=== PATIENT | female | born 1950 | race African-American/Black ===

== ENCOUNTER 2017-10-01 18:18 | Inpatient (IN) | payer OTHER, MEDICAID ==
[~2017-10-01] VITALS: Ht 165.1 cm; Wt 94.3 kg
[~2017-10-01 18:18] MED LIST: FURO-570; GABA600T1; GLIP10TA12; LANTUS IM/IV/SUBQ; LEVO0.124; [UNRECOGNIZED DRUG - CODE]; [UNRECOGNIZED DRUG - CODE]
--- NOTE | 2017-10-01 18:23 | NUR ---
PT TAKEN BY WHEELCHAIR TO BED 2 Addendum: 10/01/17 at 1827 by MEDHT BED 10
[2017-10-01] MEDS ORDERED: NACL 0.9% 1,000 ML IV ONE (18:40)
[2017-10-01 18:41] VITALS: BP 148/94
--- NOTE | 2017-10-01 19:15 | NUR ---
RECEIVED PT RESTING IN BED WITH FAMILY AT BEDSIDE. PT CAME IN WITH COMPLAINTS OF RIGHT SIDED CP 03/13 . PT IS AOX4 . PT STATED THAT THE PAIN STARTED ON 09/26 ATFER A CHANGE OF HER TRACH. PT IS VENT DEPENDENT, HAS A OF PA IN NOV, STROKE WITH RIGHT SIDED DEFICITS. RESPIRATORY FAILIURE, PICC PLAISED 06/27/15, LAMINECTOMY, SPINAL CORD INJURY, TOTAL PARALYSIS, PACEMAKER, DIAPHRAGM REPAIR SURGERY, ESOPHAGUS DISORDER. LUNG SOUNDS DIMINISHED IN BILAT LOWER LOBES. PT IN NO APPARENT DISTRESS AT THIS TIME. ER MD MADE AWARE.
--- NOTE | 2017-10-01 19:20 | NUR ---
LAB AT BEDSIDE
[2017-10-01] MEDS ORDERED: fentaNYL 0.05 MG/ML VIAL IVP ONE ×2 (19:30→21:35)
[2017-10-01 20:03] LABS: BASOPHILS % (AUTO) 0.2 % (0.0-2.0); HEMATOCRIT 31.2 % (36-48); HEMOGLOBIN 10.1 g/dL (12.0-16.0); LYMPHOCYTES % (AUTO) 15.5 % (20.5-51.1); MEAN CORPUSCULAR HEMOGLOBIN 29 pg (27-31); MEAN CORPUSCULAR HGB CONC 32 g/dL (33-37); MEAN CORPUSCULAR VOLUME 90.4 fL (80-94); MONOCYTES # (AUTO) 0.9 K/uL (0.8-1.0); MONOCYTES % (AUTO) 7.1 % (1.7-9.3); NEUTROPHILS # (AUTO) 9.8 K/uL (1.8-7.7); NEUTROPHILS % (AUTO) 77.2 % (42.2-75.2); PLATELET COUNT (AUTO) 224 K/uL (140-450); RED BLOOD CELL COUNT(AUTO) 3.45 MIL/uL (4.20-5.40); RED CELL DISTRIBUTION WIDTH 14.8 % (11.6-13.7); WHITE BLOOD COUNT (AUTO) 12.7 K/uL (4.8-10.8)
[2017-10-01 20:14] LABS: ANION GAP 15.3 (8-16); CARBON DIOXIDE 25.7 mmol/L (21-32); CREATININE 1.1 mg/dL (0.6-1.3)
[2017-10-01] MEDS ORDERED: ACET-5636 PO (20:16)
[2017-10-01] MEDS ORDERED: LEVO0.155 PO (20:16)
[2017-10-01] MEDS ORDERED: ONDA8ODT2 PO (20:16)
[2017-10-01] MEDS ORDERED: ATOR10TA PO (20:16)
[2017-10-01] MEDS ORDERED: ALLO100T21 PO (20:16)
[2017-10-01] MEDS ORDERED: METO-485 PO (20:16)
[2017-10-01] MEDS ORDERED: DOCU-299 PO (20:16)
[2017-10-01] MEDS ORDERED: MULT-1469 PO (20:16)
[2017-10-01] MEDS ORDERED: BEN50 PO (20:16)
[2017-10-01] MEDS ORDERED: INSU100S45 SUBQ (20:16)
[2017-10-01] MEDS ORDERED: ERGO400T3 PO (20:16)
[2017-10-01 20:20] LABS: TOTAL BILIRUBIN 0.3 mg/dL (0.0-1.0)
[2017-10-01] MEDS ORDERED: COU1 GT (20:22)
[2017-10-01] MEDS ORDERED: CILO100T PO (20:22)
--- NOTE | 2017-10-01 20:27 | NUR ---
PT TO CT VIA GURNEY WITH RT AND RN IN STABLE CONDITION.
[2017-10-01] MEDS ORDERED: NACL 0.9% 2,600 ML IV ONE (20:30)
[2017-10-01] MEDS ORDERED: LEVOFLOXACIN 750 MG/D5W PREMIX 150 ML IV ONE (20:30)
--- NOTE | 2017-10-01 20:45 | NUR ---
PT RETURNED FROM CT VIA [facility] IN STABLE CONDITION.
--- NOTE | 2017-10-01 21:40 | NUR ---
DR HICKMAN MADE AWARE OF DIFFICULTIES WITH PICC LINE. UNABLE TO INFUSE FLUIDS AT A FAST VOLUME. OK PER DR HICKMAN TO RUN AT RATE WHICH WILL ACCOMODATE PICC LINE. IF PICC LINE INFUSION IS AT FAST RATE, THERE IS FLUID LEAKAGE AT EXIT SITE. PT STATES THIS HAS BEEN A PROBLEM AT HOME AND USUALLY IT IS RUN AT HOME AT A RATE OF 25CC/HR. PT STATES THE REASON SHE HAS PICC LINE IS BECAUSE SHE IS A DIFFICULT PIV START. PT WILL BE ADMITTED. PICC LINE TEAM WILL NEED TO ASSESS LINE IN THE AM.
--- NOTE | 2017-10-01 21:40 | NUR ---
NS AT 10 CC/ HR , OKAY BY DR HICKMAN DUE TO PICC LINE. DRESSING CHANGE DONE FOR PICC LINE.
--- NOTE | 2017-10-01 22:31 | NUR ---
PATIENT TAKEN TO THE FLOOR FOR ADMISSION
--- NOTE | 2017-10-01 22:35 | NUR ---
PT ARRIVED AT UNIT VIA GURNEY, TRANSFERRED PT TO BED, PT TOLERATED WELL, REPORT RECEIVED FROM ED NURSE, PT PICC LINE TO THE R UPPER ARM, PATENT, LEAKAGE NOTED, NURSING SUPPLY CHAIN SYSTEMS MANAGER ALREADY NOTIFIED REGARDING PT PICC LINE LEAKING, PT ON TRACH TO VENT, NO SOB, RT AT BEDSIDE, ORIENT PT TO ROOM, CALL LIGHT AND PHONE, PT STATED UNDERSTANDING, PT AAOX4, MRSA SWAB TAKEN, INITIAL ASSESSMENT DONE, ALL SAFETY PRECAUTION MET, WILL CONTINUE TO MONITOR.
[2017-10-01 22:38] VITALS: BP 143/66
--- NOTE | 2017-10-01 22:38 | NUR ---
Patient will be admitted to care of DR. KINCAID. Admited to TELE. Will go to room 108B. Belongings list completed. Report to PHOEBE BALDERAS.
[2017-10-01] MEDS ORDERED: NON-FORMULARY ITEM (Oxycodone HCl/Acetaminophen (Percocet 10-325 mg Tablet) 1 TAB) PO PRN (22:45)
[2017-10-01] MEDS: DEXT 5% /NACL 0.9% 1,000 ML IV SCH (23:00)
[2017-10-01] MEDS ORDERED: DEXTROSE 50% 50 ML SYR IVP PRN (23:00)
[2017-10-01] MEDS ORDERED: ACETAMINOPHEN 325 MG TAB GT PRN (23:00)
[2017-10-01] MEDS ORDERED: HYDROcodone/APAP 5/325 MG 1 TAB TAB GT PRN (23:00)
--- NOTE | 2017-10-01 23:40 | NUR ---
CALLED DR. KINCAID REGARDING ORDER OF OXYCODONE NOT AVAILABLE 10/325 PER ORDER, PHARMACY STATED THAT ONLY 5/325 TABLETS ARE AVAILABLE IN THE UNIT. DR STATE TO ORDER 2 TABLETS OF 5/325MG OXYCODONE INSTEAD. WILL PUT IN ORDERS AND CONTINUE WITH ORDERS.
[2017-10-01] MEDS ORDERED: ACETAMINOPHEN 325 MG TAB PO PRN (23:47)
--- NOTE | 2017-10-01 23:50 | NUR ---
URINE SAMPLE OBTAINED FOR CULTURE, PT REFUSED URINARY CATH, CLEAN CATCH URINE WAS OBTAINED, PT TOLERATED WELL, NO DISTRESS NOTED, CALL LIGHT WITHIN REACH, WILL CONTINUE TO MONITOR.
[2017-10-01] MEDS: oxyCODONE/APAP 5/325 MG 1 TAB TAB PO PRN (23:58)
--- NOTE | 2017-10-01 23:58 | NUR ---
PT C/O PAIN 01/11 ON THE R SHOULDER, PAIN MEDICATION ADMINISTERED, TOLERATED WELL, NO DISTRESS NOTED, CALL LIGHT WITHIN REACH, WILL CONTINUE TO MONITOR
[2017-10-02] VITALS: BP 144/69
--- NOTE | 2017-10-02 | NUR ---
NS BOLUS WAS STILL INFUSING IVF D5NS WAS NOT ADMINISTERED.
[2017-10-02] MEDS: ALBUTEROL SULFATE/IPRATROPIU 3 ML SOL IH PRN ×4 (03:05→23:58)
--- NOTE | 2017-10-02 03:15 | NUR ---
UNABLE TO GET SPUTUM SAMPLE. MUCOUS TRAP IS CONNECTED TO BURK WHEN PATIENT CAN GIVE A SPECIMEN
--- NOTE | 2017-10-02 03:32 | NUR ---
PT REFUSES SCD STATED THAT HER PRIMARY CARE DOES NOT WANT ANY THING ON HER CALFS, PT PICC LINE STILL LEAKING, UNABLE TO GET ANY IV LINE INSERTED, PT IS A HARD STICK, IVF STOPPED, PT STABLE, NO DISTRESS NOTED, CALL LIGHT WITHIN REACH, WILL CONTINUE TO MONITOR. Addendum: 10/02/17 at 0500 by Helen Duvall RN SPUTUM COLLECTED, ONLY SMALL AMOUNT WAS ABLE TO BE COLLECTED, DOLL WIG MAKER ROOTED HAIR SAID IS NOT ENOUGH FOR SAMPLE, WILL ENDORSED TO ONCOMING SHIFT FOR SAMPLE.
[2017-10-02 04:00] VITALS: BP 152/83
[2017-10-02] MEDS: oxyCODONE/APAP 5/325 MG 1 TAB TAB PO PRN ×3 (06:17→19:03)
[2017-10-02] MEDS: LEVOTHYROXINE 0.075 MG TAB PO SCH (06:17)
--- NOTE | 2017-10-02 06:17 | NUR ---
PT C/O PAIN, PAIN MEDICATION GIVEN, PT DUE MEDICATION ALSO GIVEN, PT TOLERATED WELL, NO DISTRESS NOTED, CALL LIGHT WITHIN REACH, WILL CONTINUE TO MONITOR.
[2017-10-02] MEDS: BLOOD GLUCOSE MONITORING 1 DEV DEV FS SCH ×4 (06:29→21:56)
--- NOTE | 2017-10-02 06:34 | NUR ---
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 POX IN PLACE
[2017-10-02 06:57] LABS: BASOPHILS % (AUTO) 0.4 % (0.0-2.0); EOSINOPHILS # (AUTO) 0.1 K/uL (0-0.4); EOSINOPHILS % (AUTO) 0.8 % (0.0-4.0); HEMATOCRIT 27.3 % (36-48); HEMOGLOBIN 9.1 g/dL (12.0-16.0); LYMPHOCYTES # (AUTO) 2.4 K/uL (2.5-16.5); LYMPHOCYTES % (AUTO) 24.5 % (20.5-51.1); MEAN CORPUSCULAR HEMOGLOBIN 30 pg (27-31); MEAN CORPUSCULAR HGB CONC 33 g/dL (33-37); MEAN CORPUSCULAR VOLUME 89.5 fL (80-94); MONOCYTES # (AUTO) 0.9 K/uL (0.8-1.0); MONOCYTES % (AUTO) 9.3 % (1.7-9.3); NEUTROPHILS # (AUTO) 6.3 K/uL (1.8-7.7); PLATELET COUNT (AUTO) 184 K/uL (140-450); RED BLOOD CELL COUNT(AUTO) 3.05 MIL/uL (4.20-5.40); RED CELL DISTRIBUTION WIDTH 14.7 % (11.6-13.7); WHITE BLOOD COUNT (AUTO) 9.7 K/uL (4.8-10.8)
[2017-10-02 07:06] LABS: ANION GAP 10.9 (8-16); CARBON DIOXIDE 26.7 mmol/L (21-32); CREATININE 1.1 mg/dL (0.6-1.3); POTASSIUM 3.6 mmol/L (3.5-5.1)
--- NOTE | 2017-10-02 07:23 | NUR ---
ENDORSED PLAN OF CARE TO DAY SHIFT NURSE VIANEY RN, PT STABLE, NO DISTRESS NOTED, CALL LIGHT WITHIN REACH.
--- NOTE | 2017-10-02 07:24 | NUR ---
REPORT OBTAINED FROM CORRECTIONAL MEDICINE PHYSICIAN NURSE AT BEDSIDE, PT IS AAOX4, APHASIC, ABLE TO KNOCK HEAD, FOLLOW COMMANDS AND MAKE NEEDS KNOWN. NO S/S OF DISTRESS, TRACH TO VENT WITH SETTING FIO2 3, DIMINISHED LUNG SOUNDS BLL, DENIES CHEST PAIN, SR ON TELE MONITOR, SOFT ABDOMEN WITH ACTIVE BOWEL SOUNDS, INCONTINENT WITH B&B'S, SEVERE WEAKNESS NOTED TO BLE, SKIN IS INTACT, WARM AND DRY TO TOUCH, PICC LINE TO RIGHT UA, LEAKING, MD AWARE PER REPORT. EXPLAINED POC TO PT, PT VERBALIZED UNDERSTANDING, SAFETY MEASURE IN PLACE, CALL LIGHT WITHIN REACH, WILL CONTINUE TO MONITOR. Addendum: 10/02/17 at 1003 by Shadi Preciado RN PT IS NOT APHASIC, ABLE TO COMMUNICATE VERBALLY.
[2017-10-02 08:00] VITALS: BP_SYST 145; BP_DIAS 7; BP_DIAS 70
[2017-10-02 08:10] LABS: PROTHROMBIN TIME 15.9 secs (10.8-13.4)
[2017-10-02] MEDS: DOCUSATE 100 MG/10 ML UDC PO SCH ×2 (08:33→21:45)
[2017-10-02] MEDS: GABAPENTIN 300 MG CAP PO SCH ×3 (08:33→17:24)
[2017-10-02] MEDS: METOCLOPRAMIDE 10 MG TAB PO SCH ×3 (08:33→17:25)
--- NOTE | 2017-10-02 08:57 | NUR ---
PATIENT HAS BEEN SCREENED AND CATEGORIZED MODERATE NUTRITION RISK. PATIENT WILL BE SEEN WITHIN 3-5 DAYS OF ADMISSION. 10/04/17 10/06/[address]
[2017-10-02] MEDS ORDERED: METOCLOPRAMIDE 10 MG TAB PO SCH (09:00)
[2017-10-02] MEDS ORDERED: GABAPENTIN 300 MG CAP PO SCH (09:00)
[2017-10-02] MEDS ORDERED: DOCUSATE SODIUM 100 MG GELCAP PO SCH (09:00)
[2017-10-02] MEDS: DEXT 5% /NACL 0.9% 1,000 ML IV SCH ×2 (09:00→13:00)
[2017-10-02] MEDS ORDERED: LEVOTHYROXINE 0.075 MG TAB PO SCH (09:00)
--- NOTE | 2017-10-02 09:00 | NUR ---
PICC LINE STILL LEAKING, NOT ABLE TO ADMINISTER IV MEDICATION AT THIS TIME, PICC LINE NURSE CALLED, NEED MD CONSENT AT THIS TIME, WILL WAIT FOR DR. KINCAID COME.
--- NOTE | 2017-10-02 10:45 | NUR ---
PICC LINE INSERTION CONSENT COMPLETED, CALLED PICC LINE NURSE AND HE IS ON THE WAY.
[2017-10-02 12:00] VITALS: BP 122/67
--- NOTE | 2017-10-02 12:15 | NUR ---
MID LINE INSERTED TO LEFT UPPER ARM BY PICC LINE NURSE, PT TOLERATED WELL. Addendum: 10/02/17 at 1403 by Shadi Preciado RN PICC LINE NURSE STATED THE MIDLINE ABLE TO USE NOW, AND NO NEED CONFIRM WITH X-RAY AT THIS TIME.
[2017-10-02 16:00] VITALS: BP 130/66
[2017-10-02] MEDS ORDERED: diphenhydrAMINE 50 MG CAP PO PRN (16:55)
[2017-10-02] MEDS ORDERED: WARFARIN 1 MG TAB PO SCH (17:00)
--- NOTE | 2017-10-02 17:00 | NUR ---
DR. KINCAID CAME IN TO SEE PT AT BEDSIDE, NEW ORDERS OBTAINED AND WILL FOLLOW UP.
[2017-10-02] MEDS: INSULIN LISPRO SLIDING SCALE 100 UNITS/ML VIAL SUBQ PRN ×2 (17:30→21:55)
--- NOTE | 2017-10-02 17:33 | NUR ---
VENT CHECK, NO SXN REQUIRED AT THIS TIME, AIRWAY IS PATENT AND PT IS AWAKE AND ALERT WITH NO SIGNS OF DISTRESS NOTED
--- NOTE | 2017-10-02 18:59 | NUR ---
DR. GUNN CAME IN TO SEE PT AT BEDSIDE, NEW ORDER OBTAINED AND WILL FOLLOW UP.
--- NOTE | 2017-10-02 19:15 | NUR ---
RECEIVED PT STABLE ON VENT SUPPORT AT DOCUMENTED SETTINGS, TOLERATING WELL, NO RESP DISTRESS OR SOB NOTED AT THIS TIME, PT AWAKE/ALERT AND ABLE COMMUNICATE, SHILEY 6 XLT SECURED/PATENT/MIDLINE, ALARMS SET AND AUDIBLE, AMBU BAG AT BEDSIDE, VENT PLUGGED INTO RED OUTLET, CONT PULSE OX ON, DAUGHTER CAME AND DROPPED OFF EXTRA DISPOSABLE AND INNER CANNULAS BEDSIDE, WILL CONT TO MONITOR.
--- NOTE | 2017-10-02 19:25 | NUR ---
REPORT GIVEN TO FINANCE VICE PRESIDENT NURSE FOR CONTINUE OF CARE, PT IS IN STABLE CONDITION AT THIS TIME.
--- NOTE | 2017-10-02 19:26 | NUR ---
RECEIVED PT FROM VIANEY RN PT AAOX4 ON TRACH TO VENT DEPENDENT ON VENTILATOR SETTING, TV 600 FIO2 30 PEEP OFF, REMAIN STABLE AT TTHIS TIME SUCTIONED NECESARY ON TELMDETRY SR, PICC LINE ON LEFT UA INFUSING WELL REPOSITIONED INITIAL ASSESSMENT DONE
[2017-10-02 20:00] VITALS: BP 111/55
[2017-10-02] MEDS ORDERED: ATORVASTATIN 20 MG TAB PO SCH (21:00)
[2017-10-02] MEDS: ATORVASTATIN 20 MG TAB PO SCH (21:46)
[2017-10-02] MEDS: CILOSTAZOL 100 MG TAB PO SCH (21:47)
[2017-10-02] MEDS: LEVOFLOXACIN 500 MG/D5W PREMIX 100 ML IV SCH (21:48)
--- NOTE | 2017-10-02 22:00 | NUR ---
BLOOD SUGAR TEST 155 COVERAGE WITH HUMALOG 2 UNITS SUBQ FOLLOW PROTOCOL SR ON TELMETRY
[2017-10-03] VITALS (12 sets, daily range): BP systolic 0–157; BP diastolic 0–75
--- NOTE | 2017-10-03 00:13 | NUR ---
CALLED TO BEDSIDE FOR BREATHING TREATMENT. PRN TX ADMINISTERED. YANA TX WELL, NO ADVERSE SIDE EFFECTS. PATIENT STATES TO "FEEL BETTER". NO RESPIRATORY DISTRESS AT THIS TIME. WILL CONTINUE TO MONITOR.
[2017-10-03] MEDS: HYDROcodone/APAP 5/325 MG 1 TAB TAB PO PRN ×2 (00:14→14:53)
[2017-10-03] MEDS: DEXT 5% /NACL 0.9% 1,000 ML IV SCH ×3 (00:15→15:00)
--- NOTE | 2017-10-03 01:00 | NUR ---
AFTER PAIN MEDIC GIVEN PT SLEEP QUIET NOT DISTRESS NOTED , SLEEPING WELL ON TELE SR BB
--- NOTE | 2017-10-03 02:00 | NUR ---
REPOSITIONED Q2H DENIES ANY PAIN, TRACH TO VENT REMAIN SAME SETTING ON TELEMETRY SR
--- NOTE | 2017-10-03 04:00 | NUR ---
SPONGE BATH GIVEN K LINEN CHANGED NOT DISTRESS NOTED REPOSITIONED Q2H MONITORING CLOSE
[2017-10-03] MEDS ORDERED: CLINDAMYCIN 900 MG/6 ML VIAL IV ONE (04:54)
[2017-10-03] MEDS ORDERED: CLINDAMYCIN 900 MG in DEXTROSE 5% 100 ML IV SCH (05:00)
[2017-10-03] MEDS: BLOOD GLUCOSE MONITORING 1 DEV DEV FS SCH ×4 (05:50→21:27)
[2017-10-03] MEDS: LEVOTHYROXINE 0.075 MG TAB PO SCH (05:55)
--- NOTE | 2017-10-03 06:03 | NUR ---
PT REPOSITIONED ON TELEMETRY SR TRACH TO VENT REMAIN SAME SETTING NOT DISTRESS NOTED PT WILL BE ENDORSED TO DAY SHIFT NURSE FOR CONTINUITY OF CARE
--- NOTE | 2017-10-03 06:06 | NUR ---
BLOOD SUGAR TEST 94
[2017-10-03 06:35] LABS: BASOPHILS % (AUTO) 0.4 % (0.0-2.0); EOSINOPHILS # (AUTO) 0.1 K/uL (0-0.4); EOSINOPHILS % (AUTO) 1.3 % (0.0-4.0); HEMATOCRIT 26.4 % (36-48); HEMOGLOBIN 8.6 g/dL (12.0-16.0); LYMPHOCYTES # (AUTO) 2.4 K/uL (2.5-16.5); LYMPHOCYTES % (AUTO) 31.9 % (20.5-51.1); MEAN CORPUSCULAR HEMOGLOBIN 29 pg (27-31); MEAN CORPUSCULAR HGB CONC 32 g/dL (33-37); MEAN CORPUSCULAR VOLUME 89.7 fL (80-94); MONOCYTES # (AUTO) 0.8 K/uL (0.8-1.0); MONOCYTES % (AUTO) 10.3 % (1.7-9.3); NEUTROPHILS # (AUTO) 4.3 K/uL (1.8-7.7); NEUTROPHILS % (AUTO) 56.1 % (42.2-75.2); PLATELET COUNT (AUTO) 192 K/uL (140-450); RED BLOOD CELL COUNT(AUTO) 2.95 MIL/uL (4.20-5.40); RED CELL DISTRIBUTION WIDTH 14.7 % (11.6-13.7); WHITE BLOOD COUNT (AUTO) 7.6 K/uL (4.8-10.8)
[2017-10-03 06:59] LABS: ANION GAP 12.4 (8-16); CARBON DIOXIDE 25.2 mmol/L (21-32); POTASSIUM 3.6 mmol/L (3.5-5.1)
[2017-10-03 07:00] LABS: PROTHROMBIN TIME 14.7 secs (10.8-13.4)
--- NOTE | 2017-10-03 07:55 | NUR ---
RECEIVED PATIENT REPORT AT BEDSIDE. PATIENT AWAKE, ALERT AND ORIENTED. PATIENT TRACH TO VENT. O2 SAT 98% AT THIS TIME. NO S/S OF DISTRESS. MIDLINE NOTED TO THE LEFT UPPER ARM WITH NO FLUIDS INFUSING. PATIENT REPORTS OF PAIN ON THE LEFT ARM. BOTH PORTS OF THE MIDLINE FLUSHED WITH NO RESISTANCE. WILL CONTINUE TO MONITOR
[2017-10-03] MEDS: DOCUSATE 100 MG/10 ML UDC PO SCH ×2 (09:00→20:53)
--- NOTE | 2017-10-03 09:05 | NUR ---
PATIENT PRESENTING WITH INCREASED SOB BREATH SOUNDS COARSE RHONCHI BILATERAL DUE CUFF DEFLATED VTexp AT 450 L/M INCREASE CUFF PRESSURE TO [id number] DEEP TRACJEAL SUCTION FOR LARGE THICK YELLO SECRETIONS SATURATION 96% ON FIO2 OF 40%
--- NOTE | 2017-10-03 09:05 | NUR ---
RECEIVED ON A [employer] R860 VENTILATOR PLUGGED INTO RED OUTLET TOLERATING WELL WITHOUT ADVERSE REACTIONS NOTED TO A SHILEY XLT #6 AIRWAY CUFF PRESSURE CHECKED NOTED AMBU BAG NOTED AT HOB LOC AWAKE AND ALERT C/O SOB BREATH SOUNDS COARSE RHONCHI BILATERAL WITH GOOD CHEST RISE DEEP TRACHEAL SUCTION FOR LARGE THICK YELLOW SECRETIONS AIRWAY PATENT HHN PRN THERAPY GIVEN ORDERED
[2017-10-03] MEDS: ALBUTEROL SULFATE/IPRATROPIU 3 ML SOL IH PRN ×2 (09:07→17:30)
--- NOTE | 2017-10-03 09:27 | NUR ---
ASLEEP RESTING COMFORTABLY GOOD CHEST RISE BREATH SOUNDS RHONCHI BILATERAL DEEP TRACHEAL SUCTION FOR MODERATE SEMI THICK YELLOW SECRETIONS AIRWAY PATENT
[2017-10-03] MEDS: METOCLOPRAMIDE 10 MG TAB PO SCH ×3 (09:41→17:14)
[2017-10-03] MEDS: VIT-B COMP/VIT-C/FOLIC ACID 1 TAB PO SCH (09:41)
[2017-10-03] MEDS: CILOSTAZOL 100 MG TAB PO SCH ×2 (09:41→20:54)
[2017-10-03] MEDS: ALLOPURINOL 100 MG TAB PO SCH (09:41)
[2017-10-03] MEDS: GABAPENTIN 300 MG CAP PO SCH ×3 (09:41→17:14)
--- NOTE | 2017-10-03 09:41 | NUR ---
ORAL MEDICATIONS ADMINISTERED. PATIENT TOLERATED WELL
[2017-10-03] MEDS: oxyCODONE/APAP 5/325 MG 1 TAB TAB PO PRN (09:53)
--- NOTE | 2017-10-03 10:33 | NUR ---
TRANSFERRED TO RADIOLOGY FOR CT SCAN OF NECK REMOVED PATIENT FROM VENTILATOR PLACED ON SUPPLEMENTAL OXYGEN AT 15 LPM VIA E-TANK TO AMBU BAG/INLINE SUCTION CATHETER/TRACHEOSTOMY TUBE BAG DEPRESSION EVERY 6-8 SECONDS SATURATION 100% HR 85-88 TOLERATED PROCEDURE WELL WITHOUT ADVERSE REACTIONS NOTED
--- NOTE | 2017-10-03 10:35 | NUR ---
PATIENT LEFT THE UNIT FOR CT OF THE NECK
--- NOTE | 2017-10-03 10:52 | NUR ---
RETURNED FROM CT SCAN PLACED BACK ON VENTILATOR WITH SAME SETTINGS NOTED SATURATION 100% HR 85-90
--- NOTE | 2017-10-03 12:05 | NUR ---
AWAKE AND ALERT CUFF PRESSURE REDUCED BY FARZAD/RN FOR PATIENT ORAL RESPONSE GOOD CHEST RISE BREATH SOUNDS DIFFUSED EXP RHONCHI BILATERAL DEEP TRACHEAL SUCTION FOR SMALL SEMI THICK YELLOW SECRETIONS AIRWAY PATENT
[2017-10-03] MEDS: CLINDAMYCIN PHOSPHATE 900MG/NS 50 ML IV SCH ×2 (13:00→20:52)
--- NOTE | 2017-10-03 14:29 | NUR ---
ASLEEP NO DISTRESS NOTED GOOD CHEST RISE NO RETURN ON TRACHEAL SUCTION AIRWAY PATENT
--- NOTE | 2017-10-03 15:00 | NUR ---
PATIENT TURNED AND REPOSITIONED FOR COMFORT. PATIENT C/O LEG PAIN. PRN PAIN MEDICATION ADMINISTERED. WILL CONTINUE TO MONITOR
--- NOTE | 2017-10-03 15:31 | NUR ---
patient is asleep with no SOB noted
[2017-10-03] MEDS ORDERED: WARFARIN 2.5 MG TAB PO SCH (17:00)
--- NOTE | 2017-10-03 18:08 | NUR ---
PATIENT SEEN BY DR KINCAID
[2017-10-03] MEDS ORDERED: SODIUM PHOSPHATE 118 ML ENEM RC SCH (18:15)
--- NOTE | 2017-10-03 19:16 | NUR ---
RECEIVED PT ON SHILEY XLT 6. VENT SETTINGS AC/VC RR12, VT 600, 0 PEEP, FI02 30%. AIRWAY WAS SECURED AND PATENT. VENT IS PLUGGED INTO RED OUTLET AND AMBU-BAG IS IN ROOM. VENT ALARMS ARE SET AND FUNCTIONING. NO RESPIRATORY DISTRESS NOTED. CONTINUOUS PULSE OX IN ROOM. WILL CONTINUE TO MONITOR.
--- NOTE | 2017-10-03 19:25 | NUR ---
PATIENT REPORT GIVEN AT BEDSIDE. PATIENT ENDORSED IN STABLE CONDITION
--- NOTE | 2017-10-03 19:27 | NUR ---
RECEIVED PT FROM FARZAD RN PT AAOX4 ON BED REST TRACH TO VENT DEPENDENT SETTING TV 600, FIO2 30% OFF PEEP MID LINE ON LEFT UA INFUSING WELL TKO PT REPOSITIONED NOT DISTRESS NOTED INITIAL ASSESSMENT DONE
[2017-10-03] MEDS: ATORVASTATIN 20 MG TAB PO SCH (20:53)
[2017-10-03] MEDS: INSULIN LISPRO SLIDING SCALE 100 UNITS/ML VIAL SUBQ PRN (21:29)
--- NOTE | 2017-10-03 21:30 | NUR ---
BLOOD SUGAR TEST 158 COVERAGE WITH 2 UNITS HUMALOG SUB Q FOLLOWING PROTOCOL
[2017-10-03] MEDS: LEVOFLOXACIN 500 MG/D5W PREMIX 100 ML IV SCH (22:08)
[2017-10-04] VITALS (11 sets, daily range): BP systolic 0–162; BP diastolic 0–73
--- NOTE | 2017-10-04 | NUR ---
PT SLEEPING NOT DISTRESS NOTED ONTELMETRY SR BBB REPOSITIONED Q2H
[2017-10-04] MEDS: DEXT 5% /NACL 0.9% 1,000 ML IV SCH (01:00)
--- NOTE | 2017-10-04 03:00 | NUR ---
PT SLEEPING WELL DENIES ANY PAIN TRACH TO VENT REMAIN SAME SETTING NOT DISTRESS NOTED ON TELE SR BBB
[2017-10-04] MEDS: ALBUTEROL SULFATE/IPRATROPIU 3 ML SOL IH PRN ×3 (03:44→19:07)
--- NOTE | 2017-10-04 04:55 | NUR ---
SPONGE BATH GIVEN LINEN CHANGED REPOSITIONED SUCTIONED NECESSARY TRACH TO VENT REMAIN STABLE, NOT DISTRESS NOTED A THI;S JALEN;E
[2017-10-04] MEDS: CLINDAMYCIN PHOSPHATE 900MG/NS 50 ML IV SCH ×2 (05:00→12:07)
--- NOTE | 2017-10-04 05:30 | NUR ---
PT REFUSED EKG AND TRACH CARE. PT WAS SLEEPING AND SHE DID MADE IT CLEAR SHE DID NOT WANT TO BE WOKEN UP AT THE MOMENT.
[2017-10-04] MEDS: LEVOTHYROXINE 0.075 MG TAB PO SCH (05:56)
[2017-10-04] MEDS: BLOOD GLUCOSE MONITORING 1 DEV DEV FS SCH ×4 (06:00→21:12)
--- NOTE | 2017-10-04 06:04 | NUR ---
PT SLEEPING REMAIN STABLE NOT DISTRESS NOTED BLOOD SUGAR TEST 115
--- NOTE | 2017-10-04 06:12 | NUR ---
TRACH TO VENT REMAIN SAME SETTING TV 600 FIO2 30% OFF PEEP RR 12 PT ON TELEMETRY SR BBB DENIES ANY DISCOMFORT AT THIS TIME
[2017-10-04 06:24] LABS: BASOPHILS % (AUTO) 0.3 % (0.0-2.0); EOSINOPHILS # (AUTO) 0.1 K/uL (0-0.4); EOSINOPHILS % (AUTO) 1.3 % (0.0-4.0); HEMOGLOBIN 8.8 g/dL (12.0-16.0); LYMPHOCYTES # (AUTO) 2.3 K/uL (2.5-16.5); LYMPHOCYTES % (AUTO) 27.8 % (20.5-51.1); MEAN CORPUSCULAR HEMOGLOBIN 29 pg (27-31); MEAN CORPUSCULAR HGB CONC 33 g/dL (33-37); MONOCYTES # (AUTO) 0.8 K/uL (0.8-1.0); NEUTROPHILS # (AUTO) 5.1 K/uL (1.8-7.7); NEUTROPHILS % (AUTO) 61.6 % (42.2-75.2); PLATELET COUNT (AUTO) 210 K/uL (140-450); RED BLOOD CELL COUNT(AUTO) 3.03 MIL/uL (4.20-5.40); RED CELL DISTRIBUTION WIDTH 14.8 % (11.6-13.7); WHITE BLOOD COUNT (AUTO) 8.3 K/uL (4.8-10.8)
[2017-10-04 06:26] LABS: ANION GAP 13.9 (8-16); CARBON DIOXIDE 24.5 mmol/L (21-32); CREATININE 1.2 mg/dL (0.6-1.3); POTASSIUM 3.4 mmol/L (3.5-5.1)
[2017-10-04 06:53] LABS: PROTHROMBIN TIME 17.2 secs (10.8-13.4)
--- NOTE | 2017-10-04 07:20 | NUR ---
RECEIVED REPORT FROM PLATFORM OPERATIONS DIRECTOR NURSE, PT IS RESTING IN BED USING HER CELL PHONE, PT IS AAOX4, UNABLE TO AMBULATE, USES A MOTORIZED WHEELCHAIR, PT HAS A PICC LINE ON HER LEFT MIDARM, PATENT, INTACT, SOME DISCOLORATION NOTED BY THE PICC LINE WILL CONTINUE TO MONITOR, PT IS ON A TRACH TO VENT FIO2 30%, TV:600, PEEP IS OFF, RR: 13 DISCUSSED PLAN OF CARE WITH PT, PT VERBALIZED UNDERSTANDING, SAFETY/FALL PRECAUTIONS ARE IN PLACE, CALL LIGHT IS WITHIN REACH, WILL CONTINUE TO MONITOR.
--- NOTE | 2017-10-04 07:40 | NUR ---
PT ASKED TO BE SUCTIONED. I SUCTIONED THE PATIENT TWICE BUT SHE STILL IS COMPLAINING OF SHORTNESS OF BREATH. I CALLED ZULY FROM RT TO LET HIM KNOW, ZULY SAID HE WOULD TAKE A LOOK AT THE PATIENT.
--- NOTE | 2017-10-04 07:47 | NUR ---
RT (ZULY) IS AT BEDSIDE GIVING THE PATIENT A BREATHING TREATMENT.
[2017-10-04] MEDS: HYDROcodone/APAP 5/325 MG 1 TAB TAB PO PRN ×2 (08:24→15:49)
[2017-10-04] MEDS: VIT-B COMP/VIT-C/FOLIC ACID 1 TAB PO SCH (08:26)
[2017-10-04] MEDS: METOCLOPRAMIDE 10 MG TAB PO SCH ×3 (08:26→17:42)
[2017-10-04] MEDS: ALLOPURINOL 100 MG TAB PO SCH (08:26)
[2017-10-04] MEDS: DOCUSATE 100 MG/10 ML UDC PO SCH ×2 (08:26→20:24)
[2017-10-04] MEDS: CILOSTAZOL 100 MG TAB PO SCH ×2 (08:27→20:24)
[2017-10-04] MEDS: GABAPENTIN 300 MG CAP PO SCH ×3 (08:31→17:34)
[2017-10-04] MEDS ORDERED: POTASSIUM CHLORIDE 10 MEQ TABER PO SCH ×2 (09:30)
--- NOTE | 2017-10-04 10:14 | NUR ---
PATIENT GIVEN A SPONGE BATH, GOWN CHANGED AND RE POSITIONED FOR COMFORT, ALL NEEDS ARE MET AT THIS TIME, CALL LIGHT WITHIN REACH.
--- NOTE | 2017-10-04 10:30 | NUR ---
PATIENT HAD RALES BILATERALLY AND GOT SUCTIONED. FAIR AMOUNT OF SECRETIONS WERE SUCTIONED. PATIENT IS STABLE AND IN GOOD CONDITION.
--- NOTE | 2017-10-04 11:02 | NUR ---
VENTILATOR CHANGED FOR PREVENTIVE MAINTENANCE NOW [facility] R860 ID#[id number]
--- NOTE | 2017-10-04 11:11 | NUR ---
STABLE NO EVIDENCE OF PULMONARY DISTRESS NOTED BREATH SOUNDS RHONCHI BILATERAL WITH GOOD CHEST RISE DEEP TRACHEAL SUCTION FOR LARGE THICK PALE YELLOW TO CLEAR SECRETIONS AIRWAY PATENT
--- NOTE | 2017-10-04 14:00 | NUR ---
SUCTIONED PATIENT DUE TO DIFFICULTY BREATHING. THICK PALE YELLOW SECRETIONS
--- NOTE | 2017-10-04 14:12 | NUR ---
10/04/17 RD INITIAL ASSESSMENT COMPLETED PLEASE REFER TO NUTRITION ASSESSMENT UNDER CARE ACTIVITY FOR ESTIMATED NUTRITIONAL NEEDS. 1. CONTINUE CARDIAC AND CCHO 60 GM DIET TOLERATED 2. PROVIDED EDUCATION ON DIABETES AND CARDIAC DIET. 3. RD TO FOLLOW-UP 3-5 DAYS, MEDIUM RISK MAGDALENA BOSCH RD
--- NOTE | 2017-10-04 14:29 | NUR ---
PAGED DR. Carri KINCAID TO LET HIM KNOW THE PATIENT'S LEFT ARM WAS STARTING TO SWELL AND PATIENT WAS COMPLAINING IT WAS STARTING TO HURT. THERE IS ALSO DISCOLORATION NOTED AROUND THE PICC LINE. FLUIDS HELD AT THIS TIME.
[2017-10-04] MEDS: SODIUM PHOSPHATE 118 ML ENEM RC PRN (14:33)
--- NOTE | 2017-10-04 15:32 | NUR ---
PAGED DR. KINCAID A SECOND TIME TO LET HIM KNOW THE PICC LINE WAS HURTING THE PATIENT AND ARM WAS SWELLING. I ALSO CALLED HIM TO LET HIM KNOW PATIENT ENDOTRACHEAL WASH WAS POSITIVE FOR PSEUDOMONAS MDRO, CARBAPENEM RESISTANT.
--- NOTE | 2017-10-04 16:22 | NUR ---
DR. KINCAID WAS PAGED FOR A THIRD TIME TO LET HIM KNOW ABOUT THE PICC LINE AND LAB RESULT.
--- NOTE | 2017-10-04 16:30 | NUR ---
PER DR. CODI TRAORE TO REMOVE OLD PICC LINE AND INSERT NEW PICC LINE.
[2017-10-04] MEDS ORDERED: WARFARIN 2.5 MG TAB PO SCH (17:00)
--- NOTE | 2017-10-04 18:00 | NUR ---
FAXED DR. KINCAID THE PICC LINE CONSENT FOR HIM TO SIGN AND FAX BACK. CONSENT WAS FAXED TO [phone].
--- NOTE | 2017-10-04 18:20 | NUR ---
RECEIVED SIGNED CONSENT FOR PICC LINE FROM DR. KINCAID AND FILED IN PATIENT'S CHART.
--- NOTE | 2017-10-04 18:26 | NUR ---
PER CHARGE NURSE SHE NOTIFIED MARKETING TRAFFIC COORDINATOR HA SO THAT HE CAN LET THE PICC LINE NURSE (ANISA) KNOW THERE IS A PATIENT WHO NEEDS A PICC LINE.
--- NOTE | 2017-10-04 19:10 | NUR ---
ENDORSED PT TO RETAIL ADVISOR NURSE FOR CONTINUITY OF CARE. PT STABLE AT THIS TIME. RT IS AT BEDSIDE.
--- NOTE | 2017-10-04 19:15 | NUR ---
RECEIVED PT FROM JIMENA RN PT AAOX4 TRACH TO VENT DEPENDENT TV 60;0, FIO2 30%, RR 12 PEEPOFF NOT RESP DISTRESS NOTED 02 SAT 100% NOT IV LINE, NOT MID LINE FROM LEFT UA WAS DC FOR LEAKING PROBLEM REPOSITIONED INITIAL ASSESSMENT DONE
--- NOTE | 2017-10-04 20:00 | NUR ---
STILL WAITING FOR PICC LINE NURSE, CERAMIC WORKER IS AWARE
[2017-10-04] MEDS: ATORVASTATIN 20 MG TAB PO SCH (20:25)
--- NOTE | 2017-10-04 21:00 | NUR ---
BLOOD SUGAR TEST 147 NOT COVERAGE PT ON TELEMETRY SR BBB
[2017-10-04] MEDS: oxyCODONE/APAP 5/325 MG 1 TAB TAB PO PRN (21:19)
--- NOTE | 2017-10-04 21:30 | NUR ---
NAVY SEAL LEFT A MESSAGE TO PICC LINE NURSE TWICE; ANTIBIOTICS HAVE NOT BEEN GIVEN YET
[2017-10-05] VITALS (11 sets, daily range): BP systolic 0–142; BP diastolic 0–71
--- NOTE | 2017-10-05 | NUR ---
PICC LINE NURSE IS HERE AT BED SIDE ASSISTING THE PT WITH A PICC LINE
[2017-10-05] MEDS: CLINDAMYCIN PHOSPHATE 900MG/NS 50 ML IV SCH ×3 (00:20→12:50)
--- NOTE | 2017-10-05 00:20 | NUR ---
PICC LINE NURSE INSERTED A MID LINE ON RT UPPER ARM AND ANTIBIOTICS WILL BE GIVEN ORDER
[2017-10-05] MEDS: LEVOFLOXACIN 500 MG/D5W PREMIX 100 ML IV SCH (00:23)
--- NOTE | 2017-10-05 01:11 | NUR ---
PT TRACH TO VENT REMAIN SAME SETTING NOT DISTRESS NOTED PT GETTING SLEEP ON TELE SR BBB
--- NOTE | 2017-10-05 04:00 | NUR ---
SPONGE BATH GIVEN LINEN CHANGED REPOSITIONED Q2H TRACH TO VENT REMAIN SAME SETTING NOT DISTRESS NOTED
[2017-10-05] MEDS: ALBUTEROL SULFATE/IPRATROPIU 3 ML SOL IH PRN ×4 (04:57→19:41)
[2017-10-05] MEDS: ONDANSETRON 4 MG ODT PO PRN ×2 (05:01→13:48)
--- NOTE | 2017-10-05 05:14 | NUR ---
EDIE CHANGED PT INCONTINENT ON TELE SR BBB RESP THERAPY IS HERE ASSISTING THE PT
[2017-10-05] MEDS: LEVOTHYROXINE 0.075 MG TAB PO SCH (05:50)
--- NOTE | 2017-10-05 06:15 | NUR ---
RESP THERAPY AT BED SIDE ASSISTING THE PT NOT DISTRESS NOTED REPOSITIONED Q2H; ON TELMETRY SR BBB
[2017-10-05 06:36] LABS: BASOPHILS # (AUTO) 0.3 K/uL (0.00-0.22); BASOPHILS % (AUTO) 3.3 % (0.0-2.0); EOSINOPHILS # (AUTO) 0.1 K/uL (0-0.4); EOSINOPHILS % (AUTO) 1.5 % (0.0-4.0); HEMATOCRIT 30.6 % (36-48); HEMOGLOBIN 9.7 g/dL (12.0-16.0); LYMPHOCYTES # (AUTO) 2.6 K/uL (2.5-16.5); LYMPHOCYTES % (AUTO) 31.2 % (20.5-51.1); MEAN CORPUSCULAR HEMOGLOBIN 29 pg (27-31); MEAN CORPUSCULAR HGB CONC 32 g/dL (33-37); MEAN CORPUSCULAR VOLUME 89.7 fL (80-94); MONOCYTES # (AUTO) 0.7 K/uL (0.8-1.0); MONOCYTES % (AUTO) 7.8 % (1.7-9.3); NEUTROPHILS # (AUTO) 4.7 K/uL (1.8-7.7); NEUTROPHILS % (AUTO) 56.2 % (42.2-75.2); PLATELET COUNT (AUTO) 222 K/uL (140-450); RED BLOOD CELL COUNT(AUTO) 3.41 MIL/uL (4.20-5.40); WHITE BLOOD COUNT (AUTO) 8.4 K/uL (4.8-10.8)
[2017-10-05] MEDS: BLOOD GLUCOSE MONITORING 1 DEV DEV FS SCH ×4 (06:39→20:33)
[2017-10-05] MEDS: oxyCODONE/APAP 5/325 MG 1 TAB TAB PO PRN ×2 (06:52→20:22)
--- NOTE | 2017-10-05 06:58 | NUR ---
PAIN MEDIC GIVEN ORDER PT WILL BE ENDORSED TO NARCISO RN FOR CONTINUITY OF CARE
[2017-10-05 07:04] LABS: PROTHROMBIN TIME 17.2 secs (10.8-13.4)
--- NOTE | 2017-10-05 07:06 | NUR ---
PATIENT REPORT RECEIVED FROM AUTO PARTS SALESPERSON NURSE AT BEDSIDE FOR CONTINUITY OF CARE. PATIENT AAOX4, TRACH TO VENT DEPENDENT, TV 60;0, FIO2 30%, RR 12 PEEPOFF. NO RESPIRATORY DISTRESS NOTED. 02 SAT 100%. PICC LINE IN PLACE ON RIGHT ARM, PATENT, ASYMPTOMATIC, AND INTACT. SKIN INTACT. PATIENT HAS HEEL PROTECTORS ON BILATERAL LOWER EXTREMITIES. UPDATED BOARD, PATIENT INFORMED OF TODAY'S PLAN OF CARE, PATIENT VERBALIZED UNDERSTANDING. SAFETY AND ISOLATION PRECAUTION IN PLACE, BED ON LOWEST SETTING, CALL LIGHT WITHIN REACH. WILL CONTINUE TO MONITOR PATIENT.
--- NOTE | 2017-10-05 07:32 | NUR ---
RECEIVED ON A [employer] CARESCAPE R860 VENTILATOR PLUGGED INTO RED OUTLET TOLERATING WELL WITHOUT INCIDENT TO A SHILEY XLT #6 SECURED WITH A SHILEY TRACH TIE (PATIENT'S OWN) PATIENT STATES THAT SHE ALLERGIC TO KATT TRACH TIE CUFF PRESSURE CHECKED NOTED AMBU BAG NOTED AT HOB LOC AWAKE AND ALERT RESPONSIVE TO COUNTERINTELLIGENCE ANALYST VERBAL COMMANDS SKIN TONE PINK BREATH SOUNDS RHONCHI BILATERAL WITH GOOD CHEST RISE DEEP TRACHEAL SUCTION FOR MODERATE THICK PALE YELLOW SECRETIONS AIRWAY PATENT
[2017-10-05 08:41] LABS: ANION GAP 13.8 (8-16); CARBON DIOXIDE 25.2 mmol/L (21-32); CREATININE 1.3 mg/dL (0.6-1.3)
--- NOTE | 2017-10-05 09:20 | NUR ---
PAGED Alan SMALLWOOD BECAUSE PATIENT WANTED TO SPEAK TO HIM ABOUT HER NEW BLOOD PRESSURE MEDICATIONS. WILL AWAIT FOR HIS CALL BACK.
[2017-10-05] MEDS: DOCUSATE 100 MG/10 ML UDC PO SCH ×2 (09:30→20:21)
[2017-10-05] MEDS: CILOSTAZOL 100 MG TAB PO SCH ×2 (09:32→20:22)
[2017-10-05] MEDS: ALLOPURINOL 100 MG TAB PO SCH (09:32)
[2017-10-05] MEDS: VIT-B COMP/VIT-C/FOLIC ACID 1 TAB PO SCH (09:32)
[2017-10-05] MEDS: GABAPENTIN 300 MG CAP PO SCH ×3 (09:32→17:10)
[2017-10-05] MEDS: METOCLOPRAMIDE 10 MG TAB PO SCH ×3 (09:33→17:10)
--- NOTE | 2017-10-05 09:35 | NUR ---
ORDERED MEDICATIONS GIVEN. PATIENT TOLERATED THEM WELL. PATIENT STILL WAITING FOR Markel SMALLWOOD TO CALL BACK TO TALK TO HIM ABOUT HER NEW BLOOD PRESSURE MEDICATION, COREG AND COZAAR. PATIENT RESTING IN BED, NO SIGNS OF DISTRESS NOTED. BREATHING EVEN AND UNLABORED WITH TRACH TO VENTILATOR. SAFETY AND ISOLATION PRECAUTION IN PLACE, CALL LIGHT WITHIN REACH, BED ON LOWEST SETTING, BED ALARM ON, WILL CONTINUE TO MONITOR PATIENT.
[2017-10-05] MEDS: CARVEDILOL 6.25 MG TAB PO SCH ×2 (09:47→20:33)
[2017-10-05] MEDS: LOSARTAN 25 MG TAB PO SCH (09:47)
--- NOTE | 2017-10-05 09:48 | NUR ---
EDUCATION GIVEN TO PATIENT ABOUT COREG AND COZAAR WHILE WAITING FOR Markel SMALLWOOD TO CALL BACK. PATIENT VERBALIZED UNDERSTANDING ABOUT WHY PATIENT IS GETTING MEDICATION, POSSIBLE SIDE EFFECTS, AND ITS EFFICACY. PATIENT NOW AGREES TO TRY NEW MEDICATIONS. ORDERED MEDICATIONS GIVEN. PATIENT TOLERATED THEM WELL. PATIENT STILL WAITING FOR Markel SMALLWOOD TO CALL BACK TO TALK TO HIM ABOUT HER NEW BLOOD PRESSURE MEDICATION, COREG AND COZAAR. PATIENT RESTING IN BED, NO SIGNS OF DISTRESS NOTED. BREATHING EVEN AND UNLABORED WITH TRACH TO VENTILATOR. SAFETY AND ISOLATION PRECAUTION IN PLACE, CALL LIGHT WITHIN REACH, BED ON LOWEST SETTING, BED ALARM ON, WILL CONTINUE TO MONITOR PATIENT.
--- NOTE | 2017-10-05 09:50 | NUR ---
AWAKE AND ALERT NO DISTRESS NOTED PATIENT EARLIER REQUEST FOR CUFF DEFLATION FOR CELL PHONE CONVERSATION WITH DAUGHTER TOLERATING WELL WITHOUT INCIDENT GOOD CHEST RISE
--- NOTE | 2017-10-05 10:20 | NUR ---
PATIENT C/O OF PAIN ON RIGHT LOWER EXTREMITY WITH SOME CONTRACTIONS, WITH NAUSEA, AND DIZZINESS. PAIN IN RIGHT LOWER EXTREMITY DECREASING AFTER MANUAL MASSAGE OF R FOOT AND R CALF BUT NOW PAIN ON RIGHT SIDE OF BODY. PATIENT OFFERED BENADRYL FOR NAUSEA AND DIZZINESS. PATIENT REFUSED BECAUSE SHE DOES NOT WANT TO SLEEP. BLOOD PRESSURE 140/63, HR 80, RR 17, TEMP 98.7, O2 SAT 100%. WILL CONTINUE TO MONITOR PATIENT.
--- NOTE | 2017-10-05 10:47 | NUR ---
PAIN ON RIGHT SIDE OF BODY DECREASING FROM 5 TO 2. RIGHT LOWER EXTREMITY PAIN LEVEL IS 0 RIGHT NOW. PATIENT RESTING IN BED, NO SIGNS OF DISTRESS OR SOB NOTED. BREATHING EVEN AN UNLABORED, SAFETY AND ISOLATION PRECAUTION IN PLACE, CALL LIGHT WITHIN REACH, BED ON LOWEST SETTING, BED ALARM ON, WILL CONTINUE TO MONITOR PATIENT.
--- NOTE | 2017-10-05 11:15 | NUR ---
PAGED DR. CODI Christina ABOUT PATIENT'S LAB RESULTS. AWAITING HIS CALL BACK.
--- NOTE | 2017-10-05 11:30 | NUR ---
CALLED DR. CODI Suazo TO INFORM HIM OF PATIENT'S URINE RESULTS. GOT MESSAGE "VOICEMAIL INBOX FULL". WILL TRY AGAIN LATER.
--- NOTE | 2017-10-05 11:35 | NUR ---
RN AND SOLDERING MACHINE FEEDER AT BEDSIDE FOR PATIENT PHYSICAL HYGIENE AND REPOSITIONING CONCRETE POLISHER TO ATTEMPT PATIENT AND VENTILATOR ASSESSMENT AT A LATER TIME
--- NOTE | 2017-10-05 11:42 | NUR ---
AWAKE AND ALERT C/O SOB FROM REPOSITIONING BREATH SOUNDS DIFFUSED RHONCHI BILATERAL WITH GOOD CHEST RISE DEEP TRACHEAL SUCTION FOR SMALL THICK PALE YELLOW SECRETIONS AIRWAY PATENT HHN PRN THERAPY GIVEN NANCI THIS TIME
--- NOTE | 2017-10-05 11:54 | NUR ---
PAGED DR. CODI Christina ABOUT PATIENT'S URINE RESULTS. WILL AWAIT FOR HIS CALL BACK.
--- NOTE | 2017-10-05 12:15 | NUR ---
DR. KINCAID CALLED BACK, INFORM HIM OF PATIENT'S URINE POSITIVE RESULT OF MDRO, E. COLI, AND ESBL. DR. CODI Christina VERBALIZED UNDERSTANDING. NO NEW ORDERS AT THIS TIME.
[2017-10-05] MEDS ORDERED: AMIKACIN PER PHARMACY MC PRN (13:15)
--- NOTE | 2017-10-05 13:39 | NUR ---
NO EVIDENCE OF PULMONARY DISTRESS NOTED GOOD CHEST RISE NO TRACHEAL SUCTION AT THIS TIME TENTERING MACHINE OFF BEARER TO MONITOR
--- NOTE | 2017-10-05 13:40 | NUR ---
DR. CODI Suazo, IN TO SEE THE PATIENT. WILL AWAIT FOR HIS UPDATED ORDERS.
[2017-10-05] MEDS: HYDROcodone/APAP 5/325 MG 1 TAB TAB PO PRN (13:47)
--- NOTE | 2017-10-05 14:14 | NUR ---
SPOKE WITH PT AT BEDSIDE. PT STATES THAT SHE USES THE GIT ABOUT TRANSPORT [phone] BUT IT NEEDS TO BE SET UP 24HRS IN ADVANCE. PT HAS HER OWN ELECTRIC W/C WITH PORTABLE VENTILATOR IN THE ROOM. PT STATES THAT SHE USES [facility] AND IF IV INFUSION IS NEEDED SHE USES [employer] [facility].
[2017-10-05] MEDS: AMIKACIN 500 MG in DEXTROSE 5% 100 ML IV SCH (14:26)
--- NOTE | 2017-10-05 14:35 | NUR ---
NEW ANTIBIOTICS IVPB GIVEN. PATIENT TOLERATED IT WELL. NO REACTION NOTED. NO SIGNS OF DISTRESS OR SOB NOTED. PATIENT STATES THAT PAIN IS REDUCED AFTER PRN PAIN MEDICATION. SAFETY AND ISOLATION PRECAUTION IN PLACE, CALL LIGHT WITHIN REACH, WILL CONTINUE TO MONITOR PATIENT.
[2017-10-05] MEDS ORDERED: WARFARIN PO SCH ×2 (17:00)
--- NOTE | 2017-10-05 17:11 | NUR ---
PATIENT VOIDED, PATIENT CHANGED. PATIENT NOW CLEAN AND DRY. BLOOD SUGAR 123, NO COVERAGE NEEDED. ORDERED MEDICATIONS GIVEN. PATIENT TOLERATED THEM WELL. PATIENT NOW SITTING UP IN BED SHOPPING ON HER PHONE. SAFETY AND ISOLATION PRECAUTION IN PLACE, BED ON LOWEST POSITION, BED ALARM ON, CALL LIGHT WITHIN EASY REACH . WILL CONTINUE TO MONITOR PATIENT.
--- NOTE | 2017-10-05 17:35 | NUR ---
GOOD CHEST RISE NO DISTRESS NOTED PATIENT ON CELL PHONE TALKING AT THIS TIME
--- NOTE | 2017-10-05 17:45 | NUR ---
DR. CODI Phillips. IN TO SEE THE PATIENT. WILL WAIT FOR HIS EVALUATION. PATIENT INFORMED RN THAT WHEN PATIENT IS DC HOME WITH IV ANTIBIOTICS, SHE GETS HER ANTIBIOTICS FROM [facility] WITH TELEPHONE # [phone].
--- NOTE | 2017-10-05 19:07 | NUR ---
REPORT GIVEN TO COUNTY OR CITY AUDITOR NURSE AT BEDSIDE FOR CONTINUITY OF CARE. PATIENT IN STABLE CONDITION.
--- NOTE | 2017-10-05 19:08 | NUR ---
RECEIVED BEDSIDE REPORT FROM DAY SHIFT NURSE NARCISO RN, PT STABLE, NO DISTRESS NOTED, MIDLINE TO R UPPER FA INTACT, PATENT, PT ON TRACH TO VENT, NO SOB, PT DENIES ANY PAIN, INITIAL ASSESSMENT DONE, ALL SAFETY PRECAUTION MET, WILL CONTINUE TO MONITOR.
[2017-10-05] MEDS: ONDANSETRON 4 MG/2 ML VIAL IVP PRN (19:25)
[2017-10-05] MEDS: ATORVASTATIN 20 MG TAB PO SCH (20:21)
--- NOTE | 2017-10-05 20:33 | NUR ---
DUE MEDICATION GIVEN, PT TOLERATED WELL, PT REFUSED COREG STATED THAT SHE FEELS DIZZY AFTER TAKING IT, AND SHE DOES NOT WANT TO TAKE IT. PT RESTING ON BED, NO DISTRESS NOTED, CALL LIGHT WITHIN REACH, WILL CONTINUE TO MONITOR.
--- NOTE | 2017-10-05 21:57 | NUR ---
TALKED TO DR. GUNN REGARDING PT PAIN IN THE R LOWER CHEST, STATED TO ORDER LIVER FUNCTION TEST FOR TOMORROW MORNING, WILL PUT IN ORDER AND CONTINUE WITH ORDERS.
[2017-10-05] MEDS: SODIUM PHOSPHATE 118 ML ENEM RC PRN (22:06)
--- NOTE | 2017-10-05 22:06 | NUR ---
PT STATED FEELING CONSTIPATED, REQUESTED FOR FLEET ENEMA, ENEMA GIVEN, PT TOLERATED WELL, NO DISTRESS NOTED, CALL LIGHT WITHIN REACH, WILL CONTINUE TO MONITOR.
--- NOTE | 2017-10-05 22:50 | NUR ---
PT DID A LARGE BM, STOOL BROWN IN COLOR, SOFT, NOT FORMED, CHANGED AND CLEAN PT, PT STABLE, NO DISTRESS NOTED, CALL LIGHT WITHIN REACH, WILL CONTINUE TO MONITOR.
[2017-10-06] VITALS: BP 126/64
--- NOTE | 2017-10-06 00:05 | NUR ---
CHECKED ON PT, PT SLEEPING, NO DISTRESS NOTED, STABLE, CALL LIGHT WITHIN REACH, WILL CONTINUE TO MONITOR.
--- NOTE | 2017-10-06 02:10 | NUR ---
CHECKED ON PT, PT SLEEPING, NO DISTRESS NOTED, CALL LIGHT WITHIN REACH, WILL CONTINUE TO MONITOR.
[2017-10-06 04:00] VITALS: BP 124/66
--- NOTE | 2017-10-06 04:30 | NUR ---
CHECKED ON PT, PT SLEEPING, STABLE, NO DISTRESS NOTED, CALL LIGHT WITHIN REACH, WILL CONTINUE TO MONITOR.
[2017-10-06] MEDS: BLOOD GLUCOSE MONITORING 1 DEV DEV FS SCH ×4 (05:36→21:12)
[2017-10-06] MEDS: LEVOTHYROXINE 0.075 MG TAB PO SCH (05:36)
--- NOTE | 2017-10-06 05:36 | NUR ---
DUE MEDICATION GIVEN, PT STABLE, NO DISTRESS NOTED, CALL LIGHT WITHIN REACH, WILL CONTINUE TO MONITOR.
[2017-10-06 06:45] LABS: PROTHROMBIN TIME 17.7 secs (10.8-13.4)
[2017-10-06 06:46] LABS: ANION GAP 12.1 (8-16); CARBON DIOXIDE 26.7 mmol/L (21-32); CREATININE 1.4 mg/dL (0.6-1.3); POTASSIUM 3.8 mmol/L (3.5-5.1)
[2017-10-06 07:10] LABS: ALBUMIN 2.6 g/dL (3.4-5.0); BILIRUBIN,DIRECT 0.1 mg/dL (0.0-0.3); TOTAL BILIRUBIN 0.3 mg/dL (0.0-1.0)
--- NOTE | 2017-10-06 07:11 | NUR ---
ENDORSED PLAN OF CARE TO DAY SHIFT NURSE CARMELO BALDERAS, PT STABLE, NO DISTRESS NOTED, CALL LIGHT WITHIN REACH.
--- NOTE | 2017-10-06 07:12 | NUR ---
PT RECEIVED FROM THE PM NURSE FOR THE CONTINUITY OF CARE. PT AWAKE. INTRODUCED SELF TO0 PT AND UPDATED THE BOARD.PT ON VENT.NO SIGN OF DISTRESS NOTED . PT STABLE AT THIS TIME. ALL SAFETY MEASURE IN PLACE. PT BED AT LOWER POSITION. CALL LIGHT WITHIN REACH. SIDE RAILS UP 2X. WILL CONTINUE TO MONITOR.
[2017-10-06] MEDS: oxyCODONE/APAP 5/325 MG 1 TAB TAB PO PRN ×2 (07:35→13:18)
--- NOTE | 2017-10-06 07:45 | NUR ---
PT ASKING FOR HER PAIN MED AND NAUSEA. WILL MEDICATE FOR PAIN AND NAUSEA. WILL CONTINUE TO MONITOR.
[2017-10-06] MEDS: ONDANSETRON 4 MG/2 ML VIAL IVP PRN ×2 (07:47→13:18)
[2017-10-06 08:00] VITALS: BP 123/61
[2017-10-06] MEDS: AMIKACIN 500 MG in DEXTROSE 5% 100 ML IV SCH (08:07)
[2017-10-06] MEDS: DOCUSATE 100 MG/10 ML UDC PO SCH ×2 (08:15→21:00)
[2017-10-06] MEDS: VIT-B COMP/VIT-C/FOLIC ACID 1 TAB PO SCH (08:16)
[2017-10-06] MEDS: CILOSTAZOL 100 MG TAB PO SCH ×2 (08:16→21:13)
[2017-10-06] MEDS: GABAPENTIN 300 MG CAP PO SCH ×3 (08:17→18:03)
[2017-10-06] MEDS: ALLOPURINOL 100 MG TAB PO SCH (08:17)
[2017-10-06] MEDS: METOCLOPRAMIDE 10 MG TAB PO SCH ×3 (08:18→18:04)
--- NOTE | 2017-10-06 08:20 | NUR ---
PT ADMINISTERED AM MEDS. PT REFUSED COZAAR AND COREG. PT BP 123/61. PT TOLERATED HER MEDS WELL. PT REFUSED HER BREAKFAST. WANTED TO HAVE BRAT DIET DUE TO RT.SIDE PAIN UNDERNEATH HER BREAST AROUND RIB CAGE.. PT WAS GIVEN APPLE SAUCE, BANANA AND FNS WAS CALLED. PT CALM AND COOPERATIVE. NO DISTRESS NOTED. WILL CONTINUE TO MONITOR.
[2017-10-06] MEDS: CARVEDILOL 6.25 MG TAB PO SCH ×2 (08:45→21:00)
[2017-10-06] MEDS: LOSARTAN 25 MG TAB PO SCH (08:46)
[2017-10-06] MEDS ORDERED: NACL 0.9% 1,000 ML IV ONE (08:50)
--- NOTE | 2017-10-06 10:09 | NUR ---
RCV'D PT ON VENTILATOR WITH SETTINGS AC12,600,30% NO PEEP. PT IS TRACHED WITH SHILEY 6 XLT CUFF IS DEFLATED. PT IS AWAKE AND ALERT PLAYING WITH HER PHONE. PT IS ABLE TO STATE HER NEEDS. VENT IS CONNECTED TO RED OUTLET. ALARMS ARE AUDIBLE. AMBU BAG AT BEDSIDE. DECREASED FIO2 TO 24% NO SOB OR DISTRESS NOTED. NO HHN TX NEEDED. WILL CONTINUE TO MONITOR.
[2017-10-06] MEDS ORDERED: NACL 0.9% 1,000 ML IV SCH (11:00)
--- NOTE | 2017-10-06 11:00 | NUR ---
PAGED DR KINCAID TO VERIFY THE DOSE OF 0.9%NS. RECEIVED TORB FOR 0.9NS 1L @100ML/HR, FOR ONE TIME.
[2017-10-06] MEDS: INSULIN LISPRO SLIDING SCALE 100 UNITS/ML VIAL SUBQ PRN ×3 (11:59→21:15)
[2017-10-06 12:00] VITALS: BP 125/61
--- NOTE | 2017-10-06 12:00 | NUR ---
CHECKED ON PT TO GET VS AND BS. PT SLEEPING AT THIS TIME. VITAL SIGNS OBTAINED. NO SIGN OF DISTRESS. BS 159 NOTED. NOTIFIED PT ABOUT REQUIRED INSULIN COVERAGE. 2 UNITS HUMALOG ADMINISTERED. LUNCH TRAY AT BED SIDE. POSITIONED PT AT COMFORTABLE POSITION FOR LUNCH.PT EATING LUNCH. ALL SAFETY MEASURE IN PLACE. WILL CONTINUE TO MONITOR.
--- NOTE | 2017-10-06 14:04 | NUR ---
VENT CHECK DONE. PT IS ASLEEP COMFORTABLY. NO SOB OR DISTRESS NOTED. HHN TX NOT INDICATED AT THIS TIME. WILL CONTINUE TO MONITOR.
[2017-10-06 16:00] VITALS: BP 110/55
[2017-10-06] MEDS ORDERED: WARFARIN PO SCH ×2 (17:00)
--- NOTE | 2017-10-06 17:41 | NUR ---
TRACH CARE DONE WITH NO INCIDENT. RT HÉCTOR AT BEDSIDE. INNER CANNULA, BURK, HME, AND GAUZE CHANGED. PT AWAKE AND ALERT. PT CAN VERBALIZE HER NEEDS. NO SOB OR DISTRESS NOTED. WILL CONTINUE TO MONITOR.
[2017-10-06] MEDS ORDERED: CYCLOBENZAPRINE 10 MG TAB PO PRN (17:55)
[2017-10-06] MEDS: ALBUTEROL SULFATE/IPRATROPIU 3 ML SOL IH PRN ×2 (19:06→22:34)
--- NOTE | 2017-10-06 19:15 | NUR ---
ENDORSED PT TO HEAVY EQUIPMENT FIELD MECHANIC NURSE AT BEDSIDE FOR CONTINUITY OF CARE. PT IN STABLE CONDITION.
--- NOTE | 2017-10-06 19:20 | NUR ---
RECEIVED REPORT FROM DAY SHIFT RN, PATIENT RESTING IN BED, AWAKE ALERT ORIENTED X4, NO S/S OF DISTRESS NOTED, RESPIRATION EVEN AND UNLABORED, ON VENT. PICC LINE NOTED TO THE RIGHT UPPER ARM, DRESSING DRY AND INTACT, INFUSING NS AT 100ML/HR. HEAD OF BED ELEVATED, RT FOOT SUPPORT IN PLACE, LT FOOT DROP NOTED. PATIENT WAS ON THE CELLPHONE WHEN BEDSIDE REPORT WAS GIVING. CALL LIGHT WITHIN REACH, SAFETY MEASURE ENSURED, WILL CONTINUE TO MONITOR. Addendum: 10/07/17 at 2212 by Vicki Vilchis RN RT FOOT DROP NOTED
[2017-10-06 20:00] VITALS: BP 103/47
--- NOTE | 2017-10-06 20:08 | NUR ---
REMOVED THE PILLOWS PATIENT REQUESTED, REPOSITIONED PATIENT TO HER COMFORTABLE POSITION. CALL LIGHT WITHIN REACH, SAFETY MEASURE ENSURED, WILL CONTINUE TO MONITOR.
[2017-10-06] MEDS: ATORVASTATIN 20 MG TAB PO SCH (21:13)
--- NOTE | 2017-10-06 21:20 | NUR ---
PATIENT REFUSED COLACE AND COREG, STATED," I HAD BOWEL MOVEMENT YESTERDAY, I DON'T WANT COLACE, AND MY BLOOD PRESSURE IS ALWAYS LOW, SO I DON'T TAKE COREG." EDUCATION PROVIDED, PATIENT STILL REFUSED. REPOSITIONED PATIENT WITH THE DRIVING SCHOOL INSTRUCTOR, CALL LIGHT WITHIN REACH, SAFETY MEASURE ENSURED, WILL CONTINUE TO MONITOR.
--- NOTE | 2017-10-06 23:23 | NUR ---
SUCTIONED PATIENT REQUESTED, REPOSITIONED PATIENT WITH THE OCCUPATIONAL HEALTH NURSE MANAGER, CALL LIGHT WITHIN REACH, SAFETY MEASURE ENSURED, WILL CONTINUE TO MONITOR.
[2017-10-07] VITALS (13 sets, daily range): BP systolic 0–140; BP diastolic 0–71
[2017-10-07] MEDS: AMIKACIN 500 MG in DEXTROSE 5% 100 ML IV SCH ×2 (02:23→20:35)
--- NOTE | 2017-10-07 02:25 | NUR ---
GABE LOOMIS, PATIENT TOLERATED WELL. REPOSITIONED PATIENT WITH THE FORMING MACHINE TENDER. PATIENT RESTING IN BED, NO S/S OF DISTRESS NOTED, CALL LIGHT WITHIN REACH, SAFETY MEASURE ENSURED, WILL CONTINUE TO MONITOR.
--- NOTE | 2017-10-07 04:12 | NUR ---
GABE GALE. PATIENT TOLERATED WELL. VITAL SIGNS STABLE. REPOSITIONED PATIENT WITH THE FOUR SLIDE MACHINE SETTER. CALL LIGHT WITHIN REACH, SAFETY MEASURE ENSURED, WILL CONTINUE TO MONITOR.
[2017-10-07 04:55] LABS: BASOPHILS % (AUTO) 0.5 % (0.0-2.0); EOSINOPHILS # (AUTO) 0.2 K/uL (0-0.4); EOSINOPHILS % (AUTO) 2.1 % (0.0-4.0); HEMATOCRIT 28.6 % (36-48); HEMOGLOBIN 9.3 g/dL (12.0-16.0); LYMPHOCYTES # (AUTO) 2.4 K/uL (2.5-16.5); LYMPHOCYTES % (AUTO) 24.5 % (20.5-51.1); MEAN CORPUSCULAR HEMOGLOBIN 29 pg (27-31); MEAN CORPUSCULAR HGB CONC 32 g/dL (33-37); MEAN CORPUSCULAR VOLUME 89.8 fL (80-94); MONOCYTES # (AUTO) 0.7 K/uL (0.8-1.0); MONOCYTES % (AUTO) 7.2 % (1.7-9.3); NEUTROPHILS # (AUTO) 6.4 K/uL (1.8-7.7); NEUTROPHILS % (AUTO) 65.7 % (42.2-75.2); PLATELET COUNT (AUTO) 241 K/uL (140-450); RED BLOOD CELL COUNT(AUTO) 3.18 MIL/uL (4.20-5.40); RED CELL DISTRIBUTION WIDTH 15.4 % (11.6-13.7); WHITE BLOOD COUNT (AUTO) 9.7 K/uL (4.8-10.8)
[2017-10-07 05:20] LABS: PROTHROMBIN TIME 16.1 secs (10.8-13.4)
[2017-10-07] MEDS: LEVOTHYROXINE 0.075 MG TAB PO SCH (06:04)
[2017-10-07 06:12] LABS: ANION GAP 10.9 (8-16); CARBON DIOXIDE 26.9 mmol/L (21-32); CREATININE 1.3 mg/dL (0.6-1.3); POTASSIUM 3.8 mmol/L (3.5-5.1)
[2017-10-07 06:17] LABS: MAGNESIUM 1.5 mg/dL (1.8-2.4); PHOSPHORUS 3.8 mg/dL (2.5-4.9)
--- NOTE | 2017-10-07 06:22 | NUR ---
PATIENT IS SLEEPING, NO S/S OF DISTRESS NOTED, RESPIRATION EVEN AND UNLABORED, ON ROOM AIR. CALL LIGHT WITHIN REACH, SAFETY MEASURE ENSURED, WILL CONTINUE TO MONITOR.
[2017-10-07] MEDS: BLOOD GLUCOSE MONITORING 1 DEV DEV FS SCH ×4 (07:09→20:31)
--- NOTE | 2017-10-07 07:10 | NUR ---
ENDORSED PLAN OF CARE TO DAY SHIFT, PATIENT RESTING IN BED, IN STABLE CONDITION.
--- NOTE | 2017-10-07 07:11 | NUR ---
Received report from production shift supervisor RN. Patient is sleeping at this time but arousable to name and shaking. No signs and symptoms of acute distress noted at this time. Has IV to the left AC 18G, infusing NS at 60 ml/hr. Infusing well, site is clean, dry, patent and intact. Patient has dry blister on the left 2nd toe, ELIZABETH. Bed in lowest position, side rails up x2, call light within reach. Will continue to monitor. Addendum: 10/07/17 at 0725 by Keeley Riley RN wrong patient
--- NOTE | 2017-10-07 07:11 | NUR ---
Received report from cnc machinist 2nd shift RN. Patient is aaox4, no signs and symptoms of acute respiratory distress noted at this time. Patient has trach to vent. Has midline to right upper arm infusing NS at 10ml/hr TKO. Site is clean, dry, patent and intact. Has support boot to right foot. Bed in lowest position, fall risk protocol in place, side rails up x2, call light within reach. Will continue to monitor.
--- NOTE | 2017-10-07 07:41 | NUR ---
RECEIVED ON GE CARESCAPE R860 VENTILAOTR PLUGGED INTO RED OUTLET TOLERATING WELL WITHOUT ADVERSE REACTIONS NOTED TO A SHILEY XLT#6 AIRWAY SECURED WITH SHILEY TRACH TIE (PATIENT'S OWN STATES ALLERGIC TO KATT BRAND) CUFF PRESSURE CHECKED NOTED PATIENT WITH INTERMITTENT REQUEST FOR CUFF DEFLATION FOR ORAL CONVERSATION WITH PROVIDERS AND FAMILY AMBU BAG NOTED AT HOB BREATH SOUNDS CLEAR BILATERAL WITH GOOD CHEST RISE DENIES SOB AIRWAY PATENT
--- NOTE | 2017-10-07 08:06 | NUR ---
PATIENT REQUEST FOR TRACH CUFF DEFLATION "ON CELL PHONE WITH FAMILY" TEODORA/ANDREY AWARE
[2017-10-07] MEDS: ALLOPURINOL 100 MG TAB PO SCH (08:28)
[2017-10-07] MEDS: GABAPENTIN 300 MG CAP PO SCH ×3 (08:28→17:00)
[2017-10-07] MEDS: CILOSTAZOL 100 MG TAB PO SCH ×2 (08:29→20:35)
[2017-10-07] MEDS: METOCLOPRAMIDE 10 MG TAB PO SCH ×3 (08:29→17:01)
[2017-10-07] MEDS: oxyCODONE/APAP 5/325 MG 1 TAB TAB PO PRN (08:29)
[2017-10-07] MEDS: DOCUSATE 100 MG/10 ML UDC PO SCH ×2 (08:30→20:35)
[2017-10-07] MEDS: VIT-B COMP/VIT-C/FOLIC ACID 1 TAB PO SCH (08:30)
[2017-10-07] MEDS: ALBUTEROL SULFATE/IPRATROPIU 3 ML SOL IH PRN ×2 (08:31→19:18)
--- NOTE | 2017-10-07 08:31 | NUR ---
AWAKE AND ALERT C/O SOB BREATH SOUNDS DIFFUSED RHONCHI BILATERAL GOOD CHEST RISE DEEP TRACHEAL SUCTION FOR MODERATE THICK PALE YELLOW SECRETIONS AIRWAY PATENT HHN PRN THERAPY GIVEN AT THIS TIME
[2017-10-07] MEDS ORDERED: MAG SULF 2000 MG/WATER PREMIX 50 ML IV SCH (08:35)
[2017-10-07] MEDS: LOSARTAN 25 MG TAB PO SCH (08:37)
[2017-10-07] MEDS: CARVEDILOL 6.25 MG TAB PO SCH ×2 (08:37→20:36)
--- NOTE | 2017-10-07 09:30 | NUR ---
AWAKE AND ALERT BREATH SOUND RHONCHI BILATERAL WITH GOOD CHEST RISE DEEP TRACHEAL SUCTION FOR SMALL THICK PALE YELLOW SECRETIONS TOLERATED PROCEDURE WELL WITHOUT INCIDENT AIRWAY PATENT
[2017-10-07] MEDS ORDERED: IBUPROFEN 600 MG TAB PO PRN (09:55)
[2017-10-07] MEDS: HYDROmorphone 1 MG/ML AMP IVP PRN ×2 (10:46→17:02)
[2017-10-07] MEDS: ONDANSETRON 4 MG/2 ML VIAL IVP PRN (10:48)
[2017-10-07] MEDS ORDERED: NACL 0.9% 1,000 ML IV ONE (11:00)
--- NOTE | 2017-10-07 11:43 | NUR ---
STABLE NO EVIDENCE OF RESPIRATORY DISTRESS NOTED GOOD CHEST RISE CUFF DEFLATED "WATCHING PROGRAM ON CELL PHONE" Berg RADICAL-7 CONTINUOS PULSE OXIMETER REMAINS AT BEDSIDE ON AND FUNCTIONING WELL LOW SATURATION ALARM SET AT 92%
--- NOTE | 2017-10-07 13:13 | NUR ---
AWAKE STABLE NO SOB NOTED ORAL COMMUNICATION WITH BELLHOP CAPTAIN AT THIS TIME CUFF REMAINS DEFLATED GOOD CHEST RISE
--- NOTE | 2017-10-07 15:40 | NUR ---
AWAKE AND ALERT CUFF PRESSURE DEFLATED NO EVIDENCE OF RESPIRATORY DISTRESS NOTED GOOD CHEST RISE NO TRACHEAL SUCTIONING AT THIS TIME DAIRY FARMWORKER TO MONITOR
[2017-10-07] MEDS ORDERED: WARFARIN 5 MG TAB PO SCH (17:00)
--- NOTE | 2017-10-07 17:20 | NUR ---
GOOD CHEST RISE AND AERATION THROUGHOUT AIRWAY PATENT CUFF REMAINS DEFLATED
--- NOTE | 2017-10-07 19:30 | NUR ---
ENDORSED PATIENT TO OUTSIDE SALES ACCOUNT REPRESENTATIVE RN FOR CONTINUITY OF CARE. PATIENT IN STABLE CONDITION.
--- NOTE | 2017-10-07 19:40 | NUR ---
RECEIVED REPORT FROM DAY SHIFT RN, PATIENT RESTING IN BED, AWAKE ALERT ORIENTED X4, NO S/S OF DISTRESS NOTED, RESPIRATION EVEN AND UNLABORED, ON VENT. MIDLINE NOTED TO THE RIGHT UPPER ARM, DRESSING DRY AND INTACT. HEAD OF BED ELEVATED, RT FOOT SUPPORT IN PLACE. PATIENT IS ABLE TO MOVE LT LOWER EXTREMITY. PATIENT WAS WATCHING MOVIE ON THE CELLPHONE WHEN BEDSIDE REPORT WAS GIVING. CALL LIGHT WITHIN REACH, SAFETY MEASURE ENSURED, WILL CONTINUE TO MONITOR.
[2017-10-07] MEDS: ATORVASTATIN 20 MG TAB PO SCH (20:35)
--- NOTE | 2017-10-07 20:57 | NUR ---
DUE MEDICATION GIVEN, PATIENT TOLERATED WELL. REFUSED COREG, EDUCATION PROVIDED, PATIENT STILL REFUSED AND STATED," MY BLOOD PRESSURE IS ALWAYS LOW, I KNOW MYSELF." CLEANED AND CHANGED DIAPER REQUESTED, REPOSITIONED PATIENT TO HER COMFORTABLE POSITION. CALL LIGHT WITHIN REACH, HEAD OF BED ELEVATED, SAFETY MEASURE ENSURED, WILL CONTINUE TO MONITOR.
--- NOTE | 2017-10-07 22:45 | NUR ---
NO CHANGE IN CONDITION, PATIENT IS SLEEPING, RESPIRATION EVEN AND UNLABORED, ON VENT, CALL LIGHT WITHIN REACH, HEAD OF BED ELEVATED, SAFETY MEASURE ENSURED, WILL CONTINUE TO MONITOR.
--- NOTE | 2017-10-08 00:09 | NUR ---
VITAL SIGNS STABLE, RESPIRATION EVEN AND UNLABORED, ON VENT, REPOSITIONED PATIENT WITH FACILITY MAINTENANCE SUPERVISOR, CALL LIGHT WITHIN REACH, SAFETY MEASURE ENSURED, WILL CONTINUE TO MONITOR.
--- NOTE | 2017-10-08 02:09 | NUR ---
NO CHANGE IN CONDITION, PATIENT WAS SLEEPING, RESPIRATION EVEN AND UNLABORED, ON VENT, REPOSITIONED PATIENT WITH RESIDENTIAL TREATMENT SPECIALIST, CALL LIGHT WITHIN REACH, SAFETY MEASURE ENSURED, WILL CONTINUE TO MONITOR.
[2017-10-08 04:00] VITALS: BP 130/55
[2017-10-08] MEDS: ALBUTEROL SULFATE/IPRATROPIU 3 ML SOL IH PRN ×5 (04:30→23:12)
--- NOTE | 2017-10-08 04:45 | NUR ---
VITAL SIGNS STABLE, REPOSITIONED PATIENT WITH THE WET FINISHER, PATIENT ASKED FOR BREATHING TREATMENT. RT CAME, BREATHING TREATMENT GIVEN REQUESTED. PATIENT RESTING IN BED, NO S/S OF DISTRESS NOTED, RESPIRATION EVEN AND UNLABORED, ON VENT. CALL LIGHT WITHIN REACH, HEAD OF BED ELEVATED, SAFETY MEASURE ENSURED, WILL CONTINUE TO MONITOR.
[2017-10-08] MEDS: LEVOTHYROXINE 0.075 MG TAB PO SCH (05:34)
[2017-10-08] MEDS: HYDROmorphone 1 MG/ML AMP IVP PRN ×3 (06:01→20:29)
--- NOTE | 2017-10-08 06:01 | NUR ---
CHANGED DIAPER AND CLEANED THE PATIENT, REPOSITIONED PATIENT WITH THE CUT PRESS OPERATOR. STATED PAIN 8/10, BP 113/53, HR 91, ADMINISTERED DILAUDID ORDERED. PATIENT TOLERATED WELL. CALL LIGHT WITHIN REACH, SAFETY MEASURE ENSURED, WILL CONTINUE TO MONITOR.
[2017-10-08 06:28] LABS: BASOPHILS # (AUTO) 0.1 K/uL (0.00-0.22); BASOPHILS % (AUTO) 0.7 % (0.0-2.0); EOSINOPHILS # (AUTO) 0.2 K/uL (0-0.4); EOSINOPHILS % (AUTO) 1.4 % (0.0-4.0); HEMATOCRIT 28.3 % (36-48); HEMOGLOBIN 9.2 g/dL (12.0-16.0); LYMPHOCYTES % (AUTO) 26.4 % (20.5-51.1); MEAN CORPUSCULAR HEMOGLOBIN 29 pg (27-31); MEAN CORPUSCULAR HGB CONC 32 g/dL (33-37); MEAN CORPUSCULAR VOLUME 88.7 fL (80-94); MONOCYTES % (AUTO) 8.3 % (1.7-9.3); NEUTROPHILS # (AUTO) 7.3 K/uL (1.8-7.7); NEUTROPHILS % (AUTO) 63.2 % (42.2-75.2); PLATELET COUNT (AUTO) 215 K/uL (140-450); RED BLOOD CELL COUNT(AUTO) 3.19 MIL/uL (4.20-5.40); RED CELL DISTRIBUTION WIDTH 15.2 % (11.6-13.7); WHITE BLOOD COUNT (AUTO) 11.5 K/uL (4.8-10.8)
[2017-10-08] MEDS: BLOOD GLUCOSE MONITORING 1 DEV DEV FS SCH ×4 (06:30→20:40)
[2017-10-08 07:00] LABS: ALBUMIN 2.7 g/dL (3.4-5.0); ANION GAP 14.6 (8-16); CARBON DIOXIDE 23.5 mmol/L (21-32); MAGNESIUM 1.7 mg/dL (1.8-2.4); PHOSPHORUS 3.5 mg/dL (2.5-4.9); POTASSIUM 4.1 mmol/L (3.5-5.1); TOTAL BILIRUBIN 0.3 mg/dL (0.0-1.0)
[2017-10-08 07:07] LABS: CREATININE 1.3 mg/dL (0.6-1.3)
--- NOTE | 2017-10-08 07:10 | NUR ---
RECEIVED PATIENT REPORT AT BEDSIDE. PATIENT RESTING IN BED, AWAKE ALERT ORIENTED X4, NO S/S OF DISTRESS NOTED, RESPIRATION EVEN AND UNLABORED. PATIENT TRACH TO VENT. 24% FIO2 O2 SAT 95% AT THIS TIME. MIDLINE NOTED TO THE RIGHT UPPER ARM, DRESSING DRY AND INTACT. HEAD OF BED ELEVATED, RT FOOT SUPPORT IN PLACE. PATIENT IS ABLE TO MOVE LT LOWER EXTREMITY. CALL LIGHT WITHIN REACH, SAFETY MEASURE ENSURED, WILL CONTINUE TO MONITOR
[2017-10-08 07:12] LABS: PROTHROMBIN TIME 17.5 secs (10.8-13.4)
--- NOTE | 2017-10-08 07:17 | NUR ---
ENDORSED PLAN OF CARE TO DAY SHIFT, PATIENT RESTING IN BED, IN STABLE CONDITION.
--- NOTE | 2017-10-08 07:30 | NUR ---
RECEIVED PATIENT ON VENT SETTINGS: AC 12, 600, 24%, NO PEEP. TRACH TO VENT. TRACH SHILEY XLT 6, CUFF NOT INFLATED PER PATIENT. AIRWAY SECURE. VENT CHECK DONE. VENT PLUGGED INTO RED OUTLET. AMBU BAG AT BEDSIDE. NO RESPIRATORY DISTRESS NOTED AT THIS TIME. WILL CONTINUE TO MONITOR.
[2017-10-08 07:47] VITALS: BP 121/59
[2017-10-08] MEDS: CILOSTAZOL 100 MG TAB PO SCH ×2 (08:40→20:30)
[2017-10-08] MEDS: GABAPENTIN 300 MG CAP PO SCH ×3 (08:40→17:03)
[2017-10-08] MEDS: VIT-B COMP/VIT-C/FOLIC ACID 1 TAB PO SCH (08:40)
[2017-10-08] MEDS: DOCUSATE 100 MG/10 ML UDC PO SCH ×2 (08:40→20:30)
[2017-10-08] MEDS: METOCLOPRAMIDE 10 MG TAB PO SCH ×3 (08:40→17:02)
[2017-10-08] MEDS: ALLOPURINOL 100 MG TAB PO SCH (08:40)
[2017-10-08] MEDS: CARVEDILOL 6.25 MG TAB PO SCH ×2 (08:41→21:00)
[2017-10-08] MEDS: LOSARTAN 25 MG TAB PO SCH (08:41)
--- NOTE | 2017-10-08 08:45 | NUR ---
NOTIFIED BY RN OF PEEP CHANGE PER DR. GUNN TO PEEP +3. WILL CONTINUE TO MONITOR PATIENT.
--- NOTE | 2017-10-08 09:00 | NUR ---
PATIENT C/O CONSTIPATION. PRN FLEET ENEMA ADMINISTERED. PATIENT HAD A BM. STOOL FORMED AND SOFT, LARGE IN QUANTITY. PATIENT GIVEN BED BATH. PATIENT TURNED AND REPOSITIONED FOR COMFORT. WILL CONTINUE TO MONITOR
[2017-10-08] MEDS ORDERED: HYDROcodone/APAP 5/325 MG 1 TAB TAB PO PRN (09:20)
--- NOTE | 2017-10-08 09:37 | NUR ---
VENT CHECK DONE. CURRENT VENT SETTINGS: AC 12, 600, 24%, +3. TOLERATING VENT WELL. PRN TX ADMINISTERED. PT TOLERATED TX WELL, NO ADVERSE SIDE EFFECTS. NO RESPIRATORY DISTRESS NOTED AT THIS TIME. WILL CONTINUE TO MONITOR.
[2017-10-08] MEDS: SODIUM PHOSPHATE 118 ML ENEM RC PRN (10:10)
--- NOTE | 2017-10-08 10:14 | NUR ---
Parts Picker Notes: I call Patient's sister Chioma Gomes to discuss Patient's status and recent visit with Patient yesterday 10/07/17 from [place] to assist Patient make legal, financial, and Medical decisions and changes for patient to be able to get placement to proper level of care, possibly in [facility]. Per Mrs. Gomes she meet briefly with patient yesterday and discussed patients belongings at board and care therefore; she is at the moment picking up all patient's belongings from the board and care in [place] and will be coming to visit and talk to Patient about advance directives in a bout an hour at [facility]. Mrs. Gomes Stated that she will contact these publications writer as soon as gets in the hospital. I thank her for her information and agreed to meet when she is here. Addendum: 10/08/17 at 1528 by Elma Mendez CM Parts Picker Amended Note: Due to Wrong patient note/Please disregard.
[2017-10-08] MEDS: ONDANSETRON 4 MG/2 ML VIAL IVP PRN (10:58)
[2017-10-08] MEDS: oxyCODONE/APAP 5/325 MG 1 TAB TAB PO PRN (10:58)
--- NOTE | 2017-10-08 11:10 | NUR ---
VENT CHECK DONE. NO RESPIRATORY DISTRESS NOTED AT THIS TIME. WILL CONTINUE TO MONITOR.
[2017-10-08 12:00] VITALS: BP 143/64
[2017-10-08] MEDS ORDERED: MAG SULF 2000 MG/WATER PREMIX 50 ML IV SCH (13:00)
--- NOTE | 2017-10-08 13:00 | NUR ---
PATIENT ASLEEP IN BED. NO S/S OF DISTRESS NOTED
[2017-10-08] MEDS: AMIKACIN 600 MG in DEXTROSE 5% 100 ML IV SCH (14:14)
--- NOTE | 2017-10-08 15:30 | NUR ---
VENT CHECK DONE. NO RESPIRATORY DISTRESS NOTED. WILL CONTINUE TO MONITOR.
[2017-10-08 16:00] VITALS: BP 96/47
[2017-10-08] MEDS: WARFARIN 5 MG TAB PO SCH ×2 (17:05→18:02)
--- NOTE | 2017-10-08 17:50 | NUR ---
VENT CHECK DONE. ALARMS ON AND AUDIBLE. VENT PLUGGED INTO RED OUTLET. AMBU BAG AT BEDSIDE. PRN TX GIVEN PER PT STATES "FEELING SOB". TOLERATED TX WELL, NO ADVERSE SIDE EFFECTS. SUCTIONED SMALL AMOUNT OF THICK, PALE YELLOW/WHITE SECRETIONS. TRACH CARE DONE, TOLERATED WELL. CONTINUOUS PULSE OX ON AND FUNCTIONING, ALARMS ON AND AUDIBLE. NO DISTRESS NOTED AT THIS TIME. WILL CONTINUE TO MONITOR.
[2017-10-08] MEDS: INSULIN LISPRO SLIDING SCALE 100 UNITS/ML VIAL SUBQ PRN (18:02)
--- NOTE | 2017-10-08 19:13 | NUR ---
PATIENT REPORT GIVEN AT BEDSIDE. PATIENT ENDORSED IN STABLE CONDITION
--- NOTE | 2017-10-08 19:25 | NUR ---
0 PATIENT DID NOT WANT PEEP ON HER VENT. SHE SAYS IT MAKES HER FEEL STUFFY. EXPLAINED THE REASON FOR PEEP AND SHE SAID TURN IT OFF FOR NOW AND THEN COME BACK AND TURN IT BACK ON AND SHE WILL TELL IF THAT WAS THE CAUSE OF HOW SHE FELT
--- NOTE | 2017-10-08 19:30 | NUR ---
RECEIVED PT IN STABLE CONDITION FROM [place] NURSE. AWAKE,ALERT AND ORIENTED X4. ON TELE MONITOR. BEDREST. WITH TRACH TO VENT. O2 SAT 97%. NO RESPIRATORY DISTRESS NOTED. WITH DIMINISHED LUNG SOUNDS. IV ACCESS ON THE RT UPPER ARM MIDLINE ,CLEAR AND PATENT. WITH RT FOOT SUPPORT . SKIN INTACT. JUST REPOSITIONED FOR COMFORT. KEPT CLEAN AND DRY. PLAN OF CARE DISCUSSED AND VERBALIZED UNDERSTANDING. BED ON LOWEST POSITION, CALL LIGHT PLACED WITHIN EASY REACH. ON CONTACT ISOLATION FOR HX: MDRO, ESBL URINE. WILL NEED FREQUENT ROUNDS. WILL CONTINUE TO MONITOR.
[2017-10-08 20:00] VITALS: BP 132/57
[2017-10-08] MEDS: ATORVASTATIN 20 MG TAB PO SCH (20:30)
--- NOTE | 2017-10-08 20:40 | NUR ---
BLOOD SUGAR WAS CHECKED RESULT 142. NO INSULIN NEEDED.
--- NOTE | 2017-10-08 20:40 | NUR ---
BLOOD SUGAR WAS CHECKED RESULT 142. NO INSULIN NEEDED. PROVIDED WITH HS SNACK.
--- NOTE | 2017-10-08 20:55 | NUR ---
CAME AND SEEN PT. NO NEW ORDER MADE.
--- NOTE | 2017-10-08 21:15 | NUR ---
ASKED PT IF I COULD TURN THE PEEP OF 3 BACK ON BUT SHE REFUSED IT AT THIS TIME. SHE STATES SHE BREATHS BETTER WITHOUT IT ON
--- NOTE | 2017-10-08 22:30 | NUR ---
PT IS ASLEEP. NO S/S OF ANY RESPIRATORY DISTRESS NOTED.
[2017-10-09 00:10] VITALS: BP 106/46
--- NOTE | 2017-10-09 00:10 | NUR ---
PT IS ASLEEP. BUT VITAL SIGNS TAKEN. NO RESPIRATORY DISTRESS NOTED. O2 SAT 95% ON TRACH TO VENT.
--- NOTE | 2017-10-09 01:25 | NUR ---
RT CAME AND CHECKED ON PT. PT IS ASLEEP. O2 SAT 98% AT THIS TIME. WILL CONTINUE TO MONITOR.
--- NOTE | 2017-10-09 02:37 | NUR ---
PT AWAKE. HAD SOME WATER TO DRINK. REFUSED TO BE REPOSITIONED AND CHANGED AT THIS TIME.
[2017-10-09] MEDS: ALBUTEROL SULFATE/IPRATROPIU 3 ML SOL IH PRN ×3 (03:16→19:10)
[2017-10-09 03:45] VITALS: BP 137/59
--- NOTE | 2017-10-09 04:30 | NUR ---
ABLE TO REPOSITIONED PT FOR COMFORT. NO BM NOTED THIS AM. NO RESPIRATORY DISTRESS NOTED.
[2017-10-09] MEDS: LEVOTHYROXINE 0.075 MG TAB PO SCH (06:07)
[2017-10-09] MEDS: BLOOD GLUCOSE MONITORING 1 DEV DEV FS SCH ×4 (06:23→20:41)
--- NOTE | 2017-10-09 06:23 | NUR ---
BLOOD SUGAR WAS CHECKED THIS AM RESULT 136. NO INSULIN NEEDED.
--- NOTE | 2017-10-09 06:32 | NUR ---
rec'd pt on carescape vent settings ac12 vt 600 fio2 30% alarms on and audible, ambu bag at side of vent is plugged into red outlet, no sxn needed at this time and no tx given at this time no signs of distress noted pt is sleeping, b\s are clear bilaterally, pt is trach with shiley xlt 6 and skin integrity is intact
[2017-10-09 06:58] LABS: BASOPHILS % (AUTO) 0.2 % (0.0-2.0); EOSINOPHILS # (AUTO) 0.1 K/uL (0-0.4); EOSINOPHILS % (AUTO) 0.7 % (0.0-4.0); HEMATOCRIT 26.9 % (36-48); HEMOGLOBIN 8.7 g/dL (12.0-16.0); LYMPHOCYTES # (AUTO) 2.9 K/uL (2.5-16.5); LYMPHOCYTES % (AUTO) 24.5 % (20.5-51.1); MEAN CORPUSCULAR HEMOGLOBIN 29 pg (27-31); MEAN CORPUSCULAR HGB CONC 32 g/dL (33-37); MEAN CORPUSCULAR VOLUME 89.8 fL (80-94); MONOCYTES # (AUTO) 1.2 K/uL (0.8-1.0); MONOCYTES % (AUTO) 10.3 % (1.7-9.3); NEUTROPHILS # (AUTO) 7.7 K/uL (1.8-7.7); NEUTROPHILS % (AUTO) 64.3 % (42.2-75.2); PLATELET COUNT (AUTO) 211 K/uL (140-450); RED BLOOD CELL COUNT(AUTO) 2.99 MIL/uL (4.20-5.40); RED CELL DISTRIBUTION WIDTH 14.9 % (11.6-13.7); WHITE BLOOD COUNT (AUTO) 11.9 K/uL (4.8-10.8)
[2017-10-09 07:07] LABS: ANION GAP 12.4 (8-16); CARBON DIOXIDE 25.7 mmol/L (21-32); CREATININE 1.4 mg/dL (0.6-1.3); POTASSIUM 4.1 mmol/L (3.5-5.1)
--- NOTE | 2017-10-09 07:30 | NUR ---
ENDORSED PT IN STABLE CONDITION TO AM NURSE.
--- NOTE | 2017-10-09 07:31 | NUR ---
RECEIVED REPORT FROM TAPERING MACHINE OPERATOR NURSE. PATIENT LYING DOWN IN BED SLEEPING, AROUSABLE BY VOICE. NO DISTRESS NOTED. RESPIRATIONS EVEN, UNLABORED, ON TRACH TO VENTILATOR WITH VENT SETTINGS: FIO2:30%, TV:600, RR:12, PEEP:0. DENIES ANY PAIN AT THIS TIME. AAOX3, CALM, COOPERATIVE, SKIN COLOR APPROPRIATE TO ETHNICITY, WARM TO TOUCH. SKIN IS INTACT. IV SITE INTACT, PATENT, AND INFUSING IVF PER ORDERS. ABDOMEN SOFT, NON DISTENDED. LUNGS CTA ON ALL LOBES. REVIEWED PLAN OF CARE WITH PATIENT. PATIENT VERBALIZED UNDERSTANDING. SAFETY MEASURES IN PLACE, CALL LIGHT WITHIN REACH. WILL CONTINUE TO MONITOR.
[2017-10-09 07:45] LABS: PROTHROMBIN TIME 19.2 secs (10.8-13.4)
[2017-10-09 08:00] VITALS: BP 114/55
--- NOTE | 2017-10-09 08:47 | NUR ---
vent check, pt is sleeping with no signs of distress noted
[2017-10-09] MEDS: CARVEDILOL 6.25 MG TAB PO SCH ×2 (09:00→21:00)
[2017-10-09] MEDS: LOSARTAN 25 MG TAB PO SCH (09:00)
[2017-10-09] MEDS: HYDROmorphone 1 MG/ML AMP IVP PRN ×2 (09:27→16:19)
[2017-10-09] MEDS: DOCUSATE 100 MG/10 ML UDC PO SCH ×2 (09:28→20:35)
[2017-10-09] MEDS: ALLOPURINOL 100 MG TAB PO SCH (09:28)
[2017-10-09] MEDS: CILOSTAZOL 100 MG TAB PO SCH ×2 (09:28→20:34)
[2017-10-09] MEDS: VIT-B COMP/VIT-C/FOLIC ACID 1 TAB PO SCH (09:28)
[2017-10-09] MEDS: METOCLOPRAMIDE 10 MG TAB PO SCH ×3 (09:28→16:18)
[2017-10-09] MEDS: AMIKACIN 600 MG in DEXTROSE 5% 100 ML IV SCH (09:29)
[2017-10-09] MEDS: GABAPENTIN 300 MG CAP PO SCH ×3 (09:45→16:18)
--- NOTE | 2017-10-09 09:45 | NUR ---
PATIENT SITTING IN BED WATCHING TV. NO DISTRESS NOTED. COMPLAINTS OF 8/10 PAIN, MEDICATED WITH DILAUDID. OTHER SCHEDULED MEDICATIONS DUE GIVEN. SAFETY MEASURES IN PLACE, CALL LIGHT WITHIN REACH. WILL CONTINUE TO MONITOR.
--- NOTE | 2017-10-09 10:37 | NUR ---
called to room pt states she is sob, gave i\l tx with duoneb 3ml with no adverse reaction post tx b\s are clear bilaterally, sxn pt small mucus plug yellow thick and pt was placed on peep of 3 pt is awake and alert ANDREY Austin notified of changes made to vent
--- NOTE | 2017-10-09 10:55 | NUR ---
ASSISTED ADMINISTRATION INTERN IN CLEANING AND REPOSITIONING PATIENT. SAFETY MEASURES IN PLACE, CALL LIGHT WITHIN REACH. WILL CONTINUE TO MONITOR.
[2017-10-09 12:00] VITALS: BP 114/51
[2017-10-09] MEDS: INSULIN LISPRO SLIDING SCALE 100 UNITS/ML VIAL SUBQ PRN ×3 (12:05→20:45)
--- NOTE | 2017-10-09 12:20 | NUR ---
PATIENT SITTING IN BED WITH LUNCH TRAY IN FRONT. NO DISTRESS NOTED. DENIES ANY PAIN. SCHEDULED MEDICATIONS DUE GIVEN. SAFETY MEASURES IN PLACE, CALL LIGHT WITHIN REACH. WILL CONTINUE TO MONITOR.
--- NOTE | 2017-10-09 13:02 | NUR ---
vent check, no sxn required at this time airway is patent, pt is awake with no signs of distress noted
--- NOTE | 2017-10-09 14:08 | NUR ---
10/09/17 RD FOLLOW UP COMPLETED PLEASE REFER TO NUTRITION PROGRESS NOTE UNDER CARE ACTIVITY FOR ESTIMATED NUTRITIONAL NEEDS. 1. CONTINUE CARDIAC, CCHO 60 GM DIET TOLERATED 2. RD TO FOLLOW-UP 3-5 DAYS, MODERATE RISK MAGDALENA BOSCH RD
--- NOTE | 2017-10-09 15:00 | NUR ---
vent check, b\s clear airway is patent and pt is sleeping with no signs of distress noted no hhn needed
[2017-10-09 16:00] VITALS: BP 122/53
[2017-10-09] MEDS: WARFARIN 5 MG TAB PO SCH (16:19)
--- NOTE | 2017-10-09 16:20 | NUR ---
PATIENT LYING IN BED WATCHING TV. COMPLAINTS OF PAIN, MEDICATED WITH DILAUDID PER ORDERS. PATIENT REQUESTS PEEP TO BE CHANGED FROM 3 TO 0. RT CALLED AND ADJUSTED VENTILATOR. OTHER SCHEDULED MEDICATIONS DUE GIVEN. SAFETY MEASURES IN PLACE, CALL LIGHT WITHIN REACH. WILL CONTINUE TO MONITOR.
--- NOTE | 2017-10-09 16:22 | NUR ---
vent check, no sxn required at this time airway patent as per patients request peep of 3 was turned off and trach care done changed josey MAIN at bedside
[2017-10-09] MEDS ORDERED: NACL 0.9% 1,000 ML IV ONE (17:40)
--- NOTE | 2017-10-09 17:45 | NUR ---
DR. KINCAID AT BEDSIDE REVIEWING PLAN OF CARE WITH PATIENT. WILL CONTINUE TO MONITOR.
--- NOTE | 2017-10-09 18:49 | NUR ---
PATIENT SITTING IN BED PLAYING ON HER PHONE. NO DISTRESS NOTED. PAIN WITHIN TOLERABLE AT THIS TIME. SAFETY MEASURES IN PLACE, CALL LIGHT WITHIN REACH. WILL CONTINUE TO MONITOR.
--- NOTE | 2017-10-09 19:30 | NUR ---
RECEIVED REPORT FORM JOSE DAVID BALDERAS DAY SHIFT NURSE, PT IN STABLE CONDITION AT THIS TIME. PT ALERT AND ORIENTED X4 SKIN IS INTACT EXCEPT FOR TRACH. PT ON CONTINUOS 02 MONITORING CURRENT O2 IS AT 99%. PT IS ON TELEMETRY AND CARDIAC MONITORING HEART RHYTHM IS ST BBB. REPIRATIONS EVEN AND UNLABORED. IV SITE MIDLINE R UPPER ARM. AREA IS PATENT WITH NO S/S OF INFECTION. SIDE RAILS UP AND BED IN LOW POSITION AND CALL BRIGHT IN REACH.
--- NOTE | 2017-10-09 19:30 | NUR ---
GAVE REPORT TO CREDIT DEPARTMENT MANAGER NURSE FOR CONTINUITY OF CARE. WILL CONTINUE TO MONITOR.
[2017-10-09 20:00] VITALS: BP 104/49
[2017-10-09] MEDS: ATORVASTATIN 20 MG TAB PO SCH (20:35)
--- NOTE | 2017-10-09 20:45 | NUR ---
BLOOD SUGAR CHECKED RESULTS 252 PT WAS GIVEN 6 UNITS HUMALOG SQ ORDERED. PT WAS ALSO PROVIDED SNACK. WILL CONTINUE TO MONITOR.
--- NOTE | 2017-10-09 21:00 | NUR ---
PT WAS REPOSITIONED FOR COMFORT.
--- NOTE | 2017-10-09 22:00 | NUR ---
PT WAS LYING IN BED SIDE RAILS UP HEAD OF BED UP 45%. PT TRACH ATTACHED TO VENT NO S/S OF RESPIRATORY DISTRESS NOTED.
[2017-10-10] VITALS (7 sets, daily range): BP systolic 94–133; BP diastolic 44–74
[2017-10-10] MEDS: HYDROmorphone 1 MG/ML AMP IVP PRN ×4 (00:05→21:27)
--- NOTE | 2017-10-10 00:30 | NUR ---
PT C/O OF PAIN AND DECLINED TO BE TURNED AND REPOSITIONED AT THIS TIME. PT MEDICATED DILAUDID PRN ORDERED
[2017-10-10] MEDS: AMIKACIN 600 MG in DEXTROSE 5% 100 ML IV SCH ×2 (02:00→20:16)
[2017-10-10] MEDS ORDERED: AMIKACIN 500 MG/2 ML VIAL IV ONE (02:22)
--- NOTE | 2017-10-10 02:45 | NUR ---
PT PULLED UP IN BED, TURNED, CLEANED AND REPOSITIONED,. PT ABT RUNNING ORDERED AND MIDLINE FLUSHED PATENT. PT DENIES PAIN AT THIS TIME AND RESPIRATIONS ARE,EVEN AND UNLABORED. HEAD OF BED UP 45 DEGREES SIDE RAILS UP AND BED IN LOW POSITION CALL BRIGHT PLACED IN REACH. NO S/S OF PAIN OR DISTRESS NOTED.
[2017-10-10] MEDS: BLOOD GLUCOSE MONITORING 1 DEV DEV FS SCH ×4 (05:55→20:43)
[2017-10-10] MEDS: INSULIN LISPRO SLIDING SCALE 100 UNITS/ML VIAL SUBQ PRN ×2 (05:57→17:32)
[2017-10-10] MEDS: LEVOTHYROXINE 0.075 MG TAB PO SCH ×2 (06:00→06:36)
--- NOTE | 2017-10-10 06:00 | NUR ---
PT BLOOD SUGAR IS 152 INSULIN COVERAGE GIVEN NO S/S OF PAIN OR DISTRESS
[2017-10-10 06:38] LABS: BASOPHILS % (AUTO) 0.3 % (0.0-2.0); EOSINOPHILS # (AUTO) 0.2 K/uL (0-0.4); EOSINOPHILS % (AUTO) 1.4 % (0.0-4.0); HEMATOCRIT 25.6 % (36-48); HEMOGLOBIN 8.2 g/dL (12.0-16.0); LYMPHOCYTES # (AUTO) 2.9 K/uL (2.5-16.5); LYMPHOCYTES % (AUTO) 25.6 % (20.5-51.1); MEAN CORPUSCULAR HEMOGLOBIN 29 pg (27-31); MEAN CORPUSCULAR HGB CONC 32 g/dL (33-37); MEAN CORPUSCULAR VOLUME 89.6 fL (80-94); MONOCYTES # (AUTO) 1.2 K/uL (0.8-1.0); MONOCYTES % (AUTO) 10.8 % (1.7-9.3); NEUTROPHILS % (AUTO) 61.9 % (42.2-75.2); PLATELET COUNT (AUTO) 208 K/uL (140-450); RED BLOOD CELL COUNT(AUTO) 2.85 MIL/uL (4.20-5.40); RED CELL DISTRIBUTION WIDTH 15.3 % (11.6-13.7); WHITE BLOOD COUNT (AUTO) 11.2 K/uL (4.8-10.8)
--- NOTE | 2017-10-10 06:38 | NUR ---
RECEIVED PT ON [place] ON A/C 12 VT 600 FIO2 30 ALARMS ARE ON AND AUDIBLE BMV HOB PTS TRACH SHILEY 6 XLT IS SECURE BS CLEAR PT IN HF ASLEEP CONT. POX IN PLACE VENT PLUGGED INTO RED OUTLET
[2017-10-10 06:48] LABS: ANION GAP 13.2 (8-16); CARBON DIOXIDE 25.8 mmol/L (21-32); CREATININE 1.2 mg/dL (0.6-1.3)
[2017-10-10 06:57] LABS: PHOSPHORUS 3.7 mg/dL (2.5-4.9)
--- NOTE | 2017-10-10 07:10 | NUR ---
ENDORSED PT IN STABLE CONDITION TO AM NURSE.
--- NOTE | 2017-10-10 07:10 | NUR ---
ENDORSED PT TO AM NURSE IN STABLE CONDITION.
--- NOTE | 2017-10-10 07:11 | NUR ---
RECEIVED PT FROM THE INSTRUCTOR PILOT NURSE AT BEDSIDE FOR CONTINUITY OF CARE. PT IS SLEEPING. PT IS TRACH TO VENT DEPENDENT. FIO2 30%, VT 600, RATE 12, FLOW 40, PEEP OFF. PT IS BEDBOUND. DIMINISHED LUNG SOUNDS W/O COUGH. SKIN IS INTACT. PT IS INCONTINENT. R UA MID LINE 2 LUMENS, INF NS TKO. BLE EDEMA, NON PITTING. R FOOT DROP, IN A HEEL PROTECTOR. NO SIGNS OF DISTRESS. WILL CONTINUE TO MONITOR PT.
[2017-10-10] MEDS ORDERED: CYCLOBENZAPRINE 10 MG TAB PO PRN (08:04)
[2017-10-10] MEDS: GABAPENTIN 300 MG CAP PO SCH ×3 (08:32→16:55)
[2017-10-10] MEDS: METOCLOPRAMIDE 10 MG TAB PO SCH ×3 (08:32→16:56)
[2017-10-10] MEDS: CILOSTAZOL 100 MG TAB PO SCH ×2 (08:33→20:44)
[2017-10-10] MEDS: ALLOPURINOL 100 MG TAB PO SCH (08:33)
[2017-10-10] MEDS: DOCUSATE 100 MG/10 ML UDC PO SCH ×2 (08:33→20:44)
[2017-10-10] MEDS: VIT-B COMP/VIT-C/FOLIC ACID 1 TAB PO SCH (08:33)
[2017-10-10] MEDS: CARVEDILOL 6.25 MG TAB PO SCH ×2 (08:34→20:44)
[2017-10-10] MEDS: LOSARTAN 25 MG TAB PO SCH (08:34)
--- NOTE | 2017-10-10 08:37 | NUR ---
ADMINISTERED MORNING MEDS. PT TOLERATED WELL. HELD 2 BP MEDS TODAY. BP WAS LOW. 98/51. WILL CONTINUE TO MONITOR PT. STUDENT NURSE WILL FEED PT NOW.
[2017-10-10] MEDS: ALBUTEROL SULFATE/IPRATROPIU 3 ML SOL IH PRN ×3 (08:45→19:26)
[2017-10-10 08:46] LABS: PROTHROMBIN TIME 22.6 secs (10.8-13.4)
--- NOTE | 2017-10-10 11:28 | NUR ---
PT AWAKE AND ORIENTED. TALKING ON THE PHONE. NO SIGNS OF DISTRESS. WILL CONTINUE TO MONITOR PT.
--- NOTE | 2017-10-10 15:35 | NUR ---
ADMINISTERED DILAUD FOR PAIN. 02/11. PT TOLERATED WELL. DR GUNN IS HERE TO ASSESS PT. REQUESTED DR BOWERS BE CONTACTED FOR INCREASE WBC. WILL CONTINUE TO MONITOR PT.
[2017-10-10] MEDS ORDERED: WARFARIN 2.5 MG TAB PO SCH (17:00)
--- NOTE | 2017-10-10 17:26 | NUR ---
PT RESTING COMFORTABLY. NO SIGNS OF DISTRESS. WILL CONTINUE TO MONITOR PT.
--- NOTE | 2017-10-10 19:22 | NUR ---
ENDORSED PT TO THE AGRICULTURAL REAL ESTATE AGENT NURSE AT BEDSIDE FOR CONTINUITY OF CARE. PT IS IN STABLE CONDITION. MIXING TECHNICIAN IS WITH PT DRAWING HER AMIKACIN TROUGH. PT TOLERATING WELL.
--- NOTE | 2017-10-10 19:33 | NUR ---
RECEIVED REPORT FROM DAY SHIFT, PATIENT RESTING IN BED, AWAKE ALERT ORIENTED X4, NO S/S OF DISTRESS NOTED, RESPIRATION EVEN AND UNLABORED, ON VENT. AMIKIN TROUGH WAS DONE. MIDLINE DRESSING DRY AND INTACT. RT FOOD SUPPORT IN PLACE. PLAN OF CARE DISCUSSED, PATIENT VERBALIZED UNDERSTANDING. CALL LIGHT WITHIN REACH, HEAD OF BED ELEVATED, SAFETY MEASURE ENSURED, WILL CONTINUE TO MONITOR. Addendum: 10/11/17 at 0024 by Vicki Vilchis RN RT FOOT SUPPORT
--- NOTE | 2017-10-10 19:35 | NUR ---
VENT CK DONE, PT COMFORTABLE, SX SMALL DOLL THICK SX, MED NEB HHN DUONEB GAVE PER PT REQUEST TO SLEEP GOOD .SAME VENT SETTINGS, NO CHANGE IN PT STATUS.
[2017-10-10] MEDS: ATORVASTATIN 20 MG TAB PO SCH (20:44)
--- NOTE | 2017-10-10 20:48 | NUR ---
DUE MEDICATION GIVEN, PATIENT TOLERATED WELL. NO S/S OF DISTRESS NOTED, RESPIRATION EVEN AND UNLABORED, CALL LIGHT WITHIN REACH, SAFETY MEASURE ENSURED, WILL CONTINUE TO MONITOR
--- NOTE | 2017-10-10 21:15 | NUR ---
CHANGED THE DIAPER AND CLEANED THE PATIENT, REPOSITIONED PATIENT WITH THE COUNTERSINKER, CALL LIGHT WITHIN REACH, SAFETY MEASURE ENSURED, WILL CONTINUE TO MONITOR.
[2017-10-11] VITALS (11 sets, daily range): BP systolic 0–149; BP diastolic 0–71
--- NOTE | 2017-10-11 00:20 | NUR ---
VITAL SIGNS STABLE, NO S/S OF DISTRESS NOTED, REPOSITIONED PATIENT WITH THE RESERVOIR ENGINEERING ADVISOR. PATIENT TOLERATED WELL. CALL LIGHT WITHIN REACH, HEAD OF BED ELEVATED, SAFETY MEASURE ENSURED, WILL CONTINUE TO MONITOR.
--- NOTE | 2017-10-11 02:14 | NUR ---
NO CHANGE IN CONDITION, NO S/S OF DISTRESS NOTED, REPOSITIONED PATIENT WITH THE SALES HOST, CALL LIGHT WITHIN REACH, HEAD OF BED ELEVATED, SAFETY MEASURE ENSURED, WILL CONTINUE TO MONITOR.
--- NOTE | 2017-10-11 04:33 | NUR ---
VITAL SIGNS STABLE, NO S/S OF DISTRESS NOTED, RESPIRATION EVEN AND UNLABORED, ON VENT, REPOSITIONED PATIENT TO HER COMFORTABLE POSITION, CALL LIGHT WITHIN REACH, HEAD OF BED ELEVATED, SAFETY MEASURE ENSURED, WILL CONTINUE TO MONITOR.
--- NOTE | 2017-10-11 05:32 | NUR ---
PT ASLEEP, REFUSED EVERY THINK, CHANGING THE INNER CANNULA, OR DRESSING, SHE WANTS TO SLEEP. NI DISTRESS NOTED
[2017-10-11] MEDS: LEVOTHYROXINE 0.075 MG TAB PO SCH (05:45)
--- NOTE | 2017-10-11 06:05 | NUR ---
PATIENT ASKED FOR FLEET ENEMA, TALKED WITH PHARMACIST BRET, HE SAID,"IT IS OKAY TO ADMINISTER FLEET ENEMA NOW."
[2017-10-11] MEDS: SODIUM PHOSPHATE 118 ML ENEM RC PRN (06:18)
--- NOTE | 2017-10-11 06:30 | NUR ---
ADMINISTERED FLEET ENEMA, BOWEL MOVEMENT X1. CLEANED AND REPOSITIONED PATIENT, CALL LIGHT WITHIN REACH, HEAD OF BED ELEVATED, SAFETY MEASURE ENSURED, WILL CONTINUE TO MONITOR.
[2017-10-11] MEDS: BLOOD GLUCOSE MONITORING 1 DEV DEV FS SCH ×4 (06:41→20:54)
[2017-10-11 07:03] LABS: PROTHROMBIN TIME 23.9 secs (10.8-13.4)
--- NOTE | 2017-10-11 07:16 | NUR ---
ENDORSED PLAN OF CARE TO DAY SHIFT RN, PATIENT RESTING IN BED, IN STABLE CONDITION.
--- NOTE | 2017-10-11 07:17 | NUR ---
RECEIVED REPORT FROM THE CHIEF CUSTOMER OFFICER NURSE AT BEDSIDE FOR CONTINUITY OF CARE. PT IS SLEEPING. RESTING COMFORTABLY. NO SIGNS OF DISTRESS. TRACH TO VENT. SETTINGS: FIO2 30%, TV 600, AC 12, PEEP 0. MIDLINE R UA, DOUBLE LUMEN, SL. SKIN INTACT, BLE NON-PITTING EDEMA, R FOOT DROP- HEEL PROTECTOR. LBM 5/10 AFTER GETTING AN ENEMA. V/S WITHIN NORMAL RANGE. C/O PAIN. WILL MEDICATE WITH MORNING MEDS. WILL CONTINUE TO MONITOR PT.
[2017-10-11] MEDS: ALBUTEROL SULFATE/IPRATROPIU 3 ML SOL IH PRN ×3 (07:20→20:02)
--- NOTE | 2017-10-11 07:20 | NUR ---
RECEIVED ON A [employer] R860 VENTILATOR PLUGGED INTO RED OUTLET TOLERATING WELL TO A SHILEY XLT # 6 AIRWAY CUFF PRESSURE CHECKED NOTED AMBU BAG AT [facility] LOC ASLEEP BREATH SOUNDS RALES BILATERAL WITH GOOD CHEST RISE DEEP TRACHEAL SUCTION FOR SMALL THICK YELLOW SECRETIONS AIRWAY PATENT
[2017-10-11] MEDS: CILOSTAZOL 100 MG TAB PO SCH ×2 (09:03→20:54)
[2017-10-11] MEDS: DOCUSATE 100 MG/10 ML UDC PO SCH ×2 (09:03→20:54)
[2017-10-11] MEDS: ALLOPURINOL 100 MG TAB PO SCH (09:03)
[2017-10-11] MEDS: CARVEDILOL 6.25 MG TAB PO SCH ×2 (09:04→20:55)
[2017-10-11] MEDS: METOCLOPRAMIDE 10 MG TAB PO SCH ×3 (09:04→17:32)
[2017-10-11] MEDS: LOSARTAN 25 MG TAB PO SCH (09:04)
[2017-10-11] MEDS: VIT-B COMP/VIT-C/FOLIC ACID 1 TAB PO SCH (09:04)
[2017-10-11] MEDS: GABAPENTIN 300 MG CAP PO SCH ×3 (09:05→17:31)
[2017-10-11] MEDS: HYDROmorphone 1 MG/ML AMP IVP PRN ×3 (09:07→21:58)
--- NOTE | 2017-10-11 09:10 | NUR ---
ADMINISTERED MORNING MEDS. PT TOLERATED WELL. WILL CONTINUE TO MONITOR PT.
--- NOTE | 2017-10-11 09:43 | NUR ---
NO EVIDENCE OF PULMONARY DISTRESS NOTED CUFF PRESSURE DEFLATED BREATH SOUNDS CLEAR BILATERAL WITH GOOD CHEAT RISE AND AERATION THROUGHOUT MASIMO RADICAL-7 CONTINUOS PULSE OXIMETER AT BEDSIDE ON AND FUNCTIONING WELL LOW SATURATION ALARM SET AT 92%
[2017-10-11 10:00] LABS: BASOPHILS # (AUTO) 0.1 K/uL (0.00-0.22); BASOPHILS % (AUTO) 1.2 % (0.0-2.0); EOSINOPHILS # (AUTO) 0.2 K/uL (0-0.4); EOSINOPHILS % (AUTO) 1.7 % (0.0-4.0); HEMATOCRIT 25.7 % (36-48); HEMOGLOBIN 8.3 g/dL (12.0-16.0); LYMPHOCYTES # (AUTO) 2.3 K/uL (2.5-16.5); LYMPHOCYTES % (AUTO) 23.5 % (20.5-51.1); MEAN CORPUSCULAR HEMOGLOBIN 29 pg (27-31); MEAN CORPUSCULAR HGB CONC 33 g/dL (33-37); MEAN CORPUSCULAR VOLUME 89.7 fL (80-94); MONOCYTES # (AUTO) 0.9 K/uL (0.8-1.0); NEUTROPHILS # (AUTO) 6.3 K/uL (1.8-7.7); NEUTROPHILS % (AUTO) 64.6 % (42.2-75.2); PLATELET COUNT (AUTO) 216 K/uL (140-450); RED BLOOD CELL COUNT(AUTO) 2.86 MIL/uL (4.20-5.40); RED CELL DISTRIBUTION WIDTH 14.9 % (11.6-13.7); WHITE BLOOD COUNT (AUTO) 9.8 K/uL (4.8-10.8)
[2017-10-11 10:12] LABS: ALBUMIN 2.5 g/dL (3.4-5.0); ANION GAP 12.1 (8-16); CARBON DIOXIDE 26.8 mmol/L (21-32); CREATININE 1.2 mg/dL (0.6-1.3); POTASSIUM 3.9 mmol/L (3.5-5.1); TOTAL BILIRUBIN 0.2 mg/dL (0.0-1.0)
--- NOTE | 2017-10-11 11:47 | NUR ---
C/O SOB BREATH SOUNDS RHONCHI BILATERAL SHALLOW CHEST RISE DEEP TRACHEAL SUCTION FOR LARGE THICK YELLOW SECRETIONS AIRWAY PATENT
--- NOTE | 2017-10-11 11:48 | NUR ---
SATURATION 100% ON FIO2 OF 30% POST HHN THERAPY TITRATED FIO2 TO 28% VANNA/RN NOTIFIED
--- NOTE | 2017-10-11 12:05 | NUR ---
ADMINISTERED SCHEDULED MEDS AND INSULIN. PT TOLERATED WELL. WILL CONTINUE TO MONITOR PT. Addendum: 10/11/17 at 1228 by Bre Bone RN REQUESTED R/T TO DEEP SUCTION PT.
[2017-10-11] MEDS: AMIKACIN 500 MG in DEXTROSE 5% 100 ML IV SCH (13:59)
--- NOTE | 2017-10-11 14:36 | NUR ---
1415 MET WITH PT TO DISCUSS DISCHARGE PLAN. SINCE IV ABX IS Q 18HRS IT WILL BE DIFFICULT FOR HOME HEALTH TO COORDINATE VISITS TO ADMINISTER AND THE LAST DOSE WILL BE ON SUNDAY EARLY SO PT IS IN AGREEMENT TO REMAIN UNTIL SUNDAY. PT STATED SHE WILL LET NURSING KNOW WHAT TIME SHE WOULD LIKE TO GO HOME ON SUNDAY AND SHE WILL MAKE ARRANGEMENTS FOR CAREGIVER AND TRANSPORTATION. INFORMED TRISTEN CHARGE NURSE OF PLAN FOR DC ON SUNDAY.
--- NOTE | 2017-10-11 15:48 | NUR ---
STABLE GOOD CHEST RISE DEEP TRACHEAL SUCTION FOR MODERATE THICK PALE YELLOW SECRETIONS AIRWAY PATENT TRACH TIE CHANGED WITH A SHILEY BRAND (PATIENTS OWN)
[2017-10-11] MEDS ORDERED: WARFARIN 1 MG TAB PO SCH (17:00)
--- NOTE | 2017-10-11 17:38 | NUR ---
ADMINISTERED SCHEDULED MEDICATION. PT TOLERATED WELL. WILL CONTINUE TO MONITOR PT.
[2017-10-11] MEDS: ONDANSETRON 4 MG/2 ML VIAL IVP PRN (18:58)
--- NOTE | 2017-10-11 19:23 | NUR ---
RECEIVED PT STABLE ON VENT SUPPORT AT DOCUMENTED SETTINGS, NO RESP DISTRESS OR SOB NOTED AT THIS TIME, PT ALERT AWAKE AND COMMUNICATE NEEDS, SHILEY 6 XLT TRACH SECURED/MIDLINE/PATENT, ALARMS SET AND AUDIBLE, AMBU BAG AT BEDSIDE, VENT PLUGGED INTO RED OUTLET, CONT PULSE OX ON, WILL CONT TO MONITOR.
--- NOTE | 2017-10-11 19:25 | NUR ---
RECEIVED REPORT FROM DAY SHIFT RN, PATIENT RESTING IN BED, FAMILY MEMBER AT THE BEDSIDE. PATIENT AWAKE ALERT ORIENTED X4, NO S/S OF DISTRESS NOTED, RESPIRATION EVEN AND UNLABORED, ON VENT. MIDLINE TO THE RIGHT UPPER ARM, DRESSING DRY AND INTACT. RT FOOT SUPPORT IN PLACE, HEAD OF BED ELEVATED, SAFETY MEASURE ENSURED, WILL CONTINUE TO MONITOR.
--- NOTE | 2017-10-11 19:26 | NUR ---
ENDORSED PT TO ANDREY MCKEON AT BEDSIDE FOR CONTINUITY OF CARE. PT IN STABLE CONDITION.
--- NOTE | 2017-10-11 19:29 | NUR ---
RT AT THE BEDSIDE, GIVING BREATHING TREATMENT. PATIENT IS IN STABLE CONDITION.
--- NOTE | 2017-10-11 20:05 | NUR ---
CLEANED THE PATIENT AND REPOSITIONED PATIENT WITH THE CRIMINAL RESEARCHER, CALL LIGHT WITHIN REACH, SAFETY MEASURE ENSURED, WILL CONTINUE TO MONITOR.
[2017-10-11] MEDS: ATORVASTATIN 20 MG TAB PO SCH (20:54)
[2017-10-11] MEDS: INSULIN LISPRO SLIDING SCALE 100 UNITS/ML VIAL SUBQ PRN (20:57)
--- NOTE | 2017-10-11 21:01 | NUR ---
DUE MEDICATION GIVEN, PATIENT TOLERATED WELL. NO S/S OF DISTRESS NOTED, RESPIRATION EVEN AND UNLABORED, CALL LIGHT WITHIN REACH, HEAD OF BED ELEVATED, WILL CONTINUE TO MONITOR.
--- NOTE | 2017-10-11 21:59 | NUR ---
PATIENT STATED PAIN 9/10, BP 110/52, HR 99. DILAUDID GIVEN ORDERED. PATIENT TOLERATED WELL. CALL LIGHT WITHIN REACH, SAFETY MEASURE ENSURED, WILL CONTINUE TO MONITOR.
--- NOTE | 2017-10-11 22:30 | NUR ---
PATIENT STATED," THE PAIN MEDICATION IS WORKING, I FEEL BETTER." REPOSITIONED PATIENT TO HER COMFORTABLE POSITION. CALL LIGHT WITHIN REACH, SAFETY MEASURE ENSURED, WILL CONTINUE TO MONITOR.
[2017-10-12] VITALS: BP 107/53
--- NOTE | 2017-10-12 00:02 | NUR ---
VITAL SIGNS STABLE, REPOSITIONED PATIENT WITH THE MOLD CLEANER, CALL LIGHT WITHIN REACH, HEAD OF BED ELEVATED, SAFETY MEASURE ENSURED, WILL CONTINUE TO MONITOR.
--- NOTE | 2017-10-12 02:53 | NUR ---
NO CHANGE IN CONDITION, PATIENT WAS SLEEPING, EASY TO AROUSE. NO S/S OF DISTRESS NOTED, RESPIRATION EVEN AND UNLABORED, REPOSITIONED PATIENT WITH THE MOBILE HOME LABORER, CALL LIGHT WITHIN REACH, SAFETY MEASURE ENSURED, WILL CONTINUE TO MONITOR.
[2017-10-12 04:00] VITALS: BP 133/66
[2017-10-12] MEDS: HYDROmorphone 1 MG/ML AMP IVP PRN ×3 (04:40→19:37)
--- NOTE | 2017-10-12 04:40 | NUR ---
PAIN 9/10, BP 133/66, HR 84, DILAUDID GIVEN ORDERED, CALL LIGHT WITHIN REACH, SAFETY MEASURE ENSURED, HEAD OF BED ELEVATED, WILL CONTINUE TO MONITOR.
[2017-10-12] MEDS: ALBUTEROL SULFATE/IPRATROPIU 3 ML SOL IH PRN ×4 (04:45→19:02)
[2017-10-12] MEDS: LEVOTHYROXINE 0.075 MG TAB PO SCH (05:37)
--- NOTE | 2017-10-12 06:20 | NUR ---
PATIENT IS SLEEPING, NO S/S OF DISTRESS NOTED, RESPIRATION EVEN AND UNLABORED, ON VENT, CALL LIGHT WITHIN REACH, HEAD OF BED ELEVATED, SAFETY MEASURE ENSURED, WILL CONTINUE TO MONITOR.
[2017-10-12] MEDS: BLOOD GLUCOSE MONITORING 1 DEV DEV FS SCH ×4 (06:32→21:08)
[2017-10-12 06:51] LABS: BASOPHILS % (AUTO) 0.2 % (0.0-2.0); EOSINOPHILS # (AUTO) 0.2 K/uL (0-0.4); EOSINOPHILS % (AUTO) 1.5 % (0.0-4.0); HEMATOCRIT 26.8 % (36-48); HEMOGLOBIN 8.7 g/dL (12.0-16.0); LYMPHOCYTES # (AUTO) 2.7 K/uL (2.5-16.5); MEAN CORPUSCULAR HEMOGLOBIN 29 pg (27-31); MEAN CORPUSCULAR HGB CONC 32 g/dL (33-37); MEAN CORPUSCULAR VOLUME 89.4 fL (80-94); MONOCYTES % (AUTO) 9.1 % (1.7-9.3); NEUTROPHILS % (AUTO) 64.2 % (42.2-75.2); PLATELET COUNT (AUTO) 253 K/uL (140-450); RED CELL DISTRIBUTION WIDTH 15.1 % (11.6-13.7); WHITE BLOOD COUNT (AUTO) 10.9 K/uL (4.8-10.8)
--- NOTE | 2017-10-12 07:05 | NUR ---
RECEIVED PATIENT REPORT AT BEDSIDE. PATIENT RESTING IN BED, AWAKE ALERT ORIENTED X4, NO S/S OF DISTRESS NOTED, RESPIRATION EVEN AND UNLABORED. PATIENT TRACH TO VENT. 24% FIO2 O2 SAT 100% AT THIS TIME. HEAD OF BED ELEVATED, RT FOOT SUPPORT IN PLACE. PATIENT IS ABLE TO MOVE LT LOWER EXTREMITY. CALL LIGHT WITHIN REACH, SAFETY MEASURE ENSURED, WILL CONTINUE TO MONITOR
[2017-10-12 07:10] LABS: ALBUMIN 2.6 g/dL (3.4-5.0); ANION GAP 11.1 (8-16); CARBON DIOXIDE 27.8 mmol/L (21-32); CREATININE 1.3 mg/dL (0.6-1.3); POTASSIUM 3.9 mmol/L (3.5-5.1); TOTAL BILIRUBIN 0.2 mg/dL (0.0-1.0)
--- NOTE | 2017-10-12 07:14 | NUR ---
ENDORSED PLAN OF CARE TO DAY SHIFT RN, PATIENT RESTING IN BED IN STABLE CONDITION.
[2017-10-12 08:00] VITALS: BP 113/51
[2017-10-12] MEDS: ONDANSETRON 4 MG/2 ML VIAL IVP PRN (08:09)
[2017-10-12] MEDS: AMIKACIN 500 MG in DEXTROSE 5% 100 ML IV SCH (08:14)
--- NOTE | 2017-10-12 08:14 | NUR ---
PATIENT'S RIGHT MIDLINE SITE IS PUFFY. PATIENT C/O OF DISCOMFORT WHEN PORTS ARE FLUSHED. IVPB INFUSION STOPPED. PAGED DR MCRAE
[2017-10-12] MEDS: ALLOPURINOL 100 MG TAB PO SCH (08:16)
[2017-10-12] MEDS: VIT-B COMP/VIT-C/FOLIC ACID 1 TAB PO SCH (08:16)
[2017-10-12] MEDS: CILOSTAZOL 100 MG TAB PO SCH ×2 (08:16→21:03)
[2017-10-12] MEDS: METOCLOPRAMIDE 10 MG TAB PO SCH ×3 (08:16→16:59)
[2017-10-12] MEDS: DOCUSATE 100 MG/10 ML UDC PO SCH ×2 (08:16→21:04)
[2017-10-12] MEDS: CARVEDILOL 6.25 MG TAB PO SCH ×2 (09:00→21:00)
[2017-10-12] MEDS: LOSARTAN 25 MG TAB PO SCH (09:00)
[2017-10-12] MEDS: GABAPENTIN 300 MG CAP PO SCH ×3 (09:00→16:58)
--- NOTE | 2017-10-12 09:11 | NUR ---
VOICEMAIL MESSAGE LEFT TO PICC LINE NURSE'S # ([phone]), AWAITING FOR CALL BACK.
--- NOTE | 2017-10-12 09:44 | NUR ---
PT SUCTIONED OBTAINED SMALL AMOUNT OF THICK WHITE SECRETIONS, AIRWAY IS PATENT AND TRACH IS SECURE.
--- NOTE | 2017-10-12 10:21 | NUR ---
MADE A FOLLOW UP CALL FOR THE PICC LINE NURSE, AWAITING FOR CALL BACK.
--- NOTE | 2017-10-12 10:51 | NUR ---
PATIENT SEEN BY DR GUNN
[2017-10-12] MEDS: oxyCODONE/APAP 5/325 MG 1 TAB TAB PO PRN (11:03)
--- NOTE | 2017-10-12 11:35 | NUR ---
PATIENT BACK FROM COLONOSCOPY. PATIENT ASLEEP BUT AROUSABLE. NO S/S OF DISTRESS. TEMP 97.4 BP 112/44 HR 78 O2 SAT 98% ON ROOM AIR Addendum: 10/12/17 at 1355 by Ye Chery RN WRONG PATIENT
[2017-10-12 12:00] VITALS: BP 133/63
--- NOTE | 2017-10-12 12:10 | NUR ---
SPOKE WITH YADIRA FROM PICC LINE SERVICE, SHE STATED THAT PT IS NOT ELIGIBLE FOR BEDSIDE PICC OR MIDLINE INSERTION. PER YADIRA, THERE IS NO OUTFLOW INSIDE OF PT'S VEINS AND HAS OCCLUSION IN THE VENOUS SYSTEM. THEY CAN TRY BUT THERE IS NO GUARANTEE THAT IT WILL LAST UNTIL SUNDAY. YADIRA STATED SHE WILL CONTACT ANISA PICC NURSE IF HE CAN COME IN TODAY. DR. KINCAID NOTIFIED, NEW ORDER GIVEN TO CONSULT WITH DR. SILVA FOR CENTRAL PLACEMENT.
--- NOTE | 2017-10-12 12:15 | NUR ---
SPOKE WITH PT REGARDING DR. KINCAID'S PLAN FOR CENTRAL LINE INSERTION. PT STATED SHE IS FINE WITH IT.
[2017-10-12] MEDS ORDERED: AMIKACIN PER PHARMACY MC PRN (13:25)
--- NOTE | 2017-10-12 15:00 | NUR ---
VENT CHECK COMPLETED, AREA AROUND STOMA CLEAN. TRACH EQUIPMENT NOT SOILED, INNER CANNULA DOES NOT REQUIRE CHANGING AT THIS TIME.
--- NOTE | 2017-10-12 15:07 | NUR ---
DR. HÉCTOR SILVA CALLED TO AND SPOKE WITH TRISTEN-ANDREY STATED THAT HE IS OUT OF TOWN FOR THIS WEEKEND. Carri SAMLLWOOD NOTIFIED. NEW ORDER GIVEN FOR DR. STOCK TO BE CONSULTED FOR CENTRAL LINE PLACEMENT.
[2017-10-12] MEDS ORDERED: LIDOCAINE 1% 500 MG/50 ML VIAL INJ SCH (15:45)
--- NOTE | 2017-10-12 15:45 | NUR ---
DR. STOCK CALLED BACK, STATED HE WILL DO THE CENTRAL LINE AT THE BEDSIDE TODAY.
[2017-10-12 16:00] VITALS: BP 145/63
--- NOTE | 2017-10-12 16:15 | NUR ---
PT REFUSED CENTRAL LINE INSERTION, RISKS AND BENEFITS EXPLAINED TO PT. PT STATED THAT IT FEELS TOO RISKY FOR HER. DR. STOCK AND DR. KINCAID NOTIFIED.
[2017-10-12] MEDS: WARFARIN 2.5 MG TAB PO SCH (16:58)
--- NOTE | 2017-10-12 17:10 | NUR ---
PERIPHERAL LINE INSERTED ON THE LEFT AC. MIDLINE DISCONTINUED. PATIENT TOLERATED WELL
[2017-10-12] MEDS: INSULIN LISPRO SLIDING SCALE 100 UNITS/ML VIAL SUBQ PRN ×2 (17:46→21:01)
--- NOTE | 2017-10-12 17:50 | NUR ---
VENT CHECK COMPLETED. TRACH REMAINS SECURE WITH A PATENT AIRWAY. VENT ALARMS REMAIN ON AND FUNCTIONING. PT IS SITTING UP IN BED EATING DINNER.
--- NOTE | 2017-10-12 19:15 | NUR ---
PATIENT REPORT GIVEN AT BEDSIDE. PATIENT ENDORSED IN STABLE CONDITION
--- NOTE | 2017-10-12 19:17 | NUR ---
RECEIVED REPORT FROM DAY SHIFT NURSE. AAOX4. PT HAS TRACH TO VENT. NO DISTRESS NOTED. HEAD OF BED ELEVATED. IV TO LEFT UPPER ARM #22G, PATENT AND INTACT. RIGHT FOOT SUPPORT IN PLACE. DISCUSSED PLAN OF CARE, PT VERBALIZED UNDERSTANDING. SAFETY PRECAUTION IN PLACE. CALL LIGHT WITHIN REACH.
[2017-10-12 20:00] VITALS: BP 113/59
[2017-10-12] MEDS: ATORVASTATIN 20 MG TAB PO SCH (21:04)
--- NOTE | 2017-10-12 21:05 | NUR ---
DUE MEDS PT TOLERATED WELL. NO C/O PAIN AT THIS TIME. ALL NEEDS AT THIS TIME. CALL LIGHT WITHIN REACH.
--- NOTE | 2017-10-12 22:10 | NUR ---
PT TURNED AND REPOSITIONED Q2H. NO RESP DISTRESS NOTED. NO C/O PAIN AT THIS TIME.
[2017-10-13] VITALS (8 sets, daily range): BP systolic 68–138; BP diastolic 56–74
--- NOTE | 2017-10-13 00:05 | NUR ---
PT SLEEPING BUT EASILY AROUSABLE. NO RESP DISTRESS NOTED. NO S/S OF PAIN. HOB ELEVATED. CALL LIGHT WITHIN REACH.
--- NOTE | 2017-10-13 01:30 | NUR ---
PSYCHOLOGICAL AIDE IN THE ROOM TO DRAW BLOOD FOR AMIKACIN TROUGH.
--- NOTE | 2017-10-13 02:05 | NUR ---
PT WAS HARD STICK. KEO FROM ER WAS ABLE TO DRAW BLOOD.
[2017-10-13] MEDS: HYDROmorphone 1 MG/ML AMP IVP PRN ×4 (02:17→20:45)
--- NOTE | 2017-10-13 02:20 | NUR ---
CALLED OUTSIDE PHARMACY AND SPOKE WITH PHARMACIST KWADWO. INFORMED KWADWO THAT AMIKACIN TROUGH NOT YET AVAILABLE AND ANTIBIOTIC AMIKIN IS DUE AT O2OO HRS. KWADWO ORDERED TO GIVE THE AMIKIN DUE AT 0200 HRS EVEN WITHOUT THE RESULT OF AMIKACIN TROUGH AND DRAW PEAK AFTER THE DOSE.
[2017-10-13] MEDS: AMIKACIN 500 MG in DEXTROSE 5% 100 ML IV SCH (02:32)
--- NOTE | 2017-10-13 03:39 | NUR ---
BLOOD DRAWN FOR AMIKACIN PEAK. PT TOLERATED PROCEDURE WELL. NO DISTRESS NOTED.
[2017-10-13 03:49] LABS: BASOPHILS % (AUTO) 0.4 % (0.0-2.0); EOSINOPHILS # (AUTO) 0.3 K/uL (0-0.4); EOSINOPHILS % (AUTO) 2.8 % (0.0-4.0); HEMATOCRIT 27.3 % (36-48); HEMOGLOBIN 8.9 g/dL (12.0-16.0); LYMPHOCYTES # (AUTO) 2.2 K/uL (2.5-16.5); LYMPHOCYTES % (AUTO) 20.7 % (20.5-51.1); MEAN CORPUSCULAR HEMOGLOBIN 29 pg (27-31); MEAN CORPUSCULAR HGB CONC 33 g/dL (33-37); MEAN CORPUSCULAR VOLUME 89.3 fL (80-94); MONOCYTES # (AUTO) 1.1 K/uL (0.8-1.0); MONOCYTES % (AUTO) 10.1 % (1.7-9.3); NEUTROPHILS # (AUTO) 7.1 K/uL (1.8-7.7); PLATELET COUNT (AUTO) 269 K/uL (140-450); RED BLOOD CELL COUNT(AUTO) 3.06 MIL/uL (4.20-5.40); RED CELL DISTRIBUTION WIDTH 14.7 % (11.6-13.7); WHITE BLOOD COUNT (AUTO) 10.7 K/uL (4.8-10.8)
[2017-10-13 04:12] LABS: ANION GAP 11.8 (8-16); CARBON DIOXIDE 27.4 mmol/L (21-32); CREATININE 1.2 mg/dL (0.6-1.3); POTASSIUM 4.2 mmol/L (3.5-5.1)
[2017-10-13 04:19] LABS: PROTHROMBIN TIME 21.5 secs (10.8-13.4)
--- NOTE | 2017-10-13 05:00 | NUR ---
PT SLEEPING BUT EASILY AROUSABLE. NO S/S OF DISTRESS NOTED. NO S/S OF PAIN OR DISCOMFORT. CALL LIGHT WITHIN REACH.
[2017-10-13] MEDS: LEVOTHYROXINE 0.075 MG TAB PO SCH (05:43)
[2017-10-13] MEDS: BLOOD GLUCOSE MONITORING 1 DEV DEV FS SCH ×4 (06:07→20:33)
--- NOTE | 2017-10-13 06:10 | NUR ---
BS CHECKED 135. NO INSULIN COVERAGE NEEDED. NO C/O PAIN.
--- NOTE | 2017-10-13 06:19 | NUR ---
REC'D PT ON [employer] VENT SETTINGS AC 12 VT 600 FIO2 28% ALARMS ON AND AUDIBLE AMBU BAG AT SIDE OF VENT AND VENT IS PLUGGED INTO RED OUTLET, I\L TX GIVEN WITH DUONEB 3ML WITH NO ADVERSE REACTION POST TX, B\S ARE CLEAR BILATERALLY, SNX PT SMALL AMT OF CLEAR SECRETIONS PT IS TRACH WITH SHILEY XLT 6 AND SKIN INTEGRITY IS INTACT
--- NOTE | 2017-10-13 07:15 | NUR ---
ENDORSED PT TO DAY SHIFT NURSE. PT IN STABLE CONDITION.
--- NOTE | 2017-10-13 07:30 | NUR ---
RECEIVED PT REPORT FROM DO ALL OPERATOR NURSE. PT IS AAOX4. PT HAS TRACH TO VENT, FIO2 28%, AC/VC MODE. NO S/S OF ACUTE DISTRESS NOTED. HOB ELEVATED TO SEMI-CHUN. IV CATH TO LEFT UPPER ARM #22G, PATENT AND INTACT, SL. BOTH FOOT SUPPORT IN PLACE. RIGHT FOOT NON-PITTING EDEMA NOTED. DISCUSSED PLAN OF CARE, PT VERBALIZED UNDERSTANDING. SAFETY PRECAUTION IN PLACE. CALL LIGHT WITHIN REACH.
[2017-10-13] MEDS: ALBUTEROL SULFATE/IPRATROPIU 3 ML SOL IH PRN ×2 (07:49→13:26)
--- NOTE | 2017-10-13 08:20 | NUR ---
DEEP SUCTION PERFORMED, ORAL CARE GIVEN, PT TOLERATED WELL.
[2017-10-13] MEDS: CARVEDILOL 6.25 MG TAB PO SCH ×2 (09:00→20:43)
[2017-10-13] MEDS: LOSARTAN 25 MG TAB PO SCH (09:00)
--- NOTE | 2017-10-13 09:25 | NUR ---
VENT CHECK, NO SXN REQUIRED AT THIS TIME AIRWAY IS PATENT PT IS AWAKE WITH NO SIGNS OF DISTRESS NOTED
[2017-10-13] MEDS ORDERED: FUROSEMIDE 20 MG/2 ML VIAL IVP SCH (09:30)
[2017-10-13] MEDS: DOCUSATE 100 MG/10 ML UDC PO SCH ×2 (10:05→20:32)
[2017-10-13] MEDS: CILOSTAZOL 100 MG TAB PO SCH ×2 (10:06→20:32)
[2017-10-13] MEDS: VIT-B COMP/VIT-C/FOLIC ACID 1 TAB PO SCH (10:06)
[2017-10-13] MEDS: GABAPENTIN 300 MG CAP PO SCH ×3 (10:07→17:08)
[2017-10-13] MEDS: METOCLOPRAMIDE 10 MG TAB PO SCH ×3 (10:07→17:08)
[2017-10-13] MEDS: ALLOPURINOL 100 MG TAB PO SCH (10:08)
--- NOTE | 2017-10-13 10:54 | NUR ---
VENT CHECK, SXN PT SMALL AMT OF WHITE SECRETIONS PT IS AWAKE WITH NO SIGNS OF DISTRESS NOTED
[2017-10-13] MEDS: INSULIN LISPRO SLIDING SCALE 100 UNITS/ML VIAL SUBQ PRN ×3 (12:37→20:41)
--- NOTE | 2017-10-13 13:26 | NUR ---
VENT CHECK, I\L TX GIVEN WITH DUONEB 3ML WITH NO ADVERSE REACTION POST TX PT SLEEPING WITH NO SIGNS OF DISTRESS NOTED
--- NOTE | 2017-10-13 15:40 | NUR ---
VENT CHECK, NO SXN REQUIRED PT IS SLEEPING WITH NO SIGNS OF DISTRESS NOTED AT THIS TIME
[2017-10-13] MEDS: SODIUM PHOSPHATE 118 ML ENEM RC PRN (16:44)
--- NOTE | 2017-10-13 17:05 | NUR ---
VENT CHECK, SXN PT SMALL AMT OF CLEAR SECRETIONS B\S CLEAR AND TRACH CARE DONE: CHANGED TRACH TIE AND GAUZE AND INNER CANNULA
--- NOTE | 2017-10-13 17:10 | NUR ---
FLEET ENEMA GIVEN. PT HAD FORMED YELLOW STOOL. PT TOLERATED WELL. PT WAS CLEANED AND DIAPER AND CHUX CHANGED.
[2017-10-13] MEDS: WARFARIN 2.5 MG TAB PO SCH (17:11)
--- NOTE | 2017-10-13 19:30 | NUR ---
REPORT GIVEN TO YARN TEXTURE MACHINE OPERATOR RN. PT IN STABLE CONDITION.
--- NOTE | 2017-10-13 19:31 | NUR ---
RECEIVED PT REPORT FROM DAY SHIFT NURSE SHILOH RN. PT IS AAOX4. PT HAS TRACH TO VENT, FIO2 28%, AC/VC MODE. NO S/S OF ACUTE DISTRESS NOTED. HOB ELEVATED TO SEMI-CHUN. IV CATH TO LEFT UPPER ARM #22G, PATENT AND INTACT, SL. BOTH FOOT SUPPORT IN PLACE. RIGHT FOOT NON-PITTING EDEMA NOTED. DISCUSSED PLAN OF CARE, PT VERBALIZED UNDERSTANDING. SAFETY PRECAUTION IN PLACE. CALL LIGHT WITHIN REACH.
[2017-10-13] MEDS: ATORVASTATIN 20 MG TAB PO SCH (20:32)
[2017-10-13] MEDS: ONDANSETRON 4 MG ODT PO PRN (22:30)
--- NOTE | 2017-10-13 22:45 | NUR ---
IV LEAKING, IV REMOVED WITH TIP INTACT. PT TOLERATED WELL. NEW IV STARTED IN L FINGER 24G B KEO THURMAN RN, PT TOLERATED WELL
[2017-10-14] VITALS (7 sets, daily range): BP systolic 0–137; BP diastolic 0–70
[2017-10-14] MEDS: HYDROmorphone 1 MG/ML AMP IVP PRN ×2 (02:59→09:01)
[2017-10-14] MEDS ORDERED: AMIKACIN 500 MG in DEXTROSE 5% 100 ML IV SCH (03:00)
[2017-10-14] MEDS: ALBUTEROL SULFATE/IPRATROPIU 3 ML SOL IH PRN ×2 (03:36→07:51)
[2017-10-14] MEDS: LEVOTHYROXINE 0.075 MG TAB PO SCH (05:53)
[2017-10-14] MEDS: BLOOD GLUCOSE MONITORING 1 DEV DEV FS SCH ×2 (05:56→11:52)
[2017-10-14 06:50] LABS: BASOPHILS # (AUTO) 0.1 K/uL (0.00-0.22); BASOPHILS % (AUTO) 0.4 % (0.0-2.0); EOSINOPHILS # (AUTO) 0.4 K/uL (0-0.4); EOSINOPHILS % (AUTO) 2.9 % (0.0-4.0); HEMOGLOBIN 9.1 g/dL (12.0-16.0); LYMPHOCYTES # (AUTO) 3.3 K/uL (2.5-16.5); LYMPHOCYTES % (AUTO) 23.6 % (20.5-51.1); MEAN CORPUSCULAR HEMOGLOBIN 29 pg (27-31); MEAN CORPUSCULAR HGB CONC 32 g/dL (33-37); MEAN CORPUSCULAR VOLUME 88.3 fL (80-94); MONOCYTES # (AUTO) 1.2 K/uL (0.8-1.0); MONOCYTES % (AUTO) 8.8 % (1.7-9.3); NEUTROPHILS % (AUTO) 64.3 % (42.2-75.2); PLATELET COUNT (AUTO) 268 K/uL (140-450); RED BLOOD CELL COUNT(AUTO) 3.17 MIL/uL (4.20-5.40); RED CELL DISTRIBUTION WIDTH 14.8 % (11.6-13.7)
[2017-10-14 06:55] LABS: ANION GAP 14.6 (8-16); CARBON DIOXIDE 27.3 mmol/L (21-32); CREATININE 1.3 mg/dL (0.6-1.3); POTASSIUM 3.9 mmol/L (3.5-5.1)
--- NOTE | 2017-10-14 07:10 | NUR ---
REPORT GIVEN TO DAY NURSE NARCISO RN FOR CONTINUITY OF CARE, PT IN STABLE CONDITION
--- NOTE | 2017-10-14 07:11 | NUR ---
RECEIVED REPORT FROM SUPERVISOR COMPOSING ROOM NURSE AT BEDSIDE FOR CONTINUITY OF CARE. PT IS AAOX4, WATCHING MOVIE ON HER PHONE. PT HAS TRACH TO VENT, FIO2 28%, AC/VC MODE. NO S/S OF ACUTE DISTRESS NOTED. BREATHING EVEN AND UNLABORED. HOB ELEVATED TO SEMI-CHUN. IV TO LEFT FINGER #24, INTACT, PATENT, AND ASYMPTOMATIC, AND SALINE LOCKED. BILATERAL HEEL PROTECTORS IN PLACE. RIGHT FOOT NON-PITTING EDEMA NOTED. PATIENT DENIES PAIN AT THE MOMENT. DISCUSSED PLAN OF CARE, PT VERBALIZED UNDERSTANDING. SAFETY AND ISOLATION PRECAUTIONS IN PLACE. CALL LIGHT WITHIN REACH. WILL CONTINUE TO MONITOR PATIENT.
[2017-10-14 07:19] LABS: PROTHROMBIN TIME 20.5 secs (10.8-13.4)
--- NOTE | 2017-10-14 07:51 | NUR ---
RECEIVED ON [employer] R860 VENTILATOR VENTILATOR PLUGGED INTO RED OUTLET TOLERATING WELL WITHOUT ADVERSE REACTIONS NOTED TO A SHILEY XLT #6 AIRWAY SECURED WITH A SHILEY TRACH TIE (PATIENT'S OWN) CUFF PRESSURE DEFLATED PER PATIENT REQUEST FOR COMMUNICATION PURPOSES WITH PROVIDERS AND FAMILY AMBU BAG NOTED AT HOB LOC AWAKE AND ALERT BREATH SOUNDS COARSE RHONCHI BILATERAL WITH GOOD CHEST RISE DEEP TRACHEAL SUCTION FOR LARGE THICK PALE YELLOW SECRETIONS AIRWAY PATENT
[2017-10-14] MEDS: DOCUSATE 100 MG/10 ML UDC PO SCH (08:43)
[2017-10-14] MEDS: VIT-B COMP/VIT-C/FOLIC ACID 1 TAB PO SCH (08:44)
[2017-10-14] MEDS: CARVEDILOL 6.25 MG TAB PO SCH (08:44)
[2017-10-14] MEDS: LOSARTAN 25 MG TAB PO SCH (08:44)
[2017-10-14] MEDS: GABAPENTIN 300 MG CAP PO SCH (08:44)
[2017-10-14] MEDS: METOCLOPRAMIDE 10 MG TAB PO SCH (08:45)
--- NOTE | 2017-10-14 08:45 | NUR ---
ORDERED MEDICATIONS ADMINISTERED, COZAAR AND COREG HELD BECAUSE PATIENT REFUSED AND BLOOD PRESSURE 109/56 HR 105. PATIENT TOLERATED THEM WELL AND NOW C/O OF PAIN 9/10 ON RIGHT THIGH AND LEG. WILL ASSESS AND MEDICATE. BREATHING EVEN AND UNLABORED, NO SIGNS OF DISTRESS NOTED. SAFETY AND ISOLATION PRECAUTION IN PLACE, CALL LIGHT WITHIN REACH, WILL CONTINUE TO MONITOR PATIENT.
[2017-10-14] MEDS: ALLOPURINOL 100 MG TAB PO SCH (08:46)
[2017-10-14] MEDS: CILOSTAZOL 100 MG TAB PO SCH (08:46)
--- NOTE | 2017-10-14 09:02 | NUR ---
PATIENT C/O 9/10 PAIN RIGHT LEG AND RIGHT THIGH. PATIENT MEDICATED FOR PAIN. PATIENT TOLERATED IT WELL. PATIENT CALLED WHEELCHAIR TRANSPORT "GET ABOUT" TO INQUIRE ABOUT WHEN THEY WILL COME TO PICK HER UP FROM THE HOSPITAL. SHE WAS INFORMED THEY WILL BE ARRIVING AT [phone]. DR. KINCAID IN TO SEE THE PATIENT TO SPEAK ABOUT DISCHARGE MEDICATIONS AND FOLLOW UP CARE. PATIENT NOW RESTING IN BED WATCHING HER MOVIE ON HER CELL PHONE. BREATHING EVEN AND UNLABORED, NO SIGNS OF DISTRESS NOTED. SAFETY AND ISOLATION PRECAUTION IN PLACE, CALL LIGHT WITHIN REACH, WILL CONTINUE TO MONITOR PATIENT.
[2017-10-14] MEDS ORDERED: ATOR10TA PO (09:34)
[2017-10-14] MEDS ORDERED: CILO100T PO (09:34)
[2017-10-14] MEDS ORDERED: GABA600T1 PO (09:34)
[2017-10-14] MEDS ORDERED: MULT-1469 PO (09:34)
[2017-10-14] MEDS ORDERED: ACET-5636 PO (09:34)
[2017-10-14] MEDS ORDERED: LEVO0.155 PO (09:34)
[2017-10-14] MEDS ORDERED: METO-485 PO (09:34)
[2017-10-14] MEDS ORDERED: ALLO100T21 PO (09:34)
[2017-10-14] MEDS ORDERED: ERGO400T3 PO (09:34)
[2017-10-14] MEDS ORDERED: ONDA8ODT2 PO (09:34)
[2017-10-14] MEDS ORDERED: DOCU-299 PO (09:34)
--- NOTE | 2017-10-14 10:15 | NUR ---
NO EVIDENCE OF PULMONARY DISTRESS NOTED CUFF PRESSURE REMAINS DEFLATED BREATH SOUNDS CLEAR BILATERAL WITH GOOD CHEST RISE AIRWAY PATENT
--- NOTE | 2017-10-14 11:05 | NUR ---
TICO DICK AND ASSISTING RN STUDENT GAVE PATIENT A SPONGE BATH AND CHANGED HER. PATIENT NOW DRESSED AND PREPARED FOR DISCHARGE. WHEN ASKED, INFORM RN THAT SHE WOULD NEEDED TO BE TRANSFERRED TO HER WHEELCHAIR IN PREPARATION FOR FOR THE TRANSPORT HOME. AGREED ABOUT TIME FOR TRANSPORT TO WHEELCHAIR WILL BE 1200. TICO DICK INFORMED, RT CARUSO INFORMED. THEY VERBALIZED UNDERSTANDING. PATIENT WILL BE TRANSFERRED TO WHEELCHAIR AT 1200.
--- NOTE | 2017-10-14 12:01 | NUR ---
NO DISTRESS NOTED BREATH SOUNDS CLEAR BILATERAL WITH GOOD CHEST RISE AND AERATION THROUGHOUT
--- NOTE | 2017-10-14 12:04 | NUR ---
10/14/17 RD FOLLOW UP COMPLETED REFER TO NUTRITION PROGRESS NOTE UNDER CARE ACTIVITY FOR ESTIMATED NEEDS. RD RECOMMENDATIONS: 1. CONTINUE CARDIAC, CCHO 60 GM DIET TOLERATED 2. RD TO FOLLOW-UP 3-5 DAYS, MODERATE RISK MICHELA DENISE RD, [facility]
--- NOTE | 2017-10-14 12:20 | NUR ---
MULTIMEDIA SERVICES MANAGER ASSIST TRANSFERRED TO PATIENT'S OWN ELECTRICAL WHEELCHAIR VIA [employer] TOLERATED WELL WITHOUT INCIDENT Addendum: 10/14/17 at 1513 by Derek Buck RT PATIENT REMAINS ON X-1 CARESCAPE R860 VENTILATOR
--- NOTE | 2017-10-14 12:35 | NUR ---
PATIENT FINISHED HER LUNCH. RN, RT ZULY, AND FORMULATION SCIENTIST BAILEE, USED [employer] TO TRANSFER PATIENT FROM BED TO HER PERSONAL WHEELCHAIR. PATIENT TOLERATED IT WELL. DISCHARGE INSTRUCTIONS AND EDUCATION GIVEN. PATIENT VERBALIZED UNDERSTANDING. PATIENT INQUIRED ABOUT HER WBC. WHEN INFORMED, PATIENT WANTED TO SPEAK TO DR. KINCAID. RN WILL PAGE DR. KINCAID AND PASS ALONG PATIENT'S INQUIRY. IV REMOVED, IV CATHETER INTACT. MINIMAL BLOOD NOTED. PATIENT TOLERATED IT WELL. PATIENT NOW WILL WAIT FOR HER TRANSPORT SERVICE TO COME AND PICK HER UP TO GO HOME.
--- NOTE | 2017-10-14 12:40 | NUR ---
PAGED DR. KINCAID ABOUT PATIENT'S HIGH WBC PER PATIENT'S REQUEST. DR. Carri KINCAID CALLED BACK, HE IS AWARE, NO NEW ORDERS. PATIENT CAN BE DISCHARGED IN CURRENT CONDITION BECAUSE SHE WILL BE SEEING DR. KINCAID OR HER PCP WITHIN THE NEXT WEEK. INFORMED PATIENT OF THIS FACT. PATIENT WAITING FOR RT ZULY, TO COME BACK AND CONNECT HER TO HER OWN VENTILATOR. WILL WAIT FOR PATIENT'S RIDE AND RT ZULY.
[2017-10-14] MEDS: INSULIN LISPRO SLIDING SCALE 100 UNITS/ML VIAL SUBQ PRN (12:41)
--- NOTE | 2017-10-14 12:42 | NUR ---
BLOOD SUGAR 162, COVERAGE GIVEN. PATIENT REFUSED HER 1300 MEDICATIONS BECAUSE SHE STATED THAT SHE COULD TAKE IT AT HOME. PATIENT ALSO C/O PAIN. HOWEVER, WHEN INFORMED THAT DILAUDID NOT DUE, AND WHEN OFFERED NORCO OR PERCOCET, SHE STATED THAT SHE "CAN TAKE THAT AT HOME". PATIENT RESTING ON HER WHEELCHAIR, WAITING FOR TRANSPORT SERVICES TO COME. WILL CONTINUE TO MONITOR PATIENT.
--- NOTE | 2017-10-14 12:55 | NUR ---
TRANSFERRED FROM [employer] R860 VENTILATOR TO PATIENT'S OWN VENTILATOR AND E-TANK (PSI [id number]) LOCATED POSTERIOR OF WHEELCHAIR VENTILATO ON AND FUNCTIONING WELL CARE FUSION LTV 1150 RATE 14 VT 600 SENSITIVITY 2 LPM OXYGEN AT 2.5 LPM VIA E-TANK PORTEX SUCTION CATHETER/HME INLINE TO TRACHEOSTOMY TUBE CUFF REMAINS DEFLATED
--- NOTE | 2017-10-14 13:00 | NUR ---
PATIENT DISCHARGED OFF THE FLOOR ON HER WHEELCHAIR ACCOMPANIED BY RN IN ADDITIONAL WHEELCHAIR WITH ALL OF HER BELONGINGS. PATIENT MET HER RIDE IN FRONT OF THE HOSPITAL ACCOMPANIED BY HER PERSONAL NURSE WHO WAS WAITING OUTSIDE. PATIENT IN STABLE CONDITION. Addendum: 10/14/17 at 1455 by Tino Macedo RN TELE MONITOR REMOVED.
== END 2017-10-14 13:00 | disposition home or self-care (01) | DRG 870 ==
LOC: MED 18:18 → MTU 21:55
PROVIDERS: ADMIT Preventive Medicine Preventive Medicine/Occupational Environmental Medicine; ATTEND Preventive Medicine Preventive Medicine/Occupational Environmental Medicine
PROC: 5A1955Z Respiratory Ventilation, Greater than 96 Consecutive Hours (ICD-10-PCS; principal; 2017-10-01)
PROC: 05HY33Z Insertion of Infusion Device into Upper Vein, Percutaneous Approach (ICD-10-PCS; 2017-10-02)
PROC: 05HY33Z Insertion of Infusion Device into Upper Vein, Percutaneous Approach (ICD-10-PCS; 2017-10-04)
DX: A41.9 Sepsis, unspecified organism (principal); J96.21 Acute and chronic respiratory failure with hypoxia; Z99.11 Dependence on respirator [ventilator] status; J15.1 Pneumonia due to Pseudomonas; I27.20 Pulmonary hypertension, unspecified; Z93.0 Tracheostomy status; N17.9 Acute kidney failure, unspecified; E66.2 Morbid (severe) obesity with alveolar hypoventilation; I13.0 Hypertensive heart and chronic kidney disease with heart failure and stage 1 through stage 4 chronic kidney disease, or unspecified chronic kidney disease; T17.590A Other foreign object in bronchus causing asphyxiation, initial encounter; M84.48XA Pathological fracture, other site, initial encounter for fracture; J44.0 Chronic obstructive pulmonary disease with (acute) lower respiratory infection; G82.20 Paraplegia, unspecified; N39.0 Urinary tract infection, site not specified; I82.812 Embolism and thrombosis of superficial veins of left lower extremity; I42.0 Dilated cardiomyopathy; I50.9 Heart failure, unspecified; E78.00 Pure hypercholesterolemia, unspecified; K21.9 Gastro-esophageal reflux disease without esophagitis; G40.909 Epilepsy, unspecified, not intractable, without status epilepticus; E11.51 Type 2 diabetes mellitus with diabetic peripheral angiopathy without gangrene; I25.10 Atherosclerotic heart disease of native coronary artery without angina pectoris; E78.5 Hyperlipidemia, unspecified; E03.9 Hypothyroidism, unspecified; E11.22 Type 2 diabetes mellitus with diabetic chronic kidney disease; D64.9 Anemia, unspecified; N18.9 Chronic kidney disease, unspecified; B96.89 Other specified bacterial agents as the cause of diseases classified elsewhere; E87.6 Hypokalemia; G89.4 Chronic pain syndrome; B96.5 Pseudomonas (aeruginosa) (mallei) (pseudomallei) as the cause of diseases classified elsewhere; E11.65 Type 2 diabetes mellitus with hyperglycemia; Z16.12 Extended spectrum beta lactamase (ESBL) resistance; Z16.24 Resistance to multiple antibiotics; E83.42 Hypomagnesemia; E11.40 Type 2 diabetes mellitus with diabetic neuropathy, unspecified; R91.1 Solitary pulmonary nodule; B96.20 Unspecified Escherichia coli [E. coli] as the cause of diseases classified elsewhere; E83.51 Hypocalcemia; Z88.1 Allergy status to other antibiotic agents; Z86.74 Personal history of sudden cardiac arrest; I25.2 Old myocardial infarction; Z86.73 Personal history of transient ischemic attack (TIA), and cerebral infarction without residual deficits; Z88.5 Allergy status to narcotic agent; Z88.8 Allergy status to other drugs, medicaments and biological substances; Z79.899 Other long term (current) drug therapy; Z99.3 Dependence on wheelchair; Z88.2 Allergy status to sulfonamides; Z91.041 Radiographic dye allergy status; Z79.01 Long term (current) use of anticoagulants; Z68.34 Body mass index [BMI] 34.0-34.9, adult; Z85.850 Personal history of malignant neoplasm of thyroid; Z88.6 Allergy status to analgesic agent; Z95.0 Presence of cardiac pacemaker; Z88.0 Allergy status to penicillin; Z88.9 Allergy status to unspecified drugs, medicaments and biological substances
CPT/HCPCS: 36415; 36600; 70490; 71045; 71250; 80048; 80053; 80076; 80150; 82803; 82948; 83605; 83735; 83880; 84100; 84484; 85025; 85610; 85651; 86140; 87040; 87070; 87081; 87086; 87186; 87205; 89220; 93005; 93970; 94002; 94003; 94640; 96361; 96365; 96375; 96376; 99285; C1751; J0278; J1170; J1815; J1940; J1956; J2405; J3010; J3475; J3490; J7030; J7042; J7060; J7620; J8597; Q0092; Q0163; S0119

== ENCOUNTER 2017-11-14 15:49 | Inpatient (IN) | payer OTHER, MEDICAID ==
[~2017-11-14] VITALS: Ht 167.6 cm; Wt 91.6 kg
[~2017-11-14 15:49] MED LIST changes: +ACET-5636 PO; +ALLO100T21 PO; +ATOR10TA PO; +BEN50 PO; +CILO100T PO; +COU1 PO; +DOCU-299 PO; +ERGO400T3 PO; -FURO-570; -GABA600T1; +GABA600T1 PO; -GLIP10TA12; +INSU100S45 SUBQ; -LANTUS IM/IV/SUBQ; -LEVO0.124; +LEVO0.155 PO; +METO-485 PO; +MULT-1469 PO; +ONDA8ODT2 PO; -[UNRECOGNIZED DRUG - CODE]
[2017-11-14 16:01] VITALS: BP 113/63
--- NOTE | 2017-11-14 16:01 | NUR ---
PT USING OWN MOTORIZED WHEEL CHAIR TO BED 3, REPORT GIVEN TO ANDREY NAVA
--- NOTE | 2017-11-14 16:05 | NUR ---
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 PATIENT POSITIONED FOR COMFORT; HOB ELEVATED; BEDRAILS UP X2; BED DOWN. ER MD MADE AWARE OF PT STATUS.
--- NOTE | 2017-11-14 16:10 | NUR ---
RT BY BEDSIDE
[2017-11-14] MEDS ORDERED: ALBUTEROL 0.083% 2.5 MG/3 ML NEBU INH ONE (16:35)
[2017-11-14] MEDS ORDERED: ALBUTEROL SULFATE/IPRATROPIU 3 ML SOL IH ONE (16:35)
[2017-11-14 16:40] VITALS: BP 0/0
--- NOTE | 2017-11-14 17:34 | NUR ---
VENT SETTINGS; MODE A.CV FIO2 30% VT 600ML RATE 14 FLOW 40 PEP OFF PMAX 50
[2017-11-14 17:38] VITALS: BP 0/0
[2017-11-14] MEDS ORDERED: DOCUSATE SODIUM 100 MG GELCAP PO PRN (18:20)
[2017-11-14] MEDS ORDERED: LEVOFLOXACIN 750 MG/D5W PREMIX 150 ML IV ONE (18:20)
[2017-11-14] MEDS: NACL 0.9% 1,000 ML IV SCH (18:20)
--- NOTE | 2017-11-14 18:20 | NUR ---
Patient appears to be resting comfortably in bed.
[2017-11-14 18:50] LABS: APPEARANCE,URINE CLOUDY (CLEAR); BILIRUBIN,URINE NEGATIVE (NEGATIVE); BLOOD, URINE 1+ (NEGATIVE); LEUKOCYTE ESTERASE ,URINE 3+ (NEGATIVE); NITRITE, URINE POSITIVE (NEGATIVE); PH,URINE 6.5 (5.0-9.0); UGLUCOSE NEGATIVE (NEGATIVE)
[2017-11-14 18:54] LABS: BASOPHILS % (AUTO) 0.2 % (0.0-2.0); EOSINOPHILS # (AUTO) 0.1 K/uL (0-0.4); EOSINOPHILS % (AUTO) 0.7 % (0.0-4.0); HEMATOCRIT 31.6 % (36-48); HEMOGLOBIN 10.1 g/dL (12.0-16.0); LYMPHOCYTES # (AUTO) 2.1 K/uL (2.5-16.5); LYMPHOCYTES % (AUTO) 16.4 % (20.5-51.1); MEAN CORPUSCULAR HEMOGLOBIN 28 pg (27-31); MEAN CORPUSCULAR HGB CONC 32 g/dL (33-37); MEAN CORPUSCULAR VOLUME 85.8 fL (80-94); NEUTROPHILS # (AUTO) 9.4 K/uL (1.8-7.7); NEUTROPHILS % (AUTO) 74.7 % (42.2-75.2); PLATELET COUNT (AUTO) 267 K/uL (140-450); RED BLOOD CELL COUNT(AUTO) 3.68 MIL/uL (4.20-5.40); RED CELL DISTRIBUTION WIDTH 16.2 % (11.6-13.7); WHITE BLOOD COUNT (AUTO) 12.6 K/uL (4.8-10.8)
[2017-11-14 18:55] LABS: COLOR,URINE STRAW (YELLOW)
--- NOTE | 2017-11-14 19:00 | NUR ---
UNABLE TO OBTAIN IV AT THIS TIME, MD AWARE AND CHARGE NURSE AWARE
[2017-11-14 19:01] LABS: ANION GAP 14.7 (8-16); CARBON DIOXIDE 23.9 mmol/L (21-32); CREATININE 1.6 mg/dL (0.6-1.3); POTASSIUM 3.6 mmol/L (3.5-5.1)
[2017-11-14 19:08] LABS: TOTAL BILIRUBIN 0.4 mg/dL (0.0-1.0)
[2017-11-14 19:10] LABS: RBC,URINE 0-5 (RARE) /HPF (0-5); WBC,URINE TOO MANY TO COUNT /HPF (0-5)
[2017-11-14 19:13] LABS: PROTHROMBIN TIME 18.9 secs (10.8-13.4)
[2017-11-14 19:16] LABS: BARBITURATE, URINE NEG. ng/ml (NEG <=200); BENZODIAZEPINE, URINE NEG. ng/mL (NEG <=200); CANNABINOID, URINE NEG. ng/mL (NEG <=50); COCAINE, URINE NEG. ng/mL (NEG <=300); OPIATE, URINE NEG. ng/mL (NEG <=2000); PHENCYCLIDINE SCREEN,URINE NEG. ng/mL (NEG <=25)
--- NOTE | 2017-11-14 19:20 | NUR ---
Patient will be admitted to care of DR. GREY. Admited to TELE. Will go to room 108-B. Belongings list completed. Report to KATE BALDERAS.
--- NOTE | 2017-11-14 19:20 | NUR ---
PT TAKEN TO THE FLOOR BY ANRDEY NAVA
[2017-11-14 19:25] LABS: CHOL/HDL RATIO 2.6 (1-4.5); FREE T4 (FREE THYROXINE) 1.34 ng/dL (0.76-1.46); MAGNESIUM 1.3 mg/dL (1.8-2.4); PHOSPHORUS 2.9 mg/dL (2.5-4.9); THYROID STIMULATING HORMONE 1.53 uIU/mL (0.34-3.74)
[2017-11-14 19:35] VITALS: BP 159/82
--- NOTE | 2017-11-14 19:35 | NUR ---
ADMITTED A 57 F FROM ER. CAME BY KARTHIKEYAN .CAME DUE TO SOB. WITH TRACH TO VENT, 100%O2 SAT. ON TELE MONITOR -SR /BBB. NO ACUTE DISTRESS NOTED. AWAKE,ALERT AND ORIENTED X4. ABLE TO COMMUNICATE VERBALLY. NO IV ACCESS .UNABLE TO START ANY IV IN ER. WILL NEED A PICC LINE PER ER NURSE. SKIN INTACT. RT FOOT WITH HEEL PROTECTOR. BOTH FEET WITH SLIGHT EDEMA,NON PITTING. PLAN OF CARE DISCUSSED .SO WITH DR. BROWN ,RESIDENT MD CAME AND ASSESSED PT. BED PLACED ON LOWEST POSITION, SIDE RAILS UP X2. CALL LIGHT PLACED WITHIN EASY REACH. WILL CONTINUE TO MONITOR.
[2017-11-14] MEDS ORDERED: METO-485 PO (20:03)
[2017-11-14] MEDS ORDERED: ASPI-1677 PO (20:04)
[2017-11-14] MEDS ORDERED: diphenhydrAMINE 50 MG CAP PO PRN (20:05)
[2017-11-14] MEDS ORDERED: AMIKACIN PER PHARMACY MC PRN (20:25)
[2017-11-14] MEDS ORDERED: DEXTROSE 50% 50 ML SYR IVP PRN (20:30)
[2017-11-14] MEDS ORDERED: MAG SULF 2000 MG/WATER PREMIX 50 ML IV SCH (21:00)
[2017-11-14] MEDS: DOCUSATE SODIUM 100 MG GELCAP PO SCH (21:44)
[2017-11-14] MEDS: oxyCODONE/APAP 5/325 MG 1 TAB TAB PO PRN (21:45)
[2017-11-14] MEDS: CILOSTAZOL 100 MG TAB PO SCH (21:45)
[2017-11-14] MEDS: BLOOD GLUCOSE MONITORING 1 DEV DEV FS SCH (21:51)
--- NOTE | 2017-11-14 21:51 | NUR ---
BLOOD SUGAR WAS CHECKED RESULT 128. NO INSULIN COVERAGE NEEDED.
[2017-11-14] MEDS ORDERED: AMIKACIN 500 MG in DEXTROSE 5% 100 ML IV SCH (22:00)
--- NOTE | 2017-11-14 22:00 | NUR ---
PT NEED SUCTIONING. OBTAINED CREAMY TO YELLOWISH THICK SECRETIONS IN SMALL AMOUNT.
--- NOTE | 2017-11-14 23:10 | NUR ---
PICC LINE INSERTION CAN'T BE DONE TONIGHT CALLS HAVE BEEN MADE BY CHAIN MAKER TO PICC LINE NURSE. BUT TO CALL BACK. KEVIN HAAS MADE AWARE AND TALKED TO PT FOR POSSIBLE CENTRAL LINE INSERTION , BUT PT REFUSED . SO DR. BROWN SAID WILL WAIT FOR PICC LINE TO BE INSERTED ANMOL AM .
[2017-11-15 00:28] VITALS: BP 134/74
--- NOTE | 2017-11-15 01:15 | NUR ---
NEEDS ATTENDED. RT CAME FOR PT C/O AIR FROM TRACH LEAKING. SHE FEEL BETTER NOW.
--- NOTE | 2017-11-15 02:20 | NUR ---
MADE ROUNDS. PT IS ASLEEP. NO RESPIRATORY DISTRESS NOTED. WILL CONITNUE TO MONITOR.
--- NOTE | 2017-11-15 04:00 | NUR ---
PT SLEEPING WITH NO S/S OF ANY RESPIRATORY DISTRESS NOTED.
[2017-11-15 04:12] VITALS: BP 129/73
[2017-11-15] MEDS ORDERED: ALBUTEROL SULFATE/IPRATROPIU 3 ML SOL IH SCH (06:00)
--- NOTE | 2017-11-15 06:00 | NUR ---
PICC LINE NURSE HASN'T CALL BACK . WILL FOLLOW UP PICC LINE NURSE WITH ANDREY HASTINGS WELDING TESTER. HE SAID WILL CALL THE OFFICE AGAIN AT 0800.
[2017-11-15] MEDS: BLOOD GLUCOSE MONITORING 1 DEV DEV FS SCH ×4 (06:15→21:13)
--- NOTE | 2017-11-15 06:15 | NUR ---
BLOOD SUGAR WAS CHECKED THIS AM RESULT 117. NO INSULIN NEEDED.
[2017-11-15] MEDS: LEVOTHYROXINE 0.075 MG TAB PO SCH (06:39)
[2017-11-15] MEDS: METOCLOPRAMIDE 10 MG TAB PO SCH ×3 (06:39→16:27)
[2017-11-15 06:44] LABS: BASOPHILS % (AUTO) 0.4 % (0.0-2.0); EOSINOPHILS # (AUTO) 0.2 K/uL (0-0.4); EOSINOPHILS % (AUTO) 1.5 % (0.0-4.0); HEMATOCRIT 30.9 % (36-48); HEMOGLOBIN 10.2 g/dL (12.0-16.0); LYMPHOCYTES # (AUTO) 2.7 K/uL (2.5-16.5); LYMPHOCYTES % (AUTO) 23.7 % (20.5-51.1); MEAN CORPUSCULAR HEMOGLOBIN 28 pg (27-31); MEAN CORPUSCULAR HGB CONC 33 g/dL (33-37); MONOCYTES # (AUTO) 1.1 K/uL (0.8-1.0); MONOCYTES % (AUTO) 10.1 % (1.7-9.3); NEUTROPHILS # (AUTO) 7.3 K/uL (1.8-7.7); NEUTROPHILS % (AUTO) 64.3 % (42.2-75.2); PLATELET COUNT (AUTO) 276 K/uL (140-450); RED BLOOD CELL COUNT(AUTO) 3.64 MIL/uL (4.20-5.40); RED CELL DISTRIBUTION WIDTH 15.8 % (11.6-13.7); WHITE BLOOD COUNT (AUTO) 11.3 K/uL (4.8-10.8)
--- NOTE | 2017-11-15 06:57 | NUR ---
TALKED TO LACIE FROM US. SHE SAID SHE WILL DO THE TEST @0730 THIS AM.
[2017-11-15] MEDS: ALBUTEROL SULFATE/IPRATROPIU 3 ML SOL IH SCH ×3 (07:02→19:22)
[2017-11-15 07:09] LABS: MAGNESIUM 1.3 mg/dL (1.8-2.4); PHOSPHORUS 2.9 mg/dL (2.5-4.9)
[2017-11-15 07:15] LABS: ANION GAP 16.3 (8-16); CARBON DIOXIDE 23.4 mmol/L (21-32); CREATININE 1.6 mg/dL (0.6-1.3); POTASSIUM 3.7 mmol/L (3.5-5.1)
--- NOTE | 2017-11-15 07:25 | NUR ---
RECEIVED PATIENT TRACH SHILEY XLT 6 TO VENT ON SETTINGS: AC 600, 14, 30%, NO PEEP. AIRWAY SECURE AND PATENT. VENT PLUGGED INTO RED OUTLET. VENT ALARMS ON AND AUDIBLE. AMBU BAG AT BEDSIDE. CONTINUOUS PULSE OX ON AND FUNCTIONING, ALARMS ON AND AUDIBLE. VENT CHECK DONE. SCHEDULED BREATHING TREATMENT ADMINISTERED. PATIENT TOLERATED TX WELL, NO ADVERSE SIDE EFFECTS. SUCTIONED SCANT AMOUNT OF THICK YELLOW SECRETIONS. TRACH CARE PERFORMED, CHANGED GAUZE. NO RESPIRATORY DISTRESS NOTED AT THIS TIME. WILL CONTINUE TO MONITOR.
--- NOTE | 2017-11-15 07:27 | NUR ---
ENDORSED PT IN STABLE CONDITION TO AM NURSE FOR CONTINUITY OF CARE.
--- NOTE | 2017-11-15 07:28 | NUR ---
OBTAINED REPORT FROM PM SHIFT NURSE AT BEDSIDE, PT IS AAOX4, ABLE TO FOLLOW COMMANDS AND MADE NEEDS KNOWN, TRACH TO VENT WITH SETTING FIO2 30, R 14, TV 450, NO S/S OF DISTRESS, CLEAR LUNG SOUNDS SHAHNAZ., DENIES CHEST PAIN, SR ON MONITOR, SOFT ABDOMEN WITH ACTIVE BOWEL SOUNDS, INCONTINENT WITH B&B'S, RIGHT SIDE WEAKNESS NOTED, VSS, C/O GENERALIZED PAIN 9/10W, WILL MEDICATED, NO IV ASSESS AT THIS TIME DUE TO HARD TO INSERT, WAITING FOR PICC LINE INSERTION PER REPORT, EXPLAINED POC TO PT, PT VERBALIZED UNDERSTANDING, PLACED PT IN COMFORT POSITION, SAFETY MEASURE IN PLACE, CALL LIGHT WITHIN REACH, WILL CONTINUE TO MONITOR.
[2017-11-15 08:00] VITALS: BP 98/64
--- NOTE | 2017-11-15 08:12 | NUR ---
AWAKE AND ALERT PATIENT REFUSED EKG PROCEDURE AT THIS TIME IN PROCESS WITH ORAL CARE JAILER/TRAINING OFFICER TO ATTEMPT EKG PROCEDURE IN 30MINS PER PATIENT REQUEST
--- NOTE | 2017-11-15 08:13 | NUR ---
PATIENT HAS BEEN SCREENED AND CATEGORIZED MODERATE NUTRITION RISK. PATIENT WILL BE SEEN WITHIN 3-5 DAYS OF ADMISSION. 11/17/17 11/19/[address]
[2017-11-15 09:07] LABS: T4 (THYROXINE) 11.3 ug/dL (4.5-12.0)
--- NOTE | 2017-11-15 09:10 | NUR ---
VENT CHECK DONE. PATIENT RESTING. NO RESPIRATORY DISTRESS NOTED. WILL CONTINUE TO MONITOR.
[2017-11-15] MEDS: ALLOPURINOL 100 MG TAB PO SCH (09:31)
[2017-11-15] MEDS: ASPIRIN 81 MG TAB.CHEW PO SCH (09:32)
[2017-11-15] MEDS: DOCUSATE SODIUM 100 MG GELCAP PO SCH ×2 (09:32→21:14)
[2017-11-15] MEDS: oxyCODONE/APAP 5/325 MG 1 TAB TAB PO PRN ×2 (09:32→14:53)
[2017-11-15] MEDS: VIT-B COMP/VIT-C/FOLIC ACID 1 TAB PO SCH (09:33)
[2017-11-15] MEDS: CILOSTAZOL 100 MG TAB PO SCH ×2 (09:33→21:14)
[2017-11-15] MEDS: ATORVASTATIN 20 MG TAB PO SCH (09:33)
[2017-11-15] MEDS: GABAPENTIN 300 MG CAP PO SCH ×3 (09:34→16:29)
[2017-11-15] MEDS ORDERED: AMIKACIN 500 MG in DEXTROSE 5% 100 ML IV SCH ×2 (10:00→18:00)
[2017-11-15] MEDS ORDERED: MAG SULF 2000 MG/WATER PREMIX 50 ML IV ONE (11:30)
[2017-11-15 12:00] VITALS: BP 110/68
--- NOTE | 2017-11-15 12:00 | NUR ---
NO S/S OF DISTRESS, VSS, DENIES PAIN, US AT BEDSIDE AT THIS TIME.
--- NOTE | 2017-11-15 13:15 | NUR ---
INTEGRATE PACEMAKER DONE AT BEDSIDE, OBTAINED REPORT AND PUT IN THE CHART.
--- NOTE | 2017-11-15 13:30 | NUR ---
BREATHING TREATMENT NOT ADMINISTERED AT THIS TIME DUE TO STERILE PROCEDURE AT BEDSIDE IN PROGRESS.
--- NOTE | 2017-11-15 14:29 | NUR ---
MIDLINE INSERTED TO RIGHT UPPER ARM BY PICC LINE NURSE MADE AWARE.
[2017-11-15] MEDS: NACL 0.9% 1,000 ML IV SCH ×2 (14:39→15:14)
[2017-11-15] MEDS: ONDANSETRON 4 MG ODT PO PRN (14:53)
[2017-11-15] MEDS ORDERED: MAG SULF 2000 MG/WATER PREMIX 50 ML IV SCH (15:00)
--- NOTE | 2017-11-15 15:40 | NUR ---
FAMILY AT BEDSIDE. VENT CHECK DONE. BREATHING TREATMENT ADMINISTERED. PATIENT TOLERATED TREATMENT WELL, NO ADVERSE SIDE EFFECTS. INNER CANNULA CHANGED WITHOUT INCIDENT. SUCTIONED SMALL AMOUNT OF THICK PALE YELLOW SECRETIONS. NO RESPIRATORY DISTRESS NOTED AT THIS TIME. WILL CONTINUE TO MONITOR.
[2017-11-15 16:00] VITALS: BP 129/65
[2017-11-15] MEDS ORDERED: WARFARIN 1 MG TAB PO SCH (17:00)
--- NOTE | 2017-11-15 19:20 | NUR ---
REPORT GIVEN TO ORDER DESK CALLER NURSE FOR CONTINUE OF CARE, PT IS IN STABLE CONDITION AT THIS TIME.
--- NOTE | 2017-11-15 19:25 | NUR ---
RECEIVED PT IN STABLE CONDITION FROM AM NURSE. AWAKE,ALERT AND ORIENTED X4. WITH NO ACUTE RESPIRATORY DISTRESS NOTED. ON TRACH TO VENT, O2SAT 100%. BEDREST. ABLE TO COMMUNICATE/TALK ,NEEDS ATTENDED. WITH RT FOOT HEEL PROTECTOR. NEW PICC LINE ON THE RT LOWER ARM (MIDLINE) IVF INFUSING WELL. PLAN OF CARE DISCUSSED AND VERBALIZED UNDERSTANDING. BED ON LOW POSITION, FREQUENT ROUND NEEDED. CALL LIGHT PLACED WITHIN EASY REACH. WILL CONTINUE TO MONITOR.
--- NOTE | 2017-11-15 19:31 | NUR ---
RECEIVED PT STABLE ON VENT SUPPORT AT DOCUMENTED SETTINGS, HHN TX GIVEN, TOLERATED WELL, NO RESP DISTRESS OR SOB NOTED AT THIS TIME, SHILEY 6 XLT TRACH SECURED/PATENT/MIDLINE, ALARMS SET AND AUDIBLE, AMBU BAG AT BEDSIDE, VENT PLUGGED INTO RED OUTLET, PULSE OX ON, WILL CONT TO MONITOR.
[2017-11-15] MEDS ORDERED: KETOROLAC 15 MG/ML VIAL IVP ONE (19:50)
[2017-11-15 20:00] VITALS: BP 94/45
[2017-11-15] MEDS ORDERED: LEVOFLOXACIN 250 MG/D5 PREMIX 50 ML IV SCH (21:00)
--- NOTE | 2017-11-15 21:13 | NUR ---
BLOOD SUGAR WAS CHECKED RESULT 165. PT REFUSED TO HAVE ANY INSULIN.
--- NOTE | 2017-11-15 22:30 | NUR ---
MADE ROUNDS. PT IS ASLEEP. NO RESPIRATORY DISTRESS NOTED. WILL CONITNUE TO MONITOR.
[2017-11-16] VITALS (7 sets, daily range): BP systolic 110–148; BP diastolic 45–70
[2017-11-16] MEDS ORDERED: KETOROLAC 15 MG/ML VIAL IVP SCH
--- NOTE | 2017-11-16 | NUR ---
PT VITAL SIGNS TAKEN. DENIES ANY PAIN AT THIS TIME. TORADOL NOT GIVEN. ENCOURAGED PT TO CALL IF STARTING TO HAVE PAIN. VERBALIZED UNDERSTANDING.
--- NOTE | 2017-11-16 02:00 | NUR ---
PT ASLEEP. NO S/S OF ANY DISTRESS NOTED WILL CONITNUE TO MONITOR.
--- NOTE | 2017-11-16 03:08 | NUR ---
RT INSIDE ROOM . CHECKED ON PT . TRACH DRESSING CHANGED. NO DISTRESS NOTED .
[2017-11-16] MEDS: ALBUTEROL SULFATE/IPRATROPIU 3 ML SOL IH PRN (03:14)
[2017-11-16] MEDS: NACL 0.9% 1,000 ML IV SCH ×2 (03:44→06:11)
[2017-11-16] MEDS: BLOOD GLUCOSE MONITORING 1 DEV DEV FS SCH ×5 (05:58→20:04)
[2017-11-16] MEDS: INSULIN LISPRO SLIDING SCALE 100 UNITS/ML VIAL SUBQ PRN (06:06)
--- NOTE | 2017-11-16 06:06 | NUR ---
BLOOD SUGAR THIS AM 161. PT SAID OK TO GET INSULIN COVERAGE HUMALOG 2 UNITS SUBQ -GIVEN.
[2017-11-16] MEDS: LEVOTHYROXINE 0.075 MG TAB PO SCH (06:14)
[2017-11-16] MEDS: METOCLOPRAMIDE 10 MG TAB PO SCH ×3 (06:35→16:55)
--- NOTE | 2017-11-16 06:43 | NUR ---
PT GIVEN COPY OF COUMADIN EDUCATION .
--- NOTE | 2017-11-16 07:15 | NUR ---
CXR WAS DONE . ENDORSED PT IN STABLE CONDITION TOAM NURSE. FOR CONTINUITY OF CARE.
--- NOTE | 2017-11-16 07:16 | NUR ---
REPORT RECEIVED FROM GENERAL DISTILLERY WORKER NURSE AT BEDSIDE FOR CONTINUITY OF CARE. PATIENT AWAKE,ALERT AND ORIENTED X4. WITH NO ACUTE RESPIRATORY DISTRESS NOTED. ON TRACH TO VENT, O2 SAT 100%. BEDREST. ABLE TO COMMUNICATE/TALK, ABLE TO VERBALIZED NEEDS. WITH RT FOOT HEEL PROTECTOR. NEW PICC LINE ON THE RT LOWER ARM (MIDLINE) IVF INFUSING WELL. PLAN OF CARE DISCUSSED AND VERBALIZED UNDERSTANDING. UPDATED BOARD. SAFETY AND ISOLATION PRECAUTION IN PLACE, BED ON LOW POSITION, CALL LIGHT PLACED WITHIN EASY REACH. WILL CONTINUE TO MONITOR PATIENT.
[2017-11-16] MEDS: ALBUTEROL SULFATE/IPRATROPIU 3 ML SOL IH SCH ×3 (07:31→19:29)
[2017-11-16 07:32] LABS: BASOPHILS % (AUTO) 0.4 % (0.0-2.0); EOSINOPHILS # (AUTO) 0.2 K/uL (0-0.4); EOSINOPHILS % (AUTO) 1.7 % (0.0-4.0); HEMATOCRIT 26.5 % (36-48); HEMOGLOBIN 8.9 g/dL (12.0-16.0); LYMPHOCYTES # (AUTO) 2.4 K/uL (2.5-16.5); MEAN CORPUSCULAR HEMOGLOBIN 29 pg (27-31); MEAN CORPUSCULAR HGB CONC 34 g/dL (33-37); MEAN CORPUSCULAR VOLUME 85.9 fL (80-94); MONOCYTES # (AUTO) 0.8 K/uL (0.8-1.0); MONOCYTES % (AUTO) 7.8 % (1.7-9.3); NEUTROPHILS # (AUTO) 7.3 K/uL (1.8-7.7); NEUTROPHILS % (AUTO) 68.1 % (42.2-75.2); PLATELET COUNT (AUTO) 235 K/uL (140-450); RED BLOOD CELL COUNT(AUTO) 3.08 MIL/uL (4.20-5.40); RED CELL DISTRIBUTION WIDTH 16.6 % (11.6-13.7); WHITE BLOOD COUNT (AUTO) 10.7 K/uL (4.8-10.8)
--- NOTE | 2017-11-16 07:39 | NUR ---
RECIVED PT ON VENT WITH SETTINGS CHARTED BREATH SOUNDS PRESENT BILAT CLEAR SXN PT WITH MIN AMT OFF WHITE SECS TRACH SITE SECURE AMBU BAG AT BEDSIDE VENT PLUGGED INTO RED OUTLET WILL CONTINUE TO MONITOR PT ON VENT
[2017-11-16 08:08] LABS: CARBON DIOXIDE 23.2 mmol/L (21-32); CREATININE 2.2 mg/dL (0.6-1.3); POTASSIUM 3.2 mmol/L (3.5-5.1)
[2017-11-16 08:29] LABS: PROTHROMBIN TIME 16.4 secs (10.8-13.4)
--- NOTE | 2017-11-16 08:30 | NUR ---
PATIENT C/O PAIN 9/10 ON RIGHT LEG, RN OFFERED PERCOCET, PATIENT STATED THAT IT DOES NOT WORK, REQUESTED TORADOL IVP. RN EXPLAINED IT WILL BE AVAILABLE AT 0920 PER PRN SCHEDULE. PHARMACIST ALSO CALLED TO CLARIFY ABOUT MORPHINE IVP DOSE FOR BREAKTHROUGH PAIN SINCE PATIENT HAS IT LISTED AN ALLERGY MEDICATION. RN ASKED PATIENT IF MORPHINE IS SUITABLE FOR BREAKTHROUGH PAIN WHEN TORADOL IS NOT AVAILABLE. PATIENT STATED THAT SHE HAS NOT HAD "MORPHINE SINCE THE EARLY , BUT I'LL TRY A LOW DOSE". RN VERBALIZED UNDERSTANDING AND PASSED MESSAGE ALONG TO SARAH BETH SEGURA. PATIENT RESTING IN BED WATCHING TV, FACIALLY GRIMACING, WAITING FOR PAIN MEDICATIONS. RN WILL MEDICATE SOON IT BECOMES AVAILABLE AGAIN. SAFETY AND ISOLATION PRECAUTION IN PLACE, CALL LIGHT WITHIN REACH. WILL CONTINUE TO MONITOR PATIENT.
--- NOTE | 2017-11-16 09:15 | NUR ---
CALLED PHARMACY, SPOKE TO IMELDA, PHARMACIST. PATIENT HAS TORADOL 15 MG IVP Q6 FOR SEVERE PAIN. NOT SEEN IN [facility]. IMELDA SAID SHE WILL FIX THE PROBLEM. RN VERBALIZED UNDERSTANDING. FORWARDED THE INFORMATION ALONG TO PATIENT. PATIENT VERBALIZED UNDERSTANDING.
[2017-11-16] MEDS: KETOROLAC 15 MG/ML VIAL IVP PRN ×3 (09:18→21:15)
[2017-11-16] MEDS: ALLOPURINOL 100 MG TAB PO SCH (09:22)
[2017-11-16] MEDS: ASPIRIN 81 MG TAB.CHEW PO SCH (09:22)
[2017-11-16] MEDS: GABAPENTIN 300 MG CAP PO SCH ×3 (09:23→16:55)
[2017-11-16] MEDS: DOCUSATE SODIUM 100 MG GELCAP PO SCH ×2 (09:23→20:31)
[2017-11-16] MEDS: VIT-B COMP/VIT-C/FOLIC ACID 1 TAB PO SCH (09:23)
[2017-11-16] MEDS: CILOSTAZOL 100 MG TAB PO SCH ×2 (09:23→20:31)
--- NOTE | 2017-11-16 09:23 | NUR ---
DR MAYEN IN TO SEE THE PATIENT. ORDERED MEDICATIONS GIVEN. PATIENT C/O 10/10 PAIN ON RIGHT LEG, TORADOL PRN IVP GIVEN. PATIENT TOLERATED IT WELL. NO SIGNS OF DISTRESS OR SOB NOTED. PATIENT MEDICATED FOR PAIN. SAFETY AND ISOLATION PRECAUTION IN PLACE, CALL LIGHT WITHIN REACH. BED ON LOWEST SETTING. WILL CONTINUE TO MONITOR PATIENT.
[2017-11-16] MEDS: ATORVASTATIN 20 MG TAB PO SCH (09:24)
--- NOTE | 2017-11-16 09:57 | NUR ---
DR BENOIT IN TO SEE THE PATIENT. WILL AWAIT FOR HIS ORDERS.
--- NOTE | 2017-11-16 10:09 | NUR ---
LARS, PHARMACIST, CALLED ABOUT PATIENT'S INR TODAY OF 1.6 AND TO UPDATE RN ON COUMADIN DOSE AT 1700 OF 2MG. RN VERBALIZED UNDERSTANDING.
--- NOTE | 2017-11-16 10:55 | NUR ---
PATIENT VOIDED, CHANGED, CLEANED, AND REPOSITIONED FOR COMFORT. SAFETY AND ISOLATION PRECAUTION IN PLACE, CALL LIGHT WITHIN REACH, WILL CONTINUE TO MONITOR PATIENT.
--- NOTE | 2017-11-16 11:28 | NUR ---
BLOOD SUGAR 139, NO COVERAGE NEEDED. ORDERED MEDICATIONS ADMINISTERED. PATIENT TOLERATED THEM WELL. NO SIGNS OF DISTRESS OR SOB NOTED. PATIENT RESTING IN BED, COMPLAINED TO RN THAT SHE DOES NOT WANT TO BE DISCHARGED UNTIL HER INFECTION CLEARS UP. PATIENT WANTED RN TO MAKE DOCTOR TIARRA AWARE. DR. MAYEN INFORMED. SAFETY AND ISOLATION PRECAUTION IN PLACE, CALL LIGHT WITHIN REACH. WILL CONTINUE TO MONITOR PATIENT.
[2017-11-16] MEDS ORDERED: MAG SULF 2000 MG/WATER PREMIX 50 ML IV SCH (11:30)
--- NOTE | 2017-11-16 13:00 | NUR ---
Building Maintenance Worker Notes: Per Patient's request; I call Get about transportation services at to schedule transportation for possible discharge on 11/19/17 at 4:00pm. I spoke to Sindy she agreed and set up patient's D/C transport; requesting a call back in case of needed cancelation. I agreed to follow up and ended call.
--- NOTE | 2017-11-16 14:15 | NUR ---
PATIENT C/O SORENESS ON RIGHT UPPER ARM, NOT AT PICC LINE SITE BUT ABOVE. PATIENT REQUESTED FOR ICE PACK, ICE PACK GIVEN. PATIENT STATED ICE PACK HELPED WITH SORENESS. PATIENT REQUESTED RATE OF IVF BE LOWERED, PASSED FORWARD PATIENT'S SUGGESTION TO DR. MAYEN, NEW ORDERS IN, NS NOW RUNNING AT 50 ML/HR. PATIENT IS TOLERATING IT WELL. SAFETY AND ISOLATION PRECAUTION IN PLACE, CALL LIGHT WITHIN REACH. WILL CONTINUE TO MONITOR PATIENT.
--- NOTE | 2017-11-16 16:40 | NUR ---
BLOOD SUGAR 102, NO COVERAGE NEEDED. ORDERED MEDICATIONS ADMINISTERED, PATIENT TOLERATED THEM WELL. NO SIGNS OF DISTRESS OR SOB NOTED ON ROOM AIR, PATIENT DENIES PAIN. SAFETY PRECAUTION IN PLACE, CALL LIGHT WITHIN REACH, WILL CONTINUE TO MONITOR PATIENT. Addendum: 11/16/17 at 1838 by Tino Macedo RN CORRECT TIME 1658.
[2017-11-16] MEDS ORDERED: WARFARIN 1 MG TAB PO SCH (17:00)
[2017-11-16] MEDS ORDERED: ONDANSETRON 4 MG/2 ML VIAL IVP SCH (17:04)
--- NOTE | 2017-11-16 17:25 | NUR ---
PATIENT REQUESTED ZOFRAN IVP, ORDERED MEDICATION IS BY MOUTH. INFORMED DR. AMBRIZ OF PATIENT'S REQUEST. ONE TIME ORDER FOR ZOFRAN IVP IN. ORDERED MEDICATION ADMINISTERED. PATIENT TOLERATING IT WELL. SAFETY AND ISOLATION PRECAUTION IN PLACE, CALL LIGHT WITHIN REACH. WILL CONTINUE TO MONITOR PATIENT.
--- NOTE | 2017-11-16 17:42 | NUR ---
CONTINUED TO MONITOR PT ON VENT WITH SETTINGS CHARTED BREATH SOUNDS PRESENT BILAT CLEAR AND COARSE PT REF SXN AT THIS TIME TRACH SITE SECURE VENT PLUGGED INTO RED OUTLET PT REST AT THIS TIME 0 RESP DISTRESS NOTED
--- NOTE | 2017-11-16 18:20 | NUR ---
FOLLOWED UP WITH PATIENT'S POSITIVE URINE CULTURE. DR. MAYEN STATED THAT PATIENT DID NOT NEED CONTACT PRECAUTION. INFORMED DATA ENTRY ASSOCIATE, ALEM. Addendum: 11/16/17 at 1832 by Tino Macedo RN WRONG PATIENT.
--- NOTE | 2017-11-16 18:50 | NUR ---
PATIENT VOIDED. PATIENT CHANGED AND CLEANED. PATIENT REPOSITIONED FOR COMFORT. NO SIGNS OF DISTRESS NOTED. PATIENT DENIES PAIN AT THE MOMENT. SAFETY AND ISOLATION PRECAUTION IN PLACE, CALL LIGHT WITHIN REACH, WILL CONTINUE TO MONITOR PATIENT.
--- NOTE | 2017-11-16 19:21 | NUR ---
REPORT GIVEN TO CLIENT SERVICE COORDINATOR NURSE AT BEDSIDE FOR CONTINUITY OF CARE. PATIENT IN STABLE CONDITION.
--- NOTE | 2017-11-16 19:30 | NUR ---
RECEIVED REPORT FROM [facility] NURSE STUART AT BEDSIDE FOR CONTINUITY OF CARE. PT AAOX4. PT IS ON TRACH VENT. SHE HAC PICC LINE RFA 50ML NS 50ML HR. PT HAS OWN DIAPERS AND OWN SACRAL CREAM FOR PRESSURE ON COCCYX. NO BLOOD FROM PICC LINE ON RIGHT AND NO BLOOD DRAW AND NO BP ON RIGHT BED LOWERED CALL LIGHT WITHIN REACH WILL CONTINUE TO MONITOR.
[2017-11-16] MEDS: POTASSIUM CHLORIDE 10 MEQ TABER PO SCH (20:31)
--- NOTE | 2017-11-16 21:33 | NUR ---
PT TOOK MEDS WELL. ORDERED FLEET ENEMA PT STATES SHE FEELS CONSTIPATED. ALSO GAVE HER TORADOL FOR PAIN WILL CONTINUE TO MONITOR.
--- NOTE | 2017-11-16 23:00 | NUR ---
GAVE PT FLEET ENEMA. PT ONLY HAD SMALL BOWEL MOVEMENT WILL CONTINUE TO MONITOR.
--- NOTE | 2017-11-16 23:45 | NUR ---
MD BOWERS TALKING TO PT. PT AWARE URINE CULTURE HAS NOT COME BACK. PT IS CONCERNED FOR IV ABX AND WHY WHERE THEY STOP. DR BOWERS LET HER KNOW ABX WILL CONTINUE BUT HAS TO LOOK AT HER KIDNEY FUNCTION. WILL CONTINUE MONITOR.
[2017-11-16] MEDS ORDERED: TOBRAMYCIN PER PHARMACY MC PRN (23:50)
[2017-11-17] MEDS ORDERED: KETOROLAC 15 MG/ML VIAL IVP PRN
[2017-11-17] MEDS ORDERED: TOBRAMYCIN 80 MG/2 ML VIAL ONE (01:47)
[2017-11-17] MEDS ORDERED: TOBRAMYCIN IV SCH (02:00)
[2017-11-17] MEDS ORDERED: NACL 0.9% IV SCH (02:00)
[2017-11-17] MEDS: KETOROLAC 15 MG/ML VIAL IVP PRN (03:45)
[2017-11-17 04:00] VITALS: BP 136/60
--- NOTE | 2017-11-17 05:20 | NUR ---
PICC LINE INFILTRATED. STOPPED ALL IV FLUIDS. ASSESSED PT RIGHT FOREARM WHERE PICC LINE WAS PLACED. SITE AROUND PICK LINE IS SWOLLEN. PT STATED HER ARM FEELS SWOLLEN. CHARGE NURSE CAME TO ASSESS AND ELIJAH STATED TO D/C. FLUIDS. WILL LET DR NAVAS AWARE.
--- NOTE | 2017-11-17 05:25 | NUR ---
PICC LINE INFILTRATED. DR. BROWN (RESIDENT) CAME TO ASSESSED THE PT. DR BROWN AGREES PICC LINE IS INFILTRATED. WILL ORDERED NEW PICC LINE. OFFERED PAIN MEDICATION FOR SWELLING OF ARM AND STOMACH BUT PT HESITANT BECAUSE NO MORE IV PAIN MEDS AT THIS TIME. HE OFFERED HER PERCOCET BUT SHE STATED SHE WILL TOLERATE THE PAIN. WILL CONTINUE TO MONITOR.
--- NOTE | 2017-11-17 05:30 | NUR ---
SPOKE TO CHARGE NURSE ELIJAH TO ASK IF INCIDENT REPORT NEEDED TO BE FILLED. SHE INFORMED ME THERE IS NO NEED TO FILE A INCIDENT REPORT. RECOMMENDED TO ELEVATE SWOLLEN ARM WITH PILLOW AND CONTINUE TO MONITOR.
[2017-11-17] MEDS: LEVOTHYROXINE 0.075 MG TAB PO SCH (06:41)
[2017-11-17] MEDS: METOCLOPRAMIDE 10 MG TAB PO SCH ×3 (06:41→16:48)
[2017-11-17 06:58] LABS: BASOPHILS % (AUTO) 0.4 % (0.0-2.0); EOSINOPHILS # (AUTO) 0.3 K/uL (0-0.4); EOSINOPHILS % (AUTO) 2.8 % (0.0-4.0); HEMATOCRIT 25.4 % (36-48); HEMOGLOBIN 8.4 g/dL (12.0-16.0); LYMPHOCYTES # (AUTO) 2.3 K/uL (2.5-16.5); LYMPHOCYTES % (AUTO) 19.6 % (20.5-51.1); MEAN CORPUSCULAR HEMOGLOBIN 28 pg (27-31); MEAN CORPUSCULAR HGB CONC 33 g/dL (33-37); MEAN CORPUSCULAR VOLUME 85.5 fL (80-94); MONOCYTES # (AUTO) 0.9 K/uL (0.8-1.0); MONOCYTES % (AUTO) 7.7 % (1.7-9.3); NEUTROPHILS # (AUTO) 8.1 K/uL (1.8-7.7); NEUTROPHILS % (AUTO) 69.5 % (42.2-75.2); PLATELET COUNT (AUTO) 209 K/uL (140-450); RED BLOOD CELL COUNT(AUTO) 2.97 MIL/uL (4.20-5.40); RED CELL DISTRIBUTION WIDTH 16.7 % (11.6-13.7); WHITE BLOOD COUNT (AUTO) 11.7 K/uL (4.8-10.8)
[2017-11-17] MEDS: ALBUTEROL SULFATE/IPRATROPIU 3 ML SOL IH SCH ×3 (07:05→19:25)
--- NOTE | 2017-11-17 07:17 | NUR ---
recived pt on vent with settings as charted breath sounds present bilat clear sxn pt with min amt thick yellow secs trach site secure ambu bag at bedside vent plugged into red outlet anthony squires to monitor pt on vent
[2017-11-17 07:19] LABS: ANION GAP 16.6 (8-16); CARBON DIOXIDE 19.9 mmol/L (21-32); POTASSIUM 4.5 mmol/L (3.5-5.1)
--- NOTE | 2017-11-17 07:19 | NUR ---
ENDORSED REPORT TO DAYSHIFT NURSE AT BEDSIDE FOR CONTINUITY.
--- NOTE | 2017-11-17 07:20 | NUR ---
RECEIVED REPORT FROM CABLE INSPECTOR NURSE. PATIENT SITTING IN BED ON HER CELLPHONE. NO DISTRESS NOTED. DENIES ANY PAIN AT THIS TIME. RESPIRATIONS EVEN, UNLABORED, ON VENT TO TRACH WITH VENT SETTINGS: FIO2:30, VT:600, RATE:14, PEEP:OFF, O2 SAT IS 100%. AAOX4, CALM, COOPERATIVE, SKIN COLOR APPROPRIATE TO ETHNICITY, WARM TO TOUCH. RIGHT UPPER ARM PICC LINE IS INFILTRATED WITH SWELLING, MD ALREADY AWARE. RLE NON-PITTING EDEMA NOTED. SKIN IS INTACT. LUNGS HAVE WHEEZING ON ALL LOBES. ABDOMEN SOFT, OBESE. REVIEWED PLAN OF CARE WITH PATIENT. PATIENT VERBALIZED UNDERSTANDING. SAFETY MEASURES IN PLACE, CALL LIGHT WITHIN REACH, FALL PREVENTIONS IN PLACE. WILL CONTINUE TO MONITOR.
[2017-11-17] MEDS: BLOOD GLUCOSE MONITORING 1 DEV DEV FS SCH ×4 (07:21→20:46)
[2017-11-17 07:24] LABS: PROTHROMBIN TIME 17.2 secs (10.8-13.4)
[2017-11-17 08:00] VITALS: BP 124/55
[2017-11-17] MEDS: ASPIRIN 81 MG TAB.CHEW PO SCH (08:43)
[2017-11-17] MEDS: CILOSTAZOL 100 MG TAB PO SCH ×2 (08:43→20:45)
[2017-11-17] MEDS: DOCUSATE SODIUM 100 MG GELCAP PO SCH ×2 (08:44→20:45)
[2017-11-17] MEDS: ATORVASTATIN 20 MG TAB PO SCH (08:44)
[2017-11-17] MEDS: ALLOPURINOL 100 MG TAB PO SCH (08:44)
[2017-11-17] MEDS: POTASSIUM CHLORIDE 10 MEQ TABER PO SCH ×3 (08:44→20:46)
[2017-11-17] MEDS: VIT-B COMP/VIT-C/FOLIC ACID 1 TAB PO SCH (08:44)
--- NOTE | 2017-11-17 08:49 | NUR ---
PATIENT SITTING IN BED ON HER PHONE. NO DISTRESS NOTED. DENIES ANY PAIN. SCHEDULED MEDICATIONS DUE GIVEN. SAFETY MEASURES IN PLACE, CALL LIGHT WITHIN REACH. WILL CONTINUE TO MONITOR.
[2017-11-17] MEDS: GABAPENTIN 300 MG CAP PO SCH ×3 (09:11→16:48)
--- NOTE | 2017-11-17 09:13 | NUR ---
PATIENT SITTING IN BED WATCHING TV. NO DISTRESS NOTED. SCHEDULED MEDICATIONS DUE GIVEN. POTASSIUM GIVEN PO EVEN THOUGH CURRENT POTASSIUM IS 4.[address] MAYEN STILL WANTING TO GIVE IT. SAFETY MEASURES IN PLACE, CALL LIGHT WITHIN REACH. WILL CONTINUE TO MONITOR.
[2017-11-17] MEDS ORDERED: INSULIN LISPRO SLIDING SCALE 100 UNITS/ML VIAL SUBQ PRN (09:55)
[2017-11-17] MEDS ORDERED: DEXTROSE 50% 50 ML SYR IVP PRN (09:55)
--- NOTE | 2017-11-17 10:42 | NUR ---
CALLED PICC LINE COMPANY FOR PLACEMENT AT [phone], SAID THEY WILL NOTIFY PICC LINE NURSE. WILL CONTINUE TO MONITOR.
[2017-11-17] MEDS ORDERED: BLOOD GLUCOSE MONITORING 1 DEV DEV FS SCH (11:30)
[2017-11-17] MEDS: NACL 0.9% 1,000 ML IV SCH ×2 (11:32→22:29)
--- NOTE | 2017-11-17 11:44 | NUR ---
PATIENT SITTING IN BED WATCHING TV. NO DISTRESS NOTED. DENIES ANY PAIN. SCHEDULED MEDICATIONS DUE GIVEN. SAFETY MEASURES IN PLACE, CALL LIGHT WITHIN REACH. WILL CONTINUE TO MONITOR.
[2017-11-17 12:00] VITALS: BP 117/57
--- NOTE | 2017-11-17 13:51 | NUR ---
Center Machine Set Up Operator Note: Per Trinh from [facility] , patient's home visits/home health services termed as of 11/02/17. I met with patient at bedside and informed her of this. Per patient, she would like to be referred to [facility] once again, I verified her home address, [address], [place] [address]. She stated she would also like to be referred to [facility] . Per Summer from [facility] I can fax referral to . I faxed referral to [facility] and also to [facility], fax . Per , plan is to discharge patient on Sunday11/19/17.
--- NOTE | 2017-11-17 14:19 | NUR ---
CALLED FOR PICC LINE NURSE FOR FOLLOW-UP, SAID THE NURSE WILL BE COMING LATER TODAY. WILL CONTINUE TO MONITOR.
[2017-11-17] MEDS: oxyCODONE/APAP 5/325 MG 1 TAB TAB PO PRN (14:56)
--- NOTE | 2017-11-17 14:56 | NUR ---
PT COMPLAINED OF HEADACHE. OFFERED TYLENOL BUT PT REFUSED MED AFTER I OPENED IT. WASTED TYLENOL. ADMINISTERED PERCOCET 5 FOR PAIN, PT TOLERATED MED WELL.
--- NOTE | 2017-11-17 15:00 | NUR ---
Composition Mixer Note: Per Summer from [facility] , they received referral and they are able to accept patient, she stated they will contact our nursing staff tomorrow for any updates. I provided Summer with [facility]'s phone number. Per Trinh from [facility] they received referral and they are able to deliver medication to patient's home, she stated they will contact our nursing staff tomorrow for any updates. I provided Trinh with [facility]'s phone number.
[2017-11-17 16:00] VITALS: BP 114/54
--- NOTE | 2017-11-17 16:54 | NUR ---
PATIENT SITTING IN BED WATCHING TV ON HER PHONE. NO DISTRESS NOTED. DENIES ANY PAIN. SCHEDULED MEDICATIONS DUE GIVEN. SAFETY MEASURES IN PLACE, CALL LIGHT WITHIN REACH. WILL CONTINUE TO MONITOR.
[2017-11-17] MEDS ORDERED: WARFARIN 1 MG TAB PO SCH (17:00)
--- NOTE | 2017-11-17 17:18 | NUR ---
continued to monitor pt on vent with settings as charted breath sounds present bilat clear sxn pt with min amt thick yellio secs trach secure ambu bag at bedside vent plugged into red outlet
--- NOTE | 2017-11-17 17:30 | NUR ---
ANISA, PICC LINE NURSE CALLED VIA PHONE AND SAID HE WILL BE HERE IN ABOUT 1 HOUR. WILL CONTINUE TO MONITOR.
--- NOTE | 2017-11-17 18:30 | NUR ---
PICC LINE NURSE ANISA AT BEDSIDE WITH RADIOLOGIST READY TO INSERT PICC LINE. TIMEOUT PROCEDURE PERFORMED. WILL CONTINUE TO MONITOR.
--- NOTE | 2017-11-17 18:55 | NUR ---
NEW MIDLINE CATHETER INSERTED ON RIGHT BRACHIAL UPPER ARM BY PICC NURSE ANISA. OLD MIDLINE CATHETER ON RIGHT UPPER ARM REMOVED BY ANISARN PICC LINE NURSE, 15 CM OF OLD CATHETER WITH LUMEN INTACT AND PRESSURE DRESSING IN PLACE. MINIMAL BLEEDING NOTED. SAFETY MEASURES IN PLACE, CALL LIGHT WITHIN REACH. WILL CONTINUE TO MONITOR
--- NOTE | 2017-11-17 19:30 | NUR ---
REPORT GIVEN TO ICT QUALITY ASSURANCE ENGINEER NURSE FOR CONTINUITY OF CARE. PATIENT IN STABLE CONDITION.
--- NOTE | 2017-11-17 19:31 | NUR ---
RECEIVED REPORT AT PT BEDSIDE FROM DAY SHIFT RN, PT IS A/OX4, ON A TRACH TO VENT WITH 30% FIO2. PT ABLE TO MAKE NEEDS KNOWN, ABLE TO FOLLOW COMMANDS. RESPIRATIONS EVEN AND UNLABORED. PT SKIN IS INTACT. NEW MIDLINE PICC INSERTED JUST NOW TO LEFT UPPER ARM. UPDATED BOARD. DISCUSSED PLAN OF CARE WITH PT, PT VERBALIZED UNDERSTANDING. VITAL SIGNS WITHIN NORMAL LIMITS. PT STABLE, NO SIGNS OF DISTRESS NOTED AT THIS TIME. BED IN LOWEST POSITION, BED ALARM ON. CALL LIGHT WITHIN REACH, WILL CONTINUE TO MONITOR.
--- NOTE | 2017-11-17 19:35 | NUR ---
RECEIVED PT STABLE ON VENT SUPPORT AT DOCUMENTED SETTINGS, SUCTIONED SMALL AMOUNTS OF THIN CLEAR WHITE SECRETIONS, HHN TX GIVEN, TOLERATED WELL, NO RESP DISTRESS OR SOB NOTED AT THIS TIME, SHILEY 6 XLT TRACH SECURED/PATENT/MIDLINE, ALARMS SET AND AUDIBLE, AMBU BAG AT BEDSIDE, VENT PLUGGED INTO RED OUTLET, PULSE OX ON, WILL CONT TO MONITOR.
[2017-11-17 19:40] VITALS: BP 115/56
--- NOTE | 2017-11-17 19:55 | NUR ---
PT COMPLAINING OF 8/10 GENERALIZED PAIN, AND WANTS IV PAIN MEDICATION. THE ONLY IV PAIN MED AVAILABLE IS MORPHINE, WHICH PT IS ALLERGIC TO. SPOKE TO DR BROWN OVER PHONE AND HE SAID HE WILL BE BACK IN ABOUT 20MIN BUT IT IS OKAY FOR ME TO INPUT ORDER. Addendum: 11/17/17 at 2101 by Violetta Elmore RN IT WAS NOT DR BROWN, IT WAS DR MCKEON.
--- NOTE | 2017-11-17 20:20 | NUR ---
SPOKE TO DR MCKEON ABOUT CREATININE BEING 2.0 AND HE SAID TO HOLD THE TORADOL AND HE WILL SEE PT.
[2017-11-17] MEDS ORDERED: KETOROLAC 30 MG/ML VIAL IVP SCH (20:30)
[2017-11-17] MEDS: INSULIN LISPRO SLIDING SCALE 100 UNITS/ML VIAL SUBQ PRN (20:39)
--- NOTE | 2017-11-17 20:50 | NUR ---
DR MCKEON SAID PT WILL TAKE PERCOCET FOR PAIN. GOT PERCOCET ALONG WITH SCHEDULED MEDICATIONS. ADMINISTERED SCHEDULED MEDICATIONS, PT TOLERATED WELL. PT DID NOT WANT TO TAKE PERCOCET, PT STATES "THAT DOESN'T DO ANYTHING TO ME, IT'S LIKE TAKING AN ASPIRIN. I DON'T WANT IT." RETURNED PERCOCET. NO SIGNS OF DISTRESS NOTED. WILL CONTINUE TO MONITOR PT.
[2017-11-17] MEDS: MORPHINE SULFATE 2 MG/ML SYR IVP PRN (21:22)
--- NOTE | 2017-11-17 21:27 | NUR ---
PT COMPLAINED HER PAIN IS GETTING WORSE, OFFERED HER PERCOCET AND SHE REFUSED. SHE STATES SHE WANTS DILAUDID BECAUSE SHE GOT IT LAST TIME SHE WAS HERE IN [place]OB[place] AND ASKED ME TO TELL THE DOCTOR THAT. PT THEN SAID SHE IS WILLING TO TAKE THE MORPHINE BECAUSE HER REACTION IS JUST ITCHING. SPOKE TO DR MCKEON AND DR MCKEON SAID IT WAS OK TO GIVE 1MG MORPHINE FOR PAIN AND BENADRYL FOR ITCHING. ADMINISTERED BENADRYL AND MORPHINE PER ORDERS. PT TOLERATED WELL.
[2017-11-18] VITALS (7 sets, daily range): BP systolic 100–153; BP diastolic 54–72
--- NOTE | 2017-11-18 | NUR ---
VITAL SIGNS WITHIN NORMAL LIMITS. PT STABLE, NO SIGNS OF DISTRESS NOTED AT THIS TIME. BED IN LOWEST POSITION, BED ALARM ON. CALL LIGHT WITHIN REACH, WILL CONTINUE TO MONITOR.
--- NOTE | 2017-11-18 01:45 | NUR ---
PT REQUESTED RT. CALLED RT JAMES, HE WILL BE HERE SOON.
[2017-11-18] MEDS: ALBUTEROL SULFATE/IPRATROPIU 3 ML SOL IH PRN (01:55)
[2017-11-18] MEDS: TOBRAMYCIN 120 MG in DEXTROSE 5% 100 ML IV SCH (02:16)
[2017-11-18] MEDS: LEVOTHYROXINE 0.075 MG TAB PO SCH (06:31)
[2017-11-18] MEDS: BLOOD GLUCOSE MONITORING 1 DEV DEV FS SCH ×4 (06:34→20:45)
[2017-11-18] MEDS: METOCLOPRAMIDE 10 MG TAB PO SCH ×3 (06:35→16:37)
--- NOTE | 2017-11-18 06:35 | NUR ---
ADMINISTERED SCHEDULED MEDICATIONS, PT TOLERATED WELL. NO INSULIN COVERAGE NEEDED FOR BLOOD SUGAR 130.
[2017-11-18 06:51] LABS: BASOPHILS # (AUTO) 0.1 K/uL (0.00-0.22); BASOPHILS % (AUTO) 0.8 % (0.0-2.0); EOSINOPHILS # (AUTO) 0.5 K/uL (0-0.4); HEMATOCRIT 24.4 % (36-48); HEMOGLOBIN 8.2 g/dL (12.0-16.0); LYMPHOCYTES # (AUTO) 2.6 K/uL (2.5-16.5); LYMPHOCYTES % (AUTO) 25.6 % (20.5-51.1); MEAN CORPUSCULAR HEMOGLOBIN 29 pg (27-31); MEAN CORPUSCULAR HGB CONC 34 g/dL (33-37); MONOCYTES # (AUTO) 0.8 K/uL (0.8-1.0); MONOCYTES % (AUTO) 7.6 % (1.7-9.3); NEUTROPHILS # (AUTO) 6.1 K/uL (1.8-7.7); PLATELET COUNT (AUTO) 198 K/uL (140-450); RED BLOOD CELL COUNT(AUTO) 2.84 MIL/uL (4.20-5.40); RED CELL DISTRIBUTION WIDTH 16.5 % (11.6-13.7)
[2017-11-18 07:03] LABS: PROTHROMBIN TIME 16.9 secs (10.8-13.4)
[2017-11-18 07:10] LABS: CARBON DIOXIDE 21.6 mmol/L (21-32); CREATININE 1.9 mg/dL (0.6-1.3); POTASSIUM 4.6 mmol/L (3.5-5.1)
[2017-11-18] MEDS: ALBUTEROL SULFATE/IPRATROPIU 3 ML SOL IH SCH ×3 (07:11→19:21)
--- NOTE | 2017-11-18 07:19 | NUR ---
RECIVED PT ON VENT WITH SETTINGS CHARTED BREATH SOUNDS PRESENT BILAT CLEAR TRACH SECURE PT REF SXN AT THIS TIME AMBU BAG AT BEDSSIDE VENT PLUGGED INTO RED OUTLET WILL CONTINUE TO MONITOR PT ON VENT
--- NOTE | 2017-11-18 07:23 | NUR ---
ENDORSED PT TO DAY SHIFT NURSE FOR CONTINUITY OF CARE. PT IN STABLE CONDITION.
--- NOTE | 2017-11-18 07:23 | NUR ---
RECEIVED REPORT FROM FAMILY SUPPORT SPECIALIST NURSE AT BEDSIDE. PT IS A/O X4. PICC IN L UA WITH NS AT 80ML/HR. SKIN IS INTACT. PT IS ON VENTILATOR FIO2 30, TV 600, RATE 14, FLOW 40. BED IN LOW POSITION, LOCKED AND SIDE RAILS UP X2. BOARD UPDATED WILL CONTINUE TO MONITOR.
[2017-11-18] MEDS: DOCUSATE SODIUM 100 MG GELCAP PO SCH ×2 (08:22→20:45)
[2017-11-18] MEDS: GABAPENTIN 300 MG CAP PO SCH ×3 (08:22→16:34)
[2017-11-18] MEDS: ATORVASTATIN 20 MG TAB PO SCH (08:23)
[2017-11-18] MEDS: VIT-B COMP/VIT-C/FOLIC ACID 1 TAB PO SCH (08:23)
[2017-11-18] MEDS: CILOSTAZOL 100 MG TAB PO SCH ×2 (08:24→20:46)
[2017-11-18] MEDS: ALLOPURINOL 100 MG TAB PO SCH (08:24)
[2017-11-18] MEDS: ASPIRIN 81 MG TAB.CHEW PO SCH (08:24)
[2017-11-18] MEDS: MORPHINE SULFATE 2 MG/ML SYR IVP PRN ×2 (08:24→17:45)
--- NOTE | 2017-11-18 08:24 | NUR ---
ADMINISTERED MORNING MEDS TO PT. PT TOLERATED WELL. PT ATE ALL OF BREAKFAST. NO SIGNS OF DISTRESS. WILL CONTINUE TO MONITOR.
--- NOTE | 2017-11-18 11:22 | NUR ---
NOTIFIED RT THAT PT IS HAVING IRRITATION AND SORENESS IN THROAT D/T TRACH. WILL COME TO SEE PT.
--- NOTE | 2017-11-18 11:24 | NUR ---
pt complaint of trach irritation trach site secure no resp distress at this time
[2017-11-18] MEDS ORDERED: BENZONATATE 100 MG CAPLF PO SCH ×2 (11:30→13:00)
--- NOTE | 2017-11-18 11:36 | NUR ---
PT STILL HAVING THROAT IRRITATION. AT BEDSIDE WITH PT.
--- NOTE | 2017-11-18 11:50 | NUR ---
GAVE PT A HEATING PAD D/T NECK AND BACK PAIN. PT STATED THAT IT IS HELPING. AWARE.
[2017-11-18] MEDS ORDERED: CARISOPRODOL 350 MG TAB PO SCH ×2 (12:00→23:30)
--- NOTE | 2017-11-18 12:03 | NUR ---
ADMINISTERED AFTERNOON MEDS. PT TOLERATED WELL. BS 112, NO COVERAGE NEEDED. WILL CONTINUE TO MONITOR PT.
--- NOTE | 2017-11-18 13:55 | NUR ---
PT REFUSED TO TAKE GABAPENTIN. NO SIGNS OF DISTRESS. WILL CONTINUE TO MONITOR.
--- NOTE | 2017-11-18 15:40 | NUR ---
TRACH CARE DONE ON PT DID NOT WANT TRACH TIE CHANGED AT THIS TIME PT WITH FAMILY MEMBER AT BEDSIDE DAUGHTER NO ILL EFFCTS NOTED NO RESP DISTRESS NOTED AT THIS TIME PT STATED SHE SXN HERSELF
[2017-11-18] MEDS: NACL 0.9% 1,000 ML IV SCH (16:00)
[2017-11-18] MEDS: WARFARIN 1 MG TAB PO SCH (16:36)
--- NOTE | 2017-11-18 16:36 | NUR ---
ADMINISTERED EVENING MEDS. PT TOLERATED WELL. VS WITHIN NORMAL LIMITS. BS CHECKED, 123. NO COVERAGE NEEDED. DAUGHTER IS AT BEDSIDE. WILL CONTINUE TO MONITOR.
--- NOTE | 2017-11-18 17:36 | NUR ---
continued to monitor pt with settings as charted breath sounds present bilat pt ref sxn at this time cuff deflated all day pt resting at this time dauhter at bedside ambu bag at bedside trach secure vent plugged into red outlet
--- NOTE | 2017-11-18 17:45 | NUR ---
PT REQUESTED PAIN MEDICATION. ADMINISTERED. NO SIGNS OF DISTRESS. PT NOW EATING DINNER. WILL CONTINUE TO MONITOR.
--- NOTE | 2017-11-18 19:10 | NUR ---
ENDORSED PT TO DIRECTOR SYSTEMS NURSE FOR CONTINUITY OF CARE. PT IN STABLE CONDITION.
--- NOTE | 2017-11-18 19:28 | NUR ---
RECEIVED PT STABLE ON VENT SUPPORT AT DOCUMENTED SETTINGS, HHN TX GIVEN, TOLERATED WELL, NO RESP DISTRESS OR SOB NOTED AT THIS TIME, SHILEY 6 XLT TRACH SECURED/PATENT/MIDLINE, ALARMS SET AND AUDIBLE, VENT PLUGGED INTO RED OUTLET, AMBU BAG AT BEDSIDE, PULSE OX ON, WILL CONT TO MONITOR.
--- NOTE | 2017-11-18 20:45 | NUR ---
NO INSULIN COVERAGE NEEDED FOR BLOOD SUGAR 137. PT REFUSED COLACE AND PLETAL MEDICATIONS.
[2017-11-18] MEDS ORDERED: BENZONATATE 100 MG CAPLF PO PRN (22:30)
--- NOTE | 2017-11-18 22:33 | NUR ---
PT C/O SORE THROAT AND REQUEST COUGH SYRUP. SPOKE TO DR MCKEON ABOUT IT.
[2017-11-18] MEDS: BENZOCAINE/MENTHOL 1 LOZ MM PRN (22:59)
[2017-11-18] MEDS: PROMETH/CODEINE 6.25-10MG/5ML 5 ML UDC PO PRN (23:22)
--- NOTE | 2017-11-18 23:25 | NUR ---
ADMINISTERED COUGH MEDICATION AND PAIN MEDICATION PER ORDER AND PT REQUEST, PT TOLERATED WELL.
[2017-11-19] VITALS (12 sets, daily range): BP systolic 0–165; BP diastolic 0–76
[2017-11-19] MEDS: MORPHINE SULFATE 2 MG/ML SYR IVP PRN ×2 (01:13→11:46)
[2017-11-19] MEDS: NACL 0.9% 1,000 ML IV SCH ×3 (01:39→17:08)
[2017-11-19] MEDS: TOBRAMYCIN 120 MG in DEXTROSE 5% 100 ML IV SCH (01:39)
--- NOTE | 2017-11-19 01:45 | NUR ---
TOBRAMYCIN NOW INFUSING, PT TOLERATING WELL. PER ORDER, OK TO NOT WAIT FOR TROUGH.
--- NOTE | 2017-11-19 02:30 | NUR ---
LOS FROM LAB AT BEDSIDE.
[2017-11-19 03:13] LABS: BASOPHILS # (AUTO) 0.1 K/uL (0.00-0.22); BASOPHILS % (AUTO) 0.7 % (0.0-2.0); EOSINOPHILS # (AUTO) 0.6 K/uL (0-0.4); EOSINOPHILS % (AUTO) 4.9 % (0.0-4.0); HEMATOCRIT 25.3 % (36-48); HEMOGLOBIN 8.3 g/dL (12.0-16.0); LYMPHOCYTES % (AUTO) 25.9 % (20.5-51.1); MEAN CORPUSCULAR HEMOGLOBIN 28 pg (27-31); MEAN CORPUSCULAR HGB CONC 33 g/dL (33-37); MEAN CORPUSCULAR VOLUME 86.4 fL (80-94); MONOCYTES # (AUTO) 0.9 K/uL (0.8-1.0); MONOCYTES % (AUTO) 7.6 % (1.7-9.3); NEUTROPHILS % (AUTO) 60.9 % (42.2-75.2); PLATELET COUNT (AUTO) 195 K/uL (140-450); RED BLOOD CELL COUNT(AUTO) 2.93 MIL/uL (4.20-5.40); RED CELL DISTRIBUTION WIDTH 16.4 % (11.6-13.7); WHITE BLOOD COUNT (AUTO) 11.4 K/uL (4.8-10.8)
[2017-11-19 03:36] LABS: PROTHROMBIN TIME 18.5 secs (10.8-13.4)
[2017-11-19 03:59] LABS: ANION GAP 15.9 (8-16); CARBON DIOXIDE 20.6 mmol/L (21-32); CREATININE 1.7 mg/dL (0.6-1.3); POTASSIUM 5.5 mmol/L (3.5-5.1)
[2017-11-19 04:09] LABS: MAGNESIUM 1.8 mg/dL (1.8-2.4); PHOSPHORUS 5.6 mg/dL (2.5-4.9)
[2017-11-19] MEDS: LEVOTHYROXINE 0.075 MG TAB PO SCH (06:18)
[2017-11-19] MEDS: BLOOD GLUCOSE MONITORING 1 DEV DEV FS SCH ×4 (06:18→20:21)
[2017-11-19] MEDS: BENZOCAINE/MENTHOL 1 LOZ MM PRN (06:18)
--- NOTE | 2017-11-19 06:19 | NUR ---
NO INSULIN COVERAGE NEEDED, BLOOD SUGAR 101. PT REFUSED MEDICATIONS BECAUSE HER THROAT FEELS "SCRATCHY", PT ONLY WANTS A CEPACOL LOZENGE.
[2017-11-19] MEDS: METOCLOPRAMIDE 10 MG TAB PO SCH ×3 (06:34→16:31)
--- NOTE | 2017-11-19 07:25 | NUR ---
ENDORSED PT TO DAY SHIFT RN FOR CONTINUITY OF CARE. PT IN STABLE CONDITION.
--- NOTE | 2017-11-19 07:30 | NUR ---
RECEIVED PT FROM PM NURSE, PT AWAKE, ALERT, TELE MONITOR SHOWS SR, PT TRACK TO VENT WITH SETTING FIO2=28%, VT 600, AC 14. BEDSIDE MONITOR SHOWS O2 SAT 100%. PT HAS PICC LINE TO LEFT UPPER ARM RUNNING 0.9 NS AT 90 MLS/HR, SITE INTACT AND PATENT. PT DENIES PAIN AT THIS MOMENT, CALL LIGHT IN REACH, POC EXPLAINED TO PT, PT VERBALIZED UNDERSTANDING. HOB ELEVATED 30 DEGREES WITH LOW BED POSITION. WILL CONTINUE TO MONITOR. Addendum: 11/19/17 at 1710 by Cluadia German RN TYPO, 0.9 NS AT 80 MLS/HR
[2017-11-19] MEDS ORDERED: BENZOCAINE 20% 57 GM CAN MC ONE (08:00)
[2017-11-19] MEDS ORDERED: SODIUM POLYSTYRENE 15 GM/60 ML UDBTL PO SCH (08:00)
[2017-11-19] MEDS ORDERED: BENZOCAINE 20% 57 GM CAN MC SCH (08:05)
[2017-11-19] MEDS: ALBUTEROL SULFATE/IPRATROPIU 3 ML SOL IH SCH ×3 (08:43→19:19)
--- NOTE | 2017-11-19 08:43 | NUR ---
LATE ENTRY RECEIVED ON A [employer]APE R860 VENTILATOR PLUGGED INTO RED OUTLET TOLERATING WELL WITHOUT INCIDENT TO A SHILEY XLT #6 AIRWAY SECURED WITH A SHILEY TRACH TIE PATIENT REQUEST CUFF PRESSURE TO BE DEFLATED AMBU BAG NOTED AT HOB LOC ASLEEP EASILY AWAKENS SKIN TONE PINK BREATH SOUNDS COARSE RHONCHI BILATERAL WITH GOOD CHEST RISE DEEP TRACHEAL SUCTION FOR MODERATE THICK YELLOW SECRETIONS AIRWAY PATENT
[2017-11-19] MEDS: ALLOPURINOL 100 MG TAB PO SCH (09:30)
[2017-11-19] MEDS: ATORVASTATIN 20 MG TAB PO SCH (09:31)
[2017-11-19] MEDS: CILOSTAZOL 100 MG TAB PO SCH ×2 (09:31→20:22)
[2017-11-19] MEDS: VIT-B COMP/VIT-C/FOLIC ACID 1 TAB PO SCH (09:31)
[2017-11-19] MEDS: DOCUSATE SODIUM 100 MG GELCAP PO SCH ×2 (09:31→20:22)
[2017-11-19] MEDS: CALCIUM ACETATE 667 MG TAB PO SCH ×2 (09:32→16:31)
[2017-11-19] MEDS: ASPIRIN 81 MG TAB.CHEW PO SCH (09:32)
[2017-11-19] MEDS: GABAPENTIN 300 MG CAP PO SCH ×3 (09:37→16:30)
--- NOTE | 2017-11-19 10:00 | NUR ---
INCREASED CUFF PRESSURE NOTED TO REFLECT HIGHER Vte BREATH SOUNDS EXP RHONCHI BILATERAL GOOD CHEST RISE DEEP TRACHEAL SUCTION FOR SMALL THICK YELLOW SECRETIONS AIRWAY PATENT
[2017-11-19] MEDS: BENZOCAINE 20% 57 GM CAN MC SCH ×2 (11:33→17:47)
--- NOTE | 2017-11-19 11:46 | NUR ---
PT C/O PAIN, OFFERED PT PERCOCET, PT STATED SHE DOES NOT WANT PERCOCET, SHE WANTED MORPHINE.
--- NOTE | 2017-11-19 12:09 | NUR ---
AWAKE AND ALERT BREATH SOUNDS EXP RHONCHI BILATERAL GOOD CHEST RISE DEEP TRACHEAL SUCTION FOR MODERATE THICK PALE YELLOW SECRETIONS AIRWAY PATENT
--- NOTE | 2017-11-19 13:00 | NUR ---
pt refused neurotin, explained to risks and benefits, pt stated" no, I do not want it, I took too much medication, this medication does not really help".
[2017-11-19 14:00] LABS: ANION GAP 14.7 (8-16); CREATININE 1.6 mg/dL (0.6-1.3); POTASSIUM 4.7 mmol/L (3.5-5.1)
--- NOTE | 2017-11-19 14:12 | NUR ---
ASLEEP RESTING COMFORTABLY NO APPARENT PULMONARY DISTRESS NOTED BREATH SOUNDS EXP RHONCHI RIGHT SIDE TO CLEAR LEFT SIDE WITH GOOD CHEST RISE BILATERAL DEEP TRACHEAL SUCTION FOR SMALL THICK PALE YELLOW SECRETIONS AIRWAY PATENT
--- NOTE | 2017-11-19 14:59 | NUR ---
NO EVIDENCE OF SOB NOTED AT THIS TIME GOOD CHEST RISE AIRWAY PATENT
--- NOTE | 2017-11-19 15:53 | NUR ---
11/19/17 RD INITIAL ASSESSMENT COMPLETED PLEASE REFER TO NUTRITION ASSESSMENT UNDER CARE ACTIVITY FOR ESTIMATED NUTRITIONAL NEEDS. 1. [facility] TOLERATED 2. RD TO FOLLOW-UP 3-5 DAYS, MODERATE RISK MAGDALENA BOSCH RD
--- NOTE | 2017-11-19 16:26 | NUR ---
Manager Fleet Notes: I faxed Patient's Clinical information, Order to [facility] at for home health for IV antibiotics for 7-10 days.
[2017-11-19] MEDS: WARFARIN 1 MG TAB PO SCH (16:37)
--- NOTE | 2017-11-19 16:39 | NUR ---
FINGER BS CHECKED 86, NO INSULIN COVERAGE NEEDED. PT RESTING IN BED, NO SOB OR DISCOMFORT AT THIS TIME.
--- NOTE | 2017-11-19 17:48 | NUR ---
NO DISTRESS NOTED GOOD CHEST RISE DEEP TRACHEAL SUCTION FOR SMALL THIN PALE YELLOW SECRETIONS AIRWAY PATENT
--- NOTE | 2017-11-19 18:05 | NUR ---
PT SLEEPING IN BED AT THIS MOMENT, NO S/S OF RESPIRATORY DISTRESS OR DISCOMFORT NOTED.
--- NOTE | 2017-11-19 19:30 | NUR ---
RECEIVED REPORT AT BEDSIDE FROM AHSAN FOR CONTINUITY OF CARE PT SLEEPING BUT USUALLY AAOX4. PT IV NOTED MIDLINE LEFT UPPER ARM. NS RUNNING 80ML/HR. PT IS ON TRACH TO VENT. BED LOWERED CALL LIGHT WITHIN REACH WILL CONTINUE TO MONITOR.
[2017-11-19] MEDS: LACTULOSE 20 GM/30 ML UDC PO SCH (20:22)
--- NOTE | 2017-11-19 20:23 | NUR ---
PT REFUSED MEDS FOR 2099. I LET HER KNOW THE IMPORTANCE OF TAKING MEDS. SHE STILL REFUSED. I OFFERED HER WATER AND SHE REFUSED. WILL CONTINUE TO MONITOR.
[2017-11-19] MEDS ORDERED: CYCLOBENZAPRINE 10 MG TAB PO SCH ×2 (21:30→22:00)
--- NOTE | 2017-11-19 22:30 | NUR ---
PT COMPLAINING OF NECK PAIN STIFFNESS. TALK TO DR BROWN AND HE ORDERED FLEXARIL MUSCLE STIFFNESS OF NECK . WILL CONTINUE TO MONITOR.
--- NOTE | 2017-11-19 22:35 | NUR ---
PT STATED SHE FEELS CONSTIPATED. GAVE ENEMA. PT HAD 2X LARGE BOWEL MOVEMENTS HARD AFTER ENEMA.
[2017-11-19] MEDS: SODIUM PHOSPHATE 118 ML ENEM RC PRN (23:15)
[2017-11-20] VITALS: BP 115/45
[2017-11-20 03:05] VITALS: BP 137/59
[2017-11-20] MEDS: oxyCODONE/APAP 5/325 MG 1 TAB TAB PO PRN (04:01)
--- NOTE | 2017-11-20 04:10 | NUR ---
PT GIVEN PERCOCET FOR PAIN. WILL CONTINUE TO MONITOR.
[2017-11-20] MEDS: BLOOD GLUCOSE MONITORING 1 DEV DEV FS SCH ×4 (05:30→20:32)
[2017-11-20] MEDS: BENZOCAINE 20% 57 GM CAN MC SCH ×4 (06:23→17:01)
[2017-11-20] MEDS: LEVOTHYROXINE 0.075 MG TAB PO SCH (06:23)
[2017-11-20] MEDS: METOCLOPRAMIDE 10 MG TAB PO SCH ×3 (06:51→16:13)
[2017-11-20 06:55] LABS: BASOPHILS % (AUTO) 0.3 % (0.0-2.0); EOSINOPHILS # (AUTO) 0.4 K/uL (0-0.4); EOSINOPHILS % (AUTO) 2.9 % (0.0-4.0); HEMATOCRIT 26.2 % (36-48); HEMOGLOBIN 8.6 g/dL (12.0-16.0); MEAN CORPUSCULAR HEMOGLOBIN 28 pg (27-31); MEAN CORPUSCULAR HGB CONC 33 g/dL (33-37); MONOCYTES # (AUTO) 1.1 K/uL (0.8-1.0); MONOCYTES % (AUTO) 8.5 % (1.7-9.3); NEUTROPHILS # (AUTO) 7.9 K/uL (1.8-7.7); NEUTROPHILS % (AUTO) 64.3 % (42.2-75.2); PLATELET COUNT (AUTO) 219 K/uL (140-450); RED BLOOD CELL COUNT(AUTO) 3.04 MIL/uL (4.20-5.40); RED CELL DISTRIBUTION WIDTH 16.6 % (11.6-13.7); WHITE BLOOD COUNT (AUTO) 12.4 K/uL (4.8-10.8)
[2017-11-20 07:19] LABS: PROTHROMBIN TIME 18.1 secs (10.8-13.4)
--- NOTE | 2017-11-20 07:20 | NUR ---
GAVE REPORT TO DAYSHIFT NURSE AT BEDSIDE FOR CONTINUITY OF CARE.
--- NOTE | 2017-11-20 07:20 | NUR ---
RECEIVED REPORT FROM ROLL SHOP SUPERVISOR NURSE AT BEDSIDE. PT IS A/O X4. PT IS ON VENTILATOR FIO2 28%, VT 600, RATE 14, FLOW 40. L UA MIDLINE PICC WITH NS AT 80ML/HR. SKIN IS INTACT. PT COMPLAINING OF NECK PAIN, HEAT PAD GIVEN. BED IS LOCKED, LOW POSITION AND SIDE RAILS UP X2. BOARD UPDATED. WILL CONTINUE TO MONITOR.
--- NOTE | 2017-11-20 07:46 | NUR ---
RECEIVED PATIENT TRACH TO VENT ON SETTINGS: AC 600, 14, NO PEEP, 28%. TOLERATING VENT WELL. VENT PLUGGED INTO RED OUTLET. VENT ALARMS ON AND AUDIBLE. CONTINUOUS PULSE OX ON AND FUNCTIONING. PATIENT EATING BREAKFAST. PATIENT REFUSED BREATHING TX AT THIS TIME.
[2017-11-20 08:00] VITALS: BP 145/64
[2017-11-20] MEDS: DOCUSATE SODIUM 100 MG GELCAP PO SCH ×2 (08:15→20:33)
[2017-11-20] MEDS: LACTULOSE 20 GM/30 ML UDC PO SCH ×2 (08:15→20:32)
[2017-11-20] MEDS: CALCIUM ACETATE 667 MG TAB PO SCH ×2 (08:15→16:13)
[2017-11-20] MEDS: ATORVASTATIN 20 MG TAB PO SCH (08:16)
[2017-11-20] MEDS: CILOSTAZOL 100 MG TAB PO SCH ×2 (08:16→20:26)
[2017-11-20] MEDS: VIT-B COMP/VIT-C/FOLIC ACID 1 TAB PO SCH (08:16)
[2017-11-20] MEDS: ALLOPURINOL 100 MG TAB PO SCH (08:17)
[2017-11-20] MEDS: ASPIRIN 81 MG TAB.CHEW PO SCH (08:17)
[2017-11-20] MEDS: GABAPENTIN 300 MG CAP PO SCH ×3 (08:17→16:13)
--- NOTE | 2017-11-20 08:20 | NUR ---
ADMINISTERED MORNING MEDS TO PT. PT TOLERATED WELL. VS STABLE. WILL CONTINUE TO MONITOR.
[2017-11-20 08:27] LABS: MAGNESIUM 1.6 mg/dL (1.8-2.4); PHOSPHORUS 4.1 mg/dL (2.5-4.9)
[2017-11-20] MEDS: ALBUTEROL SULFATE/IPRATROPIU 3 ML SOL IH SCH ×3 (08:38→19:09)
--- NOTE | 2017-11-20 08:38 | NUR ---
BREATHING TREATMENT ADMINISTERED. PATIENT TOLERATED TX WELL, NO ADVERSE SIDE EFFECTS. NO RESPIRATORY DISTRESS NOTED. WILL CONTINUE TO MONITOR.
--- NOTE | 2017-11-20 09:06 | NUR ---
VENT CHECK DONE. SUCTIONED MODERATE AMOUNT OF THICK PALE YELLOW SECRETIONS. NO RESPIRATORY DISTRESS NOTED. WILL CONTINUE TO MONITOR.
[2017-11-20 09:26] LABS: CREATININE 1.5 mg/dL (0.6-1.3)
[2017-11-20 09:33] LABS: ANION GAP 20.5 (8-16); CARBON DIOXIDE 18.9 mmol/L (21-32); POTASSIUM 4.4 mmol/L (3.5-5.1)
--- NOTE | 2017-11-20 11:31 | NUR ---
VERT CHECK BS COARSE PT DEFERS SX AT THIS TIME
[2017-11-20 12:00] VITALS: BP 133/70
[2017-11-20] MEDS ORDERED: CYCLOBENZAPRINE 10 MG TAB PO SCH (12:00)
[2017-11-20] MEDS: PHENAZOPYRIDINE 100 MG TAB PO SCH ×2 (12:09→17:43)
--- NOTE | 2017-11-20 12:14 | NUR ---
AFTERNOON MEDICATIONS ADMINISTERED. PT TOLERATED WELL. BS CHECKED 127, NO COVERAGE NEEDED. DAUGHTER AT BEDSIDE VISITING. PT IS NOW EATING LUNCH.
--- NOTE | 2017-11-20 14:08 | NUR ---
VENT CHECK DONE. PATIENT RESTING. FAMILY AT BEDSIDE. SCHEDULED BREATHING TREATMENT ADMINISTERED. PT TOLERATED TX WELL, NO ADVERSE SIDE EFFECTS. NO RESPIRATORY DISTRESS NOTED. WILL CONTINUE TO MONITOR.
[2017-11-20] MEDS: TOBRAMYCIN 140 MG in DEXTROSE 5% 100 ML IV SCH (14:50)
--- NOTE | 2017-11-20 14:50 | NUR ---
HUNG ABX. PT IS SLEEPING. NO SIGNS OF DISTRESS. FAMILY IS AT BEDSIDE. WILL CONTINUE TO MONITOR.
--- NOTE | 2017-11-20 15:36 | NUR ---
FAMILY AT BEDSIDE. VENT CHECK DONE. TRACH CARE DONE. NO RESPIRATORY DISTRESS NOTED AT THIS TIME. WILL CONTINUE TO MONITOR.
[2017-11-20 16:00] VITALS: BP 119/51
[2017-11-20] MEDS: WARFARIN 1 MG TAB PO SCH (16:16)
--- NOTE | 2017-11-20 16:20 | NUR ---
ADMINISTERED EVENING MEDS. PT TOLERATED WELL. VS WITHIN NORMAL LIMITS. BS CHECKED, 169. WILL GIVE INSULIN COVERAGE PER PROTOCOL.
[2017-11-20] MEDS: INSULIN LISPRO SLIDING SCALE 100 UNITS/ML VIAL SUBQ PRN (16:55)
--- NOTE | 2017-11-20 17:40 | NUR ---
PATIENT QUIETLY RESTING. VENT CHECK DONE. NO RESPIRATORY DISTRESS NOTED. WILL CONTINUE TO MONITOR.
--- NOTE | 2017-11-20 18:10 | NUR ---
PT IN BED SLEEPING. MOST OF DINNER EATEN. NO SIGNS OF DISTRESS. WILL CONTINUE TO MONITOR.
[2017-11-20] MEDS: NACL 0.9% 1,000 ML IV SCH (18:21)
--- NOTE | 2017-11-20 19:10 | NUR ---
ENDORSED PT TO PRETZEL PACKER NURSE FOR CONTINUITY OF CARE. PT IN STABLE CONDITION.
--- NOTE | 2017-11-20 19:20 | NUR ---
RECEIVED REPORT FROM [facility] NURSE FOR CONTINUITY OF CARE. PT AAOX4. TRACH TO VENT, NO SOB NO S/S OF DISTRESS. PT SLEEPING. IV NOTED LEFT UPPER ARM MIDLINE PICC DOUBLE LUMEN. PT IS BEDBOUND. BED LOWERED CALL LIGHT WITHIN REACH WILL CONTINUE TO MONITOR.
[2017-11-20 19:47] VITALS: BP 144/62
[2017-11-20] MEDS ORDERED: MAGNESIUM OXIDE 400 MG TAB PO SCH (21:00)
--- NOTE | 2017-11-20 21:22 | NUR ---
PT TOOK MEDS WELL. REFUSED COLACE AND LACTULOSE. WILL CONTINUE TO MONITOR.
[2017-11-21] VITALS (7 sets, daily range): BP systolic 123–155; BP diastolic 56–73
[2017-11-21] MEDS: ALBUTEROL SULFATE/IPRATROPIU 3 ML SOL IH SCH ×3 (00:06→19:33)
[2017-11-21] MEDS: oxyCODONE/APAP 5/325 MG 1 TAB TAB PO PRN ×2 (00:07→09:18)
[2017-11-21] MEDS: BENZOCAINE 20% 57 GM CAN MC SCH ×5 (00:07→23:40)
--- NOTE | 2017-11-21 00:18 | NUR ---
PT SLEEPING. PT STATED SHE IS HAVING THROAT PAIN. REQUESTED RT SERVICE. RT SERVICE AT BEDSIDE. SPRAY LIDOCAINE IN BACK OF THROAT AND GAVE ICE CHIPS. ALSO MEDICATED WITH PERCOCET. WILL CONTINUE TO MONITOR.
--- NOTE | 2017-11-21 02:00 | NUR ---
PT REQUESTED HER ABX. NURSE LET HER KNOW SHE ALREADY HAD ABX AT 1400. IV ABX SCHEDULED FOR 11/22/17 0200. INFORMED PT OF NEXT SCHEDULED ABX.
--- NOTE | 2017-11-21 02:45 | NUR ---
PT STATING ARM SWELLING AND LEG SWELLING. PT REQUESTED LASIX. DR ORDERED LASIX AND WILL GIVE TO PT. WILL CONTINUE TO MONITOR.
[2017-11-21] MEDS ORDERED: FUROSEMIDE 40 MG/4 ML VIAL IVP SCH (03:30)
[2017-11-21] MEDS: LEVOTHYROXINE 0.075 MG TAB PO SCH (05:55)
[2017-11-21] MEDS: BLOOD GLUCOSE MONITORING 1 DEV DEV FS SCH ×4 (05:55→20:51)
[2017-11-21] MEDS: NACL 0.9% 1,000 ML IV SCH ×2 (05:55→20:47)
[2017-11-21] MEDS: METOCLOPRAMIDE 10 MG TAB PO SCH ×3 (06:34→17:14)
[2017-11-21] MEDS: ALBUTEROL SULFATE/IPRATROPIU 3 ML SOL IH PRN (07:11)
--- NOTE | 2017-11-21 07:11 | NUR ---
RECEIVED PT ON [place] ON DOCUMENTED SETTINGS ALARMS ARE ON AND FUNCTIONAL PTS TRACH JO-ANN 6 XLT IS SECURE PT IN HF ALERT BS CLEAR\DIM PT DEFERS SX CONT OX IN PLACE BMV HOB VENT PLUGGED INTO RED OUTLET
[2017-11-21 07:12] LABS: BASOPHILS # (AUTO) 0.1 K/uL (0.00-0.22); BASOPHILS % (AUTO) 0.4 % (0.0-2.0); EOSINOPHILS # (AUTO) 0.4 K/uL (0-0.4); EOSINOPHILS % (AUTO) 3.2 % (0.0-4.0); HEMOGLOBIN 8.6 g/dL (12.0-16.0); LYMPHOCYTES # (AUTO) 3.2 K/uL (2.5-16.5); LYMPHOCYTES % (AUTO) 27.6 % (20.5-51.1); MEAN CORPUSCULAR HEMOGLOBIN 28 pg (27-31); MEAN CORPUSCULAR HGB CONC 33 g/dL (33-37); MONOCYTES # (AUTO) 0.9 K/uL (0.8-1.0); MONOCYTES % (AUTO) 7.3 % (1.7-9.3); NEUTROPHILS # (AUTO) 7.1 K/uL (1.8-7.7); NEUTROPHILS % (AUTO) 61.5 % (42.2-75.2); PLATELET COUNT (AUTO) 242 K/uL (140-450); RED BLOOD CELL COUNT(AUTO) 3.02 MIL/uL (4.20-5.40); RED CELL DISTRIBUTION WIDTH 16.3 % (11.6-13.7); WHITE BLOOD COUNT (AUTO) 11.6 K/uL (4.8-10.8)
--- NOTE | 2017-11-21 07:26 | NUR ---
RECEIVED REPORT FROM PIPE FITTER GAS PIPE NURSE AT BEDSIDE. PT IN STABLE CONDITION. A/O X4. L UA PICC LINE WITH NS AT 80ML/HR. PT HAS A TRACH AND IS ON A VENTILATOR, FIO2 28, TV 600, FLOW 40. SKIN IS INTACT. PT HAS NO COMPLAINTS OF PAIN. BED IS LOCKED, LOW POSITION WITH SIDE RAILS UP X2. BOARD UPDATED. WILL CONTINUE TO MONITOR.
--- NOTE | 2017-11-21 07:26 | NUR ---
PATIENT REPORT GIVEN TO MORNING NURSE AT BEDSIDE FOR CONTINUITY OF CARE. PATIENT IS IN STABLE CONDITION
[2017-11-21 07:29] LABS: PROTHROMBIN TIME 19.1 secs (10.8-13.4)
[2017-11-21 07:32] LABS: ANION GAP 15.5 (8-16); CARBON DIOXIDE 20.8 mmol/L (21-32); CREATININE 1.3 mg/dL (0.6-1.3); POTASSIUM 4.3 mmol/L (3.5-5.1)
[2017-11-21] MEDS: LACTULOSE 20 GM/30 ML UDC PO SCH ×3 (09:04→20:52)
[2017-11-21] MEDS: GABAPENTIN 300 MG CAP PO SCH ×3 (09:04→17:14)
[2017-11-21] MEDS: CALCIUM ACETATE 667 MG TAB PO SCH ×2 (09:04→17:14)
[2017-11-21] MEDS: PHENAZOPYRIDINE 100 MG TAB PO SCH ×3 (09:04→17:14)
[2017-11-21] MEDS: ALLOPURINOL 100 MG TAB PO SCH (09:05)
[2017-11-21] MEDS: VIT-B COMP/VIT-C/FOLIC ACID 1 TAB PO SCH (09:05)
[2017-11-21] MEDS: ASPIRIN 81 MG TAB.CHEW PO SCH (09:05)
[2017-11-21] MEDS: CILOSTAZOL 100 MG TAB PO SCH ×2 (09:05→20:44)
[2017-11-21] MEDS: ATORVASTATIN 20 MG TAB PO SCH (09:06)
[2017-11-21] MEDS: DOCUSATE SODIUM 100 MG GELCAP PO SCH ×2 (09:06→20:44)
--- NOTE | 2017-11-21 09:12 | NUR ---
ADMINISTERED MORNING MEDS. PT TOLERATED WELL. PT C/O PAIN. WILL GIVE PAIN MEDICINE PER MD ORDER.
--- NOTE | 2017-11-21 09:18 | NUR ---
PAIN MEDICATION ADMINISTERED. WILL CONTINUE TO MONITOR PT FOR EFFECTIVENESS.
[2017-11-21] MEDS ORDERED: MAG SULF 2000 MG/WATER PREMIX 50 ML IV SCH (09:23)
--- NOTE | 2017-11-21 10:18 | NUR ---
PT IS RESTING COMFORTABLY IN BED ASLEEP. NO SIGNS OF DISTRESS.
--- NOTE | 2017-11-21 12:05 | NUR ---
BS CHECKED, 101. NO COVERAGE NEEDED. VS WITHIN NORMAL LIMITS. AFTERNOON MEDS ADMINISTERED. PT TOLERATED WELL. PT NOW EATING LUNCH. WILL CONTINUE TO MONITOR.
[2017-11-21] MEDS: CYCLOBENZAPRINE 10 MG TAB PO PRN (13:06)
--- NOTE | 2017-11-21 14:15 | NUR ---
PT RESTING COMFORTABLY IN BED. ALL NEEDS ARE MET AT THIS TIME. WILL CONTINUE TO MONITOR.
--- NOTE | 2017-11-21 16:00 | NUR ---
ASSISTED IN CHANGING PT. VS ARE STABLE. WILL CONTINUE TO MONITOR.
--- NOTE | 2017-11-21 17:13 | NUR ---
BS CHECKED, 103. NO COVERAGE NEEDED. EVENING MEDS ADMINISTERED. PT TOLERATED WELL. PT RESTING COMFORTABLY IN BED WATCHING TV. NO S/SX OF DISTRESS. WILL CONTINUE TO MONITOR.
[2017-11-21] MEDS: WARFARIN 1 MG TAB PO SCH (17:15)
--- NOTE | 2017-11-21 19:15 | NUR ---
ENDORSED PT TO PERSONNEL PLACEMENT SPECIALIST NURSE FOR CONTINUITY OF CARE. PT IN STABLE CONDITION.
--- NOTE | 2017-11-21 19:15 | NUR ---
RECEIVED REPORT FROM DAY SHIFT NURSE, ,PT IN BED, RT AT BEDSIDE, INTRODUCED SELF, AND UPDATED BOARD. CALL LIGHT WITHIN REACH.
--- NOTE | 2017-11-21 20:44 | NUR ---
PT REQUESTED FLEET ENEMA, UPON ADMINISTRATION PT HAD LARGE BM, FORMED AND LIQUID. HELD FLEET ENEMA. PT REFUSED LACTULOSE. ADMINISTERED MEDICATION PT TOLERATED WELL. KRYS CARE PROVIDED, PT CHANGED AND SKIN IN INTACT. CALL LIGHT LIGHT WITHIN REACH, PT STABLE, WILL CONTINUE FREQ CHECKS.
[2017-11-21] MEDS: SODIUM PHOSPHATE 118 ML ENEM RC PRN (20:46)
[2017-11-22] VITALS (9 sets, daily range): BP systolic 0–141; BP diastolic 0–92
--- NOTE | 2017-11-22 00:06 | NUR ---
PT RESTING IN BED, DUE MEDICATION GIVEN, PT TOLERATED WELL. CALL LIGHT WITHIN REACH, WILL CONTINUE FREQ CHECKS TO ENSURE PT SAFETY.
[2017-11-22] MEDS: TOBRAMYCIN 140 MG in DEXTROSE 5% 100 ML IV SCH (01:41)
[2017-11-22] MEDS: ALBUTEROL SULFATE/IPRATROPIU 3 ML SOL IH PRN ×2 (02:02→21:18)
[2017-11-22] MEDS: MORPHINE SULFATE 2 MG/ML SYR IVP PRN ×3 (02:43→18:38)
--- NOTE | 2017-11-22 02:43 | NUR ---
PT IS IN SEVERE PAIN IN HER RIGHT LEG, 10/10. PT REQUESTED MORPHINE SULFATE IVP AND BENADRYL. PT STATED, IS ALLERGIC TO MORPHINE SO SHE HAS TO TAKE BENADRYL WITH MORPHINE. ADMINISTERED MEDICATION, PT TOLERATED WELL.
[2017-11-22] MEDS: NACL 0.9% 1,000 ML IV SCH ×2 (03:03→12:18)
--- NOTE | 2017-11-22 04:07 | NUR ---
PT SLEEPING IN BED, NO SIGNS OF DISTRESS, CALL LIGHT WITHIN REACH. WILL CONTINUE FREQ CHECKS.
[2017-11-22] MEDS: PROMETH/CODEINE 6.25-10MG/5ML 5 ML UDC PO PRN (04:14)
--- NOTE | 2017-11-22 04:16 | NUR ---
PT REQUEST MEDICATION FOR COUGHING. GAVE MEDICATION, PT TOLERATED WELL. CALL LIGHT WITHIN REACH.
[2017-11-22] MEDS: LEVOTHYROXINE 0.075 MG TAB PO SCH (06:31)
[2017-11-22] MEDS: BENZOCAINE 20% 57 GM CAN MC SCH ×4 (06:31→18:55)
[2017-11-22] MEDS: METOCLOPRAMIDE 10 MG TAB PO SCH ×3 (06:32→16:29)
[2017-11-22] MEDS: BLOOD GLUCOSE MONITORING 1 DEV DEV FS SCH ×4 (06:32→21:00)
[2017-11-22 07:25] LABS: ANION GAP 16.8 (8-16); CARBON DIOXIDE 21.2 mmol/L (21-32); CREATININE 1.5 mg/dL (0.6-1.3)
[2017-11-22 07:26] LABS: PROTHROMBIN TIME 19.3 secs (10.8-13.4)
--- NOTE | 2017-11-22 07:27 | NUR ---
ENDORSED PT TP DAY SHIFT NURSE, PT STABLE IN BED, CALL LIGHT WITHIN REACH.
--- NOTE | 2017-11-22 07:28 | NUR ---
RECEIVED REPORT FROM BAND CUTTER NURSE SUMMER AT BEDSIDE FOR CONTINUITY OF CARE. PT IS AWAKE AND ORIENTED X3. INTRODUCED SELF AND UPDATED BOARD. PT WITH TRACH TO VENT. O2 SAT 100%. NO SOB. PT WITH NON PRODUCTIVE COUGH. WHEEZING ON BUL. DIMINISHED BLL. HR 83. SKIN WARM AND DRY. L PICC LINE INTACT. NS @80ML/HR. R BOOT ON R LEG. PALPABLE BLE PULSES. PT WAS COMPLAINING OF PAIN ON R LEG 02/11, WILL MEDICATE FOR PAIN. PT IS SITTING UP NOW EATING BREAKFAST. CALL LIGHT WITHIN REACH. WILL CONTINUE TO MONITOR.
[2017-11-22 07:30] LABS: MAGNESIUM 1.6 mg/dL (1.8-2.4); PHOSPHORUS 3.2 mg/dL (2.5-4.9)
[2017-11-22 07:33] LABS: BASOPHILS # (AUTO) 0.1 K/uL (0.00-0.22); BASOPHILS % (AUTO) 0.6 % (0.0-2.0); EOSINOPHILS # (AUTO) 0.4 K/uL (0-0.4); EOSINOPHILS % (AUTO) 3.3 % (0.0-4.0); HEMATOCRIT 24.8 % (36-48); HEMOGLOBIN 8.4 g/dL (12.0-16.0); LYMPHOCYTES # (AUTO) 3.2 K/uL (2.5-16.5); LYMPHOCYTES % (AUTO) 24.7 % (20.5-51.1); MEAN CORPUSCULAR HEMOGLOBIN 29 pg (27-31); MEAN CORPUSCULAR HGB CONC 34 g/dL (33-37); MEAN CORPUSCULAR VOLUME 85.4 fL (80-94); NEUTROPHILS # (AUTO) 8.2 K/uL (1.8-7.7); NEUTROPHILS % (AUTO) 63.4 % (42.2-75.2); PLATELET COUNT (AUTO) 240 K/uL (140-450); RED BLOOD CELL COUNT(AUTO) 2.91 MIL/uL (4.20-5.40); RED CELL DISTRIBUTION WIDTH 16.6 % (11.6-13.7); WHITE BLOOD COUNT (AUTO) 12.9 K/uL (4.8-10.8)
[2017-11-22] MEDS: CALCIUM ACETATE 667 MG TAB PO SCH ×2 (07:52→16:28)
--- NOTE | 2017-11-22 07:58 | NUR ---
AWAKE AND ALERT RESPONSIVE NO SOB NOTED ON VENTILATOR SUPPORT ON AND FUNCTIONING WELL PATIENT WITH BREAKFAST TRAY AT THIS TIME PRESS OFFICER TO ATTEMPT HHN THERAPY AT A LATER TIME
[2017-11-22] MEDS: ALBUTEROL SULFATE/IPRATROPIU 3 ML SOL IH SCH ×3 (08:23→19:37)
--- NOTE | 2017-11-22 08:23 | NUR ---
RECEIVED ON A [employer]APE R860 VENTILATOR PLUGGED INTO RED OUTLET TOLERATING WELL WITHOUT ADVERSE REACTIONS NOTED TO A SHILEY XLT #6 AIRWAY SECURED WITH A SHILEY TRACH TIE CUFF PRESSURE CHECKED NOTED PATIENT REQUEST CUFF DEFLATION FOR COMMUNICATION AMBU BAG NOTED AT HOB LOC AWAKE AND ALERT RESPONSIVE BREATH SOUNDS EXP RHONCHI BILATERAL WITH GOOD CHEST RISE DEEP TRACHEAL SUCTION FOR LARGE THICK PALE YELLOW SECRETIONS AIRWAY PATENT
[2017-11-22] MEDS: LACTULOSE 20 GM/30 ML UDC PO SCH ×2 (09:00→21:38)
[2017-11-22] MEDS ORDERED: MAG SULF 2000 MG/WATER PREMIX 50 ML IV SCH (09:30)
[2017-11-22] MEDS: PHENAZOPYRIDINE 100 MG TAB PO SCH (09:35)
[2017-11-22] MEDS: ALLOPURINOL 100 MG TAB PO SCH (09:35)
[2017-11-22] MEDS: CILOSTAZOL 100 MG TAB PO SCH ×2 (09:35→21:00)
[2017-11-22] MEDS: GABAPENTIN 300 MG CAP PO SCH ×3 (09:36→16:28)
[2017-11-22] MEDS: DOCUSATE SODIUM 100 MG GELCAP PO SCH ×2 (09:36→21:38)
[2017-11-22] MEDS: ASPIRIN 81 MG TAB.CHEW PO SCH (09:36)
[2017-11-22] MEDS: VIT-B COMP/VIT-C/FOLIC ACID 1 TAB PO SCH (09:36)
[2017-11-22] MEDS: ATORVASTATIN 20 MG TAB PO SCH (09:36)
--- NOTE | 2017-11-22 09:45 | NUR ---
ADMINISTERED SCHEDULED MEDS. NON-ADMIN LACTULOSE. PT REFUSED MED. TOLERATED ADMIN MEDS WELL. REPOSITIONED PT IN BED. LYING WITH HOB ELEVATED. NO SIGNS OF DISTRESS. PT COMFORTABLE IN BED. WILL CONTINUE TO MONITOR.
--- NOTE | 2017-11-22 10:07 | NUR ---
AIRWAY PATENT SUCTION PT CREAMY THICK MODERATE SECRETIONS. PT IS COMPLAINING OF PAIN IN RIGHT LUNG FIELD NOTIFIED NURSE TO FOLLOW UP WITH DOCTOR.
--- NOTE | 2017-11-22 11:44 | NUR ---
CHECKED PT'S BS. WAS 112. NO COVERAGE NEEDED. ADMINISTERED REGLAN. PT TOLERATED WELL. NON-ADMIN BENZOCAINE THROAT SPRAY. PT STATED SHE DOES NOT THINK IT WORKS. DENIES SORE THROAT RIGHT NOW. NO SIGNS OF DISTRESS. O2 SAT 100%. PT SLEEPING IN BED. CALL LIGHT WITHIN REACH. WILL CONTINUE TO MONITOR.
--- NOTE | 2017-11-22 11:44 | NUR ---
PT IS ASLEEP AIRWAY IS PATENT PT IS MORE COMFORTABLE THEN EARLIER. PT NOT SUCTIONED AT THIS TIME DID NOT WANT TO WAKE HER.
[2017-11-22] MEDS: oxyCODONE/APAP 5/325 MG 1 TAB TAB PO PRN ×2 (12:56→21:38)
--- NOTE | 2017-11-22 13:34 | NUR ---
NO APPARENT PULMONARY DISTRESS NOTED BREATH SOUNDS CLEAR BILATERAL WITH GOOD CHEST RISE AND AERATION THROUGHOUT AIRWAY PATENT
[2017-11-22] MEDS ORDERED: CYCLOBENZAPRINE 10 MG TAB PO SCH (13:40)
--- NOTE | 2017-11-22 15:30 | NUR ---
PT'S PICC LINE INFILTRATED. WAS LEAKING FROM SITE. REPORTED TO DR. MAYEN. ORDERED NEW PICC LINE INSERTION. PT SIGNED CONSENT. CALLED PICC LINE NURSE [phone] AND LEFT MESSAGE.
--- NOTE | 2017-11-22 15:53 | NUR ---
PT AIRWAY IS PATENT PT IS COMFORTABLE AND DOING WELL.
[2017-11-22] MEDS: WARFARIN 1 MG TAB PO SCH (16:34)
--- NOTE | 2017-11-22 17:26 | NUR ---
PT WAS DIFFICULT MAKING IT HARD TO CHANGE TRACH DRESSING. INNER CANNULA WAS REPLACED AND PULSE OX PROBE WAS ALSO REPLACED. AIRWAY IS PATENT AND PT IS COMFORTABLE AND DOING WELL.
--- NOTE | 2017-11-22 19:25 | NUR ---
RECEIVED PT FROM DAY SHIFT NURSE, PT RESTING IN BED, NO SIGNS OF ACUTE DISTRESS, PT ON VENT, MIDLINE RUNNING NACL AT 80 ML/HR. MIDLINE IS CLEAN AND INTACT, NO OBVIOUS LEAKAGE, PT IS AAOX4, CALL LIGHT WITHIN REACH, UPDATED BOARD, V/S TAKEN, NO EXTREME ABNORMALITIES, EXPLAINED PLAN OF CARE.
--- NOTE | 2017-11-22 19:25 | NUR ---
ENDORSED PT TO EDGE BURNISHER UPPERS NURSE PHOEBE AT BEDSIDE FOR CONTINUITY OF CARE. PT IN STABLE CONDITION.
--- NOTE | 2017-11-22 19:45 | NUR ---
RECEIVED PT ON TRACH SHILEY XLT 6 ON VENT SETTINGS AC/VC 14, VT 600, 28% FIO2 AND NO PEEP. AIRWAY IS SECURED AND PATENT. VENT IS PLUGGED INTO RED OUTLET AND AMBUBAG IS IN ROOM. ALARMS ARE SET AND FUNCTIONING. PT IS NOT IN RESPIRATORY DISTRESS. WILL CONTINUE TO MONITOR.
--- NOTE | 2017-11-22 21:00 | NUR ---
ATTEMPT TO GET MEDICATION PLETAL FROM [facility], ANOTHER MEDICATION SIMETHICONE WAS IN THE LOCATION WHERE THE PLETAL WAS SUPPOSED TO BE IN THE PYXIS, SEARCHED FOR THE MEDICATION IN THE SAME DRAWER, MEDICATION IS NOT AVAILABLE, CONFIRM WITH 2 NURSES, WENDY RN, PHOEBE RN, AND CHARGE NURSE ELIJAH RN, MEDICATION IS NOT AVAILABLE, CALLED BABY COUNSELOR KARIME BALDERAS, MACHINE SETUP OPERATOR WAS NOT ABLE TO GET THE MEDICATION DUE TO MEDICATION ONLY AVAILABLE IN TELE, AND WAS NOT THERE. MEDICATION WAS NOT ADMINISTERED DUE TO UNAVAILABILITY.
--- NOTE | 2017-11-22 21:38 | NUR ---
DUE MEDICATION GIVEN (EXCEPT PLETAL, SEE ADDITIONAL NOTE). PT EXPLAINED OF REASON NOT BEING GIVEN PLETAL. PT TOLERATED ALL OTHER DUE MEDICATION WELL. CALL LIGHT WITHIN REACH, WILL CONTINUE FREQ CHECKS.
--- NOTE | 2017-11-22 23:15 | NUR ---
PT RESTING IN BED, NO SIGNS OF DISTRESS, CALL LIGHT WITHIN REACH, WILL CONTINUE FREQ CHECKS TO ENSURE PT SAFETY.
[2017-11-23] VITALS: BP 119/56
[2017-11-23] MEDS: BENZOCAINE 20% 57 GM CAN MC SCH ×3 (00:13→06:45)
[2017-11-23] MEDS: MORPHINE SULFATE 2 MG/ML SYR IVP PRN ×3 (01:28→21:13)
--- NOTE | 2017-11-23 01:28 | NUR ---
PT STATES PAIN 8/10 IN RIGHT LEG, REQUESTED MORPHINE IVP, WILL GIVE MORPHINE ACCORDING TO DRS ORDER.
--- NOTE | 2017-11-23 02:15 | NUR ---
PT REQUESTED TO BE SUCTIONED D/T BUILD UP OF SPUTUM. SUCTIONED 2 X, V/S STABLE, WILL CONTINUE TO MONITOR. CALL LIGHT WITHIN REACH.
--- NOTE | 2017-11-23 03:20 | NUR ---
PT AMBULATED TO RESTROOM, TOLERATED WELL, NO DISTRESS NOTED, PT WENT BACK TO BED, CALL LIGHT WITHIN REACH, WILL CONTINUE TO MONITOR. Addendum: 11/23/17 at 0325 by Helen Duvall RN WRONG PT
[2017-11-23 04:00] VITALS: BP 126/55
--- NOTE | 2017-11-23 04:22 | NUR ---
PT RESTING IN BED ON HER PHONE, DENIES PAIN, CALL LIGHT WITHIN REACH, WILL CONTINUE FREQ CHECKS.
[2017-11-23] MEDS: ALBUTEROL SULFATE/IPRATROPIU 3 ML SOL IH PRN ×3 (04:37→21:56)
--- NOTE | 2017-11-23 04:50 | NUR ---
PT STATED WANTING COUGH MEDICATION, PHENERGAN WITH CODEINE ORDERED, PT STATED SHE IS ALLERGIC TO CODEINE AND STATED SHE DOES NOT WANT TO TAKE IT, CALL DR. MULLINS REGARDING PT COMPLAINTS, STATED UNDERSTANDING, AND SAID THAT SHE IS CURRENTLY SCRUBBED IN FOR A PROCEDURE AND WOULD NOT BE ABLE TO PUT IN ORDERS CURRENTLY, NOTIFIED PT REGARDING DR STATEMENT, PT STATED UNDERSTANDING AND SAID SHE WILL WAIT.
[2017-11-23] MEDS: METOCLOPRAMIDE 10 MG TAB PO SCH ×3 (06:42→16:30)
[2017-11-23] MEDS: LEVOTHYROXINE 0.075 MG TAB PO SCH (06:43)
[2017-11-23] MEDS: BLOOD GLUCOSE MONITORING 1 DEV DEV FS SCH ×4 (06:44→20:58)
[2017-11-23] MEDS: INSULIN LISPRO SLIDING SCALE 100 UNITS/ML VIAL SUBQ PRN (06:48)
--- NOTE | 2017-11-23 06:49 | NUR ---
PT REFUSED BENZOCAINE STATES, [place]. HELD BENZOCAINE.
[2017-11-23] MEDS: ALBUTEROL SULFATE/IPRATROPIU 3 ML SOL IH SCH ×3 (06:54→19:17)
--- NOTE | 2017-11-23 07:04 | NUR ---
RECEIVED PT ON VENT WITH SETTINGS CHARTED BREATH SOUNDS PRESENT BILAT CLEAR PT CMPLAINT OF SORE FROM SXN CUFF PRESSURE AT 0 PER PT RETURN VT LOW PT IN 0 RESP DISTRESS TRACH SITE SECURE VENT PLUGGED INTO RED TLET AMBU BA AT BEDSIDE WILL CONTINUE TO MONITOR PT
--- NOTE | 2017-11-23 07:27 | NUR ---
ENDORSED PT TO DAY SHIFT NURSE, PT STABLE.
--- NOTE | 2017-11-23 07:28 | NUR ---
RECEIVED REPORT FROM OPTICAL GLASS INSPECTOR NURSE AT BEDSIDE FOR CONTINUITY OF CARE. PT RESTING IN BED, NO SIGNS OF ACUTE DISTRESS, PT ON VENT, MIDLINE RUNNING NACL AT 80 ML/HR. MIDLINE IS CLEAN AND INTACT, NO OBVIOUS LEAKAGE, PT IS AAOX4, CALL LIGHT WITHIN REACH, UPDATED BOARD, V/S TAKEN, NO EXTREME ABNORMALITIES, EXPLAINED PLAN OF CARE. Addendum: 11/23/17 at 1145 by Tino Macedo RN MIDLINE RUNNING AT 10 ML/HR.
[2017-11-23 07:38] LABS: BASOPHILS % (AUTO) 0.4 % (0.0-2.0); EOSINOPHILS # (AUTO) 0.5 K/uL (0-0.4); EOSINOPHILS % (AUTO) 4.1 % (0.0-4.0); HEMATOCRIT 24.9 % (36-48); HEMOGLOBIN 8.2 g/dL (12.0-16.0); LYMPHOCYTES # (AUTO) 3.5 K/uL (2.5-16.5); LYMPHOCYTES % (AUTO) 30.4 % (20.5-51.1); MEAN CORPUSCULAR HEMOGLOBIN 28 pg (27-31); MEAN CORPUSCULAR HGB CONC 33 g/dL (33-37); MEAN CORPUSCULAR VOLUME 86.3 fL (80-94); MONOCYTES # (AUTO) 0.9 K/uL (0.8-1.0); MONOCYTES % (AUTO) 7.9 % (1.7-9.3); NEUTROPHILS # (AUTO) 6.6 K/uL (1.8-7.7); NEUTROPHILS % (AUTO) 57.2 % (42.2-75.2); PLATELET COUNT (AUTO) 245 K/uL (140-450); RED BLOOD CELL COUNT(AUTO) 2.88 MIL/uL (4.20-5.40); RED CELL DISTRIBUTION WIDTH 16.6 % (11.6-13.7); WHITE BLOOD COUNT (AUTO) 11.6 K/uL (4.8-10.8)
[2017-11-23 07:55] LABS: CARBON DIOXIDE 21.9 mmol/L (21-32); CREATININE 1.6 mg/dL (0.6-1.3); POTASSIUM 3.9 mmol/L (3.5-5.1); PROTHROMBIN TIME 17.2 secs (10.8-13.4)
[2017-11-23 08:00] VITALS: BP 134/69
--- NOTE | 2017-11-23 08:06 | NUR ---
CALLED PICC LINE RN AT [phone], LEFT MESSAGE. ASPEN CALLED BACK. INFORMED RN THAT PATIENT IS NOT A BEDSIDE CANDIDATE FOR PICC OR MIDLINES BECAUSE PATIENT'S LINE INFILTRATES FROM 6 HOURS TO 2 DAYS AFTER INSERTION. ASPEN RN, URGES RN TO ENCOURAGE PATIENT TO GET CENTRAL LINE OR PORT. RN VERBALIZED UNDERSTANDING AND WILL SPEAK TO PATIENT AND THE ATTENDINGS.
--- NOTE | 2017-11-23 08:15 | NUR ---
PATIENT COMPLAINING THAT SHE CANNOT BREATHE. RT PAGED. RT CAME, GAVE PATIENT TREATMENT. PATIENT RESTING NOW, STATES THAT BREATHING IS BETTER. RESPIRATIONS EVEN AND UNLABORED. SAFETY AND ISOLATION PRECAUTION IN PLACE, CALL LIGHT WITHIN REACH, WILL CONTINUE TO MONITOR PATIENT.
--- NOTE | 2017-11-23 08:21 | NUR ---
RN SPOKE TO PATIENT AND ATTENDINGS. PATIENT REFUSED INSERTION OF CENTRAL LINE AND PORT. PATIENT WANTS PICC LINE. PICC LINE AGENCY CALLED ONCE AGAIN. MESSAGE LEFT, WAITING FOR THEIR CALL BACK.
[2017-11-23] MEDS ORDERED: BENZOCAINE 20% 57 GM CAN MC PRN (09:00)
[2017-11-23] MEDS: PROMETHAZINE 25 MG/ML VIAL IVP PRN ×3 (09:08→23:56)
--- NOTE | 2017-11-23 09:08 | NUR ---
PATIENT C/O NAUSEA AND THROAT PAIN, PHENERGAN IVP GIVEN. PATIENT TOLERATED IT WELL.
[2017-11-23] MEDS: GABAPENTIN 300 MG CAP PO SCH ×3 (09:32→17:00)
[2017-11-23] MEDS: LACTULOSE 20 GM/30 ML UDC PO SCH ×2 (09:32→20:59)
[2017-11-23] MEDS: VIT-B COMP/VIT-C/FOLIC ACID 1 TAB PO SCH (09:33)
[2017-11-23] MEDS: DOCUSATE SODIUM 100 MG GELCAP PO SCH ×2 (09:33→20:58)
[2017-11-23] MEDS: CILOSTAZOL 100 MG TAB PO SCH ×2 (09:33→20:58)
[2017-11-23] MEDS: ATORVASTATIN 20 MG TAB PO SCH (09:33)
[2017-11-23] MEDS: ALLOPURINOL 100 MG TAB PO SCH (09:33)
[2017-11-23] MEDS: ASPIRIN 81 MG TAB.CHEW PO SCH (09:34)
[2017-11-23] MEDS: CALCIUM ACETATE 667 MG TAB PO SCH ×2 (09:34→17:00)
--- NOTE | 2017-11-23 09:40 | NUR ---
ORDERED MEDICATIONS ADMINISTERED. PATIENT TOLERATING THEM WELL. BREATHING EVEN AND UNLABORED ON VENT. PATIENT STATES THAT PAIN IS TOLERABLE AT THE MOMENT. SAFETY AND ISOLATION PRECAUTION IN PLACE, CALL LIGHT WITHIN REACH, WILL CONTINUE TO MONITOR PATIENT.
--- NOTE | 2017-11-23 11:18 | NUR ---
PATIENT C/O PAIN, PRN PAIN MEDICATION ADMINISTERED. PATIENT TOLERATING IT WELL. BREATHING EVEN AND UNLABORED ON VENT. PATIENT MEDICATED FOR PAIN. SAFETY AND ISOLATION PRECAUTION IN PLACE, CALL LIGHT WITHIN REACH, WILL CONTINUE TO MONITOR PATIENT. Addendum: 11/23/17 at 2021 by Tino Macedo RN BLOOD SUGAR 140, NO COVERAGE NEEDED.
[2017-11-23 12:00] VITALS: BP 112/58
--- NOTE | 2017-11-23 12:12 | NUR ---
ORDERED MEDICATIONS GIVEN, PATIENT REFUSED HER GABAPETIN STATING THAT SHE IS NOT FEELING WELL. BREATHING EVEN AND UNLABORED ON VENT. PATIENT MEDICATED FOR PAIN. SAFETY AND ISOLATION PRECAUTION IN PLACE, CALL LIGHT WITHIN REACH, WILL CONTINUE TO MONITOR PATIENT.
[2017-11-23] MEDS: TOBRAMYCIN 140 MG in DEXTROSE 5% 100 ML IV SCH (13:36)
--- NOTE | 2017-11-23 13:53 | NUR ---
11/23/17 RD FOLLOW UP COMPLETED PLEASE REFER TO NUTRITION ASSESSMENT UNDER CARE ACTIVITY FOR ESTIMATED NUTRITIONAL NEEDS. 1. CONTINUE CCHO 60 GM DIET TOLERATED 2. RD TO FOLLOW-UP 3-5 DAYS, MODERATE RISK MAGDALENA BOSCH RD
[2017-11-23] MEDS: CYCLOBENZAPRINE 10 MG TAB PO PRN (13:58)
[2017-11-23] MEDS: oxyCODONE/APAP 5/325 MG 1 TAB TAB PO PRN (13:59)
--- NOTE | 2017-11-23 13:59 | NUR ---
PATIENT C/O PAIN, PRN PAIN MEDICATIONS ADMINISTERED. PATIENT TOLERATING THEM WELL. BREATHING EVEN AND UNLABORED ON VENT. PATIENT MEDICATED FOR PAIN. SAFETY AND ISOLATION PRECAUTION IN PLACE, CALL LIGHT WITHIN REACH, WILL CONTINUE TO MONITOR PATIENT.
[2017-11-23] MEDS: NACL 0.9% 1,000 ML IV SCH (15:33)
[2017-11-23 16:00] VITALS: BP 116/60
[2017-11-23] MEDS ORDERED: CYCLOBENZAPRINE 10 MG TAB PO SCH (16:00)
--- NOTE | 2017-11-23 16:15 | NUR ---
PATIENT C/O PAIN IN THROAT/TRACHEA, SPOKE TO DR. MAYEN. NEW ORDER IN FOR ONE TIME FLEXERIL BECAUSE NEXT DOSE IS NOT DUE YET. ONE TIME PAIN MEDICATION ADMINISTERED. PATIENT TOLERATING IT WELL. BREATHING EVEN AND UNLABORED ON VENT. PATIENT MEDICATED FOR PAIN. RT BILL IN TO SEE PATIENT. SAFETY AND ISOLATION PRECAUTION IN PLACE, CALL LIGHT WITHIN REACH, WILL CONTINUE TO MONITOR PATIENT.
[2017-11-23] MEDS ORDERED: TOBRAMYCIN PER PHARMACY MC PRN (16:50)
[2017-11-23] MEDS ORDERED: HYDROmorphone 1 MG/ML AMP IVP SCH (17:00)
[2017-11-23] MEDS: WARFARIN 1 MG TAB PO SCH (17:08)
--- NOTE | 2017-11-23 17:08 | NUR ---
PATIENT C/O PAIN, ONE TIME PAIN MEDICATION ADMINISTERED. PATIENT TOLERATING IT WELL. PATIENT AGREED TO TAKE WARFARIN. PATIENT REFUSED 1630 AND 1700 MEDICATIONS AND BLOOD SUGAR CHECK. BREATHING EVEN AND UNLABORED ON VENT. PATIENT MEDICATED FOR PAIN. SAFETY AND ISOLATION PRECAUTION IN PLACE, CALL LIGHT WITHIN REACH, WILL CONTINUE TO MONITOR PATIENT.
--- NOTE | 2017-11-23 17:17 | NUR ---
CONTINUED TO MONITOR PT ON VENT WITH SETTINGS CHARTED BREATH SOUNDS PRESENT BILAT DIMINISHED CLEAR SXN PT WITH MIN TO MOD AMT OFF WHITE SECS PT REFUSED TRACH CARE AT THIS TIME PT STILL WITH DEFLATED CUFF AMBU BAG AT BEDSIDE VENT PLUGGED INTO RED OUTLET
--- NOTE | 2017-11-23 17:21 | NUR ---
PATIENT C/O NAUSEA, PHENERGAN IVP GIVEN. PATIENT TOLERATED IT WELL. PATIENT STATE THAT THROAT PAIN IS A BIT BETTER AFTER ONE TIME DILAUDID DOSE.
--- NOTE | 2017-11-23 19:32 | NUR ---
GAVE REPORT TO HEAD BOOKKEEPER NURSE AT BEDSIDE FOR CONTINUITY OF CARE. PATIENT IN STABLE CONDITION.
--- NOTE | 2017-11-23 19:33 | NUR ---
RECEIVED PT FROM [facility] 30 DEGREE RN PT IS AAOX4 TRACH TO VENT SETTING FIO2 28 % VT 600RR 14 NOT PEEP PT SEEM CALM AT THIS TIME, RESP KTHERAPY AT BED SIDE GIVEN BREATHING TX PT REPOSITIONED INITIAL ASSESSMENT DONE NOT SOB NOTED AT THIS TIME.
[2017-11-23 20:00] VITALS: BP 131/65
--- NOTE | 2017-11-23 21:30 | NUR ---
BLOOD SUGAR TEST 136 PT 02 SAT 10O% LINEN CHANGED , REPOSITIONED AND SUCTIONED NECESSARY
--- NOTE | 2017-11-23 21:57 | NUR ---
RT WAS IN ER WITH CRITICAL PATIENT AND CALLED TO FLOOR TO EVALUATE PATIENT. PATIENT SATURATION WAS 100 HEART RATE 94 PATIENT WAS STABLE NO SHORTNESS OF BREATH. PATIENT WAS GIVEN A PRN TREATMENT BECAUSE SHE STATED SHE WAS SHORTNESS OF BREATH. PATIENT IS NOT COMPLIANT AND COOPERATIVE AND NOT FOLLOWING RT OR NURSING INSTRUCTION. RN AND RT RESPONED TO PATIENT IMMEDIATELY AND PROVIDED QUALITY CARE. PATIENT IS CONNECTED TO VENT AND AIRWAY IS PATENT. PATIENT STABLE AND ALERT.
[2017-11-24] VITALS: BP 135/69
--- NOTE | 2017-11-24 | NUR ---
HOB 30 DEGREE ORAL VARE GIVEN WITH VAP KIT AND SUCTIONED NECESSARY PT LINEN CHANGED VOIDING WELL ON TELEMETRY SR/BBB TRACH TO VENT REMAIN SAME SETTING NOT SOB NOTED
--- NOTE | 2017-11-24 03:00 | NUR ---
PT SEEM BY RT SUCTIONED NECESSARY ON TELEMETRY SR TRACH TO VENT REMAIN SAME SETTING NOT SOB NOTED REPOSITIONED Q2H.
[2017-11-24 04:00] VITALS: BP 156/76
[2017-11-24] MEDS: ALBUTEROL SULFATE/IPRATROPIU 3 ML SOL IH PRN ×4 (04:00→23:15)
--- NOTE | 2017-11-24 04:00 | NUR ---
PRN duoneb treatment given patient id verified and dosage verified but scanner was not working. Patient stable on vent no resp distress noticed and no shortness of breath. Patient baltazar tx well no side effects.
[2017-11-24] MEDS: MORPHINE SULFATE 2 MG/ML SYR IVP PRN ×3 (05:22→21:47)
--- NOTE | 2017-11-24 05:30 | NUR ---
PT REPOSITIONED Q2H HOB 30 DEGREE SLEEPING WELL AT THIS TIME TRACH; TO VENT REMAIN SAME SETTING NOT SOB NOTED
[2017-11-24] MEDS: BLOOD GLUCOSE MONITORING 1 DEV DEV FS SCH ×4 (06:05→21:00)
[2017-11-24] MEDS: LEVOTHYROXINE 0.075 MG TAB PO SCH (06:06)
[2017-11-24] MEDS: METOCLOPRAMIDE 10 MG TAB PO SCH ×4 (06:07→16:28)
--- NOTE | 2017-11-24 06:22 | NUR ---
BLOOD SUGAR TEST 120 AFTER MORPHINE GIVEN PT SLEEP QUIET
[2017-11-24] MEDS: ALBUTEROL SULFATE/IPRATROPIU 3 ML SOL IH SCH ×3 (07:17→19:30)
--- NOTE | 2017-11-24 07:19 | NUR ---
RECEIVED PT ON [place] ON DOCUMENTED SETTINGSD Addendum: 11/24/17 at 0821 by Litzy Mulligan RT RECEIVED PT ON DOCUMENTED SETTINGS ALARMS ARE ON AND AUDIBLE PTS TRACH JO-ANN 6 XLT IS SECURE PT IS ALERT IN HF BS CLEAT HHN GIVEN I\L WITH 3 MG DUONEB SX PT CONT POX IN PLACE VENT PLUGGED INTO RED OUTLET
--- NOTE | 2017-11-24 07:30 | NUR ---
RECEIVED PT FROM PM NURSE, PT AWAKE, ALERT. CONTACT PRECAUTION. ON TRACH TO VENT WITH SETTING FIO2 28% AND TV 600. NO S/S OF RESPIRATORY DISTRESS NOTED. LUNG SOUND DIMINISHED, PT HAS PICC LINE TO LEFT UPPER ARM, ONE LUMEN BLOCKED AND ANOTHER LUMEN LEAKING NOTED. PT UNABLE TO MOVE HER LOWER EXTREMITIES, WILL TURN PT Q2HRS, CALL LIGHT IN REACH, HOB ELEVATED 30 DEGREES,WILL CONTINUE TO MONITOR.
[2017-11-24 07:42] LABS: BASOPHILS # (AUTO) 0.1 K/uL (0.00-0.22); BASOPHILS % (AUTO) 0.8 % (0.0-2.0); EOSINOPHILS # (AUTO) 0.4 K/uL (0-0.4); EOSINOPHILS % (AUTO) 3.3 % (0.0-4.0); HEMOGLOBIN 8.7 g/dL (12.0-16.0); LYMPHOCYTES # (AUTO) 3.3 K/uL (2.5-16.5); LYMPHOCYTES % (AUTO) 26.2 % (20.5-51.1); MEAN CORPUSCULAR HEMOGLOBIN 29 pg (27-31); MEAN CORPUSCULAR HGB CONC 33 g/dL (33-37); MEAN CORPUSCULAR VOLUME 87.4 fL (80-94); MONOCYTES % (AUTO) 8.1 % (1.7-9.3); NEUTROPHILS # (AUTO) 7.8 K/uL (1.8-7.7); NEUTROPHILS % (AUTO) 61.6 % (42.2-75.2); PLATELET COUNT (AUTO) 263 K/uL (140-450); RED BLOOD CELL COUNT(AUTO) 2.98 MIL/uL (4.20-5.40); RED CELL DISTRIBUTION WIDTH 16.6 % (11.6-13.7); WHITE BLOOD COUNT (AUTO) 12.6 K/uL (4.8-10.8)
[2017-11-24 07:52] LABS: ANION GAP 16.1 (8-16); CARBON DIOXIDE 21.2 mmol/L (21-32); CREATININE 1.4 mg/dL (0.6-1.3); POTASSIUM 4.3 mmol/L (3.5-5.1)
[2017-11-24 08:00] VITALS: BP 138/73
[2017-11-24 08:04] LABS: MAGNESIUM 1.6 mg/dL (1.8-2.4); PHOSPHORUS 4.5 mg/dL (2.5-4.9)
[2017-11-24] MEDS: VIT-B COMP/VIT-C/FOLIC ACID 1 TAB PO SCH (08:14)
[2017-11-24] MEDS: ATORVASTATIN 20 MG TAB PO SCH (08:14)
[2017-11-24] MEDS: GABAPENTIN 300 MG CAP PO SCH ×4 (08:16→16:19)
[2017-11-24] MEDS: CALCIUM ACETATE 667 MG TAB PO SCH ×2 (08:16→16:19)
[2017-11-24] MEDS: ASPIRIN 81 MG TAB.CHEW PO SCH (08:17)
[2017-11-24] MEDS: ALLOPURINOL 100 MG TAB PO SCH (08:17)
[2017-11-24] MEDS: DOCUSATE SODIUM 100 MG GELCAP PO SCH ×2 (08:17→21:49)
[2017-11-24] MEDS: LACTULOSE 20 GM/30 ML UDC PO SCH ×2 (08:18→21:49)
[2017-11-24] MEDS: CILOSTAZOL 100 MG TAB PO SCH ×2 (08:18→21:48)
[2017-11-24] MEDS: PROMETH/CODEINE 6.25-10MG/5ML 5 ML UDC PO PRN (10:05)
[2017-11-24 10:13] LABS: PROTHROMBIN TIME 18.4 secs (10.8-13.4)
--- NOTE | 2017-11-24 11:41 | NUR ---
IV INSERTED TO RIGHT UPPER ARM # 22 BY CHARGE NURSE ERNESTINA.
[2017-11-24] MEDS: NACL 0.9% 1,000 ML IV SCH (11:45)
[2017-11-24 12:00] VITALS: BP 122/59
[2017-11-24] MEDS: INSULIN LISPRO SLIDING SCALE 100 UNITS/ML VIAL SUBQ PRN ×2 (12:26→17:36)
--- NOTE | 2017-11-24 12:30 | NUR ---
PT C/O SHORTNESS OF BREATH, BEDSIDE MONITOR SHOWS O2 SATS 95%. SUCTIONED PT WITH BLOOD TINGLED SECRETION NOTED, NOTIFIED ( RESIDENT). WILL CONTINUE TO MONITOR. PT REFUSED PO MEDS NEURONTIN AND REGLAN
--- NOTE | 2017-11-24 13:27 | NUR ---
PT RESTING IN BED, ASKED PT DOES SHE FEEL BETTER, PT NODDED HER HEAD, COMFORTED PT TO HAVE A GOOD REST AND TOLD PT TO PRESS CALL LIGHT IF SHE FEELS ANY DISCOMFORT.
[2017-11-24 16:00] VITALS: BP 135/68
[2017-11-24] MEDS ORDERED: HYDROmorphone 1 MG/ML AMP IVP SCH (16:06)
[2017-11-24] MEDS: WARFARIN 1 MG TAB PO SCH (16:24)
--- NOTE | 2017-11-24 16:29 | NUR ---
PT REFUSED REGLAN. RISKS AND BENEFITS EXPLAINED, PT STILL REFUSED.
--- NOTE | 2017-11-24 18:00 | NUR ---
PT RESTING IN BED, NO S/S OF RESPIRATORY DISTRESS NOTED AT THIS MOMENT.
--- NOTE | 2017-11-24 19:44 | NUR ---
RECEIVED PT STABLE ON VENT SUPPORT AT DOCUMENTED SETTINGS, HHN TX GIVEN, TOLERATED WELL, NO RESP DISTRESS OR SOB NOTED AT THIS TIME, PT AWAKE AND ALERT, SHILEY 6 XLT SECURED/PATENT/MIDLINE, ALARMS SET AND AUDIBLE, AMBU BAG AT BEDSIDE, VENT PLUGGED INTO RED OUTLET, PULSE OX ON, WILL CONT TO MONITOR.
--- NOTE | 2017-11-24 19:45 | NUR ---
RECEIVED PT FROM AHSAN RN PT AAOX4 HOB 30 DEGREE TRACH TO VENT DEPENDENT FIO% 28 TV 600 RR 14 NOT SOB NOTED DENIES ANY PAIN AT THIS TIME PT BEDBOUND IV ON RT UA INFUSIG WELL TKO REPOSITIONED INITIAL ASSESSMENT DONE
[2017-11-24 20:00] VITALS: BP 138/68
--- NOTE | 2017-11-24 21:30 | NUR ---
PT REMAIN SAME SETTING ON TELMETRY ST BBB BLOOD SUGAR YANN 122 NOT COVERAGE
--- NOTE | 2017-11-24 22:31 | NUR ---
AFTER PAIN MEDIC GIVEN PT REMAIN STABLE NOT DISTRESS NOTED TRACH TO YANELY REMAIN SAME SETTING REPOSITIONED Q2H
[2017-11-25] VITALS: BP 149/71
[2017-11-25] MEDS ORDERED: MAG SULF 2000 MG/WATER PREMIX 50 ML IV SCH
--- NOTE | 2017-11-25 | NUR ---
MAG RIDDER GIVEN ORDER PT TRACH TO VENT HOB 30 DEGREE NOT DISTRESS NOTED RESP THERAPY ASSISTING PT ORDER, REPOSITIONED Q2 ON CONTINUING MONITORING .
[2017-11-25] MEDS: ALBUTEROL SULFATE/IPRATROPIU 3 ML SOL IH PRN (01:40)
[2017-11-25] MEDS: TOBRAMYCIN 140 MG in DEXTROSE 5% 100 ML IV SCH (02:11)
[2017-11-25] MEDS: MORPHINE SULFATE 2 MG/ML SYR IVP PRN ×4 (02:48→22:20)
--- NOTE | 2017-11-25 03:30 | NUR ---
PT SLEEPING WELL AFTER PAIN MDIC GIVEN NOT SOB NOTED
[2017-11-25 04:00] VITALS: BP 124/60
--- NOTE | 2017-11-25 04:00 | NUR ---
SPONGE BATH GIVEN LINEN CHANGED REPOSITIONED SUCTIONED NECESSARY TRACHK TO YANELY REMAIN SAME SETTING
[2017-11-25] MEDS: METOCLOPRAMIDE 10 MG TAB PO SCH ×3 (06:21→16:11)
[2017-11-25] MEDS: LEVOTHYROXINE 0.075 MG TAB PO SCH (06:21)
[2017-11-25] MEDS: BLOOD GLUCOSE MONITORING 1 DEV DEV FS SCH ×4 (06:22→20:39)
--- NOTE | 2017-11-25 06:30 | NUR ---
BLOOD SUGAR TEST 124. PT REPOSITIONED Q2H TRACH TO VENT REMAIN SAME SETTING NOT SOB NOTED
[2017-11-25] MEDS: ALBUTEROL SULFATE/IPRATROPIU 3 ML SOL IH SCH ×3 (06:47→19:37)
--- NOTE | 2017-11-25 06:47 | NUR ---
rec'd pt on carescape vent settings ac 14 vt 600 fio2 28% alarms on and audible and ambu bag at side of vent and vent is plugged into red outlet no hhn given pt sleeping with no signs of distress noted pt is trach with briseida xlt 6 no sxn needed at this time
--- NOTE | 2017-11-25 07:30 | NUR ---
RECEIVED PT FROM PM NURSE, PT SLEEPING BUT EASILY AWAKING. CONTACT PRECAUTION. ON TRACH TO VENT WITH SETTING FIO2 28% AND TV 600. NO S/S OF RESPIRATORY DISTRESS NOTED. LUNG SOUND DIMINISHED. PT UNABLE TO MOVE HER LOWER EXTREMITIES, WILL TURN PT Q2HRS, CALL LIGHT IN REACH, HOB ELEVATED 30 DEGREES,WILL CONTINUE TO MONITOR.
[2017-11-25 08:00] VITALS: BP 103/53
[2017-11-25] MEDS: VIT-B COMP/VIT-C/FOLIC ACID 1 TAB PO SCH (08:28)
[2017-11-25] MEDS: GABAPENTIN 300 MG CAP PO SCH ×3 (08:28→16:11)
[2017-11-25] MEDS: CILOSTAZOL 100 MG TAB PO SCH ×2 (08:28→20:40)
[2017-11-25] MEDS: ATORVASTATIN 20 MG TAB PO SCH (08:29)
[2017-11-25] MEDS: ALLOPURINOL 100 MG TAB PO SCH (08:29)
[2017-11-25] MEDS: DOCUSATE SODIUM 100 MG GELCAP PO SCH ×3 (08:29→20:42)
[2017-11-25] MEDS: ASPIRIN 81 MG TAB.CHEW PO SCH (08:30)
[2017-11-25] MEDS: LACTULOSE 20 GM/30 ML UDC PO SCH ×3 (08:30→20:42)
[2017-11-25] MEDS: CALCIUM ACETATE 667 MG TAB PO SCH ×2 (08:30→16:11)
[2017-11-25 09:10] LABS: BASOPHILS # (AUTO) 0.1 K/uL (0.00-0.22); BASOPHILS % (AUTO) 0.4 % (0.0-2.0); EOSINOPHILS # (AUTO) 0.3 K/uL (0-0.4); EOSINOPHILS % (AUTO) 1.7 % (0.0-4.0); HEMATOCRIT 25.5 % (36-48); HEMOGLOBIN 8.6 g/dL (12.0-16.0); LYMPHOCYTES # (AUTO) 3.9 K/uL (2.5-16.5); MEAN CORPUSCULAR HEMOGLOBIN 29 pg (27-31); MEAN CORPUSCULAR HGB CONC 34 g/dL (33-37); MEAN CORPUSCULAR VOLUME 86.1 fL (80-94); MONOCYTES # (AUTO) 1.6 K/uL (0.8-1.0); NEUTROPHILS # (AUTO) 11.7 K/uL (1.8-7.7); PLATELET COUNT (AUTO) 257 K/uL (140-450); RED BLOOD CELL COUNT(AUTO) 2.96 MIL/uL (4.20-5.40); RED CELL DISTRIBUTION WIDTH 16.5 % (11.6-13.7); WHITE BLOOD COUNT (AUTO) 17.6 K/uL (4.8-10.8)
--- NOTE | 2017-11-25 09:23 | NUR ---
vent check, pt sleeping with no signs of distress noted at this time, airway is patent
[2017-11-25 09:28] LABS: ANION GAP 14.5 (8-16); CARBON DIOXIDE 22.5 mmol/L (21-32); CREATININE 1.4 mg/dL (0.6-1.3)
[2017-11-25 10:06] LABS: NEUTROPHILS % (AUTO) 66.9 % (42.2-75.2)
--- NOTE | 2017-11-25 10:28 | NUR ---
PT C/O WHOLE BODY PAIN, MORPHINE GIVEN ORDERED.
--- NOTE | 2017-11-25 11:15 | NUR ---
vent check, sxn pt moderate amt of thick blood tint secretions, pt is awake with no signs of distress noted at this time
--- NOTE | 2017-11-25 11:25 | NUR ---
PICC LINE ORDER RECEIVED, NOTIFIED YASMANI SCHAFFER. PT HAS ORDER FOR URINE CULTURE, PER DR. MAYEN IT IS OK IF PT ABLE TO PEE, EXPLAINED TO PT WE NEED TO GET URINE CULTURE, IF PT UNABLE TO CONTROL HER BLADDER, WE NEED TO INSERT STRAIGHT CATH TO GET URINE, PT STATED SHE CAN PEE AND SHE WILL LET US KNOW WHEN SHE IS READY TO PEE.
[2017-11-25 12:00] VITALS: BP 105/60
--- NOTE | 2017-11-25 13:00 | NUR ---
PICC LINE DRESSING CHANGED, FLUSHED WITH SALINE 20 CC WITHOUT LEAKING, DR. MAYEN AND YASMANI SCHAFFER NOTIFIED.
--- NOTE | 2017-11-25 13:01 | NUR ---
vent check, i\l tx given with duoneb 3ml with no adverse reaction post tx b\s are clear and pt was snx for c&s blood tint secretions pt is awake with no signs of distress noted
[2017-11-25] MEDS: CLINDAMYCIN 600 MG in DEXTROSE 5% 50 ML IV SCH ×2 (13:32→20:53)
--- NOTE | 2017-11-25 15:26 | NUR ---
vent check, airway is patent and pt is sleeping
[2017-11-25] MEDS: NACL 0.9% 1,000 ML IV SCH (15:33)
[2017-11-25 16:00] VITALS: BP 105/55
[2017-11-25] MEDS: WARFARIN 1 MG TAB PO SCH (16:10)
--- NOTE | 2017-11-25 16:30 | NUR ---
FINGER BS 147, NO INSULIN COVERAGE NEEDED.
--- NOTE | 2017-11-25 17:21 | NUR ---
vent check, sxn pt moderate amt of thick blood tint secretions, pt is awake and trach care done: changed trach gauze
--- NOTE | 2017-11-25 18:00 | NUR ---
PT RESTING IN BED WATCHING TV, NO S/S OF RESPIRATORY DISTRESS NOTED. CALL LIGHT IN REACH.
--- NOTE | 2017-11-25 19:10 | NUR ---
RECEIVED REPORT FROM DAY SHIFT NURSE AT BEDSIDE. PT IN STABLE CONDITION. PT IS A/O X4. L UA PICC WITH NS AT 10 ML/HR. PT HAS TRACH AND IS ON VENTILATOR. NO RESPIRATORY DISTRESS. SKIN IS INTACT. BED LOCKED, LOW POSTION, WITH SIDE RAILS UP X2. UPDATED BOARD. WILL CONTINUE TO MONITOR.
--- NOTE | 2017-11-25 19:47 | NUR ---
RECEIVED PT STABLE ON VENT SUPPORT AT DOCUMENTED SETTINGS, HHN TX GIVEN AT THIS TIME, NO RESP DISTRESS OR SOB NOTED AT THIS TIME, PT AWAKE AND ALERT, SHILEY 6 XLT TRACH SECURED/PATENT/MIDLINE, ALARMS SET AND AUDIBLE, AMBU BAG AT BEDSIDE, VENT PLUGGED INTO RED OUTLET, PULSE OX ON, WILL CONT TO MONITOR.
[2017-11-25 20:00] VITALS: BP 105/49
--- NOTE | 2017-11-25 20:53 | NUR ---
BS CHECKED, 150. NO COVERAGE NEEDED. PT REFUSED COLACE AND LACTULOSE. OTHER MEDICATIONS ADMINISTERED. PT TOLERATED WELL. WILL CONTINUE TO MONITOR.
--- NOTE | 2017-11-25 22:00 | NUR ---
PT ASLEEP IN BED. NO SIGNS OF DISTRESS. WILL CONTINUE TO MONITOR.
[2017-11-26] VITALS: BP 133/56
--- NOTE | 2017-11-26 | NUR ---
VS SIGNS WITHIN NORMAL LIMITS. PT HAS NO COMPLAINTS AT THIS TIME. WILL CONTINUE TO MONITOR.
[2017-11-26] MEDS: PROMETHAZINE 25 MG/ML VIAL IVP PRN ×2 (02:18→19:12)
--- NOTE | 2017-11-26 02:22 | NUR ---
PT REQUESTING RT DUE TO DISCOMFORT IN THROAT. PAGED RT THEY WILL COME TO SEE PT.
[2017-11-26] MEDS: ALBUTEROL SULFATE/IPRATROPIU 3 ML SOL IH PRN ×2 (02:31→21:42)
--- NOTE | 2017-11-26 02:32 | NUR ---
RT AT BEDSIDE ASSISTING PT.
[2017-11-26 04:00] VITALS: BP 118/58
[2017-11-26] MEDS: MORPHINE SULFATE 2 MG/ML SYR IVP PRN ×3 (04:29→21:04)
--- NOTE | 2017-11-26 04:29 | NUR ---
PT COMPLAINING OF PAIN. PAIN MEDICATION ADMINISTERED. WILL MONITOR PT FOR EFFECTIVENESS.
[2017-11-26] MEDS: CLINDAMYCIN 600 MG in DEXTROSE 5% 50 ML IV SCH ×3 (04:30→21:04)
[2017-11-26] MEDS: NACL 0.9% 1,000 ML IV SCH ×2 (04:50→15:33)
--- NOTE | 2017-11-26 05:30 | NUR ---
PT CALLED AND SAID THE PICC LINE IS LEAKING. WENT TO CHECK IT . HER BLANKET IS WET. WHILE FLUSHING FEW TIMES WITH NS, FLUIDS COMING OUT /LEAKING FROM THE SITE . ANDREY MCDONALD MADE AWARE AND TALKED TO JUANITA RN IMMUNOLOGIST AND SHE SAID PICC LINE NURSE TOLD ALREADY TO AM RN IMMUNOLOGIST THAT THEY CAN'T PUT A NEW PICC LINE ANYMORE. CALLED DR. BROWN AND MADE HIM AWARE. HE SAID HE WILL TAKE CARE, WILL HAVE TO TELL TO THE AM GROUP OF RESIDENTS.
[2017-11-26] MEDS: BLOOD GLUCOSE MONITORING 1 DEV DEV FS SCH ×4 (05:55→21:11)
[2017-11-26] MEDS: LEVOTHYROXINE 0.075 MG TAB PO SCH (06:30)
--- NOTE | 2017-11-26 06:33 | NUR ---
PT REFUSED MORNING MEDS.
[2017-11-26] MEDS: METOCLOPRAMIDE 10 MG TAB PO SCH ×3 (06:36→16:44)
[2017-11-26 06:51] LABS: BASOPHILS # (AUTO) 0.1 K/uL (0.00-0.22); BASOPHILS % (AUTO) 0.5 % (0.0-2.0); EOSINOPHILS # (AUTO) 0.6 K/uL (0-0.4); EOSINOPHILS % (AUTO) 4.2 % (0.0-4.0); HEMATOCRIT 24.2 % (36-48); HEMOGLOBIN 7.9 g/dL (12.0-16.0); LYMPHOCYTES # (AUTO) 3.1 K/uL (2.5-16.5); LYMPHOCYTES % (AUTO) 21.1 % (20.5-51.1); MEAN CORPUSCULAR HEMOGLOBIN 28 pg (27-31); MEAN CORPUSCULAR HGB CONC 33 g/dL (33-37); MEAN CORPUSCULAR VOLUME 86.8 fL (80-94); MONOCYTES # (AUTO) 1.2 K/uL (0.8-1.0); NEUTROPHILS # (AUTO) 9.7 K/uL (1.8-7.7); NEUTROPHILS % (AUTO) 66.2 % (42.2-75.2); PLATELET COUNT (AUTO) 245 K/uL (140-450); RED BLOOD CELL COUNT(AUTO) 2.79 MIL/uL (4.20-5.40); RED CELL DISTRIBUTION WIDTH 16.8 % (11.6-13.7); WHITE BLOOD COUNT (AUTO) 14.6 K/uL (4.8-10.8)
[2017-11-26 07:00] LABS: ANION GAP 15.2 (8-16); CREATININE 1.5 mg/dL (0.6-1.3); POTASSIUM 4.2 mmol/L (3.5-5.1)
[2017-11-26] MEDS: ALBUTEROL SULFATE/IPRATROPIU 3 ML SOL IH SCH ×3 (07:05→18:46)
--- NOTE | 2017-11-26 07:07 | NUR ---
RECEIVED PT ON DOCUMENTED SETTINGS ALARMS ARE ON AND AUDIBLE PTS TRACH SHILEY XLT SIZE 6 IS SECURE PT IN HF ASLEEP HHN GIVEN I\L WITH 3 MG DUONEB BMV HOB CONT. POX IN PLACE VENT PLUGGED INTO RED OUTLET
[2017-11-26 07:18] LABS: PROTHROMBIN TIME 24.4 secs (10.8-13.4)
--- NOTE | 2017-11-26 07:20 | NUR ---
ENDORSED PT TO DAY SHIFT NURSE FOR CONTINUITY OF CARE. PT IN STABLE CONDITION.
--- NOTE | 2017-11-26 07:21 | NUR ---
RECEIVED REPORT FROM CLINICAL INFORMATICS MANAGER RN. PATIENT IS AAOX4, ON TRACH TO VENT. HAS NO SIGNS AND SYMPTOMS OF RESPIRATORY DISTRESS NOTED AT THIS TIME. PATIENT HAS LEFT UPPER ARM PICC LINE THAT IS LEAKING AND NOT PATENT. HAS IV TO THE RIGHT UPPER ARM THAT IS ALSO NOT WORKING. DISCUSSED PLAN OF CARE WITH PATIENT AND SHE VERBALIZED UNDERSTANDING. BED IN LOWEST POSITION, SIDE RAILS UP X2, CALL LIGHT WITHIN REACH. WILL CONTINUE TO MONITOR.
[2017-11-26 08:00] VITALS: BP 151/65
[2017-11-26] MEDS: DOCUSATE SODIUM 100 MG GELCAP PO SCH ×2 (08:21→20:57)
[2017-11-26] MEDS: CILOSTAZOL 100 MG TAB PO SCH ×2 (08:21→20:57)
[2017-11-26] MEDS: GABAPENTIN 300 MG CAP PO SCH ×3 (08:21→16:43)
[2017-11-26] MEDS: CALCIUM ACETATE 667 MG TAB PO SCH ×2 (08:21→16:44)
[2017-11-26] MEDS: ASPIRIN 81 MG TAB.CHEW PO SCH (08:21)
[2017-11-26] MEDS: oxyCODONE/APAP 5/325 MG 1 TAB TAB PO PRN (08:22)
[2017-11-26] MEDS: ATORVASTATIN 20 MG TAB PO SCH (08:22)
[2017-11-26] MEDS: LACTULOSE 20 GM/30 ML UDC PO SCH ×2 (08:22→20:57)
[2017-11-26] MEDS: VIT-B COMP/VIT-C/FOLIC ACID 1 TAB PO SCH (08:22)
[2017-11-26] MEDS: ALLOPURINOL 100 MG TAB PO SCH (08:22)
[2017-11-26 12:00] VITALS: BP 100/48
--- NOTE | 2017-11-26 12:40 | NUR ---
PICC LINE NURSE HERE TO INSERT NEW PICC.
--- NOTE | 2017-11-26 13:29 | NUR ---
PICC LINE NURSE TOLD ME HE WAS ABLE TO INSERT THE PICC LINE BUT TO INFUSE FLUIDS SLOWLY, DO NOT DRAW BLOOD FROM THE PICC LINE, AND NOT TO HAVE CT CONTRAST INSERTED. WILL ENDORSE TO NEXT RN.
[2017-11-26] MEDS: TOBRAMYCIN 140 MG in DEXTROSE 5% 100 ML IV SCH (15:44)
--- NOTE | 2017-11-26 15:44 | NUR ---
STARTED TOBRAMYCIN AT A SLOWER RATE PER PICC LINE RN RECOMMENDATION.
[2017-11-26 16:00] VITALS: BP 118/78
[2017-11-26] MEDS: WARFARIN 1 MG TAB PO SCH (16:47)
[2017-11-26] MEDS: INSULIN LISPRO SLIDING SCALE 100 UNITS/ML VIAL SUBQ PRN ×2 (16:48→21:10)
--- NOTE | 2017-11-26 17:02 | NUR ---
REMOVED PATIENTS PICC LINE FROM THE LEFT ARM, IT WAS NOT FUNCTIONING. PATIENT TOLERATED WELL.
--- NOTE | 2017-11-26 17:34 | NUR ---
SQL ARCHITECT INFORMED ME THAT PATIENT STATED THAT SHE IS WET BUT DOESN'T WANT TO BE CHANGED.
--- NOTE | 2017-11-26 18:56 | NUR ---
RECEIVED PT STABLE ON VENT SUPPORT AT DOCUMENTED SETTINGS, HHN TX GIVEN, TOLERATED WELL, NO RESP DISTRESS OR SOB NOTED AT THIS TIME, PT AWAKE AND ALERT, SHILEY 6 XLT TRACH SECURED/PATENT/MIDLINE, ALARMS SET AND AUDIBLE, AMBU BAG AT BEDSIDE, VENT PLUGGED INTO RED OUTLET, PULSE OX ON, WILL CONT TO MONITOR.
--- NOTE | 2017-11-26 19:08 | NUR ---
ENDORSED PATIENT TO ABRASIVE GRINDER RN FOR CONTINUITY OF CARE. PATIENT IN STABLE CONDITION.
--- NOTE | 2017-11-26 19:12 | NUR ---
RECEIVED PT ON BED AAOX4, VERBALLY RESPONSIVE, ON TRACH TO VENT WITH FI02 OF 28%, SAT-100%, VITAL SIGNS STABLE, DENIES ANY PAIN, COMPLAINING OF NAUSEA BUT NO VOMITING, MEDICATED PRN WITH PHENERGAN IVP, WITH RT UA PICC LINE, DRESSING DRY AND INTACT, IVF INFUSING WELL AT 10ML/H, PLAN OF CARE DISCUSSED, SAFETY MEASURES IN PLACE, SIDE RAILS UP AND BED ALARM ON, CALL LIGHT WITHIN REACH, MAINTAIN ON CONTACT ISOLATION.
[2017-11-26 20:00] VITALS: BP 122/50
--- NOTE | 2017-11-26 21:15 | NUR ---
BLOOD SUGAR CHECKED WITH 164 RESULT, COVERAGE GIVEN, DUE PO MEDS GIVEN, TOLERATED WELL, IV ANTIBIOTIC ADMINISTERED, MEDICATED PRN FOR PAIN WITH MORPHINE IVP, PERINEAL CARE AND REPOSITIONING DONE WITH FAMILY MEMBER, ALL NEEDS ATTENDED.
[2017-11-27] VITALS (9 sets, daily range): BP systolic 0–126; BP diastolic 0–64
[2017-11-27] MEDS: CYCLOBENZAPRINE 10 MG TAB PO PRN ×2 (00:47→23:23)
[2017-11-27] MEDS: BENZOCAINE/MENTHOL 1 LOZ MM PRN ×3 (00:48→23:23)
--- NOTE | 2017-11-27 00:50 | NUR ---
PT COMPLAINING OF NECK PAIN AND SORE THROAT, NO SOB NOTED, MEDICATED WITH FLEXERIL PO AND CEPACOL LOZENGE PRN, MONITORED CLOSELY.
[2017-11-27] MEDS: ALBUTEROL SULFATE/IPRATROPIU 3 ML SOL IH PRN ×2 (01:04→11:32)
[2017-11-27] MEDS: MORPHINE SULFATE 2 MG/ML SYR IVP PRN ×4 (03:06→20:23)
--- NOTE | 2017-11-27 04:30 | NUR ---
INCONTINENT OF URINE, UNABLE TO COLLECT URINE SPECIMEN, PERINEAL CARE DONE AND REPOSITIONED Q2H AND OFFLOAD PRESSURE AREAS, MONITORED CLOSELY.
[2017-11-27] MEDS: PROMETHAZINE 25 MG/ML VIAL IVP PRN (04:33)
[2017-11-27] MEDS: CLINDAMYCIN 600 MG in DEXTROSE 5% 50 ML IV SCH ×3 (04:33→20:39)
[2017-11-27] MEDS: LEVOTHYROXINE 0.075 MG TAB PO SCH (06:30)
[2017-11-27] MEDS: METOCLOPRAMIDE 10 MG TAB PO SCH ×3 (06:30→16:16)
[2017-11-27] MEDS: BLOOD GLUCOSE MONITORING 1 DEV DEV FS SCH ×4 (06:33→20:39)
--- NOTE | 2017-11-27 06:35 | NUR ---
BLOOD SUGAR CHECKED WITH 123 RESULT, DUE PO MEDS TAKEN, NO DISTRESS NOTED, MONITORED CLOSELY.
[2017-11-27 07:04] LABS: BASOPHILS # (AUTO) 0.1 K/uL (0.00-0.22); BASOPHILS % (AUTO) 0.5 % (0.0-2.0); EOSINOPHILS # (AUTO) 0.7 K/uL (0-0.4); EOSINOPHILS % (AUTO) 5.3 % (0.0-4.0); HEMATOCRIT 25.5 % (36-48); HEMOGLOBIN 8.2 g/dL (12.0-16.0); LYMPHOCYTES # (AUTO) 3.1 K/uL (2.5-16.5); LYMPHOCYTES % (AUTO) 24.8 % (20.5-51.1); MEAN CORPUSCULAR HEMOGLOBIN 28 pg (27-31); MEAN CORPUSCULAR HGB CONC 32 g/dL (33-37); MEAN CORPUSCULAR VOLUME 87.6 fL (80-94); MONOCYTES # (AUTO) 0.9 K/uL (0.8-1.0); MONOCYTES % (AUTO) 7.3 % (1.7-9.3); NEUTROPHILS # (AUTO) 7.9 K/uL (1.8-7.7); NEUTROPHILS % (AUTO) 62.1 % (42.2-75.2); PLATELET COUNT (AUTO) 245 K/uL (140-450); RED BLOOD CELL COUNT(AUTO) 2.92 MIL/uL (4.20-5.40); WHITE BLOOD COUNT (AUTO) 12.7 K/uL (4.8-10.8)
[2017-11-27] MEDS: ALBUTEROL SULFATE/IPRATROPIU 3 ML SOL IH SCH ×3 (07:04→19:44)
[2017-11-27 07:11] LABS: PROTHROMBIN TIME 28.1 secs (10.8-13.4)
[2017-11-27 07:15] LABS: MAGNESIUM 1.6 mg/dL (1.8-2.4); PHOSPHORUS 4.7 mg/dL (2.5-4.9)
--- NOTE | 2017-11-27 07:22 | NUR ---
RECEIVED PATIENT GABE, JO-ANN XLT 6, TO VENT ON SETTINGS: AC 600, 14, 28%, NO PEEP. VENT CHECK DONE. VENT PLUGGED INTO RED OUTLET. VENT ALARMS ON AND AUDIBLE. AMBU BAG AT BEDSIDE. SCHEDULED BREATHING TREATMENT ADMINISTERED. TOLERATED TX WELL, NO ADVERSE SIDE EFFECTS. PATIENT COMPLAINS OF PAIN AT TRACH STOMA SITE. AIRWAY SECURE. NO ACUTE RESPIRATORY DISTRESS AT THIS TIME. WILL CONTINUE TO MONITOR.
[2017-11-27 07:24] LABS: CARBON DIOXIDE 24.2 mmol/L (21-32); CREATININE 1.5 mg/dL (0.6-1.3); POTASSIUM 4.2 mmol/L (3.5-5.1)
--- NOTE | 2017-11-27 07:30 | NUR ---
PT AWAKE, NO SIGNS OF DISTRESS, REPORT GIVEN TO RN VIANEY FOR CONTINUITY OF CARE.
--- NOTE | 2017-11-27 07:30 | NUR ---
RECEIVED REPORT FROM PM SHIFT NURSE AT BEDSIDE, PT IS AAOX4, ABLE TO FOLLOW COMMANDS AND MADE NEEDS KNOWN, TRACH TO VENT WITH SETTING FIO2 28, R 14, TV 450, NO S/S OF DISTRESS, DIMINISHED LUNG SOUNDS SHAHNAZ., C/O PAIN TO TRACH SITE, DENIES CHEST PAIN, SR ON MONITOR, SOFT ABDOMEN WITH ACTIVE BOWEL SOUNDS, INCONTINENT WITH B&B'S, RIGHT SIDE WEAKNESS NOTED, VSS, C/O GENERALIZED PAIN 9/10W, WILL MEDICATED, PICC LINE TO RIGHT UPPER ARM, PATENT AND TKO. EXPLAINED POC TO PT, PT VERBALIZED UNDERSTANDING, PLACED PT IN COMFORT POSITION, SAFETY MEASURE IN PLACE, CALL LIGHT WITHIN REACH, WILL CONTINUE TO MONITOR.
--- NOTE | 2017-11-27 08:45 | NUR ---
PT C/O SEVERE PAIN TO TRACH SITE, DR. MAUNEL MADE AWARE, WILL MEDICATED.
--- NOTE | 2017-11-27 09:20 | NUR ---
PATIENT QUIETLY RESTING. VENT CHECK DONE. NO RESPIRATORY DISTRESS NOTED AT THIS TIME. WILL CONTINUE TO MONITOR.
--- NOTE | 2017-11-27 09:20 | NUR ---
SCHEDULED MEDICATION GIVEN, PT IS ABLE TO SWALLOW PILLS WHOLE, AND TOLERATED WELL.
--- NOTE | 2017-11-27 09:30 | NUR ---
IV SITE TO LEFT FOREARM INFILTRATED, REMOVED IV SITE, INSERTED NEW IV LINE TO LEFT HAND 22GA WITH GOOD BLOOD RETURN, PT TOLERATED WELL. Addendum: 11/27/17 at 0939 by Shadi Preciado RN WRONG PATIENT CHARTING
[2017-11-27] MEDS: GABAPENTIN 300 MG CAP PO SCH ×3 (09:51→16:18)
[2017-11-27] MEDS: ASPIRIN 81 MG TAB.CHEW PO SCH (09:51)
[2017-11-27] MEDS: ATORVASTATIN 20 MG TAB PO SCH (09:51)
[2017-11-27] MEDS: DOCUSATE SODIUM 100 MG GELCAP PO SCH ×2 (09:51→20:27)
[2017-11-27] MEDS: CILOSTAZOL 100 MG TAB PO SCH ×2 (09:52→20:27)
[2017-11-27] MEDS: LACTULOSE 20 GM/30 ML UDC PO SCH ×2 (09:52→20:27)
[2017-11-27] MEDS: VIT-B COMP/VIT-C/FOLIC ACID 1 TAB PO SCH (09:52)
[2017-11-27] MEDS: CALCIUM ACETATE 667 MG TAB PO SCH ×2 (09:52→16:17)
[2017-11-27] MEDS: ALLOPURINOL 100 MG TAB PO SCH (09:52)
[2017-11-27] MEDS ORDERED: MAGNESIUM OXIDE 400 MG TAB PO SCH (10:30)
--- NOTE | 2017-11-27 11:45 | NUR ---
VENT CHECK DONE. PRN BREATHING TREATMENT ADMINISTERED PER PATIENT COMPLAINS OF SHORTNESS OF BREATH. PATIENT STATES TO "FEEL BETTER" POST TX. SUCTIONED MODERATE AMOUNT OF THICK YELLOW, BLOOD STREAKED SPUTUM. NO ACUTE RESPIRATORY DISTRESS NOTED AT THIS TIME. WILL CONTINUE TO MONITOR.
--- NOTE | 2017-11-27 12:00 | NUR ---
PT IS RESTING IN BED, WATCHING TV, NO S/S OF DISTRESS, RT AT BEDSIDE GIVING BREATHING TREATMENT.
[2017-11-27] MEDS: INSULIN LISPRO SLIDING SCALE 100 UNITS/ML VIAL SUBQ PRN (12:09)
--- NOTE | 2017-11-27 15:02 | NUR ---
VENT CHECK DONE. SCHEDULED BREATHING TX ADMINISTERED. PATIENT TOLERATED TX WELL, NO ADVERSE SIDE EFFECTS. SUCTIONED LARGE AMOUNT OF THICK YELLOW/BLOODY SECRETIONS. NO ACUTE DISTRESS NOTED. WILL CONTINUE TO MONITOR.
--- NOTE | 2017-11-27 15:23 | NUR ---
VENT CHECK DONE. NO RESPIRATORY DISTRESS NOTED AT THIS TIME. WILL CONTINUE TO MONITOR.
[2017-11-27] MEDS: NACL 0.9% 1,000 ML IV SCH (15:24)
--- NOTE | 2017-11-27 16:00 | NUR ---
PT IS ASLEEP IN BED, NO S/S OF DISTRESS, VSS.
[2017-11-27] MEDS: WARFARIN 1 MG TAB PO SCH (16:18)
--- NOTE | 2017-11-27 19:10 | NUR ---
REPORT GIVEN TO SUBSTATION INSPECTOR NURSE FOR CONTINUE OF CARE, PT IS IN STABLE CONDITION AT THIS TIME.
--- NOTE | 2017-11-27 19:12 | NUR ---
RECEIVED PT ON BED AAOX4, VERBALLY RESPONSIVE, ON TRACH TO VENT WITH FI02 OF 28%, SAT-100%, VITAL SIGNS STABLE, NO SOB NOTED, WITH RT UA PICC LINE, DRESSING DRY AND INTACT, IVF INFUSING WELL AT 10ML/H, PT COMPLAINING OF PAINFUL AND DRIBBLING URINATION WITH BLADDER FULLNESS, WILL NOTIFY RESIDENT ASSIGNER, PLAN OF CARE DISCUSSED, SAFETY MEASURES IN PLACE, SIDE RAILS UP AND BED ALARM ON, CALL LIGHT WITHIN REACH, MAINTAIN ON CONTACT ISOLATION.
[2017-11-27] MEDS ORDERED: PHENAZOPYRIDINE 100 MG TAB PO ONE (19:50)
--- NOTE | 2017-11-27 19:55 | NUR ---
CHOCKS SOAKED WITH URINE, PERINEAL CARE DONE BY MEDICAL ORDERLY, REPOSITION Q2H AND OFFLOAD PRESSURE AREAS, DR BALBUENA TALKED TO PT AND ORDERED PYRIDIUM PO ONCE, ALL NEEDS ATTENDED.
--- NOTE | 2017-11-27 20:25 | NUR ---
PT COMPLAINING OF PAIN, MADE AWARE OF NEXT DUE TIME AT 2125, PT WANTS THE DR TO CHANGE MORPHINE TO Q4H INSTEAD OF Q6H, DR BALBUENA MADE AWARE AND SHE SAID SHE CANNOT CHANGE THE TIMING BUT SAID TO GIVE THE MORPHINE DOSE NOW, PT MADE AWARE, VERBALIZED UNDERSTANDING, MORPHINE IVP GIVEN, MONITORED CLOSELY.
--- NOTE | 2017-11-27 23:30 | NUR ---
PT COMPLAINING OF THROAT AND NECK PAIN, MEDICATED WITH FLEXIRIL AND CEPACOL LOZENGE, VITAL SIGNS STABLE, NO SOB NOTED, IVF INFUSING WELL, CONTINUE TO REPOSITION Q2H AND OFFLOAD PRESSURE AREAS, MONITORED CLOSELY.
[2017-11-28] VITALS (12 sets, daily range): BP systolic 0–144; BP diastolic 0–83
[2017-11-28] MEDS: ALBUTEROL SULFATE/IPRATROPIU 3 ML SOL IH SCH ×3 (00:54→21:52)
[2017-11-28] MEDS: TOBRAMYCIN 140 MG in DEXTROSE 5% 100 ML IV SCH (02:02)
[2017-11-28] MEDS: MORPHINE SULFATE 2 MG/ML SYR IVP PRN ×3 (02:19→22:57)
--- NOTE | 2017-11-28 02:20 | NUR ---
PT COMPLAINING OF PAIN, MEDICATED PRN WITH MORPHINE IVP, TOBRAMYCIN IVPB INFUSING WELL, MONITORED CLOSELY.
--- NOTE | 2017-11-28 04:00 | NUR ---
VITAL SIGNS STABLE, INCONTINENT CARE RENDERED, NO BM AT THIS TIME, PT STATED LAST BM WAS 3 DAYS AGO, WITH FLEET ENEMA PRN FOR CONSTIPATION BUT PT PREFERRED IT LATER IN THE MORNING, WILL ENDORSE TO AM SHIFT.
[2017-11-28] MEDS: CLINDAMYCIN 600 MG in DEXTROSE 5% 50 ML IV SCH ×3 (04:36→21:48)
[2017-11-28] MEDS: BENZOCAINE/MENTHOL 1 LOZ MM PRN ×2 (04:41→07:35)
--- NOTE | 2017-11-28 04:57 | NUR ---
PT COMPLAINING OF THROAT DISCOMFORT, NO SOB NOTED, RT HANI AT BEDSIDE, SUCTIONED BY RT, CEPACOL LOZENGE GIVEN PRN, IV CLINDAMYCIN ADMINISTERED, MONITORED CLOSELY.
[2017-11-28] MEDS ORDERED: TAMSULOSIN 0.4 MG CAP PO SCH (06:20)
[2017-11-28] MEDS: METOCLOPRAMIDE 10 MG TAB PO SCH ×3 (06:24→17:14)
[2017-11-28] MEDS: LEVOTHYROXINE 0.075 MG TAB PO SCH (06:25)
--- NOTE | 2017-11-28 06:25 | NUR ---
PT SLEEPING, EASILY AROUSABLE, DUE PO MEDS ADMINISTERED, TOLERATED WELL, OFFERED FLEET ENEMA AGAIN BUT STATED "IT'S TOO EARLY", PT WENT BACK TO SLEEP, WILL ENDORSE, MONITORED CLOSELY.
[2017-11-28] MEDS: BLOOD GLUCOSE MONITORING 1 DEV DEV FS SCH ×4 (06:49→21:46)
--- NOTE | 2017-11-28 07:20 | NUR ---
PT AWAKE, NO SIGNS OF DISTRESS, REPORT GIVEN TO ANDREY PRABHAKAR FOR CONTINUITY OF CARE.
--- NOTE | 2017-11-28 07:21 | NUR ---
RECEIVED REPORT FROM THE CARAMEL CANDY MAKER NURSE AT BEDSIDE FOR CONTINUITY OF CARE. PT IS AWAKE AND ORIENTED. DAUGHTER JUST ARRIVED WITH DIAPERS AND PADS AND WIPES. INTRODUCED MYSELF AND UPDATED THE BOARD. PT HAS TRACH TO VENT. SETTINGS: FIO2 28%, VT 600, RATE 14, FLOW 40, PEEP 0. LUNG SOUNDS: CRACKLES. SKIN INTACT. PICC LINE ON R UA MIDLINE, NS AT 10ML/HR. NO BLOOD DRAWS FROM PICC LINE AND NEED TO BABY IT. PER CARAMEL CANDY MAKER NURSE, THIS IS THE 4TH ONE. IT KEEPS LEAKING. THIS ONE WAS PUT IN ON SUNDAY. SO FAR NO LEAKING. LAST BM IS 11/25. IS UNCOMFORTABLE. WILL DO ENEMA TODAY. WILL CONTINUE TO MONITOR PT.
[2017-11-28 07:28] LABS: BASOPHILS % (AUTO) 0.3 % (0.0-2.0); EOSINOPHILS # (AUTO) 0.6 K/uL (0-0.4); EOSINOPHILS % (AUTO) 4.4 % (0.0-4.0); HEMATOCRIT 26.2 % (36-48); HEMOGLOBIN 8.4 g/dL (12.0-16.0); LYMPHOCYTES % (AUTO) 22.9 % (20.5-51.1); MEAN CORPUSCULAR HEMOGLOBIN 28 pg (27-31); MEAN CORPUSCULAR HGB CONC 32 g/dL (33-37); MEAN CORPUSCULAR VOLUME 88.8 fL (80-94); MONOCYTES % (AUTO) 7.8 % (1.7-9.3); NEUTROPHILS # (AUTO) 8.4 K/uL (1.8-7.7); NEUTROPHILS % (AUTO) 64.6 % (42.2-75.2); PLATELET COUNT (AUTO) 263 K/uL (140-450); RED BLOOD CELL COUNT(AUTO) 2.95 MIL/uL (4.20-5.40); RED CELL DISTRIBUTION WIDTH 16.8 % (11.6-13.7); WHITE BLOOD COUNT (AUTO) 13.1 K/uL (4.8-10.8)
--- NOTE | 2017-11-28 07:41 | NUR ---
V/S WITHIN NORMAL LIMITS. R/T IS HERE TO ASSESS PT AND TO GIVE BREATHING TX. DAUGHTER IS HERE. C/O SORE THROAT. GAVE CEPACOL EARLIER. TIARA JACKSON. PER , COUPLE OF MORE DAYS OF ABX THEN SHE COULD HOME.
[2017-11-28] MEDS: GABAPENTIN 300 MG CAP PO SCH ×3 (08:41→17:15)
[2017-11-28] MEDS: ALLOPURINOL 100 MG TAB PO SCH (08:41)
[2017-11-28] MEDS: PHENAZOPYRIDINE 100 MG TAB PO SCH ×2 (08:41→12:30)
[2017-11-28] MEDS: VIT-B COMP/VIT-C/FOLIC ACID 1 TAB PO SCH (08:41)
[2017-11-28] MEDS: CALCIUM ACETATE 667 MG TAB PO SCH ×2 (08:42→17:14)
[2017-11-28] MEDS: CILOSTAZOL 100 MG TAB PO SCH ×2 (08:42→21:32)
[2017-11-28] MEDS: ASPIRIN 81 MG TAB.CHEW PO SCH (08:42)
[2017-11-28] MEDS: ATORVASTATIN 20 MG TAB PO SCH (08:42)
[2017-11-28] MEDS: MAGNESIUM OXIDE 400 MG TAB PO SCH (08:43)
[2017-11-28] MEDS: LACTULOSE 20 GM/30 ML UDC PO SCH ×2 (08:43→21:32)
[2017-11-28] MEDS: DOCUSATE SODIUM 100 MG GELCAP PO SCH ×2 (08:43→21:32)
--- NOTE | 2017-11-28 08:56 | NUR ---
ADMINISTERED MORNING MEDS, INCLUDING MORPHINE FOR PAIN. PT TOLERATED WELL. WILL CONTINUE TO MONITOR PT.
[2017-11-28 09:33] LABS: PROTHROMBIN TIME 29.1 secs (10.8-13.4)
--- NOTE | 2017-11-28 09:40 | NUR ---
0700 RECIVED PT ON VENT WITH SETTINGS CHARTED BREATH SOUNDS PRESENT BILAT PT UNWILLING TO BE SXN PT RT HAS VERY SORE TRACH TRACH SITE SECURE CUFF PRESSURE O REQUEST FROM PT BREATH SOUNDS PRESENT BILAT CLEAR DIM AMBU BAG AT BEDSIDE WILL CONTINUE TO MONITOR PT ON VENT
--- NOTE | 2017-11-28 10:53 | NUR ---
PT SOUND ASLEEP. NO SIGNS OF DISTRESS. WILL KEEP MONITORING PT. DAUGHTER IS GONE.
[2017-11-28] MEDS: HYDROmorphone 1 MG/ML AMP IVP PRN (12:32)
[2017-11-28] MEDS ORDERED: AMIKACIN PER PHARMACY MC PRN (12:35)
--- NOTE | 2017-11-28 12:59 | NUR ---
ADMINISTERED SCHEDULED MEDS. PT IS IN PAIN. 01/11. GAVE DILAUDID. PT IS WET. CLEANED PT AND DID THE STRAIGHT CATH. GOT OUT 300ML. PT TOLERATED WELL. CHANGED PT AND CALLED FOR R/T. PT WOULD LIKE A BREATHING TX. WILL CONTINUE TO MONITOR PT.
--- NOTE | 2017-11-28 14:01 | NUR ---
PT FALLING ALSLEEP VT DROPS TO 200 AND BELOW EXPLAINED TO PT CUFF BEING DEFLATED IS CAUSE FOR THIS PT AGREED TO HAVE CUFF INFLATED WITH 3TO 4ML AIR SENIOR CONSULTING MANAGER PERFORMED NO ILL EFFECTS NOTED
--- NOTE | 2017-11-28 15:23 | NUR ---
PT IS FINALLY AWAKE AND EATING HER LUNCH. MADE HER A HEAT PACK WITH WET HOT TOWEL TO PLACE IN THE BACK OF THE NECK. PT SAYS THAT'S HELPFUL. WILL CONTINUE TO MONITOR PT.
--- NOTE | 2017-11-28 15:54 | NUR ---
11/28/17 RD FOLLOW UP COMPLETED PLEASE REFER TO NUTRITION PROGRESS NOTE UNDER CARE ACTIVITY FOR ESTIMATED NUTRITIONAL NEEDS. [facility]. [facility] AND NEPRO-ELBERT SUPPLEMENT TOLERATED 2. RECOMMEND CULTERELLE WITH LT ANTIBIOTIC USE 3. RD TO FOLLOW-UP 3-5 DAYS, MODERATE RISK MAGDALENA BOSCH RD
[2017-11-28] MEDS ORDERED: LACTOBACILLUS RHAMNOSUS GG 1 EACH CAP PO SCH (16:30)
--- NOTE | 2017-11-28 17:10 | NUR ---
CONTINUED TO MONITOR PT ON VENT WITH SETTINGS CHARTED BREATH SOUNDS PRESENT BILAT PT DOSE NOT WANT SXN AT THIS TIME OR TRACH CARE TRACH SITE SECURE AMBU BAG AT BEDSIDE VENT PLUGGED INTO RED OUTLET
[2017-11-28] MEDS: NACL 0.9% 1,000 ML IV SCH (17:14)
[2017-11-28] MEDS: CYCLOBENZAPRINE 10 MG TAB PO PRN (17:14)
[2017-11-28] MEDS: ACETAMINOPHEN 325 MG TAB PO PRN (17:16)
[2017-11-28] MEDS: WARFARIN 1 MG TAB PO SCH (17:16)
--- NOTE | 2017-11-28 17:31 | NUR ---
ADMINISTERED SCHEDULED MEDS. PT IS COMPLAINING OF PAIN AND IS WARM. TOO EARLY FOR DILAUDID, AND BP TOO LOW FOR MORPHINE. GAVE PT FLEXERIL AND TYLENOL. WILL CHECK ON PAIN LEVEL. REPOSITIONED PT D/T R HIP PAIN. PT TOLERATED WELL. WILL CONTINUE TO MONITOR PT.
--- NOTE | 2017-11-28 19:30 | NUR ---
ENDORSED PT TO THE AUXILIARY EQUIPMENT TENDER NURSE AT BEDSIDE FOR CONTINUITY OF CARE. PT IN STABLE CONDITION. SLEEPING.
--- NOTE | 2017-11-28 19:31 | NUR ---
RECEIVED REPORT FROM THE DAY SHIFT NURSE AT BEDSIDE FOR CONTINUITY OF CARE. PT IS AWAKE AND ORIENTED. INTRODUCED MYSELF AND UPDATED THE BOARD. PT HAS TRACH TO VENT. SETTINGS: FIO2 28%, VT 600, RATE 14, FLOW 40, PEEP 0. LUNG SOUNDS: CRACKLES. SKIN INTACT. PICC LINE ON R UA MIDLINE, NS AT 10ML/HR. NO BLOOD DRAWS FROM PICC LINE AND NEED TO BABY IT. PER BOOK CANVASSER NURSE, THIS IS THE 4TH ONE. IT KEEPS LEAKING. THIS ONE WAS PUT IN ON SUNDAY. SO FAR NO LEAKING. ALL SAFETY PRECAUTIONS MET, CALL LIGHT WITHIN REACH, WILL CONTINUE TO MONITOR
--- NOTE | 2017-11-28 19:40 | NUR ---
PT REFUSED TX HHN DUE TO PAIN INSIDE HER NECK ( TRACH AREA)
[2017-11-29] VITALS (9 sets, daily range): BP systolic 0–140; BP diastolic 0–62
--- NOTE | 2017-11-29 00:35 | NUR ---
PT CLEANED AND CHANGED AT THIS TIME. KRYS CARE PROVIDED. PT KEPT CLEAN AND DRY. NO S/S OF DISTRESS NOTED
[2017-11-29] MEDS: ALBUTEROL SULFATE/IPRATROPIU 3 ML SOL IH PRN (01:17)
[2017-11-29] MEDS: HYDROmorphone 1 MG/ML AMP IVP PRN ×3 (04:23→23:38)
[2017-11-29] MEDS: BLOOD GLUCOSE MONITORING 1 DEV DEV FS SCH ×4 (04:27→21:29)
[2017-11-29] MEDS: CLINDAMYCIN 600 MG in DEXTROSE 5% 50 ML IV SCH ×3 (05:37→21:34)
[2017-11-29] MEDS: LEVOTHYROXINE 0.075 MG TAB PO SCH (05:38)
[2017-11-29] MEDS: ALBUTEROL SULFATE/IPRATROPIU 3 ML SOL IH SCH ×3 (07:10→19:37)
[2017-11-29 07:13] LABS: HEMATOCRIT 28.6 % (36-48); MEAN CORPUSCULAR HEMOGLOBIN 28 pg (27-31); MEAN CORPUSCULAR HGB CONC 31 g/dL (33-37); MEAN CORPUSCULAR VOLUME 89.1 fL (80-94); PLATELET COUNT (AUTO) 294 K/uL (140-450); RED BLOOD CELL COUNT(AUTO) 3.21 MIL/uL (4.20-5.40); RED CELL DISTRIBUTION WIDTH 16.4 % (11.6-13.7); WHITE BLOOD COUNT (AUTO) 21.3 K/uL (4.8-10.8)
--- NOTE | 2017-11-29 07:27 | NUR ---
REPORT GIVEN TO DAY NURSE FOR CONTINUITY OF CARE, PT IN STABLE CONDITION
--- NOTE | 2017-11-29 07:28 | NUR ---
RECEIVED REPORT FROM THE PMO ANALYST NURSE AT BEDSIDE FOR CONTINUITY OF CARE. PT IS AWAKE AND ORIENTED. INTRODUCED MYSELF AND UPDATED THE BOARD. FEELING BETTER TODAY. COLD BUT NO MORE PAIN. PT WOULD LIKE TO GO HOME. PER MD, COUPLE OF DAYS. V/S WITHIN NORMAL RANGE. AFEBRILE. SKIN INTACT. BEDBOUND. LBM: 11/28. PICC LINE ON R UA MIDLINE 2 LUMIN. NS AT 10ML INFUSING. R/T HERE FOR ASSESSMENT AND TX. WILL BE BACK WITH MORNING MEDS.
[2017-11-29 07:31] LABS: ANION GAP 16.1 (8-16); CREATININE 1.7 mg/dL (0.6-1.3); POTASSIUM 4.1 mmol/L (3.5-5.1)
[2017-11-29 07:33] LABS: PROTHROMBIN TIME 29.4 secs (10.8-13.4)
[2017-11-29 07:39] LABS: MAGNESIUM 1.7 mg/dL (1.8-2.4)
[2017-11-29 08:05] LABS: EOSINOPHILS % (MANUAL) 3 % (0-4); LYMPHOCYTES % (MANUAL) 17 % (20-46); MONOCYTES % (MANUAL) 7 % (5-12)
[2017-11-29] MEDS: MORPHINE SULFATE 2 MG/ML SYR IVP PRN (08:35)
[2017-11-29] MEDS: VIT-B COMP/VIT-C/FOLIC ACID 1 TAB PO SCH (08:36)
[2017-11-29] MEDS: ATORVASTATIN 20 MG TAB PO SCH (08:36)
[2017-11-29] MEDS: ALLOPURINOL 100 MG TAB PO SCH (08:36)
[2017-11-29] MEDS: CILOSTAZOL 100 MG TAB PO SCH ×2 (08:36→21:00)
[2017-11-29] MEDS: LACTOBACILLUS RHAMNOSUS GG 1 EACH CAP PO SCH (08:37)
[2017-11-29] MEDS: LACTULOSE 20 GM/30 ML UDC PO SCH ×2 (08:37→21:37)
[2017-11-29] MEDS: METOCLOPRAMIDE 10 MG TAB PO SCH ×3 (08:37→17:11)
[2017-11-29] MEDS: CALCIUM ACETATE 667 MG TAB PO SCH ×2 (08:38→17:12)
[2017-11-29] MEDS: DOCUSATE SODIUM 100 MG GELCAP PO SCH ×2 (08:38→21:37)
[2017-11-29] MEDS: GABAPENTIN 300 MG CAP PO SCH ×3 (08:38→17:11)
[2017-11-29] MEDS: ASPIRIN 81 MG TAB.CHEW PO SCH (08:38)
[2017-11-29] MEDS: MAGNESIUM OXIDE 400 MG TAB PO SCH (08:38)
--- NOTE | 2017-11-29 08:46 | NUR ---
ADMINISTERED ALL MORNING MEDS INCLUDING MORPHINE FOR PAIN. 12/11. WILL CONTINUE TO MONITOR PT.
--- NOTE | 2017-11-29 10:08 | NUR ---
NEEDED SUCTIONING. DEEP SUCTIONED PT TWICE. PT TOLERATED WELL. NO DISTRESS. BREATHING BETTER PER PT. WILL CONTINUE TO MONITOR PT.
--- NOTE | 2017-11-29 11:12 | NUR ---
SXN'D PATIENT. NO DISTRESS OR SOB NOTED.
[2017-11-29 11:43] LABS: HEMATOCRIT 26.9 % (36-48); HEMOGLOBIN 8.5 g/dL (12.0-16.0); MEAN CORPUSCULAR HEMOGLOBIN 28 pg (27-31); MEAN CORPUSCULAR HGB CONC 32 g/dL (33-37); MEAN CORPUSCULAR VOLUME 88.8 fL (80-94); PLATELET COUNT (AUTO) 250 K/uL (140-450); RED BLOOD CELL COUNT(AUTO) 3.03 MIL/uL (4.20-5.40); RED CELL DISTRIBUTION WIDTH 16.8 % (11.6-13.7); WHITE BLOOD COUNT (AUTO) 21.6 K/uL (4.8-10.8)
[2017-11-29 12:03] LABS: EOSINOPHILS % (MANUAL) 1 % (0-4); LYMPHOCYTES % (MANUAL) 7 % (20-46); MONOCYTES % (MANUAL) 3 % (5-12)
[2017-11-29] MEDS: INSULIN LISPRO SLIDING SCALE 100 UNITS/ML VIAL SUBQ PRN ×3 (12:20→21:57)
--- NOTE | 2017-11-29 12:32 | NUR ---
ADMINISTERED SCHEDULED MEDS AND DILAUDID FOR PAIN. PT EATING LUNCH NOW. WILL CONTINUE TO MONITOR PT.
[2017-11-29] MEDS ORDERED: MAGNESIUM OXIDE 400 MG TAB PO SCH (12:33)
[2017-11-29] MEDS: AMIKACIN 500 MG in DEXTROSE 5% 100 ML IV SCH (15:25)
[2017-11-29] MEDS: NACL 0.9% 1,000 ML IV SCH (15:25)
--- NOTE | 2017-11-29 15:25 | NUR ---
ADMINISTERED AMIKACIN. PT TOLERATING WELL. WILL CONTINUE TO MONITOR PT.
[2017-11-29] MEDS: WARFARIN 1 MG TAB PO SCH (17:12)
[2017-11-29] MEDS: ACETAMINOPHEN 325 MG TAB PO PRN (17:12)
--- NOTE | 2017-11-29 17:20 | NUR ---
ADMINISTERED AFTERNOON MEDICATIONS AND TYLENOL FOR LOW GRADE FEVER 100.8F ORAL. PT TOLERATED WELL. ASKED ABOUT HER WBC TODAY. TOLD HER IT WENT UP. WILL CONTINUE TO MONITOR PT.
--- NOTE | 2017-11-29 19:25 | NUR ---
ENDORSED PT TO THE SOCIAL WORK INSTRUCTOR NURSE AT BEDSIDE FOR CONTINUITY OF CARE. PT IS IN STABLE CONDITION.
--- NOTE | 2017-11-29 19:26 | NUR ---
PATIENT REPORT RECEIVED FROM MORNING NURSE AT BEDSIDE. PATIENT IS ASLEEP BUT EASY TO AWAKEN BY VOICE. NO SIGNS AND SYMPTOMS OF DISTRESS NOTED. PATIENT IS TRACH TO VENT. BREATHING EVEN AND UNLABORED. R UPPER ARM PICC LINE DOUBLE LUMEN NOTED. SITE IS ASYMPTOMATIC, INTACT AND PATENT. BED IN LOWEST POSITION, SIDE RAILS UP AND CALL LIGHT WITHIN REACH. SAFETY, SEIZURE AND ASPIRATION PRECAUTION SIN PLACE. WILL CONTINUE TO MONITOR.
--- NOTE | 2017-11-29 21:30 | NUR ---
MEDICATION EDUCATION GIVEN. PATIENT VERBALIZED UNDERSTANDING. MEDICATION ADMINISTERED ORDERED. WILL CONTINUE TO MONITOR
--- NOTE | 2017-11-29 21:55 | NUR ---
PLETAL HELD DUE TO DECREASED BP. DR BALBUENA AWARE.
--- NOTE | 2017-11-29 23:30 | NUR ---
PATIENT VOIDED IN BED. PERICARE DONE. PADS CHANGED. PATIENT REPOSITIONED FOR COMFORT. PATIENT TOLERATED WELL. WILL CONTINUE TO MONITOR
[2017-11-30] VITALS (9 sets, daily range): BP systolic 0–138; BP diastolic 0–96
--- NOTE | 2017-11-30 02:30 | NUR ---
CHECKED ON PATIENT. PATIENT IS ASLEEP. NO SIGNS AND SYMPTOMS OF DISTRESS NOTED. BREATHING EVEN AND UNLABORED. WILL CONTINUE TO MONITOR
[2017-11-30] MEDS: CLINDAMYCIN 600 MG in DEXTROSE 5% 50 ML IV SCH (04:10)
--- NOTE | 2017-11-30 04:15 | NUR ---
PATIENT VOIDED IN BED. PERICARE DONE. DIAPER AND PADS CHANGED. PATIENT REPOSITIONED FOR COMFORT. WILL CONTINUE TO MONITOR.
[2017-11-30] MEDS: BLOOD GLUCOSE MONITORING 1 DEV DEV FS SCH ×4 (06:00→21:27)
[2017-11-30] MEDS: METOCLOPRAMIDE 10 MG TAB PO SCH ×3 (06:32→17:10)
[2017-11-30] MEDS: LEVOTHYROXINE 0.075 MG TAB PO SCH (06:32)
[2017-11-30 06:33] LABS: HEMATOCRIT 26.6 % (36-48); HEMOGLOBIN 8.5 g/dL (12.0-16.0); MEAN CORPUSCULAR HEMOGLOBIN 28 pg (27-31); MEAN CORPUSCULAR HGB CONC 32 g/dL (33-37); MEAN CORPUSCULAR VOLUME 88.6 fL (80-94); PLATELET COUNT (AUTO) 247 K/uL (140-450); RED BLOOD CELL COUNT(AUTO) 3.01 MIL/uL (4.20-5.40); RED CELL DISTRIBUTION WIDTH 16.7 % (11.6-13.7); WHITE BLOOD COUNT (AUTO) 22.5 K/uL (4.8-10.8)
--- NOTE | 2017-11-30 07:04 | NUR ---
PATIENT REPORT GIVEN TO MORNING NURSE AT BEDSIDE FOR CONTINUITY OF CARE. PATIENT IS IN STABLE CONDITION
--- NOTE | 2017-11-30 07:05 | NUR ---
RECEIVED REPORT FROM INTELLIGENCE GROUP SUPERVISOR NURSE RUBIO AT BEDSIDE FOR CONTINUITY OF CARE. PT IS AWAKE AND ORIENTED X4. INTRODUCED SELF AND UPDATED BOARD. PT TRACH TO VENT. O2 SAT 100% NO SOB. LUNG SOUNDS DIMINISHED. R UPPER ARM MIDLINE DOUBLE LUMEN INTACT. BP 94/41. DR. NAVAS AND RESIDENTS CAME IN AND SPOKE WITH PT. NO SIGNS OF DISTRESS. PT IS SITTING UP IN BED EATING BREAKFAST AND ON PHONE. DENIES PAIN. CALL LIGHT WITHIN REACH. WILL CONTINUE TO MONITOR.
[2017-11-30 07:07] LABS: ANION GAP 17.5 (8-16); CARBON DIOXIDE 19.8 mmol/L (21-32); CREATININE 1.7 mg/dL (0.6-1.3); POTASSIUM 4.3 mmol/L (3.5-5.1)
[2017-11-30 07:09] LABS: MAGNESIUM 1.8 mg/dL (1.8-2.4)
[2017-11-30 07:41] LABS: EOSINOPHILS % (MANUAL) 2 % (0-4); LYMPHOCYTES % (MANUAL) 15 % (20-46); MONOCYTES % (MANUAL) 7 % (5-12)
--- NOTE | 2017-11-30 07:56 | NUR ---
RECEIVED TRACH PT WITH A SHILEY 6 XLT TRACH ON VENT. SETTINGS AC 14, VT 600, PEEP IS OFF AND FIO2 28%. PT IS EATING AT THIS TIME AND DOES NOT WANT BREATHING TX. PT IS AWAKE AND ALERT IN BED WITH NO SOB OR RESPIRATORY DISTRESS NOTED. VENT IS PLUGGED INTO A RED OUTLET WITH ALARMS ON AND FUNCTIONING. WILL CONTINUE TO MONITOR.
[2017-11-30] MEDS: ALBUTEROL SULFATE/IPRATROPIU 3 ML SOL IH SCH ×3 (08:34→19:40)
[2017-11-30] MEDS: CILOSTAZOL 100 MG TAB PO SCH ×2 (09:00→21:00)
[2017-11-30] MEDS: LACTULOSE 20 GM/30 ML UDC PO SCH ×2 (09:00→21:21)
[2017-11-30] MEDS: GABAPENTIN 300 MG CAP PO SCH ×3 (09:10→17:00)
[2017-11-30] MEDS: ATORVASTATIN 20 MG TAB PO SCH (09:10)
[2017-11-30] MEDS: MAGNESIUM OXIDE 400 MG TAB PO SCH (09:10)
[2017-11-30] MEDS: DOCUSATE SODIUM 100 MG GELCAP PO SCH ×2 (09:10→21:21)
[2017-11-30] MEDS: ALLOPURINOL 100 MG TAB PO SCH (09:11)
[2017-11-30] MEDS: ASPIRIN 81 MG TAB.CHEW PO SCH (09:11)
[2017-11-30] MEDS: CALCIUM ACETATE 667 MG TAB PO SCH (09:11)
[2017-11-30] MEDS: LACTOBACILLUS RHAMNOSUS GG 1 EACH CAP PO SCH (09:11)
[2017-11-30] MEDS: VIT-B COMP/VIT-C/FOLIC ACID 1 TAB PO SCH (09:11)
[2017-11-30] MEDS: HYDROmorphone 1 MG/ML AMP IVP PRN ×2 (09:16→18:19)
--- NOTE | 2017-11-30 09:30 | NUR ---
ADMINISTERED SCHEDULED MEDS. HELD PLETAL DUE TO PT'S BP 94/41. MADE MD AWARE. NON ADMIN LACTULOSE. PT REFUSED MED. TOLERATED ADMIN MEDS WELL. NO SIGNS OF DISTRESS. CHANGED PT'S DIAPER. INCONTINENT URINE NOTED. REPOSITIONED PT IN BED. HOB ELEVATED. CALL LIGHT WITHIN REACH. WILL CONTINUE TO MONITOR.
[2017-11-30 10:01] LABS: PROTHROMBIN TIME 32.3 secs (10.8-13.4)
--- NOTE | 2017-11-30 11:20 | NUR ---
AWAKE AND ALERT NO EVIDENCE OF PULMONARY DISTRESS NOTED BREATH SOUNDS RHONCHI RIGHT SIDE TO CLEAR AT LEFT SIDE DEEP TRACHEAL SUCTION FOR MODERATE THICK YELLOW SECRETIONS AIRWAY PATENT
[2017-11-30] MEDS: INSULIN LISPRO SLIDING SCALE 100 UNITS/ML VIAL SUBQ PRN ×2 (12:02→21:30)
--- NOTE | 2017-11-30 12:37 | NUR ---
PT SITTING UP IN BED EATING LUNCH TRAY. TALKING ON PHONE AND WATCHING TV. NO SIGNS OF DISTRESS. CALL LIGHT WITHIN REACH. WILL CONTINUE TO MONITOR.
--- NOTE | 2017-11-30 13:00 | NUR ---
CALLED CT FOR WHEN THEY CAN PHYSICIAN AIDE PT FOR CT SCAN. SAID THEY ARE BUSY AT THIS TIME. RT ON FLOOR.
[2017-11-30] MEDS: CLINDAMYCIN PHOS 600MG/D5W PM 50 ML IV SCH ×2 (13:18→21:21)
[2017-11-30] MEDS ORDERED: TOBRAMYCIN 160 MG in DEXTROSE 5% 100 ML IV SCH (14:00)
--- NOTE | 2017-11-30 14:21 | NUR ---
ASLEEP RESTING WELL BREATH SOUNDS EXP RHONCHI BILATERAL WITH GOOD CHEST RISE DEEP TRACHEAL SUCTION FOR MODERATE THICK YELLOW SECRETIONS AIRWAY PATENT
[2017-11-30] MEDS: NACL 0.9% 1,000 ML IV SCH (15:33)
--- NOTE | 2017-11-30 16:05 | NUR ---
CT CALLED FOR MEDICAL I D SALES TO TAKE PT FOR CT SCAN. CALLED R/T FOR TRANSPORT. R/T UNAVAILABLE AT THIS TIME.
--- NOTE | 2017-11-30 17:30 | NUR ---
R/T ON FLOOR AND AVAILABLE FOR TRANSPORT. CALLED FOR CT. NO DEPARTMENT SALES MANAGER.
--- NOTE | 2017-11-30 17:52 | NUR ---
AWAKE AND ALERT NO APPARENT PULMONARY DISTRESS NOTED BREATH SOUNDS EXP RHONCHI BILATERAL WITH GOOD CHEST RISE DEEP TRACHEAL SUCTION FOR MODERATE PALE YELLOW SECRETIONS AIRWAY PATENT
--- NOTE | 2017-11-30 18:00 | NUR ---
PT HAD INCONTINENT URINE AND SMALL BM. CHANGED PT'S DIAPER AND PROVIDED PERICARE. REPOSITIONED PT IN BED. HOB ELEVATED. TURNED TO L LATERAL. PT'S DAUGHTER AT BEDSIDE. NO SIGNS OF DISTRESS. WILL CONTINUE TO MONITOR.
--- NOTE | 2017-11-30 19:30 | NUR ---
ENDORSED PT TO HARNESS CUTTER NURSE THADDEUS AT BEDSIDE FOR CONTINUITY OF CARE. PT IN STABLE CONDITION.
--- NOTE | 2017-11-30 19:30 | NUR ---
RECEIVED FROM AM RN IN BED SITTING UP. TRACH TO VENT. DAUGHTER AT BEDSIDE. PT. ABLE TO VERBALIZE SIMPLE NEEDS WELL. PICC LINE TO RIGHT UPPER ARM. NO SOB . WITH RESPIRATORY TREATMENTS ON GOING. PT. FOR CT SCAN . WILL FOLLOW UP WITH RESPIRATORY THERAPIST AVAILABILITY. CARE PLANS FOR THE NIGHT DISCUSSED WITH THEM CALL LIGHT WITH IN REACH. DENIES PAIN AT THIS TIME. PT. A/O X 4. ISOLATION PRECAUTIONS ENFORCED RT MDRO/BLOOD BANK CREDIT CLERK SPUTUM. ON IVF ANTIBIOTICS .
[2017-11-30] MEDS: MORPHINE SULFATE 2 MG/ML SYR IVP PRN (21:22)
--- NOTE | 2017-11-30 21:30 | NUR ---
ALL P.O. MEDICATIONS TOLERATED WELL VIA MOUTH. ABLE TO VERBALIZE SIMPLE NEEDS. USES CALL LIGHT FOR HELP. PT. ASSISTED IN TURNING Q2H. PILLOW SUPPORT TO PRESSURE AREAS.
--- NOTE | 2017-11-30 23:28 | NUR ---
2305 transported pt to catscan being bagged at 100%. placd pt on vent in catscan room with same setting except 100% fio2. pt transported back with no complications and placed back on vent with same settings
--- NOTE | 2017-11-30 23:36 | NUR ---
PT. BACK IN ROOM. ON TELEMETRY MONITORING. TRACH TO VENT. NO PAIN COMPLAINTS. NO SOB EPISODE. ABLE TO VERRBALIZE SIMPLE NEEDS. A/O X 4. CALL LIGHT WITH IN REACH.
--- NOTE | 2017-12-01 00:54 | NUR ---
PT. AWAKE AT THIS TIME. RESPIRATORY THERAPIST KEDAR IN HERE TO ATTEND TO PT. ABLE TO VERBALIZE SIMPLE NEEDS.
[2017-12-01] MEDS ORDERED: AMIKACIN 500 MG/2 ML VIAL IV ONE (01:55)
[2017-12-01] MEDS: AMIKACIN 500 MG in DEXTROSE 5% 100 ML IV SCH (02:10)
[2017-12-01] MEDS: HYDROmorphone 1 MG/ML AMP IVP PRN ×3 (04:01→23:35)
[2017-12-01 04:04] VITALS: BP 104/51
--- NOTE | 2017-12-01 04:22 | NUR ---
PT. SLEEPING. REQUESTED FOR DILAUDID IVP EARLIER. MEDICATED REQUESTED. ABLE TO VERBALIZE NEEDS WELL. NO FURTHER COMPLAINTS DONE.
[2017-12-01] MEDS: CLINDAMYCIN PHOS 600MG/D5W PM 50 ML IV SCH ×3 (05:13→21:32)
[2017-12-01] MEDS: BLOOD GLUCOSE MONITORING 1 DEV DEV FS SCH ×4 (05:47→21:00)
--- NOTE | 2017-12-01 06:01 | NUR ---
PT. TURNED BY BOILERMAKER [employer]ILERS Q 2H. ABLE TO VERBALIZE SIMPLE NEEDS WELL. PT. ABLE TO USE CALL LIGHT FOR HELP. TRACH TO VENT. ATTENDED TO BY RESPIRATORY THERAPIST. AFEBRILE. NO SOB. NO COUGHING NOTED. NO NOTED ADVERSE REACTIONS TO AMIKACIN IVP ADMINISTERED THIS SHIFT.
[2017-12-01] MEDS: METOCLOPRAMIDE 10 MG TAB PO SCH ×3 (06:35→16:45)
[2017-12-01] MEDS: LEVOTHYROXINE 0.075 MG TAB PO SCH (06:36)
[2017-12-01] MEDS: ALBUTEROL SULFATE/IPRATROPIU 3 ML SOL IH SCH ×3 (07:27→19:43)
--- NOTE | 2017-12-01 07:30 | NUR ---
RECEIVED REPORT FROM WATER SYSTEMS ENGINEER NURSE THADDEUS AT BEDSIDE FOR CONTINUITY OF CARE. PT IS AWAKE AND ORIENTED X4. INTRODUCED SELF AND UPDATED BOARD. PT IS SITTING UP IN BED ON CELL PHONE. TRACH TO VENT. O2 SAT 100%. NO SIGNS OF RESPIRATORY DISTRESS. PT REPORTED SHE IS A LITTLE SHORT OF BREATH. RT IN ROOM FOR BREATHING TX. PICC LINE TO R UPPER ARM INTACT. SKIN INTACT. PT WITH DIAPER ON. DENIES PAIN. CALL LIGHT WITHIN REACH. BED IN LOW POSITION, WHEELS LOCKED. WILL CONTINUE TO MONITOR.
[2017-12-01 08:00] VITALS: BP 92/45
[2017-12-01 08:47] LABS: BASOPHILS % (AUTO) 0.2 % (0.0-2.0); EOSINOPHILS # (AUTO) 0.8 K/uL (0-0.4); EOSINOPHILS % (AUTO) 4.2 % (0.0-4.0); HEMATOCRIT 25.7 % (36-48); HEMOGLOBIN 8.2 g/dL (12.0-16.0); LYMPHOCYTES # (AUTO) 3.6 K/uL (2.5-16.5); LYMPHOCYTES % (AUTO) 18.2 % (20.5-51.1); MEAN CORPUSCULAR HEMOGLOBIN 28 pg (27-31); MEAN CORPUSCULAR HGB CONC 32 g/dL (33-37); MEAN CORPUSCULAR VOLUME 89.2 fL (80-94); MONOCYTES # (AUTO) 1.8 K/uL (0.8-1.0); MONOCYTES % (AUTO) 8.9 % (1.7-9.3); NEUTROPHILS # (AUTO) 13.5 K/uL (1.8-7.7); NEUTROPHILS % (AUTO) 68.5 % (42.2-75.2); PLATELET COUNT (AUTO) 252 K/uL (140-450); RED BLOOD CELL COUNT(AUTO) 2.88 MIL/uL (4.20-5.40); RED CELL DISTRIBUTION WIDTH 16.4 % (11.6-13.7); WHITE BLOOD COUNT (AUTO) 19.8 K/uL (4.8-10.8)
[2017-12-01 08:56] LABS: ANION GAP 13.3 (8-16); CARBON DIOXIDE 24.5 mmol/L (21-32); CREATININE 1.8 mg/dL (0.6-1.3); POTASSIUM 3.8 mmol/L (3.5-5.1)
[2017-12-01 08:57] LABS: PROTHROMBIN TIME 27.2 secs (10.8-13.4)
[2017-12-01 09:00] LABS: MAGNESIUM 1.9 mg/dL (1.8-2.4); PHOSPHORUS 4.2 mg/dL (2.5-4.9)
[2017-12-01] MEDS: CILOSTAZOL 100 MG TAB PO SCH ×2 (09:00→21:00)
--- NOTE | 2017-12-01 09:30 | NUR ---
DR. MICHEL CAME IN AND SAW PT. ORDERS RECEIVED.
[2017-12-01] MEDS: MAGNESIUM OXIDE 400 MG TAB PO SCH (09:38)
[2017-12-01] MEDS: GABAPENTIN 300 MG CAP PO SCH ×3 (09:38→21:31)
[2017-12-01] MEDS: ALLOPURINOL 100 MG TAB PO SCH (09:38)
[2017-12-01] MEDS: LACTOBACILLUS RHAMNOSUS GG 1 EACH CAP PO SCH (09:38)
[2017-12-01] MEDS: ATORVASTATIN 20 MG TAB PO SCH (09:38)
[2017-12-01] MEDS: ASPIRIN 81 MG TAB.CHEW PO SCH (09:39)
[2017-12-01] MEDS: DOCUSATE SODIUM 100 MG GELCAP PO SCH ×2 (09:39→21:32)
[2017-12-01] MEDS: LACTULOSE 20 GM/30 ML UDC PO SCH ×2 (09:39→21:31)
[2017-12-01] MEDS: VIT-B COMP/VIT-C/FOLIC ACID 1 TAB PO SCH (09:39)
--- NOTE | 2017-12-01 09:45 | NUR ---
ADMINISTERED SCHEDULED MEDS. PT TOLERATED WELL. PT AGREED TO ENEMA BUT LATER TODAY. NO SIGNS OF DISTRESS. CALL LIGHT WITHIN REACH. PT IS ON CELL PHONE AND WATCHING TV. WILL CONTINUE TO MONITOR.
--- NOTE | 2017-12-01 09:45 | NUR ---
VENT CHECK DONE. NO RESPIRATORY DISTRESS NOTED AT THIS TIME. WILL CONTINUE TO MONITOR.
--- NOTE | 2017-12-01 10:23 | NUR ---
PT HAD LARGE BM. NON ADMIN ENEMA. CNAS IN ROOM AND GAVE BED BATH TO PT. CHANGED LINENS AND DIAPER.
[2017-12-01] MEDS: MORPHINE SULFATE 2 MG/ML SYR IVP PRN (11:05)
[2017-12-01] MEDS: ALBUTEROL SULFATE/IPRATROPIU 3 ML SOL IH PRN ×2 (11:33→16:27)
--- NOTE | 2017-12-01 11:43 | NUR ---
VENT CHECK DONE. SUCTIONED MODERATE AMOUNT OF THICK YELLOW SECRETIONS. PRN TX ADMINISTERED PER PATIENT COMPLAINS OF FEELING SHORT OF BREATH. TOLERATED TREATMENT WELL. NO ADVERSE SIDE EFFECTS. NO RESPIRATORY DISTRESS NOTED AT THIS TIME. WILL CONTINUE TO MONITOR.
[2017-12-01 12:00] VITALS: BP 115/63
--- NOTE | 2017-12-01 13:02 | NUR ---
PT WAS CRYING AND STATED SHE HAD PAIN 10/10 ON BLE. MORPHINE WAS GIVEN PRIOR BUT PT STATED NO PAIN RELIEF. ADMINISTERED DILAUDID 0.5MG FOR PAIN. PT TOLERATED WELL. ADMINISTERED SCHEDULED MEDS. PT REFUSING TO EAT LUNCH TRAY AT THIS TIME. PT'S DAUGHTER ARRIVED AND AT BEDSIDE. PT WATCHING TV. CALL LIGHT WITHIN REACH. WILL CONTINUE TO MONITOR.
--- NOTE | 2017-12-01 13:37 | NUR ---
FAMILY AT BEDSIDE. VENT CHECK DONE. PATIENT REFUSED SCHEDULED BREATHING TREATMENT. NO RESPIRATORY DISTRESS NOTED AT THIS TIME. WILL CONTINUE TO MONITOR.
--- NOTE | 2017-12-01 15:13 | NUR ---
PT'S DAUGHTER AT BEDSIDE. PT SITTING UP IN BED WATCHING TV AND TALKING WITH DAUGHTER. NO COMPLAINTS AT THIS TIME. NO SIGNS OF DISTRESS. CALL LIGHT WITHIN REACH. WILL CONTINUE TO MONITOR.
[2017-12-01] MEDS: NACL 0.9% 1,000 ML IV SCH (15:33)
[2017-12-01 16:00] VITALS: BP 100/49
--- NOTE | 2017-12-01 16:47 | NUR ---
VENT CHECK DONE. PRN BREATHING TREATMENT ADMINISTERED PER PATIENT COMPLAINING OF FEELING SHORT OF BREATH. PATIENT TOLERATED TX WELL, NO ADVERSE SIDE EFFECTS. SUCTIONED SMALL AMOUNT OF THICK PALE YELLOW SECRETIONS. NO RESPIRATORY DISTRESS NOTED AT THIS TIME. WILL CONTINUE TO MONITOR.
--- NOTE | 2017-12-01 16:52 | NUR ---
ADMINISTERED SCHEDULED MEDS. PT TOLERATED WELL. PT HAD INCONTINENT URINE IN DIAPER. CNAS WITH PT AND CHANGED DIAPER AND SHEETS. NO SIGNS OF DISTRESS. CALL LIGHT WITHIN REACH. WILL CONTINUE TO MONITOR.
--- NOTE | 2017-12-01 16:56 | NUR ---
TRACH CARE DONE WITHOUT INCIDENT. NO RESPIRATORY DISTRESS NOTED AT THIS TIME. WILL CONTINUE TO MONITOR.
[2017-12-01] MEDS ORDERED: WARFARIN 1 MG TAB PO SCH (17:00)
[2017-12-01] MEDS: INSULIN LISPRO SLIDING SCALE 100 UNITS/ML VIAL SUBQ PRN (17:32)
--- NOTE | 2017-12-01 18:01 | NUR ---
PT SLEEPING WITH NO SIGNS OF DISTRESS. CALL LIGHT WITHIN REACH. WILL CONTINUE TO MONITOR.
--- NOTE | 2017-12-01 19:21 | NUR ---
ENDORSED PT TO GENETIC COUNSELOR NURSE THADDEUS AT BEDSIDE FOR CONTINUITY OF CARE. PT IN STABLE CONDITION.
--- NOTE | 2017-12-01 19:25 | NUR ---
RECEIVED FROM AM RN IN BED SLEEPING. VENT TO TRACH. 100 % 02 SAT. AROUSABLE WHEN TOUCHED. CALL LIGHT WITH IN REACH. NO PAIN AT THIS TIME. TELEMETRY MONITORING 88 BUNDLE BRANCH BLOCK SR. AFEBRILE. PT. ABLE TO VERBALIZE SIMPLE NEEDS.
[2017-12-01 19:42] VITALS: BP 94/47
[2017-12-01] MEDS: PROMETHAZINE 25 MG/ML VIAL IVP PRN (21:41)
--- NOTE | 2017-12-01 23:08 | NUR ---
MD BOWERS IN HERE TO SEE PT. PT. TURNED TO SIDES BY CNAS. ABLE TO VERBALIZE NEEDS . NO PAIN COMPLAINTS DONE.
[2017-12-01 23:29] VITALS: BP 124/61
--- NOTE | 2017-12-02 02:50 | NUR ---
PT. AWAKE AND REQUESTED TO BE SUCTIONED. RESPIRATORY THERAPIST CAME IN AND SUCTIONED WELL. TREATMENT PROVIDED REQUESTED. SLEPT BACK . PT. ABLE TO TURN WITH ASSIST. NEEDS ATTENDED TO. A/O X 4. TELEMETRY MONITORING.
[2017-12-02] MEDS: NACL 0.9% 1,000 ML IV SCH (03:37)
[2017-12-02] MEDS: CLINDAMYCIN PHOS 600MG/D5W PM 50 ML IV SCH ×3 (04:30→21:00)
[2017-12-02 04:36] VITALS: BP 114/64
--- NOTE | 2017-12-02 04:57 | NUR ---
SLEEPING. RESPIRATORY THERAPIST IN HERE TO CHECK ON PT. NO COMPLAINTS. NEEDS ATTENDED TO.
[2017-12-02] MEDS: ALBUTEROL SULFATE/IPRATROPIU 3 ML SOL IH PRN (05:35)
[2017-12-02] MEDS: METOCLOPRAMIDE 10 MG TAB PO SCH ×3 (06:12→16:33)
[2017-12-02] MEDS: LEVOTHYROXINE 0.075 MG TAB PO SCH (06:12)
[2017-12-02] MEDS: BLOOD GLUCOSE MONITORING 1 DEV DEV FS SCH ×4 (06:18→21:08)
--- NOTE | 2017-12-02 06:40 | NUR ---
PT. NEEDS ANTICIPATED . TURNED Q 2H. TOTAL CARE. ABLE TO VERBALIZE NEEDS WELL. SUCTIONED PRN . CALL LIGHT WITH IN REACH. ABLE TO USE CALL LIGHT RT LEFT HAND MOVES. TELEMETRY MONITORING.
--- NOTE | 2017-12-02 07:30 | NUR ---
RECEIVED REPORT FROM MUNICIPAL BOND TRADER NURSE THADDEUS AT BEDSIDE FOR CONTINUITY OF CARE. PT IS AWAKE AND ORIENTED X4. INTRODUCED SELF AND UPDATED BOARD. PT WITH TRACH ON VENT. O2 SAT 100%. NO SOB. SKIN WARM AND DRY. R MIDLINE INTACT TO R UPPER ARM. STUDENT WITH PT ASSISTING WITH ORAL CARE. PT DENIES PAIN. NO SIGNS OF DISTRESS. CALL LIGHT WITHIN REACH. BED IN LOW POSITION, WHEELS LOCKED. WILL CONTINUE TO MONITOR.
[2017-12-02 07:37] LABS: BASOPHILS % (AUTO) 0.3 % (0.0-2.0); EOSINOPHILS # (AUTO) 0.6 K/uL (0-0.4); EOSINOPHILS % (AUTO) 4.5 % (0.0-4.0); HEMATOCRIT 24.5 % (36-48); HEMOGLOBIN 7.9 g/dL (12.0-16.0); LYMPHOCYTES # (AUTO) 2.5 K/uL (2.5-16.5); LYMPHOCYTES % (AUTO) 17.5 % (20.5-51.1); MEAN CORPUSCULAR HEMOGLOBIN 29 pg (27-31); MEAN CORPUSCULAR HGB CONC 32 g/dL (33-37); MEAN CORPUSCULAR VOLUME 88.8 fL (80-94); MONOCYTES # (AUTO) 1.3 K/uL (0.8-1.0); MONOCYTES % (AUTO) 9.3 % (1.7-9.3); NEUTROPHILS # (AUTO) 9.7 K/uL (1.8-7.7); NEUTROPHILS % (AUTO) 68.4 % (42.2-75.2); PLATELET COUNT (AUTO) 247 K/uL (140-450); RED BLOOD CELL COUNT(AUTO) 2.76 MIL/uL (4.20-5.40); RED CELL DISTRIBUTION WIDTH 16.3 % (11.6-13.7); WHITE BLOOD COUNT (AUTO) 14.1 K/uL (4.8-10.8)
[2017-12-02 07:47] LABS: PROTHROMBIN TIME 22.6 secs (10.8-13.4)
[2017-12-02 07:52] LABS: ANION GAP 13.7 (8-16); CARBON DIOXIDE 23.7 mmol/L (21-32); CREATININE 1.7 mg/dL (0.6-1.3); POTASSIUM 4.4 mmol/L (3.5-5.1)
[2017-12-02 08:00] VITALS: BP 147/75
[2017-12-02] MEDS: ALBUTEROL SULFATE/IPRATROPIU 3 ML SOL IH SCH ×3 (08:00→20:07)
[2017-12-02] MEDS: LACTULOSE 20 GM/30 ML UDC PO SCH (09:39)
[2017-12-02] MEDS: ALLOPURINOL 100 MG TAB PO SCH (09:40)
[2017-12-02] MEDS: GABAPENTIN 300 MG CAP PO SCH ×3 (09:40→21:03)
[2017-12-02] MEDS: CILOSTAZOL 100 MG TAB PO SCH ×2 (09:40→21:03)
[2017-12-02] MEDS: TAMSULOSIN 0.4 MG CAP PO SCH (09:40)
[2017-12-02] MEDS: MAGNESIUM OXIDE 400 MG TAB PO SCH (09:40)
[2017-12-02] MEDS: VIT-B COMP/VIT-C/FOLIC ACID 1 TAB PO SCH (09:41)
[2017-12-02] MEDS: LACTOBACILLUS RHAMNOSUS GG 1 EACH CAP PO SCH (09:41)
[2017-12-02] MEDS: ASPIRIN 81 MG TAB.CHEW PO SCH (09:41)
[2017-12-02] MEDS: ATORVASTATIN 20 MG TAB PO SCH (09:41)
[2017-12-02] MEDS: DOCUSATE SODIUM 100 MG GELCAP PO SCH ×2 (09:41→21:04)
[2017-12-02] MEDS ORDERED: LACTULOSE 20 GM/30 ML UDC PO SCH (09:44)
--- NOTE | 2017-12-02 10:31 | NUR ---
ADMINISTERED SCHEDULED MEDS. PT TOLERATED WELL. PT HAD INCONTINENT URINE. CHANGED DIAPER AND GAVE PT BED BATH. REPOSITIONED PT IN BED. PT WANTED R ARM ELEVATED. FLUSHED PICC LINE. LINE PATENT. NO SIGNS OF DISTRESS. CALL LIGHT WITHIN REACH. WILL CONTINUE TO MONITOR.
[2017-12-02 12:00] VITALS: BP 142/78
--- NOTE | 2017-12-02 12:01 | NUR ---
PT SLEEPING WITH NO SIGNS OF DISTRESS. CALL LIGHT WITHIN REACH. ASKED IF PT NEEDED ANYTHING PT STATED "NO." DENIES PAIN. WILL CONTINUE TO MONITOR.
[2017-12-02] MEDS: HYDROmorphone 1 MG/ML AMP IVP PRN (12:54)
[2017-12-02] MEDS: AMIKACIN 500 MG in DEXTROSE 5% 100 ML IV SCH (14:16)
[2017-12-02 16:00] VITALS: BP 106/55
[2017-12-02] MEDS: INSULIN LISPRO SLIDING SCALE 100 UNITS/ML VIAL SUBQ PRN (16:41)
[2017-12-02] MEDS ORDERED: WARFARIN 1 MG TAB PO SCH (17:00)
--- NOTE | 2017-12-02 17:00 | NUR ---
REPORTED TO DR. CHAWLA THAT PT'S R ARM PICC LINE WAS SWOLLEN. DR CAME IN TO SEE PT.
--- NOTE | 2017-12-02 19:25 | NUR ---
ENDORSED PT TO CONTAINER REPAIRER NURSE THADDEUS AT BEDSIDE FOR CONTINUITY OF CARE. PT IN STABLE CONDITION.
--- NOTE | 2017-12-02 19:30 | NUR ---
RECEIVED FROM AM RN IN SITTING UP POSITION WATCHING TV. REQUESTED TO BE SUCTIONED. ABLE TO SUCTION CREAMY MUCUS IN SCANT AMOUNT. USED NS TO DILUTE MUCUS. PT. CONTENT WITH SUCTIONING. NO FURTHER COMPLAINTS DONE. TELEMETRY MONITORING. CALL LIGHT WITH IN REACH AND PT. ABLE TO USE IT WITH MOVING LEFT HAND. A/O X 4. TOTAL CARE AND NEEDS WILL BE MET . CARE PLANS FOR THE NIGHT DISCUSSED WITH HER.
[2017-12-02 20:07] VITALS: BP 138/64
[2017-12-02 20:08] VITALS: BP 138/64
--- NOTE | 2017-12-02 20:17 | NUR ---
RCV'D PT ON MECHANICAL VENTILATION ON CHARTED SETTINGS. PT HAS SHILEY 6XL TRACH. TRACH IS IN [place] AND SECURED. VENT IS CONNECTED TO RED OUTLET. ALARMS AUDIBLE. AMBU BAG ATB BEDSIDE. HHN TX GIVEN WITH NO ADVERSE REACTION. PT IS AWAKE AND ALERT. NO SOB OR DISTRESS NOTED. CUFF PRESSURE 10 CMH2O. WILL CONTINUE TO MONITOR.
[2017-12-02] MEDS: SODIUM PHOSPHATE 118 ML ENEM RC PRN (21:03)
--- NOTE | 2017-12-02 21:09 | NUR ---
PT. REQUESTED ENEMA FLEET. ADMINISTERED ASKED BY PT. BLOOD SUGAR CHECK 95. NO COMPLAINTS OF ANY PAIN AT THIS TIME. IV ABT ON HELD FOR NOW. WAITING FOR US RESULT OF PLACEMENT RE:DOUBLE LUMEN TO RIGHT UPPER ARM. FOLLOWED UP WITH MATERIAL CHASER WHO TOOK IT AND STATED THAT NO RESULT YET. ASKED HER TO CALL ME SOON RESULT IS READ. "OK" PER MATERIAL CHASER.
--- NOTE | 2017-12-02 22:11 | NUR ---
FOLLOWED UP WITH ULTRASOUND RESULT OF DOUBLE LUMEN PLACEMENT IN RIGHT UPPER ARM . NO RESULT YET. INFORMED RESIDENT RE: STATUS. AWARE AND WILL INFUSE IV ABT SOON RESULT IS IN.
--- NOTE | 2017-12-02 23:07 | NUR ---
TRIED TO INSERT IVF LINE BY CHARGE NURSE FOR REQUEST OF DILAUDID PAIN RELIEVER IVP. UNABLE TO FIND ONE. PT. AWARE OF IT. EXPLAINED TO PT. WHY WE CAN NOT USE HER DOUBLE LUMEN PICC LINE FOR NOW. WAITING FOR US RESULT.
--- NOTE | 2017-12-02 23:52 | NUR ---
RESIDENT SEEN RESULT OF ULTRASOUND TO DOUBLE LUMEN PICC LINE . " I WILL ORDER NEW PICC LINE INSERTED. ALL IV MEDICATIONS HOLD FOR NOW ". PT. AWARE. CHARGE NURSE AWARE.
--- NOTE | 2017-12-03 00:01 | NUR ---
INFORMED RN EXAMINER OF NEW ORDER TO INSERT PICC LINE FOR PT. "I WILL CALL PICC LINE NURSE"
--- NOTE | 2017-12-03 01:49 | NUR ---
PT. BEEN SLEEPING WELL. TURNED TO SIDES Q 2H. PILLOW SUPPORT PROVIDED TO PRESSURE AREAS. NO FURTHER COMPLAINTS DONE. NEEDS WILL BE ANTICIPATED AND WILL BE MET.
[2017-12-03 01:50] VITALS: BP 140/72
[2017-12-03] MEDS ORDERED: HYDROmorphone 2 MG TAB PO PRN (02:05)
--- NOTE | 2017-12-03 02:34 | NUR ---
PT. AWAKE AT THIS TIME. MEDICATED WITH DILAUDID P.O. REQUESTED. ABLE TO VERBALIZE SIMPLE NEEDS.
--- NOTE | 2017-12-03 03:44 | NUR ---
SLEEPING AT THIS TIME. RESPIRATORY THERAPIST CAME IN AND SUCTIONED . NO FURTHER COMPLAINTS DONE. TURNED TO SIDES BY CNAS. KEPT CLEAN AND DRY. HAD BIG BM EARLIER THIS SHIFT. ENEMA GIVEN REQUESTED. NEEDS ATTENDED TO.
[2017-12-03] MEDS: ALBUTEROL SULFATE/IPRATROPIU 3 ML SOL IH PRN (04:10)
[2017-12-03 04:20] VITALS: BP 136/51
--- NOTE | 2017-12-03 04:22 | NUR ---
PT. AWAKE AND HAVING BREATHING TREATMENTS FROM RESPIRATORY THERAPIST. A/O X 4. NO COMPLAINTS DONE. ABLE TO VERBALIZE WELL.
[2017-12-03] MEDS: CLINDAMYCIN PHOS 600MG/D5W PM 50 ML IV SCH ×3 (05:00→21:00)
--- NOTE | 2017-12-03 06:21 | NUR ---
Called picc rn ([phone]) and left a message to put a picc line for Tyree lizarraga; also there is a message to call another phone number for picc rn ([phone]), and left a message to put a picc line for Tyree Orlandob
[2017-12-03] MEDS: BLOOD GLUCOSE MONITORING 1 DEV DEV FS SCH ×4 (06:29→21:32)
[2017-12-03] MEDS: LEVOTHYROXINE 0.075 MG TAB PO SCH (06:29)
[2017-12-03] MEDS: METOCLOPRAMIDE 10 MG TAB PO SCH ×3 (06:29→16:20)
--- NOTE | 2017-12-03 06:41 | NUR ---
INFORMED CHARGE NURSE ABOUT PICC LINE STATUS. WILL ENDORSE TO THE NEXT RN FOR CONTINUITY OF CARE. AM PERSONAL HYGIENE RENDERED. KEPT CLEAN AND COMFORTABLE. NO SOB. DENIES PAIN AT THIS TIME.
[2017-12-03 06:53] LABS: BASOPHILS # (AUTO) 0.1 K/uL (0.00-0.22); BASOPHILS % (AUTO) 0.5 % (0.0-2.0); EOSINOPHILS # (AUTO) 0.6 K/uL (0-0.4); EOSINOPHILS % (AUTO) 3.7 % (0.0-4.0); HEMATOCRIT 22.4 % (36-48); HEMOGLOBIN 7.5 g/dL (12.0-16.0); LYMPHOCYTES # (AUTO) 2.3 K/uL (2.5-16.5); LYMPHOCYTES % (AUTO) 14.8 % (20.5-51.1); MEAN CORPUSCULAR HEMOGLOBIN 29 pg (27-31); MEAN CORPUSCULAR HGB CONC 34 g/dL (33-37); MEAN CORPUSCULAR VOLUME 85.8 fL (80-94); MONOCYTES # (AUTO) 1.2 K/uL (0.8-1.0); MONOCYTES % (AUTO) 7.6 % (1.7-9.3); NEUTROPHILS # (AUTO) 11.3 K/uL (1.8-7.7); NEUTROPHILS % (AUTO) 73.4 % (42.2-75.2); PLATELET COUNT (AUTO) 277 K/uL (140-450); RED BLOOD CELL COUNT(AUTO) 2.61 MIL/uL (4.20-5.40); RED CELL DISTRIBUTION WIDTH 16.3 % (11.6-13.7); WHITE BLOOD COUNT (AUTO) 15.4 K/uL (4.8-10.8)
--- NOTE | 2017-12-03 07:10 | NUR ---
RECEIVED PATIENT REPORT AT BEDSIDE. PATIENT AWAKE, ALERT AND ORIENTED. NO S/S OF DISTRESS. NO C/O PAIN AT THIS TIME. PATIENT WITH TRACH TO VENT. PATIENT ON CONTINUOUS O2 MONITORING. O2 SAT 98% AT THIS TIME. SWELLING NOTED ON THE RIGHT UPPER ARM. IV MEDICATIONS ON HOLD. WARM COMPRESS IN PLACE. PATIENT PLACED ON TELE MONITORING. BED LOWERED WITH CALL LIGHT WITHIN REACH. WILL CONTINUE TO MONITOR
[2017-12-03 07:15] LABS: PROTHROMBIN TIME 19.4 secs (10.8-13.4)
[2017-12-03 07:26] LABS: ALBUMIN 2.7 g/dL (3.4-5.0); ANION GAP 16.9 (8-16); CARBON DIOXIDE 20.2 mmol/L (21-32); CREATININE 1.5 mg/dL (0.6-1.3); PHOSPHORUS 3.4 mg/dL (2.5-4.9); POTASSIUM 4.1 mmol/L (3.5-5.1); TOTAL BILIRUBIN 0.4 mg/dL (0.0-1.0)
[2017-12-03] MEDS: ALBUTEROL SULFATE/IPRATROPIU 3 ML SOL IH SCH ×3 (07:45→19:39)
[2017-12-03 08:00] VITALS: BP 126/57
[2017-12-03] MEDS: GABAPENTIN 300 MG CAP PO SCH ×2 (09:00→21:39)
[2017-12-03] MEDS: VIT-B COMP/VIT-C/FOLIC ACID 1 TAB PO SCH (09:00)
[2017-12-03] MEDS: CILOSTAZOL 100 MG TAB PO SCH ×2 (09:01→21:39)
[2017-12-03] MEDS: ALLOPURINOL 100 MG TAB PO SCH (09:01)
[2017-12-03] MEDS: MAGNESIUM OXIDE 400 MG TAB PO SCH (09:01)
[2017-12-03] MEDS: ASPIRIN 81 MG TAB.CHEW PO SCH (09:02)
[2017-12-03] MEDS: LACTOBACILLUS RHAMNOSUS GG 1 EACH CAP PO SCH (09:02)
[2017-12-03] MEDS: TAMSULOSIN 0.4 MG CAP PO SCH (09:02)
[2017-12-03] MEDS: ATORVASTATIN 20 MG TAB PO SCH (09:03)
[2017-12-03] MEDS: LACTULOSE 20 GM/30 ML UDC PO SCH (09:04)
[2017-12-03] MEDS: DOCUSATE SODIUM 100 MG GELCAP PO SCH ×2 (09:04→21:40)
--- NOTE | 2017-12-03 09:04 | NUR ---
SCHEDULED PO MEDICATIONS ADMINISTERED. PATIENT TOLERATED WELL
--- NOTE | 2017-12-03 09:10 | NUR ---
PATIENT SEEN BY DR SILVA
--- NOTE | 2017-12-03 10:00 | NUR ---
INFORMED DR TSAI THAT PER PICC LINE NURSE, STIVEN, IT IS NOT RECOMMENDED TO PUT ANOTHER PICC LINE OR MIDLINE IN THE PATIENT
--- NOTE | 2017-12-03 10:30 | NUR ---
DR SUAREZ AND AND DR NAVAS SPOKE TO THE THE PATIENT AND INFORMED HER THAT SHE NEEDS AN ACCESS FOR IV ANTIBIOTIC TREATMENT BUT A PICC LINE OR MIDLINE IS NOT AN OPTION FOR NOW. DOCTORS SPOKE TO HER ABOUT HAVING A PORT OR A CENTRAL LINE AND HAVING A SURGEON TO PUT THE LINE. PATIENT WANTS TO SPEAK TO HER DAUGHTER FIRST BEFORE SHE DECIDES.
--- NOTE | 2017-12-03 10:45 | NUR ---
PATIENT GIVEN BED BATH. PATIENT TURNED AND REPOSITIONED FOR COMFORT. WILL CONTINUE TO MONITOR
[2017-12-03 12:00] VITALS: BP 107/62
[2017-12-03] MEDS: CYCLOBENZAPRINE 10 MG TAB PO PRN (13:27)
--- NOTE | 2017-12-03 14:19 | NUR ---
12/03/17 RD FOLLOW UP COMPLETED PLEASE REFER TO NUTRITION PROGRESS NOTE UNDER CARE ACTIVITY FOR ESTIMATED NUTRITIONAL NEEDS. 1. [facility] DIET AND NEPRO-ELBERT SUPPLEMENT TOLERATED 2. RECOMMEND CULTERELLE WITH LT ANTIBIOTIC USE 3. RD TO FOLLOW-UP 3-5 DAYS, MODERATE RISK MAGDALENA BOSCH RD
--- NOTE | 2017-12-03 15:11 | NUR ---
PATIENT ASLEEP IN BED. NO S/S OF DISTRESS NOTED
[2017-12-03] MEDS: NACL 0.9% 1,000 ML IV SCH (15:33)
[2017-12-03 16:00] VITALS: BP 114/62
[2017-12-03] MEDS: oxyCODONE/APAP 5/325 MG 1 TAB TAB PO PRN (16:20)
[2017-12-03] MEDS ORDERED: WARFARIN 1 MG TAB PO SCH (17:00)
--- NOTE | 2017-12-03 17:25 | NUR ---
PT IS AWAKE IN BED WATCHING MOVIE ON PHONE. PT NOT SOB AND NOT IN RESPIRATORY DISTRESS. TRACH REMAINS SECURE WITH A PATENT AIRWAY. VENT ALARMS REMAIN ON AND FUNCTIONING.
--- NOTE | 2017-12-03 19:20 | NUR ---
PATIENT REPORT GIVEN AT BEDSIDE. PATIENT ENDORSED IN STABLE CONDITION
--- NOTE | 2017-12-03 19:25 | NUR ---
RECEIVED PT FROM FARZAD RN PT [id number] WITH HX SPINAL CORD INJURY, BEDBOUND HOB 30 DEGREE TRACH TO VENT FI02 28% tv 600 rr 14 02 sat 100% not distress noted at this time waiting for dr alvarado to insert central line
[2017-12-03 20:00] VITALS: BP 100/46
--- NOTE | 2017-12-03 20:00 | NUR ---
HOB 30 DEGREE ORAL CARE GIVEN WITH VAP KIT DENIES ANY PAIN TRACH TO VENT REMAIN SAME SETTING
[2017-12-03] MEDS: INSULIN LISPRO SLIDING SCALE 100 UNITS/ML VIAL SUBQ PRN (21:32)
--- NOTE | 2017-12-03 22:50 | NUR ---
DR HÉCTOR SILVA IS HERE AND SEE THE PT AND ORDERS TO FOLLOW PT WILL BE NPO POST MN FOR CENTRAL LINE INSERTION TOMORROW
[2017-12-04] VITALS: BP 114/61
--- NOTE | 2017-12-04 | NUR ---
HOB 30 DEGREE NPO POST MN NOT DISTRESS NOTED TRACH TO VENT REMAIN SAME SETTING
[2017-12-04] MEDS: AMIKACIN 550 MG in DEXTROSE 5% 100 ML IV SCH (02:00)
--- NOTE | 2017-12-04 02:00 | NUR ---
PT HAS A BM SPONGE BATH GIVEN LINEN CHANGED , PT ON TELEMETRY SR BBB TRACH TO VENT REMAIN SAME SETTING
[2017-12-04 04:00] VITALS: BP 157/79
--- NOTE | 2017-12-04 04:00 | NUR ---
HOB 30 DEGREE TRACH TO VENT REMAIN SAME SETTING RESP THERAPY ALREADY GIVE BREATHING TX NOT SOB NOTED ON TELEMETRY SR BBB
[2017-12-04] MEDS: CLINDAMYCIN PHOS 600MG/D5W PM 50 ML IV SCH (05:00)
--- NOTE | 2017-12-04 05:23 | NUR ---
REPOSITIONED Q2H PT IS SUCTIONED NECESSARY, REMAIN STABLE AT THIS TIME
[2017-12-04] MEDS: LEVOTHYROXINE 0.075 MG TAB PO SCH (06:19)
[2017-12-04] MEDS: METOCLOPRAMIDE 10 MG TAB PO SCH ×3 (06:20→16:50)
[2017-12-04] MEDS: BLOOD GLUCOSE MONITORING 1 DEV DEV FS SCH ×4 (06:47→20:46)
[2017-12-04] MEDS: ALBUTEROL SULFATE/IPRATROPIU 3 ML SOL IH SCH ×3 (06:56→20:02)
--- NOTE | 2017-12-04 06:59 | NUR ---
RECEIVED PT ON CARESCAPE ON DOCUMENTED SETTINGS PTS TRACH SHILEY 6 XLT IS SECURE OT IN HF ASLEEP AWOKE BRIEFLY BS RHONCI SX MOD WHITE HHN GIVEN I\L WITH 3 MG DUONEB BMV HOB ALARMS ARE ON AND AUDIBLE VENT PLUGGED INTO RED OUTLET CONT. POX IN PLACE
[2017-12-04 07:33] LABS: BASOPHILS # (AUTO) 0.1 K/uL (0.00-0.22); BASOPHILS % (AUTO) 0.8 % (0.0-2.0); EOSINOPHILS # (AUTO) 0.8 K/uL (0-0.4); EOSINOPHILS % (AUTO) 6.4 % (0.0-4.0); HEMATOCRIT 23.3 % (36-48); HEMOGLOBIN 7.5 g/dL (12.0-16.0); LYMPHOCYTES # (AUTO) 2.7 K/uL (2.5-16.5); MEAN CORPUSCULAR HEMOGLOBIN 28 pg (27-31); MEAN CORPUSCULAR HGB CONC 32 g/dL (33-37); MEAN CORPUSCULAR VOLUME 87.5 fL (80-94); MONOCYTES % (AUTO) 7.9 % (1.7-9.3); NEUTROPHILS # (AUTO) 7.7 K/uL (1.8-7.7); NEUTROPHILS % (AUTO) 62.9 % (42.2-75.2); PLATELET COUNT (AUTO) 286 K/uL (140-450); RED BLOOD CELL COUNT(AUTO) 2.66 MIL/uL (4.20-5.40); WHITE BLOOD COUNT (AUTO) 12.2 K/uL (4.8-10.8)
[2017-12-04] MEDS ORDERED: DESFLURANE 240 ML BTL INH ONE (07:38)
[2017-12-04] MEDS ORDERED: DEXAMETHASONE 4 MG/ML VIAL ONE (07:38)
[2017-12-04] MEDS ORDERED: ceFAZolin 1,000 MG VIAL ONE (07:38)
[2017-12-04] MEDS ORDERED: GLYCOPYRROLATE 0.2 MG/ML VIAL ONE (07:38)
[2017-12-04] MEDS ORDERED: ROCURONIUM 50 MG/5 ML VIAL IV ONE (07:38)
[2017-12-04] MEDS ORDERED: PHENYLEPHRINE 10 MG/ML VIAL ONE (07:38)
[2017-12-04] MEDS ORDERED: ONDANSETRON 4 MG/2 ML VIAL ONE (07:38)
[2017-12-04] MEDS ORDERED: PROPOFOL 200 MG/20 ML VIAL IV ONE (07:38)
[2017-12-04 08:00] VITALS: BP 136/58
--- NOTE | 2017-12-04 08:00 | NUR ---
PATIENT SEEN BY DR SILVA
[2017-12-04 08:21] LABS: ANION GAP 15.6 (8-16); CARBON DIOXIDE 21.6 mmol/L (21-32); CREATININE 1.5 mg/dL (0.6-1.3); POTASSIUM 4.2 mmol/L (3.5-5.1)
[2017-12-04 08:26] LABS: PHOSPHORUS 3.6 mg/dL (2.5-4.9)
[2017-12-04] MEDS: TAMSULOSIN 0.4 MG CAP PO SCH (08:30)
[2017-12-04 09:00] LABS: PROTHROMBIN TIME 17.3 secs (10.8-13.4)
[2017-12-04] MEDS: LACTOBACILLUS RHAMNOSUS GG 1 EACH CAP PO SCH (09:00)
[2017-12-04] MEDS: MAGNESIUM OXIDE 400 MG TAB PO SCH (09:00)
[2017-12-04] MEDS: VIT-B COMP/VIT-C/FOLIC ACID 1 TAB PO SCH (09:00)
[2017-12-04] MEDS: LACTULOSE 20 GM/30 ML UDC PO SCH (09:00)
[2017-12-04] MEDS: CILOSTAZOL 100 MG TAB PO SCH ×2 (09:00→21:01)
[2017-12-04] MEDS: ALLOPURINOL 100 MG TAB PO SCH (09:00)
[2017-12-04] MEDS: GABAPENTIN 300 MG CAP PO SCH ×2 (09:00→21:01)
[2017-12-04] MEDS: DOCUSATE SODIUM 100 MG GELCAP PO SCH ×2 (09:00→21:01)
[2017-12-04] MEDS: ATORVASTATIN 20 MG TAB PO SCH (09:00)
--- NOTE | 2017-12-04 09:45 | NUR ---
PATIENT GIVEN BED BATH. PATIENT TURNED AND REPOSITIONED FOR COMFORT. PATIENT TOLERATED WELL. WILL CONTINUE TO MONITOR
[2017-12-04] MEDS: LIDOCAINE/EPI 1% 1:100000 20 ML VIAL INJ ONE ×2 (11:15→11:42)
[2017-12-04] MEDS: BUPIVACAINE-MPF 0.25% 30 ML VIAL INJ ONE ×2 (11:15→11:42)
--- NOTE | 2017-12-04 11:30 | NUR ---
PATIENT LEFT THE UNIT FOR CENTRAL LINE PLACEMENT
[2017-12-04] MEDS ORDERED: MIDAZOLAM 2 MG/2 ML VIAL ONE (11:33)
[2017-12-04] MEDS ORDERED: fentaNYL 0.05 MG/ML VIAL ONE (11:33)
[2017-12-04 12:50] VITALS: BP 132/70
--- NOTE | 2017-12-04 12:50 | NUR ---
PATIENT BACK IN THE UNIT FROM CENTRAL LINE PLACEMENT.
--- NOTE | 2017-12-04 13:00 | NUR ---
PER DR TSAI, DO NOT USE CENTRAL LINE FOR NOW. RADIOLOGY REPORT REGARDING PLACEMENT IS PENDING
[2017-12-04] MEDS: KETOROLAC 15 MG/ML VIAL IM SCH ×2 (13:30→16:51)
--- NOTE | 2017-12-04 14:40 | NUR ---
PATIENT IS ASLEEP IN BED. NO S/S OF DISTRESS NOTED
[2017-12-04] MEDS: NACL 0.9% 1,000 ML IV SCH (15:33)
[2017-12-04] MEDS: ALBUTEROL SULFATE/IPRATROPIU 3 ML SOL IH PRN (16:27)
[2017-12-04] MEDS: oxyCODONE/APAP 5/325 MG 1 TAB TAB PO PRN (16:28)
[2017-12-04 16:30] VITALS: BP 142/64
[2017-12-04] MEDS: INSULIN LISPRO SLIDING SCALE 100 UNITS/ML VIAL SUBQ PRN (18:18)
--- NOTE | 2017-12-04 19:30 | NUR ---
RIGHT MIDLINE DISCONTINUED. PATIENT TOLERATED WELL
--- NOTE | 2017-12-04 19:30 | NUR ---
PATIENT REPORT GIVEN TO GERIATRIC ASSISTANT NURSE. PATIENT ENDORSED IN STABLE CONDITION
--- NOTE | 2017-12-04 19:30 | NUR ---
PATIENT REPORT RECEIVED FROM MORNING NURSE AT BEDSIDE. PATIENT AWAKE, ALERT AND ORIENTED. NO SIGNS AND SYMPTOMS OF DISTRESS NOTED. PATIENT IS TRACH TO VENT. GROSHONG CATH NOTED ON RIGHT SUBCLAVIAN, SINGLE LUMEN CATH. DRESSING DRY AND INTACT, SITE IS ASYMPTOMATIC. PATIENT'S SKIN IS INTACT. PLAN OF CARE DISCUSSED WITH PATIENT. PATIENT VERBALIZED UNDERSTANDING. BED IN LOWEST POSITION, SIDE RAILS UP AND CALL LIGHT WITHIN REACH. WILL CONTINUE TO MONITOR
[2017-12-04 20:00] VITALS: BP 114/52
--- NOTE | 2017-12-04 20:44 | NUR ---
PER DR. AMBRIZ, DR. SILVA NOTIFIED HIM THAT NEW CENTRAL LINE OK TO USE.
--- NOTE | 2017-12-04 20:45 | NUR ---
GROSHONG CATH CHECKED. GOOD BLOOD RETURN, FLUSHED WITH SALINE. PATIENT TOLERATED WELL.
[2017-12-04] MEDS: HYDROmorphone 1 MG/ML AMP IVP PRN (20:59)
--- NOTE | 2017-12-04 21:00 | NUR ---
PATIENT COMPLAINED OF SORENESS ON RIGHT SIDE. NOTIFIED DRBen PATIENT SEEN BY PATIENT MEDICATED FOR PAIN
--- NOTE | 2017-12-04 21:00 | NUR ---
MEDICATION EDUCATION GIVEN. PATIENT VERBALIZED UNDERSTANDING. MEDICATION ADMINISTERED ORDERED. PATIENT TOLERATED WELL. WILL CONTINUE TO MONITOR
[2017-12-05] VITALS: BP 120/65
--- NOTE | 2017-12-05 00:30 | NUR ---
PATIENT VOIDED AND HAD A SMALL BOWEL MOVEMENT. PERICARE DONE. DIAPER CHANGED. PATIENT REPOSITIONED FOR COMFORT. PATIENT TOLERATED WELL. WILL CONTINUE TO MONITOR
[2017-12-05] MEDS: MORPHINE SULFATE 2 MG/ML SYR IVP PRN ×3 (01:15→21:54)
--- NOTE | 2017-12-05 02:15 | NUR ---
PATIENT IS ASLEEP. NO SIGNS AND SYMPTOMS OF DISTRESS NOTED. BREATHING EVEN AND UNLABORED. WILL CONTINUE TO MONITOR
--- NOTE | 2017-12-05 03:43 | NUR ---
CHECKED ON PATIENT. PATIENT IS ASLEEP. NO SIGNS AND SYMPTOMS OF DISTRESS NOTED. BREATHING EVEN AND UNLABORED. WILL CONTINUE TO MONITOR
[2017-12-05 04:00] VITALS: BP 116/54
[2017-12-05] MEDS: HYDROmorphone 1 MG/ML AMP IVP PRN ×2 (05:35→15:31)
--- NOTE | 2017-12-05 06:00 | NUR ---
CHECKED ON PATIENT. PATIENT IS ASLEEP NO SIGNS AND SYMPTOMS OF DISTRESS NOTED. BREATHING EVEN AND UNLABORED. WILL CONTINUE TO MONITOR
[2017-12-05] MEDS: BLOOD GLUCOSE MONITORING 1 DEV DEV FS SCH ×4 (06:38→21:53)
[2017-12-05] MEDS: METOCLOPRAMIDE 10 MG TAB PO SCH ×3 (06:40→16:30)
[2017-12-05] MEDS: LEVOTHYROXINE 0.075 MG TAB PO SCH (06:40)
[2017-12-05] MEDS: ALBUTEROL SULFATE/IPRATROPIU 3 ML SOL IH SCH ×3 (06:54→19:00)
--- NOTE | 2017-12-05 06:54 | NUR ---
REC'D PT ON CARESCAPE VENT SETTINGS AC 14 VT 600 FIO2 28% ALARMS ON AND AUDIBLE AMBU BAG AT SIDE OF VENT AND VENT IS PLUGGED INTO RED OUTLET, I\L TX GIVEN WITH DUONEB 3ML WITH NO ADVERSE REACTION POST TX, B\S ARE CLEAR BILATERALLY, SXN PT SMALL AMT OF CLEAR SECRETIONS, PT IS TRACH WITH SHILEY XLT 6 AND SKIN INTEGRITY IS INTACT PT IS AWAKE WITH NO SIGNS OF DISTRESS NOTED AT THIS TIME
[2017-12-05 07:01] LABS: BASOPHILS # (AUTO) 0.1 K/uL (0.00-0.22); BASOPHILS % (AUTO) 0.7 % (0.0-2.0); EOSINOPHILS # (AUTO) 0.6 K/uL (0-0.4); EOSINOPHILS % (AUTO) 4.8 % (0.0-4.0); LYMPHOCYTES % (AUTO) 24.9 % (20.5-51.1); MEAN CORPUSCULAR HEMOGLOBIN 29 pg (27-31); MEAN CORPUSCULAR HGB CONC 34 g/dL (33-37); MEAN CORPUSCULAR VOLUME 85.6 fL (80-94); MONOCYTES # (AUTO) 1.2 K/uL (0.8-1.0); NEUTROPHILS # (AUTO) 7.2 K/uL (1.8-7.7); NEUTROPHILS % (AUTO) 59.6 % (42.2-75.2); PLATELET COUNT (AUTO) 281 K/uL (140-450); RED BLOOD CELL COUNT(AUTO) 2.41 MIL/uL (4.20-5.40); RED CELL DISTRIBUTION WIDTH 16.3 % (11.6-13.7)
--- NOTE | 2017-12-05 07:05 | NUR ---
PATIENT REPORT RECEIVED FROM DIRECTOR TRANSPORTATION NURSE AT BEDSIDE FOR CONTINUITY OF CARE. PATIENT AWAKE, ALERT AND ORIENTED. NO SIGNS AND SYMPTOMS OF DISTRESS NOTED. PATIENT IS TRACH TO VENT. GROSHONG CATH NOTED ON RIGHT SUBCLAVIAN, SINGLE LUMEN CATH. DRESSING DRY AND INTACT, SITE IS ASYMPTOMATIC, NO REDNESS OR SWELLING NOTED, INFUSING IVF WELL. PATIENT'S SKIN IS INTACT. PLAN OF CARE DISCUSSED WITH PATIENT. PATIENT VERBALIZED UNDERSTANDING. PATIENT DENIES PAIN AT THE MOMENT. ICE PACK TO RIGHT SUBCLAVIAN SITE FOR PATIENT'S COMPLAINT OF ACHE. SAFETY AND ISOLATION PRECAUTION IN PLACE, BED IN LOWEST POSITION, SIDE RAILS UP AND CALL LIGHT WITHIN REACH. WILL CONTINUE TO MONITOR PATIENT.
--- NOTE | 2017-12-05 07:10 | NUR ---
PATIENT REPORT GIVEN TO MORNING NURSE AT BEDSIDE FOR CONTINUITY OF CARE. PATIENT IS IN STABLE CONDITION
[2017-12-05 07:14] LABS: HEMATOCRIT 20.6 % (36-48)
[2017-12-05 07:20] LABS: PROTHROMBIN TIME 15.6 secs (10.8-13.4)
--- NOTE | 2017-12-05 07:20 | NUR ---
RECEIVED CALL FROM [place] IN [facility], PATIENT'S HGB 7.0, HCT 20.6. INFORMED DR. COLES. AWAITING NEW ORDERS.
[2017-12-05 07:49] LABS: ANION GAP 13.2 (8-16); CARBON DIOXIDE 21.8 mmol/L (21-32); CREATININE 1.6 mg/dL (0.6-1.3)
[2017-12-05 07:58] LABS: MAGNESIUM 1.9 mg/dL (1.8-2.4)
[2017-12-05 08:00] VITALS: BP 111/64
[2017-12-05] MEDS: VIT-B COMP/VIT-C/FOLIC ACID 1 TAB PO SCH (08:28)
[2017-12-05] MEDS: CILOSTAZOL 100 MG TAB PO SCH ×2 (08:29→21:01)
[2017-12-05] MEDS: ALLOPURINOL 100 MG TAB PO SCH (08:29)
[2017-12-05] MEDS: MAGNESIUM OXIDE 400 MG TAB PO SCH (08:29)
[2017-12-05] MEDS: TAMSULOSIN 0.4 MG CAP PO SCH (08:29)
[2017-12-05] MEDS: DOCUSATE SODIUM 100 MG GELCAP PO SCH ×2 (08:30→21:02)
[2017-12-05] MEDS: GABAPENTIN 300 MG CAP PO SCH ×2 (08:30→21:02)
[2017-12-05] MEDS: LACTOBACILLUS RHAMNOSUS GG 1 EACH CAP PO SCH (08:30)
[2017-12-05] MEDS: LACTULOSE 20 GM/30 ML UDC PO SCH (08:30)
[2017-12-05] MEDS: ATORVASTATIN 20 MG TAB PO SCH (08:30)
--- NOTE | 2017-12-05 08:30 | NUR ---
ORDERED MEDICATIONS GIVEN. PATIENT TOLERATING THEM WELL. NO SIGNS OF DISTRESS OR SOB NOTED ON VENT SETTINGS. PATIENT COMFORTABLE IN BED, JUST FINISHED BREAKFAST. PATIENT REQUESTING MORPHINE FOR GENERALIZED BODY PAIN 12/11. WILL ASSESS AND MEDICATE. DR. MICHEL IN TO SEE THE PATIENT. WILL WAIT FOR HIS UPDATED ORDERS. SAFETY AND ISOLATION PRECAUTION IN PLACE, CALL LIGHT WITHIN REACH. WILL CONTINUE TO MONITOR PATIENT.
--- NOTE | 2017-12-05 08:45 | NUR ---
PATIENT MEDICATED FOR PAIN. PATIENT TOLERATED IT WELL. NO SIGNS OF DISTRESS OR SOB NOTED. PATIENT NOW RESTING SAFELY IN BED, PLAYING ON HER PHONE, AND WATCHING TENNIS GAME ON TV. SAFETY AND ISOLATION PRECAUTION IN PLACE, CALL LIGHT WITHIN REACH. WILL CONTINUE TO MONITOR PATIENT.
--- NOTE | 2017-12-05 08:48 | NUR ---
VENT CHECK, AIRWAY IS PATENT NO SNX NEEDED
--- NOTE | 2017-12-05 10:22 | NUR ---
VENT CHECK, PT DID NOT WANT TO BE SNX AIRWAY IS PATENT AND FAMILY AT BEDSIDE
--- NOTE | 2017-12-05 10:41 | NUR ---
FOLLOWED UP WITH LOW HGB AND LOW HCT WITH DR. COLES AND DR. HENDERSON. THEY STATED PATIENT WILL BE RECEIVING BLOOD TRANSFUSION TODAY. ORDERS WILL BE PUT IN. ALSO INFORMED THEM OF PATIENT'S DISCONTINUED WARFARIN, THEY STATED THEY WILL FOLLOW UP WITH IT. RN VERBALIZED UNDERSTANDING.
--- NOTE | 2017-12-05 11:29 | NUR ---
BLOOD SUGAR 133, NO COVERAGE NEEDED. PATIENT C/O MUSCLE SPASM OF THE NECK, OFFERED ORAL FLEXERIL. PATIENT REQUESTED FOR IV MEDICATION. SPOKE TO DR. AMBRIZ ABOUT PATIENT'S REQUEST. HE SAID HE WILL LOOK INTO IT AND GIVE ORDERS. AWAITING FOR HIS ORDERS. INFORMED PATIENT OF WHAT DOCTOR SAID. DAUGHTER [place] AT BEDSIDE, INFORMED HER OF ISOLATION PRECAUTION, SHE VERBALIZED UNDERSTANDING BUT WILL NOT WEAR PPE. SAFETY AND ISOLATION PRECAUTION IN PLACE, CALL LIGHT WITHIN REACH, WILL CONTINUE TO MONITOR PATIENT.
[2017-12-05 12:00] VITALS: BP 120/66
--- NOTE | 2017-12-05 12:06 | NUR ---
DR SILVA IN TO SEE THE PATIENT.
--- NOTE | 2017-12-05 13:13 | NUR ---
PATIENT COMPLAINED OF NECK MUSCLE PAIN. REQUESTED FOR PAIN MEDICATIONS. OFFERED FLEXERIL, PATIENT REFUSED. PATIENT REQUESTING THAT DOCTORS GIVE HER IV PUSH MEDICATIONS, INFORMED RESIDENTS. NEW ORDERS IN FOR TORADOL. ORDERED MEDICATIONS GIVEN. PATIENT TOLERATING IT WELL. SAFETY AND ISOLATION PRECAUTION IN PLACE, CALL LIGHT WITHIN REACH. WILL CONTINUE TO MONITOR PATIENT.
--- NOTE | 2017-12-05 13:19 | NUR ---
VENT CHECK, I\L TX GIVEN WITH DUONEB 3ML WITH NO ADVERSE REACTION POST TX PT DID NOT WANT TO BE SXN AT THIS TIME FAMILY AT BEDSIDE
[2017-12-05] MEDS ORDERED: KETOROLAC 15 MG/ML VIAL IM SCH (13:30)
--- NOTE | 2017-12-05 15:00 | NUR ---
Clinical Support Tech Notes Late Entry: Per Patient's request, I met with her to discuss her concerns and questions about her tracked and ventilation supplies and company. Informed Patient that I will listed to her and will communicate her concerns and questions to machine adjuster leader case trim Vero to see how can we assist her due to my scope of practice not been clinical. However; i will assist and provide resources to care for her needs. Patient was on agreement and stated that she is interested on getting information and resources about other companies that have Ia-dical contracts and will be able to assist her with her trached to ventilator supplies. Per Patient she is wanting to change company [employer] due to having a big co-pay, receiving incorrect size of trach for her ventilator (according to patient she is getting child size trach not adult) and in addition to that patient stated that [employer] company will only send her a trached every 3 months. I informed patient that i will make machine adjuster leader case trim and will find other possible companies as her options. Patient agreed and thanked me for the assistance.
--- NOTE | 2017-12-05 15:05 | NUR ---
VENT CHECK, AIRWAY PATENT AND PT RESTING WITH DAUGHTER AT BEDSIDE
[2017-12-05] MEDS: AMIKACIN 550 MG in DEXTROSE 5% 100 ML IV SCH (15:30)
--- NOTE | 2017-12-05 15:31 | NUR ---
PATIENT C/O 12/11 PAIN. PATIENT MEDICATED ORDERED. SAFETY AND ISOLATION PRECAUTION IN PLACE, CALL LIGHT WITHIN REACH. WILL CONTINUE TO MONITOR PATIENT.
[2017-12-05] MEDS: NACL 0.9% 1,000 ML IV SCH (15:33)
[2017-12-05 16:00] VITALS: BP 130/69
--- NOTE | 2017-12-05 16:15 | NUR ---
vent check, pt sleeping and family karol not want to wake pt
--- NOTE | 2017-12-05 17:05 | NUR ---
BLOOD READY FROM BLOOD BANK. PATIENT ID VERIFIED BY JOSE DAVID DOLL RN. BLOOD READY TO BE INFUSED. CONSENT OBTAINED. DAUGHTER AT BEDSIDE.
--- NOTE | 2017-12-05 17:20 | NUR ---
1 UNIT OF RED BLOOD CELL STARTED TO BE INFUSED. PATIENT RESTING COMFORTABLY IN BED, DAUGHTER AT BEDSIDE. NO SIGNS OF DISTRESS OR SOB NOTED. PATIENT DENIES PAIN. SAFETY AND ISOLATION PRECAUTION IN PLACE, CALL LIGHT WITHIN REACH. WILL CONTINUE TO MONITOR PATIENT. Addendum: 12/05/17 at 1947 by Tino Macedo RN BLOOD INFUSED AT 60 ML/HR PER ORDERS.
--- NOTE | 2017-12-05 17:35 | NUR ---
NO SIGNS OF REACTION TO INFUSING BLOOD, PATIENT STILL SLEEPING CALMLY, DAUGHTER AT BEDSIDE. NO SIGNS OF DISTRESS OR SOB NOTED. PATIENT DENIES PAIN. SAFETY AND ISOLATION PRECAUTION IN PLACE, CALL LIGHT WITHIN REACH. WILL CONTINUE TO MONITOR PATIENT. Addendum: 12/05/17 at 1947 by Tino Macedo RN RATE OF BLOOD TRANSFUSION INCREASED TO 100 ML/HR.
[2017-12-05] MEDS: WARFARIN 1 MG TAB PO SCH (18:15)
--- NOTE | 2017-12-05 18:15 | NUR ---
PATIENT EATING DINNER, DID NOT LIKE IT, NOW COMPLAINS OF NAUSEA. PHENERGAN GIVEN FOR NAUSEA. PATIENT TOLERATED IT WELL. ORDERED MEDICATIONS GIVEN. PATIENT TOLERATING IT WELL. VITAL SIGNS WITHIN NORMAL LIMITS. NO SIGNS OF REACTION TO BLOOD TRANSFUSION. PATIENT RESTING COMFORTABLY IN BED, DAUGHTER AT BEDSIDE. NO SIGNS OF DISTRESS OR SOB NOTED. PATIENT DENIES PAIN. SAFETY AND ISOLATION PRECAUTION IN PLACE, CALL LIGHT WITHIN REACH. WILL CONTINUE TO MONITOR PATIENT.
[2017-12-05] MEDS: PROMETHAZINE 25 MG/ML VIAL IVP PRN (18:16)
--- NOTE | 2017-12-05 19:16 | NUR ---
REPORT GIVEN TO RAW MATERIAL HANDLER NURSE AT BEDSIDE FOR CONTINUITY OF CARE. PATIENT SLEEPING AND STILL RECEIVING 1 UNIT OF BLOOD.
--- NOTE | 2017-12-05 19:20 | NUR ---
RECEIVED PATIENT REPORT AT BEDSIDE FROM MORNING NURSE. PATIENT IS TRACH TO VENT. BLOOD TRANSFUSION ONGOING VIA GROSHONG SINGLE LUMEN CATH AT RIGHT SUBCLAVIAN. PATIENT CURRENTLY HAS EYES CLOSED, COMPLAINING OF CHILLS. PAUSED BLOOD TRANSFUSION AND SWITCHED TO NS. TOOK PATIENT'S VITAL SIGNS. Addendum: 12/06/17 at 0303 by Robin Jackson RN MODERATE DISTRESS NOTED
--- NOTE | 2017-12-05 19:30 | NUR ---
NOTIFIED DR. RODRIGUEZ OF PATIENT COMPLAINING OF CHILLS AND INCREASE OF TEMPERATURE FROM 97.8 AT THE START OF THE TRANSFUSION TO 99.4. ALSO AN INCREASE IN BP AND HEART RATE. ACCORDING TO MORNING NURSE, PATIENT DID NOT COMPLAIN OF CHILLS DURING FIRST 2 HOURS OF BLOOD TRANSFUSION. PATIENT ALSO STATES THAT SHES NEVER HAD CHILLS DURING PREVIOUS BLOOD TRANSFUSIONS. DR. RODRIGUEZ WILL SEE PATIENT. ORDERS RECEIVED Addendum: 12/06/17 at 0302 by Robin Jackson RN PATIENT ALSO KEEPS SHIVERING
--- NOTE | 2017-12-05 19:40 | NUR ---
ALSO NOTIFIED DR. RODRIGUEZ THAT I NOTICED SOME BILATERAL SWELLING NEAR PATIENT'S COLLARBONES.
--- NOTE | 2017-12-05 19:40 | NUR ---
DR. RODRIGUEZ IN TO SEE PATIENT
[2017-12-05 20:00] VITALS: BP 166/70
--- NOTE | 2017-12-05 20:00 | NUR ---
BLOOD PRODUCTS AND TUBING SET SENT BACK TO LAB
--- NOTE | 2017-12-05 20:01 | NUR ---
PT IS IN PAIN AND REFUSED NOT TO TOUCH HER TRACH AREA OR SX. HHNTX NOT GIVEN, PT IS NOT IN ANY RESP. DISTRESS
--- NOTE | 2017-12-05 21:00 | NUR ---
CHECKED ON PATIENT. PATIENT STILL SHIVERING AND COMPLAINING OF CHILLS. CHECKED TEMPERATURE. TEMP IS AT 99.1. COOLING MEASURES IN PLACE. WILL CONTINUE TO MONITOR
[2017-12-05] MEDS: INSULIN LISPRO SLIDING SCALE 100 UNITS/ML VIAL SUBQ PRN (22:23)
--- NOTE | 2017-12-05 23:00 | NUR ---
CHECKED ON PATIENT. PATIENT IS ASLEEP. NO SIGNS AND SYMPTOMS OF DISTRESS NOTED. BREATHING EVEN AND UNLABORED. WILL CONTINUE TO MONITOR
[2017-12-06] VITALS: BP 99/58
--- NOTE | 2017-12-06 00:30 | NUR ---
CHECKED PATIENT'S VITAL SIGNS. TEMPERATURE INCREASED TO 102. WILL ADMINISTER TYLENOL. COOLING MEASURES IN PLACE. WILL GIVE SPONGE BATH. DR. RODRIGUEZ MADE AWARE
[2017-12-06] MEDS: ACETAMINOPHEN 325 MG TAB PO PRN (00:57)
--- NOTE | 2017-12-06 01:00 | NUR ---
PATIENT HAD A LARGE BOWEL MOVEMENT. PERICARE DONE. DIAPER AND CHUCKS CHANGED. PATIENT REPOSITIONED FOR COMFORT. WILL CONTINUE TO MONITOR.
--- NOTE | 2017-12-06 02:00 | NUR ---
RECHECKED PATIENT'S TEMP. TEMPERATURE DECREASED TO 98.4. PATIENT IS ASLEEP. NO SIGNS AND SYMPTOMS OF DISTRESS NOTED. BREATHING EVEN AND UNLABORED. WILL CONTINUE TO MONITOR
[2017-12-06 04:00] VITALS: BP 100/46
--- NOTE | 2017-12-06 04:00 | NUR ---
PATIENT REPOSITIONED FOR COMFORT. PATIENT TOLERATED WELL. WILL CONTINUE TO MONITOR.
[2017-12-06] MEDS: MORPHINE SULFATE 2 MG/ML SYR IVP PRN ×3 (04:52→18:38)
--- NOTE | 2017-12-06 05:39 | NUR ---
PT REFUSED TRACH CARE, SHE DOES NOT WANT TO BE TOUCH, SHE IS IN PAIN
[2017-12-06] MEDS: BLOOD GLUCOSE MONITORING 1 DEV DEV FS SCH ×4 (06:13→20:55)
[2017-12-06] MEDS: LEVOTHYROXINE 0.075 MG TAB PO SCH (06:30)
[2017-12-06] MEDS: METOCLOPRAMIDE 10 MG TAB PO SCH ×3 (06:40→16:25)
--- NOTE | 2017-12-06 06:42 | NUR ---
PATIENT'S BLOOD SUGAR 179. PATIENT REFUSED COVERAGE WELL DUE REGLAN AND LEVOTHYROXINE. PATIENT STATED NOT NOW, I JUST WANT TO SLEEP.
[2017-12-06] MEDS: ALBUTEROL SULFATE/IPRATROPIU 3 ML SOL IH SCH ×3 (06:50→19:20)
[2017-12-06 06:52] LABS: HEMATOCRIT 23.5 % (36-48); HEMOGLOBIN 7.6 g/dL (12.0-16.0); MEAN CORPUSCULAR HEMOGLOBIN 28 pg (27-31); MEAN CORPUSCULAR HGB CONC 32 g/dL (33-37); MEAN CORPUSCULAR VOLUME 86.8 fL (80-94); PLATELET COUNT (AUTO) 280 K/uL (140-450); RED CELL DISTRIBUTION WIDTH 15.9 % (11.6-13.7)
[2017-12-06 06:59] LABS: ANION GAP 12.8 (8-16); CARBON DIOXIDE 22.7 mmol/L (21-32); CREATININE 2.2 mg/dL (0.6-1.3); POTASSIUM 4.5 mmol/L (3.5-5.1)
--- NOTE | 2017-12-06 07:00 | NUR ---
LATE ENTRY RECEIVED PT ON VENT WITH SETTINGS CHARTED BREATH SOUNDS PRESENT BILAT CLEAR SXN PT WITH MOD AMT THICK YELLOW SECS TRACH SITE SECURE AMBU BAG AT BEDSIDE VENT PLUGGED INTO RED OUTLET WILL CONTINUE TO MONITOR PT
[2017-12-06 07:06] LABS: MAGNESIUM 1.9 mg/dL (1.8-2.4); PHOSPHORUS 3.3 mg/dL (2.5-4.9)
--- NOTE | 2017-12-06 07:10 | NUR ---
PATIENT REPORT GIVEN TO MORNING NURSE AT BEDSIDE FOR CONTINUITY OF CARE. PATIENT IS IN STABLE CONDITION
--- NOTE | 2017-12-06 07:11 | NUR ---
RECEIVED REPORT FROM HEAD MEN'S TENNIS COACH RN. PATIENT IS SLEEPING AT THIS TIME, BUT AROUSABLE TO NAME. NO SIGNS AND SYMPTOMS OF ACUTE DISTRESS NOTED AT THIS TIME. PATIENT IS ON TRACH TO VENT. HAS RIGHT SUBCLAVIAN SINGLE LUMEN GROSHONG IV. HAS NS INFUSING AT 40 ML/HR. SITE IS CLEAN, DRY, PATENT AND INTACT. DISCUSSED PLAN OF CARE WITH PATIENT AND SHE WAS ABLE TO VERBALIZE UNDERSTANDING. BED IN LOWEST POSITION, SIDE RAILS UP X2, CALL LIGHT WITHIN REACH. WILL CONTINUE TO MONITOR.
[2017-12-06 07:33] LABS: PROTHROMBIN TIME 16.7 secs (10.8-13.4); WHITE BLOOD COUNT (AUTO) 35.1 K/uL (4.8-10.8)
[2017-12-06 07:35] LABS: EOSINOPHILS % (MANUAL) 1 % (0-4); LYMPHOCYTES % (MANUAL) 10 % (20-46); MONOCYTES % (MANUAL) 3 % (5-12)
[2017-12-06 08:00] VITALS: BP 109/51
--- NOTE | 2017-12-06 09:00 | NUR ---
Mushroom Growing Supervisor Notes: I communicated with binder caser Vero about patient's concerns and questions in regards to Patient's issues with [employer]. multimedia project manager provided me with other companies to contact them and find out information and services. multimedia project manager is aware of patient's concerns.
--- NOTE | 2017-12-06 09:30 | NUR ---
Foxing Painter notes: I call [employer] at I spoke to Daiana about inquiring services for patient's medical supplies. I informed her that Patient is a trached to ventilator and patient's concerns; Per Daiana their company do not provide for Trached patients however she referred me to [facility] at [phone]. I thanked her for the information and ended the call.
[2017-12-06] MEDS: ATORVASTATIN 20 MG TAB PO SCH (09:45)
[2017-12-06] MEDS: CILOSTAZOL 100 MG TAB PO SCH ×2 (09:45→20:48)
[2017-12-06] MEDS: DOCUSATE SODIUM 100 MG GELCAP PO SCH ×2 (09:45→20:48)
[2017-12-06] MEDS: TAMSULOSIN 0.4 MG CAP PO SCH (09:45)
--- NOTE | 2017-12-06 09:45 | NUR ---
ADMINISTERED PATIENTS MORNING MEDICATIONS. PATIENT TOLERATED WELL. WILL CONTINUE TO MONITOR.
[2017-12-06] MEDS: LACTOBACILLUS RHAMNOSUS GG 1 EACH CAP PO SCH (09:46)
[2017-12-06] MEDS: GABAPENTIN 300 MG CAP PO SCH ×2 (09:46→20:49)
[2017-12-06] MEDS: ALLOPURINOL 100 MG TAB PO SCH (09:46)
[2017-12-06] MEDS: MAGNESIUM OXIDE 400 MG TAB PO SCH (09:46)
[2017-12-06] MEDS: VIT-B COMP/VIT-C/FOLIC ACID 1 TAB PO SCH (09:46)
[2017-12-06] MEDS: LACTULOSE 20 GM/30 ML UDC PO SCH (09:47)
[2017-12-06] MEDS: ALBUTEROL SULFATE/IPRATROPIU 3 ML SOL IH PRN (10:20)
--- NOTE | 2017-12-06 10:42 | NUR ---
PATIENT SLEPT THROUGH BREAKFAST, DIDN'T WANT IT WHEN SHE WOKE UP. REQUESTED A PEANUT BUTTER AND JELLY SANDWICH. BROUGHT SANDWICH TO PATIENT ALONG WITH SOME MILK. WILL CONTINUE TO MONITOR.
--- NOTE | 2017-12-06 10:48 | NUR ---
IMELDA FROM PHARMACY CALLED ME STATING THAT SHE WANTS TO HOLD THE AMIKACIN THAT IS DUE AT 0200 (12/07), DUE TO PATIENTS HIGH LEVELS OF BUN AND CREATININE. SAID SHE WILL STILL HAVE THEM DO THE RANDOM AMIKACIN TROUGH. WILL ENDORSE TO GUEST SERVICES AGENT RN.
[2017-12-06 12:00] VITALS: BP 105/62
--- NOTE | 2017-12-06 12:46 | NUR ---
Lidder notes: I call [facility] at [phone]. I spoke to Nakul about inquiring services for patient's medical supplies. I informed her that patient is a trached to ventilator and patient's concern's about her medical supplies, contract with Medicare and their regulations with covering for her medical supplies in a monthly basis. According to Nakul from [facility] only covers for 1 trach every 3 months, Insurance unfortunately allows 1 every 3 moths per their regulations and coverage and that patient has always the option to pay for extra ones if they want or need more. I was explained by these company with this information and told that if patient wants any other information Patient can call her personally and explained the patient and assist her with her questions. I told nakul that i will meet again with patient and provide her information and have patient made the choice and the call for further inquire. Nakul agreed and thanked me then I ended the call.
--- NOTE | 2017-12-06 13:03 | NUR ---
Life Sciences Manager Notes: I call [facility] at [phone]. I spoke to Donte about inquiring services for patient's medical supplies. I informed him that patient is a trached to ventilator and patient's concern's about her medical supplies, contract with Medicare and their regulations with covering for her medical supplies in a monthly basis. According to Donte from [employer] [facility] patients only are covers for 1 trach every 3 months, Insurance unfortunately allows 1 every 3 moths per regulations and coverage and patient has always the option to pay for extra ones if they want or need more. I was explained again by [facility] residential sales representative Donte about this information and I was told that if patient wants any other information she can call him to explained the patient and assist her with any additional questions. I told Donte that I will meet again with patient and provide her information and have patient made the choice to call them for further inquire. Donte agreed and thanked me then I ended the call.
--- NOTE | 2017-12-06 14:10 | NUR ---
Fiscal Officer Notes, late entry made note to correct Patient Information: I met with patient and daughter at bedside to discuss information requested by patient in regards to obtaining a list of DME companies, besides [employer] and Patient and daughter stated that she will review the list provided by these credit underwriter and will follow up with DME companies
--- NOTE | 2017-12-06 15:21 | NUR ---
12/06/17 RD FOLLOW UP COMPLETED PLEASE REFER TO NUTRITION ASSESSMENT UNDER CARE ACTIVITY FOR ESTIMATED NUTRITIONAL NEEDS. 1. CONTINUE [facility] DIET TOLERATED 2. RD TO FOLLOW-UP 3-5 DAYS, LOW RISK MAGDALENA BOSCH RD
[2017-12-06] MEDS: NACL 0.9% 1,000 ML IV SCH (15:33)
[2017-12-06 16:00] VITALS: BP 108/55
--- NOTE | 2017-12-06 16:10 | NUR ---
COLLECTED BLOOD FROM PATIENTS LINE. FLUSHED WITH SALINE.
[2017-12-06 16:19] LABS: BASOPHILS # (AUTO) 0.1 K/uL (0.00-0.22); BASOPHILS % (AUTO) 0.2 % (0.0-2.0); EOSINOPHILS # (AUTO) 0.3 K/uL (0-0.4); EOSINOPHILS % (AUTO) 1.1 % (0.0-4.0); HEMATOCRIT 23.2 % (36-48); HEMOGLOBIN 7.1 g/dL (12.0-16.0); LYMPHOCYTES # (AUTO) 3.5 K/uL (2.5-16.5); LYMPHOCYTES % (AUTO) 11.5 % (20.5-51.1); MEAN CORPUSCULAR HEMOGLOBIN 27 pg (27-31); MEAN CORPUSCULAR HGB CONC 31 g/dL (33-37); MONOCYTES # (AUTO) 1.5 K/uL (0.8-1.0); NEUTROPHILS % (AUTO) 82.2 % (42.2-75.2); PLATELET COUNT (AUTO) 282 K/uL (140-450); RED CELL DISTRIBUTION WIDTH 15.9 % (11.6-13.7)
[2017-12-06] MEDS ORDERED: AMIKACIN PER PHARMACY MC PRN (16:20)
--- NOTE | 2017-12-06 16:30 | NUR ---
COLLECTED URINE SAMPLE AND SENT TO THE LAB.
[2017-12-06] MEDS: WARFARIN 1 MG TAB PO SCH (16:32)
[2017-12-06 16:52] LABS: WHITE BLOOD COUNT (AUTO) 30.5 K/uL (4.8-10.8)
--- NOTE | 2017-12-06 17:32 | NUR ---
CONTINUED TO MONITOR PT ON VENT WITH SETTINGS CHARTED TRACH SITE SECURE BREATH SOUNDS PRESENT BILAT SCATTERD RALES AMBU BAG AT BEDSIDE VENT PLUGGED INTO RED OUTLET
--- NOTE | 2017-12-06 19:20 | NUR ---
ENDORSED PATIENT TO METAL FURNITURE ASSEMBLER RN FOR CONTINUITY OF CARE. PATIENT IN STABLE CONDITION.
--- NOTE | 2017-12-06 19:20 | NUR ---
RECEIVED REPORT FROM STIVEN ALFORD AT BEDSIDE. PT IS SITTING UP IN BED WITH HOB UP 45%. PT IS A TRACH TO VENT AND IS AOX4. PT SKIN INTACT AND SHE DENIES PAIN AT THIS TIME. GROSHONG CATHETER INTACT AND ASYMPTOMATIC. DAUGHTER AT BEDSIDE. RESPIRATORY ALSO AT BEDSIDE.
--- NOTE | 2017-12-06 19:33 | NUR ---
RECEIVED PT STABLE ON VENT SUPPORT AT DOCUMENTED SETTINGS, HHN TX GIVEN, TOLERATED WELL, NO RESP DISTRESS OR SOB NOTED, PT AWAKE/ALERT AND COMFORTABLE, SHILEY 6 XLT SECURED/PATENT/MIDLINE, ALARMS SET AND AUDIBLE, AMBU BAG AT BEDSIDE, VENT PLUGGED INTO RED OUTLET, PULSE OX ON, WILL CONT TO MONITOR.
[2017-12-06 20:00] VITALS: BP 107/57
[2017-12-06] MEDS: INSULIN LISPRO SLIDING SCALE 100 UNITS/ML VIAL SUBQ PRN (21:05)
--- NOTE | 2017-12-06 21:30 | NUR ---
PT TURNED AND CHANGED WITH ASSISTANCE WELL REPOSITIONED FOR COMFORT. PT SUCTIONED X 2 WITH ONLY LOOSE WHITE DRAINAGE NOTED. NO S/S OF SOB.
[2017-12-07] VITALS: BP 108/58
[2017-12-07] MEDS: MORPHINE SULFATE 2 MG/ML SYR IVP PRN ×4 (00:55→20:51)
--- NOTE | 2017-12-07 02:00 | NUR ---
PT SLEEPING SOUNDLY, BUT AROUSABLE TO NAME, PROJECT DESIGN ENGINEER ASKED IF SHE WANTED TO TURN, AND PT DECLINED.
[2017-12-07 04:00] VITALS: BP 96/46
--- NOTE | 2017-12-07 04:00 | NUR ---
PT ON BACK WITH HOB UP 45%. PT CONTINUES ON TRACH TO VENT, NO S/S OF PAIN OR DISTRESS NOTED. V/S FOLLOWS T 97.9 P 90 R 20 B/P 96/46 O2 100% TRACH TO VENT. PT SLEEPING SOUNDLY AT THIS TIME.
[2017-12-07] MEDS: LEVOTHYROXINE 0.075 MG TAB PO SCH (06:25)
[2017-12-07] MEDS: BLOOD GLUCOSE MONITORING 1 DEV DEV FS SCH ×4 (06:29→21:12)
--- NOTE | 2017-12-07 06:36 | NUR ---
PT F/S 189 PT REFUSED INSULIN COVERAGE
[2017-12-07 06:56] LABS: ALBUMIN 2.5 g/dL (3.4-5.0); ANION GAP 14.6 (8-16); CARBON DIOXIDE 21.8 mmol/L (21-32); POTASSIUM 4.4 mmol/L (3.5-5.1); TOTAL BILIRUBIN 0.2 mg/dL (0.0-1.0)
[2017-12-07] MEDS: ALBUTEROL SULFATE/IPRATROPIU 3 ML SOL IH SCH ×3 (07:16→20:22)
--- NOTE | 2017-12-07 07:23 | NUR ---
RECEIVED TRACH PT WITH A SHILEY 6 XLT TRACH ON VENT. SETTINGS AC 14, VT 600, PEEP IS OFF AND FIO2 28%. PT IS AWAKE AND ALERT IN BED WATCHING TV NOT SHOWING ANY SIGNS OF RESPIRATORY DISTRESS/SOB. VENT IS PLUGGED INTO A RED OUTLET WITH ALARMS ON AND FUNCTIONING. WILL CONTINUE TO MONITOR.
--- NOTE | 2017-12-07 07:25 | NUR ---
RECEIVED REPORT FROM PROCESS DESIGN CHEMICAL ENGINEER RN. PATIENT IS AAOX4. NO SIGNS AND SYMPTOMS OF ACUTE DISTRESS NOTED AT THIS TIME. PATIENT IS ON TRACH TO VENT. HAS RIGHT SUBCLAVIAN SINGLE LUMEN GROSHONG IV. HAS NS INFUSING AT 40 ML/HR. SITE IS CLEAN, DRY, PATENT AND INTACT. DISCUSSED PLAN OF CARE WITH PATIENT AND SHE WAS ABLE TO VERBALIZE UNDERSTANDING. BED IN LOWEST POSITION, SIDE RAILS UP X2, CALL LIGHT WITHIN REACH. WILL CONTINUE TO MONITOR.
[2017-12-07 08:00] VITALS: BP 141/62
[2017-12-07 08:07] LABS: HEMATOCRIT 21.9 % (36-48); HEMOGLOBIN 7.5 g/dL (12.0-16.0); MEAN CORPUSCULAR HEMOGLOBIN 30 pg (27-31); MEAN CORPUSCULAR HGB CONC 34 g/dL (33-37); MEAN CORPUSCULAR VOLUME 88.3 fL (80-94); PLATELET COUNT (AUTO) 285 K/uL (140-450); RED BLOOD CELL COUNT(AUTO) 2.48 MIL/uL (4.20-5.40); RED CELL DISTRIBUTION WIDTH 14.9 % (11.6-13.7)
[2017-12-07 08:10] LABS: PROTHROMBIN TIME 15.9 secs (10.8-13.4)
[2017-12-07] MEDS: LACTULOSE 20 GM/30 ML UDC PO SCH (08:53)
[2017-12-07] MEDS: GABAPENTIN 300 MG CAP PO SCH ×2 (08:54→20:48)
[2017-12-07] MEDS: TAMSULOSIN 0.4 MG CAP PO SCH (08:55)
[2017-12-07] MEDS: VIT-B COMP/VIT-C/FOLIC ACID 1 TAB PO SCH (08:55)
[2017-12-07] MEDS: CILOSTAZOL 100 MG TAB PO SCH ×2 (08:55→20:48)
[2017-12-07] MEDS: ALLOPURINOL 100 MG TAB PO SCH (08:55)
--- NOTE | 2017-12-07 08:55 | NUR ---
ADMINISTERED PATIENTS MORNING MEDICATIONS. TOLERATED WELL. WILL CONTINUE TO MONITOR.
[2017-12-07] MEDS: LACTOBACILLUS RHAMNOSUS GG 1 EACH CAP PO SCH (08:56)
[2017-12-07] MEDS: ATORVASTATIN 20 MG TAB PO SCH (08:56)
[2017-12-07] MEDS: MAGNESIUM OXIDE 400 MG TAB PO SCH (08:56)
[2017-12-07] MEDS: DOCUSATE SODIUM 100 MG GELCAP PO SCH ×2 (08:56→20:47)
[2017-12-07] MEDS: EPOETIN ALFA 10,000 UNITS/ML VIAL IV SCH (08:57)
[2017-12-07 08:58] LABS: LYMPHOCYTES % (MANUAL) 11 % (20-46); MONOCYTES % (MANUAL) 3 % (5-12)
[2017-12-07] MEDS: ONDANSETRON 4 MG ODT PO PRN (09:12)
[2017-12-07] MEDS: METOCLOPRAMIDE 10 MG TAB PO SCH ×2 (11:27→16:22)
[2017-12-07 12:00] VITALS: BP 139/66
--- NOTE | 2017-12-07 12:20 | NUR ---
SPOKE WITH LAB ABOUT AMIKICIN LEVEL. STATED THEY HAD TO SEND IT OUT. THEY WILL LET ME KNOW ONCE IT IS RESULTED.
--- NOTE | 2017-12-07 12:25 | NUR ---
RECEIVED ORDER FOR PATIENT TO BE DISCHARGED HOME ON IV ANTIBIOTICS. PER TAFE REGISTRARPEDRO'S NOTES, I CALLED [facility] AND SPOKE WITH SLOAN AND FAXED ORDER, ETC TO HER AT [phone].PHONE [phone]. [facility] AND FAXED ORDER, ETC TO [phone]. PHONE [phone]. PER [facility] CANNOT GO TO THE HOUSE MORE THAN 1 X DAY BETWEEN 8A.M. AND 4P.M. I TRIED TO CALL THE DAUGHTER TO SPEAK WITH HER, NO ANSWER. COULD NOT LEAVE A MESSAGE , MAILBOX FULL. I SPOKE WITH KRISTEN FROM [facility], X 304. SHE SAID SHE WOULD SPEAK WITH THEIR PHARMACIST ABOUT HAVING THE AMIKACIN CHANGED TO DAILY AND THEN THE CLEOCIN COULD BE ON A PUMP AND [facility] COULD GO TO THE HOUSE DAILY. I GAVE HER THE PHONE NUMBER TO THE [facility]. [phone].
--- NOTE | 2017-12-07 13:46 | NUR ---
TRIED TO CALL THE DAUGHTER AGAIN ABOUT WHETHER SHE WOULD BE ABLE TO HANDLE THE IV MEDICATIONS AT HOME. NO ANSWER AND MAILBOX IS FULL, COULD NOT LEAVE MESSAGE.
--- NOTE | 2017-12-07 14:58 | NUR ---
SPOKE WITH DR. STANLEY. SHE IS STILL PLANNING ON SENDING THE PATIENT HOME TOMORROW. I TRIED TO CONTACT THE DAUGHTER AND UNABLE TO LEAVE MESSAGE. I CALLED [facility] AND ARRANGED PICKUP FOR 10:30A.M. TOMORROW. PHONE [phone] CODE FOR BILLING IS [id number]. CONFIRMATION NUMBER IS [id number]. THEY WILL SHAREMILKER PATIENT AT [facility] [place]. COST $2.75 SPENCER, THEY CARRY NO CHANGE. HAS TO BE EXACT. I CALLED [facility] AND INFORMED SLOAN AND SHE SAID THEY WOULD HAVE A NURSE AT THE HOUSE AT 2P.M. THEY WILL NEED A NEW ORDER FROM [facility] FOR THE CHANGE IN AMIKACIN. PHONE [facility] [phone]. I CALLED [facility] AND SPOKE WITH KRISTEN, X304 AND INFORMED HER. SHE SAID THEY PROVIDE THE PUMP, AND EQUIPMENT ALSO INCLUDING THE MEDICATION.. DID CHECK IF AV[place]ACUT[place], [place] [facility] [place] [facility]. LEFT MESSAGE AT IVR. Addendum: 12/07/17 at 1535 by Vero Lino CM DR. STANLEY INFORMED OF DC PLANS.
--- NOTE | 2017-12-07 15:35 | NUR ---
CALLED LAB. AMIKACIN LEVEL WON'T BE AVAILABLE FOR [address] STANLEY AWARE. [facility] WILL NEED COPY OF THE AMIKACIN LEVEL, FAX [phone] PHONE [phone] OR KRISTEN [phone] X [phone]
[2017-12-07 16:00] VITALS: BP 95/47
--- NOTE | 2017-12-07 16:15 | NUR ---
PATIENT SLEEPING. HAS NO SIGNS AND SYMPTOMS OF ACUTE DISTRESS NOTED AT THIS TIME.
--- NOTE | 2017-12-07 16:35 | NUR ---
CALLED [facility] AND SPOKE WITH KRISTEN. SHE SAID THAT THEY HAVE THE SUPPLIES AND MEDS SCHEDULED TO BE DELIVERED TO THE HOUSE BETWEEN 12 AND 2P.M. TOMORROW. KRISTEN SAID THEY WILL CALL THE FLOOR TOMORROW BEFORE THE PATIENT IS DISCHARGED TO CONFIRM DISCHARGE. SHE ALSO SAID THE AMIKACIN LEVEL IS NOT CRITICAL FOR THEM . THEY ARE STILL WORKING OUT THE ANTIBIOTIC DOSAGE AND TIMES AND WILL CONTACT [facility]. , PHONE [phone]. KRISTEN DIRECT,[phone]
[2017-12-07] MEDS: WARFARIN 1 MG TAB PO SCH (17:19)
--- NOTE | 2017-12-07 17:44 | NUR ---
PT REMAINS ON DOCUMENTED VENT SETTINGS. PT IS AWAKE AND ALERT AND NOT IN RESPIRATORY DISTRESS AT THIS TIME. VENT REMAINS PLUGGED INTO A RED OUTLET WITH ALARMS ON AND FUNCTIONING. Addendum: 12/07/17 at 1747 by Darron Bernal RT PT SPEAKING ON THE PHONE AT THIS TIME. NO SOB NOTED.
--- NOTE | 2017-12-07 18:04 | NUR ---
LATE ENTRY. PER DR. STANLEY, SHE WILL REVIEW THE [facility] TOMORROW FIRST TO DETERMINE IF PATIENT WILL BE DISCHARGED TOMORROW.
--- NOTE | 2017-12-07 19:16 | NUR ---
ENDORSED PATIENT TO GROUNDHAND RN FOR CONTINUITY OF CARE. PATIENT IN STABLE CONDITION.
--- NOTE | 2017-12-07 19:20 | NUR ---
RECEIVED REPORT FROM PRASHANTH BALDERAS DAYSHIFT NURSE AT BEDSIDE FOR CONTINUITY OF CARE. PT IN LOW BED WITH SIDE RAILS UP X 2. PT IS AOX4, SHE IS A VENT TO TRACH PT AND HAS AN INTACT GOSHONG R SUBCLAVIAN THAT IS RUNNING N/S AT 40MLS/HR. PT HOB UP 45%. SKIN INTACT AND PT HAS BOOT ON RIGHT FOOT TO PREVENT FOOT DROP. PT IS A FALL RISK AND HAS ALL FALL RISK PRECAUTIONS IN PLACE AT THIS TIME. RESPIRATIONS EVEN AND UNLABORED, ALTHOUGH PT IS REQUESTING BREATHING TREATMENT AND RESPIRATORY WAS AT BEDSIDE TO GIVE HER A TREATMENT. PT SAID THAT SHE HAD AN UPSET STOMACH AND WANTS HER ZOFRAN, HOWEVER PT SAID THAT IT TAKES TOO LONG TO HAVE ORAL ZOFRAN HAVE AN EFFECT FOR HER, SO SHE REQUESTED IVP. SHE ALSO FELT HER WHOLE BODY ACHING AND WANTS HER IVP MORPHINE FOR 7/10 PAIN. PRIMARY NURSE VERBALIZED UNDERSTANDING.
[2017-12-07 20:00] VITALS: BP 118/55
--- NOTE | 2017-12-07 20:45 | NUR ---
PT REQUEST ZOFRAN IVP FROM RESIDENT DO[facility] COVERING FOR HER PRIMARY DOCTOR ELOISE. RESIDENT DOCTORS ORDERED ZOFRAN IVP PRN REQUESTED BY RESIDENT. PT VITAL SIGNS ARE FOLLOWS T 98.1 P 86 R 22 B/P 118/55 02 100% WITH CURRENT VENT SETTINGS. PT ON THE PHONE WITH HER DAUGHTER. PT DECLIES TO BE TURNED AT THIS TIME
[2017-12-07] MEDS: ONDANSETRON 4 MG/2 ML VIAL IVP PRN (20:56)
--- NOTE | 2017-12-07 21:00 | NUR ---
PT GIVEN PRN MORPHINE AND PRN ZOFRAN FOR PAIN AND NAUSEA. PT ALSO CHANGED AND REPOSITIONED AT THIS TIME. ABT'S RUNNING ORDERED AND ALL NEEDS ATTENDED BY STAFF.
[2017-12-08] VITALS: BP 128/57
--- NOTE | 2017-12-08 00:30 | NUR ---
PT TURNED, CHANGED, AND REPOSITIONED. PT ALSO SUCTIONED X 2 DUE TO SECRETIONS, POSITIVE EFFECT NOTED. ALL SAFETY PRECAUTIONS IN PLACE AND CALL BRIGHT IN REACH.
[2017-12-08 04:00] VITALS: BP 142/65
[2017-12-08] MEDS: oxyCODONE/APAP 5/325 MG 1 TAB TAB PO PRN ×3 (04:52→18:44)
[2017-12-08] MEDS: LEVOTHYROXINE 0.075 MG TAB PO SCH (06:31)
[2017-12-08] MEDS: ALBUTEROL SULFATE/IPRATROPIU 3 ML SOL IH SCH ×3 (07:00→19:34)
--- NOTE | 2017-12-08 07:00 | NUR ---
rec'd pt on carescape vent settings ac14 vt 600 fio2 28% alarms on and audible ambu bag at hob, i\l tx given with duoneb 3ml with no adverse reaction post tx b\s are clear bilaterally,sxn pt small amt of white secretions, pt is trach with shiley 6 xlt and skin integrity is intact, pt is awake and alert with no signs of distress noted at this time
[2017-12-08 07:15] LABS: PROTHROMBIN TIME 14.1 secs (10.8-13.4)
--- NOTE | 2017-12-08 07:20 | NUR ---
RECEIVED REPORT FROM THE CRUSHER NURSE AT BEDSIDE FOR CONTINUITY OF CARE. PT IS AWAKE AND ORIENTED. INTRODUCED MYSELF AND UPDATED THE BOARD. PT HAS TRACH TO VENT. SETTING: FIO2 28%, VT 600, RESP 14, PEEP-0. HAS R SUBCLAVIAN TUNNEL CATH W/ 1 LUMEN. INFUSING NS AT 40ML/HR. LBM WAS YESTERDAY. POSSIBLE D/C TODAY. PT'S WBC IS DOWN FROM 21 TO 13.8 THIS MORNING. V/S WITHIN NORMAL RANGE. WILL CONTINUE TO MONITOR PT.
[2017-12-08 07:24] LABS: CARBON DIOXIDE 22.3 mmol/L (21-32); CREATININE 1.8 mg/dL (0.6-1.3); POTASSIUM 4.3 mmol/L (3.5-5.1)
[2017-12-08] MEDS: BLOOD GLUCOSE MONITORING 1 DEV DEV FS SCH ×4 (07:34→20:25)
[2017-12-08 07:36] LABS: BASOPHILS # (AUTO) 0.1 K/uL (0.00-0.22); BASOPHILS % (AUTO) 0.5 % (0.0-2.0); EOSINOPHILS # (AUTO) 0.5 K/uL (0-0.4); EOSINOPHILS % (AUTO) 3.8 % (0.0-4.0); HEMATOCRIT 22.6 % (36-48); HEMOGLOBIN 7.2 g/dL (12.0-16.0); LYMPHOCYTES # (AUTO) 2.7 K/uL (2.5-16.5); LYMPHOCYTES % (AUTO) 19.8 % (20.5-51.1); MEAN CORPUSCULAR HEMOGLOBIN 28 pg (27-31); MEAN CORPUSCULAR HGB CONC 32 g/dL (33-37); MEAN CORPUSCULAR VOLUME 88.5 fL (80-94); MONOCYTES # (AUTO) 0.8 K/uL (0.8-1.0); MONOCYTES % (AUTO) 6.1 % (1.7-9.3); NEUTROPHILS # (AUTO) 9.6 K/uL (1.8-7.7); NEUTROPHILS % (AUTO) 69.8 % (42.2-75.2); PLATELET COUNT (AUTO) 291 K/uL (140-450); RED BLOOD CELL COUNT(AUTO) 2.56 MIL/uL (4.20-5.40); RED CELL DISTRIBUTION WIDTH 16.6 % (11.6-13.7); WHITE BLOOD COUNT (AUTO) 13.8 K/uL (4.8-10.8)
[2017-12-08] MEDS: INSULIN LISPRO SLIDING SCALE 100 UNITS/ML VIAL SUBQ PRN ×2 (07:38→20:30)
[2017-12-08] MEDS: METOCLOPRAMIDE 10 MG TAB PO SCH ×3 (07:39→17:23)
[2017-12-08 07:51] LABS: PHOSPHORUS 2.9 mg/dL (2.5-4.9)
[2017-12-08 08:00] VITALS: BP 145/69
--- NOTE | 2017-12-08 08:48 | NUR ---
VENT CHECK, PT IS AWAKE AND ALERT WITH NO SIGNS OF DISTRESS NOTED, AIRWAY IS PATENT
[2017-12-08] MEDS: LACTULOSE 20 GM/30 ML UDC PO SCH (08:52)
[2017-12-08] MEDS: NACL 0.9% 1,000 ML IV SCH ×2 (08:52→15:33)
[2017-12-08] MEDS: GABAPENTIN 300 MG CAP PO SCH ×2 (08:53→20:29)
[2017-12-08] MEDS: VIT-B COMP/VIT-C/FOLIC ACID 1 TAB PO SCH (08:53)
[2017-12-08] MEDS: ATORVASTATIN 20 MG TAB PO SCH (08:53)
[2017-12-08] MEDS: MAGNESIUM OXIDE 400 MG TAB PO SCH (08:53)
[2017-12-08] MEDS: TAMSULOSIN 0.4 MG CAP PO SCH (08:53)
[2017-12-08] MEDS: DOCUSATE SODIUM 100 MG GELCAP PO SCH ×2 (08:54→20:29)
[2017-12-08] MEDS: CILOSTAZOL 100 MG TAB PO SCH ×2 (08:54→20:29)
[2017-12-08] MEDS: LACTOBACILLUS RHAMNOSUS GG 1 EACH CAP PO SCH (08:54)
[2017-12-08] MEDS: ALLOPURINOL 100 MG TAB PO SCH (08:54)
--- NOTE | 2017-12-08 09:00 | NUR ---
ADMINISTERED MORNING MEDS. PT TOLERATED WELL. PT ON THE PHONE WITH FAMILY. WILL CONTINUE TO MONITOR PT.
[2017-12-08] MEDS: AMIKACIN 500 MG in DEXTROSE 5% 100 ML IV SCH (09:02)
[2017-12-08] MEDS ORDERED: AMIK500I IV (09:05)
[2017-12-08] MEDS ORDERED: [UNRECOGNIZED DRUG - CODE] IV (09:05)
--- NOTE | 2017-12-08 09:29 | NUR ---
PATIENT IS FOR DC TODAY, WANTS TO APPEAL THE VINICIO, MD AWARE. CALLED TRANSPORTATION AND [facility] AND CANCELLED THE PHARMACOLOGY TEACHER.
--- NOTE | 2017-12-08 09:50 | NUR ---
PT UPSET. STATED THAT THE RESIDENT MD WAS RUDE BC PT STATED SHE APPEALED HER DC WITH MEDICARE ALREADY AND GOT 2 MORE DAYS. RESIDENT THREATENED TO WITHHOLD TX. WILL CALL TEST ANALYST AND WILL HAVE HER TALK TO PT.
--- NOTE | 2017-12-08 10:00 | NUR ---
KARIME, OVEN DRIER TENDER CAME AND SAW PT.
--- NOTE | 2017-12-08 10:59 | NUR ---
VENT CHECK, NO SXN NEEDED PT IS AWAKE WITH NO SIGNS OF DISTRESS NOTED
--- NOTE | 2017-12-08 11:55 | NUR ---
ADMINISTERED REGLAN AND PERCOCET FOR BACK PAIN. TOLERATED WELL. WILL CONTINUE TO MONITOR.
[2017-12-08 12:00] VITALS: BP 131/63
--- NOTE | 2017-12-08 13:10 | NUR ---
vent check, i\l tx given with duoneb 3ml with no adverse reaction post tx b\s are clear snx pt small amt of white secretions
--- NOTE | 2017-12-08 13:15 | NUR ---
PT WATCHING SOMETHING ON THE PHONE. R/T AT BEDSIDE DOING BREATHING TX. NO SIGNS OF DISTRESS. WILL CONTINUE TO MONITOR PT.
--- NOTE | 2017-12-08 14:57 | NUR ---
VENT CHECK, PT SLEEPING WITH NO SIGNS OF DISTRESS NOTED AT THIS TIME
--- NOTE | 2017-12-08 15:57 | NUR ---
CHANGED AND REPOSITIONED PT. PT IS NOW DRY AND CLEAN. PT TOLERATED WELL. WILL CONTINUE TO MONITOR PT.
[2017-12-08 16:00] VITALS: BP 88/47
--- NOTE | 2017-12-08 16:44 | NUR ---
VENT CHECK, TRACH CARE DONE : CHANGED TRACH GAUZE AND INNER CANNULA
[2017-12-08] MEDS: WARFARIN 1 MG TAB PO SCH (17:24)
--- NOTE | 2017-12-08 17:26 | NUR ---
ADMINISTERED AFTERNOON MEDS. PT TOLERATED WELL. WILL CONTINUE TO MONITOR PT.
--- NOTE | 2017-12-08 18:38 | NUR ---
PT C/O BLADDER PAIN. BLADDER SCAN WAS DONE. RETAINING 500ML URINE. PER MD, GO AHEAD AND STRAIGHT CATH PT. C/O PAIN. REQUESTED PAIN MEDS. WILL GIVE PERCOCET.
--- NOTE | 2017-12-08 18:50 | NUR ---
450ML URINE COLLECTED FROM STRAIGHT CATH. PT WAS SOILED. CHANGED AND REPOSITIONED PT. PT IN STABLE CONDITION.
--- NOTE | 2017-12-08 19:14 | NUR ---
ENDORSED PT TO THE CUSTOMER SALES REPRESENTATIVE NURSE AT BEDSIDE FOR CONTINUITY OF CARE. PT IS IN STABLE CONDITION.
--- NOTE | 2017-12-08 19:15 | NUR ---
RECEIVED REPORT FROM DAY SHIFT NURSE VANNA-RN AT BEDSIDE. PT AOX4-AWAKE, TRACH TO VENT WITH SETTINGS: FIO2 28%, VT 600, RESP 14, PEEP-0. RIGHT SUBCLAVIAN TUNNEL CATH W/ 1 LUMEN. INFUSING NS AT 40ML/HR. DISCUSSED PLAN OF CARE AND PT VERBALIZED UNDERSTANDING. NO S/S OF RESPIRATORY DISTRESS OR DISCOMFORT AT THIS TIME. WHITE BOARD UPDATED. BED IN LOWEST POSITION, BED BREAKS ON, BOTH PATHOLOGY SECRETARY TAILS UP AND PADDED FOR SEIZURE PRECAUTIONS, BED ALARM ON. BED SIDE TABLE AND CALL LIGHT ARE WITHIN REACH. WILL CONTINUE TO MONITOR.
--- NOTE | 2017-12-08 19:42 | NUR ---
RECEIVED PT STABLE ON VENT SUPPORT AT DOCUMENTED SETTINGS, HHN TX GIVEN, TOLERATED WELL, NO RESP DISTRESS OR SOB NOTED AT THIS TIME, PT AWAKE, ALERT AND COMFORTABLE, SHILEY 6 XLT TRACH SECURED/PATENT/MIDLINE, ALARMS SET AND AUDIBLE, AMBU BAG AT BEDSIDE, VENT PLUGGED INTO RED OUTLET, PULSE OX ON, WILL CONT TO MONITOR.
[2017-12-08 20:00] VITALS: BP 120/71
--- NOTE | 2017-12-08 20:00 | NUR ---
VITAL SIGNS TAKEN AND TOLERATED WELL. NO S/S OF RESPIRATORY DISTRESS OR DISCOMFORT. WILL CONTINUE TO MONITOR.
--- NOTE | 2017-12-08 20:20 | NUR ---
BLOOD GLUCOSE 172-WILL ADMINISTER INSULIN COVERAGE.
--- NOTE | 2017-12-08 20:30 | NUR ---
SCHEDULED MEDICATIONS GIVEN AND TOLERATED WELL. NO S/S OF RESPIRATORY DISTRESS OR DISCOMFORT NOTED AT THIS TIME. WILL CONTINUE TO MONITOR.
--- NOTE | 2017-12-08 20:31 | NUR ---
INSULIN COVERAGE GIVEN. PT TOLERATED WELL. NO S/S OF RESPIRATORY DISTRESS OR DISCOMFORT NOTED AT THIS TIME. WILL CONTINUE TO MONITOR.
--- NOTE | 2017-12-08 22:30 | NUR ---
PT RESTING IN BED PLAYING WITH CELLPHONE. NO S/S OF RESPIRATORY DISTRESS OR DISCOMFORT NOTED AT THIS TIME. WILL CONTINUE TO MONITOR.
[2017-12-09] VITALS: BP 116/59
--- NOTE | 2017-12-09 | NUR ---
VITAL SIGNS TAKEN AND TOLERATED WELL. NO S/S OF RESPIRATORY DISTRESS OR DISCOMFORT NOTED AT THIS TIME. PT CONTINUES TO PLAY WITH HER PHONE. WILL CONTINUE TO MONITOR.
--- NOTE | 2017-12-09 02:00 | NUR ---
PT RESTING IN BED. NO S/S OF RESPIRATORY DISTRESS OR DISCOMFORT NOTED AT THIS TIME. WILL CONTINUE TO MONITOR.
--- NOTE | 2017-12-09 03:10 | NUR ---
PT C/O PAIN 01/20 REQUESTING MORPHINE IVP. SPOKE WITH MD ABOUT PT REQUEST. MD ASKED TO USE BLADDER SCAN. RESULTS INDICATED 134ML OF URINE IN BLADDER. MD AWARE AND SAID SHE WOULD PUT IN NEW ORDERS FOR IVP MEDICATION.
[2017-12-09] MEDS ORDERED: KETOROLAC 15 MG/ML VIAL IM SCH (03:45)
[2017-12-09 04:00] VITALS: BP 111/53
[2017-12-09] MEDS ORDERED: KETOROLAC 15 MG/ML VIAL IVP SCH (04:00)
--- NOTE | 2017-12-09 04:00 | NUR ---
VITAL SIGNS TAKEN AND TOLERATED WELL. MEDICATED PT FOR PAIN. PT TOLERATED WELL. NO S/S OF RESPIRATORY DISTRESS. WILL CONTINUE TO MONITOR.
--- NOTE | 2017-12-09 05:50 | NUR ---
BLOOD GLUCOSE 158-WILL ADMINISTER INSULIN COVERAGE.
--- NOTE | 2017-12-09 06:00 | NUR ---
DR. DOROTHEA STANLEY ORDERED PT TO HAVE DURAN CATHETER DC HOWEVER PT DOES NOT HAVE DURAN CATHETER. SPOKE WITH DR. STANLEY AND SHE STATED, "I KNOW. WE DID THE STRAIGHT CATH. PLEASE DISREGARD THAT."
[2017-12-09] MEDS: LEVOTHYROXINE 0.075 MG TAB PO SCH (06:33)
[2017-12-09] MEDS: METOCLOPRAMIDE 10 MG TAB PO SCH ×3 (06:33→16:05)
[2017-12-09] MEDS: INSULIN LISPRO SLIDING SCALE 100 UNITS/ML VIAL SUBQ PRN (06:36)
[2017-12-09] MEDS: BLOOD GLUCOSE MONITORING 1 DEV DEV FS SCH ×4 (06:40→20:12)
[2017-12-09] MEDS: ALBUTEROL SULFATE/IPRATROPIU 3 ML SOL IH SCH ×3 (06:52→19:08)
--- NOTE | 2017-12-09 06:53 | NUR ---
RECEIVED PT ON CARESCAPE ON DOCUMENTED SETTINGS PTS TRACH SHILEY XLT SIZE 6 IS SECURE PT IN HF ALERT HHN GVINE I\L WITH 3 MG DUONEB ALARMS ARE ON AND AUDIBLE BMV HOB VENT PLUGGED INTO RED OUTLET CONT. POX IN PLACE
[2017-12-09 07:19] LABS: CARBON DIOXIDE 22.2 mmol/L (21-32); CREATININE 1.6 mg/dL (0.6-1.3); POTASSIUM 4.2 mmol/L (3.5-5.1)
--- NOTE | 2017-12-09 07:22 | NUR ---
ENDORSED PT CARE TO DAY SHIFT NURSE BOB FOR CONTINUITY OF CARE.
--- NOTE | 2017-12-09 07:30 | NUR ---
RECEIVED PT REPORT FROM BOOM CAT OPERATOR NURSE AT BEDSIDE. PT AAOX4, TRACH TO VENT WITH SETTINGS: FIO2 28%, VT 600, RESP 14, PEEP 0. RIGHT SUBCLAVIAN TUNNEL CATH W/ 1 LUMEN, INFUSING NS AT 40ML/HR. DISCUSSED PLAN OF CARE AND PT VERBALIZED UNDERSTANDING. NO S/S OF RESPIRATORY DISTRESS OR DISCOMFORT AT THIS TIME. WHITE BOARD UPDATED. BED IN LOWEST POSITION, BED BREAKS ON, SEIZURE PRECAUTIONS IN PLACE, BED ALARM ON. CALL LIGHT WITHIN REACH. WILL CONTINUE TO MONITOR.
[2017-12-09 07:35] LABS: PROTHROMBIN TIME 13.3 secs (10.8-13.4)
[2017-12-09 08:00] VITALS: BP 140/69
[2017-12-09] MEDS: DOCUSATE SODIUM 100 MG GELCAP PO SCH ×2 (09:42→20:11)
[2017-12-09] MEDS: MAGNESIUM OXIDE 400 MG TAB PO SCH (09:42)
[2017-12-09] MEDS: VIT-B COMP/VIT-C/FOLIC ACID 1 TAB PO SCH (09:43)
[2017-12-09] MEDS: CILOSTAZOL 100 MG TAB PO SCH ×2 (09:43→20:11)
[2017-12-09] MEDS: LACTOBACILLUS RHAMNOSUS GG 1 EACH CAP PO SCH (09:43)
[2017-12-09] MEDS: GABAPENTIN 300 MG CAP PO SCH ×2 (09:43→20:11)
[2017-12-09] MEDS: TAMSULOSIN 0.4 MG CAP PO SCH (09:43)
[2017-12-09] MEDS: ALLOPURINOL 100 MG TAB PO SCH (09:44)
[2017-12-09] MEDS: LACTULOSE 20 GM/30 ML UDC PO SCH (09:44)
[2017-12-09] MEDS: ATORVASTATIN 20 MG TAB PO SCH (09:44)
--- NOTE | 2017-12-09 10:05 | NUR ---
PT WAS CLEANED, BMX1, APPLIED PT'S OWN CREAM TO BUTTOCK, AND APPLIED PT'S OWN BRIEF. Addendum: 12/09/17 at 1430 by Mesfin Suarez RN YELLOW SOFT STOOL
[2017-12-09] MEDS: NACL 0.9% 1,000 ML IV SCH (10:25)
[2017-12-09 12:00] VITALS: BP 145/77
--- NOTE | 2017-12-09 14:15 | NUR ---
KOSTA FROM TRANSPORTATION CALLED AND MADE HIM AWARE THAT PATIENT WILL BE D/C TOMORROW.
--- NOTE | 2017-12-09 14:32 | NUR ---
SPOKE TO EBEN FROM [facility] AND INFORMED HER REGARDING PLAN D/C OF THE PATIENT AND FAXED NEW ORDER. NOTIFIED [facility] AND SPOKE TO CHANTEL REGARDING D/C PLAN TOMORROW.
[2017-12-09 16:00] VITALS: BP 143/69
[2017-12-09] MEDS: WARFARIN 1 MG TAB PO SCH (16:08)
[2017-12-09] MEDS ORDERED: WARFARIN 1 MG TAB PO SCH (16:21)
--- NOTE | 2017-12-09 17:00 | NUR ---
PT C/O LOWER ABD PAIN, PERFORMED BLADDER SCAN 484ML URINE. NOTIFIED DR LARKIN. OBTAINED ORDER FOR STRAIGHT CATH. STRAIGHT CATH WAS DONE, 425ML URINE REMOVED.
[2017-12-09 17:44] LABS: BASOPHILS % (AUTO) 0.4 % (0.0-2.0); EOSINOPHILS # (AUTO) 0.5 K/uL (0-0.4); EOSINOPHILS % (AUTO) 4.5 % (0.0-4.0); HEMATOCRIT 22.4 % (36-48); LYMPHOCYTES # (AUTO) 2.7 K/uL (2.5-16.5); LYMPHOCYTES % (AUTO) 23.6 % (20.5-51.1); MEAN CORPUSCULAR HEMOGLOBIN 28 pg (27-31); MEAN CORPUSCULAR HGB CONC 31 g/dL (33-37); MEAN CORPUSCULAR VOLUME 89.4 fL (80-94); MONOCYTES # (AUTO) 0.7 K/uL (0.8-1.0); MONOCYTES % (AUTO) 6.6 % (1.7-9.3); NEUTROPHILS # (AUTO) 7.3 K/uL (1.8-7.7); NEUTROPHILS % (AUTO) 64.9 % (42.2-75.2); PLATELET COUNT (AUTO) 282 K/uL (140-450); RED CELL DISTRIBUTION WIDTH 16.3 % (11.6-13.7); WHITE BLOOD COUNT (AUTO) 11.2 K/uL (4.8-10.8)
[2017-12-09] MEDS: oxyCODONE/APAP 5/325 MG 1 TAB TAB PO PRN ×2 (17:58→23:46)
--- NOTE | 2017-12-09 19:20 | NUR ---
ENDORSED PT TO MARINE DIESEL TECHNICIAN RN. PT IS IN STABLE CONDITION
--- NOTE | 2017-12-09 19:21 | NUR ---
RECEIVED REPORT FROM DAY SHIFT NURSE SHILOH-RN AT BEDSIDE. PT AOX4-AWAKE, TRACH TO VENT WITH SETTINGS: FIO2 28%, VT 600, RESP 14, PEEP-0. RIGHT SUBCLAVIAN TUNNEL CATH W/ 1 LUMEN. INFUSING NS AT 40ML/HR. DISCUSSED PLAN OF CARE AND PT VERBALIZED UNDERSTANDING. NO S/S OF RESPIRATORY DISTRESS OR DISCOMFORT AT THIS TIME. WHITE BOARD UPDATED. BED IN LOWEST POSITION, BED BREAKS ON, BOTH HEAVY DUTY MECHANIC TAILS UP AND PADDED FOR SEIZURE PRECAUTIONS, BED ALARM ON. BED SIDE TABLE AND CALL LIGHT ARE WITHIN REACH. WILL CONTINUE TO MONITOR.
--- NOTE | 2017-12-09 19:40 | NUR ---
BLOOD GLUCOSE 146-NO INSULIN NEEDED
--- NOTE | 2017-12-09 19:58 | NUR ---
PT C/O PAIN 02/11 WANTING IVP MEDICATION STATING IT WORKS BETTER THAN PO MEDICATION. SPOKE WITH DR. MAYEN AND HE SAID HE WOULD PUT AN ORDER FOR TORADOL-SAME PAIN MEDICATION THAT WAS GIVEN EARLY THIS MORNING AND PT TOLERATED WELL STATING IT WORKED FOR HER.
[2017-12-09 20:00] VITALS: BP 145/106
--- NOTE | 2017-12-09 20:00 | NUR ---
VITAL SIGNS TAKEN AND TOLERATED WELL. NO S/S OF RESPIRATORY DISTRESS OR DISCOMFORT NOTED AT THIS TIME. WILL CONTINUE TO MONITOR.
--- NOTE | 2017-12-09 20:15 | NUR ---
SCHEDULED MEDICATION GIVEN AND TOLERATED WELL. NO S/S OF RESPIRATORY DISTRESS OR DISCOMFORT NEEDED AT THIS TIME. WILL CONTINUE TO MONITOR.
[2017-12-09] MEDS: AMIKACIN 500 MG in DEXTROSE 5% 100 ML IV SCH (21:07)
[2017-12-09] MEDS: KETOROLAC 15 MG/ML VIAL IVP PRN (21:08)
--- NOTE | 2017-12-09 21:10 | NUR ---
SCHEDULED MEDICATION GIVEN. PAIN MEDICATION ALSO GIVEN AND TOLERATED WELL. NO S/S OF RESPIRATORY DISTRESS OR DISCOMFORT NOTED AT THIS TIME. WILL CONTINUE TO MONITOR.
[2017-12-09] MEDS: ALBUTEROL SULFATE/IPRATROPIU 3 ML SOL IH PRN (23:11)
--- NOTE | 2017-12-09 23:30 | NUR ---
PT CONTINUES TO C/O PAIN. UNABLE TO CONTACT MD. PT AGREED TO TAKE PO MEDICATION SINCE IVP MEDICATION IS CURRENTLY UNAVAILABLE. WILL ALSO BLADDER SCAN.
--- NOTE | 2017-12-09 23:50 | NUR ---
VITAL SIGNS TAKEN AND TOLERATED WELL. PAIN MEDICATION GIVEN AND TOLERATED WELL. BLADDER SCAN REVILED AN ESTIMATED 410ML OF URINE. WILL NOTIFY MD TO PLACE ORDER FOR STRAIGHT CATHETER. PT ALSO C/O NO LARGE BOWEL MOVEMENT FOR 2 DAYS AND IS REQUESTING FLEET ENEMA. WILL ADMINISTER.
[2017-12-10] VITALS: BP 144/70
[2017-12-10] MEDS: SODIUM PHOSPHATE 118 ML ENEM RC PRN (00:26)
--- NOTE | 2017-12-10 00:34 | NUR ---
STRAIGHT CATHETERIZATION RESULTED 600ML OF URINE. IT FIRST CAME OUT CLEAR AND THE BLADDER EMPTIED, URINE BECAME CLOUDY. THIS HELPED RELIEVE PT OF ABDOMINAL PAIN BUT ALSO WANTED FLEET ENEMA. THERE WAS SOME STOOL AROUND ANUS. FLEET ENEMA GIVEN AND TOLERATED WELL. PT BEGAN TO FEEL CRAMPING AND SOME RELIEF. STOOL SOFT WITHOUT FORM, WET AND BROWN. PT WILL CONTINUE TO TRY AND PUSH STOOL. PT IS TO CALL WHEN FINISHED. WILL CONTINUE TO MONITOR.
--- NOTE | 2017-12-10 01:00 | NUR ---
PT WAS GIVEN BED BATH, NOW GOWN, LINENS AND MADE COMFORTABLE POSSIBLE. PT NO LONGER C/O PAIN. FEELING RELIEF FROM STRAIGHT CATHETER AND FLEET ENEMA. NO S/S OF RESPIRATORY DISTRESS OR DISCOMFORT. WILL CONTINUE TO MONITOR.
--- NOTE | 2017-12-10 03:00 | NUR ---
PT RESTING IN BED. NO S/S OF RESPIRATORY DISTRESS OR DISCOMFORT NOTED AT THIS TIME. WILL CONTINUE TO MONITOR.
[2017-12-10 04:00] VITALS: BP 137/68
--- NOTE | 2017-12-10 04:00 | NUR ---
VITAL SIGNS TAKEN AND TOLERATED WELL. NO S/S OF RESPIRATORY DISTRESS OR DISCOMFORT. WILL CONTINUE TO MONITOR.
--- NOTE | 2017-12-10 05:50 | NUR ---
BLOOD GLUCOSE 156-INSULIN COVERAGE NEEDED.
[2017-12-10] MEDS: METOCLOPRAMIDE 10 MG TAB PO SCH ×2 (06:32→12:15)
[2017-12-10] MEDS: INSULIN LISPRO SLIDING SCALE 100 UNITS/ML VIAL SUBQ PRN (06:33)
[2017-12-10] MEDS: LEVOTHYROXINE 0.075 MG TAB PO SCH (06:33)
[2017-12-10] MEDS: BLOOD GLUCOSE MONITORING 1 DEV DEV FS SCH ×2 (06:34→11:33)
--- NOTE | 2017-12-10 06:35 | NUR ---
SCHEDULED MEDICATIONS GIVEN AND TOLERATED WELL. INSULIN COVERAGE GIVEN. NO S/S OF RESPIRATORY DISTRESS OR DISCOMFORT AT THIS TIME. WILL CONTINUE TO MONITOR.
[2017-12-10] MEDS: ALBUTEROL SULFATE/IPRATROPIU 3 ML SOL IH SCH ×2 (06:51→13:31)
--- NOTE | 2017-12-10 06:57 | NUR ---
REC'D PT ON CARESCAPE VENT SETTING AC14 VT 600 FIO2 28% ALARMS ON AND AUDIBLE AND VENT IS PLUGGED INTO RED OUTLER, I\L TX GIVEN WITH DIUNEB WITH SINGS OF DISTRESS NOTED PT DID NOT WANT TO BE SNX PT IS GABE BUSCH AND SKIN INTEGRITY IS INTACT
[2017-12-10] MEDS ORDERED: CEFT1PDS IV (07:06)
--- NOTE | 2017-12-10 07:13 | NUR ---
ENDORSED PT CARE TO DAY SHIFT NURSE BOB FOR CONTINUITY OF CARE.
--- NOTE | 2017-12-10 07:20 | NUR ---
RECEIVED PT REPORT FROM NEUROLOGY SPECIALIST NURSE AT BEDSIDE. PT IS AAOX4, TRACH TO VENT WITH SETTINGS: FIO2 28%, VT 600, RESP 14, PEEP 0. RIGHT SUBCLAVIAN TUNNEL CATH W/ 1 LUMEN, INFUSING NS AT 40ML/HR. DISCUSSED PLAN OF CARE AND PT VERBALIZED UNDERSTANDING. NO S/S OF RESPIRATORY DISTRESS OR DISCOMFORT AT THIS TIME. VITALS TAKEN, WHITE BOARD UPDATED. BED IN LOWEST POSITION, BED BREAKS ON, SEIZURE PRECAUTIONS IN PLACE, BED ALARM ON. CALL LIGHT WITHIN REACH. WILL CONTINUE TO MONITOR.
[2017-12-10 07:54] LABS: ANION GAP 12.2 (8-16); CARBON DIOXIDE 22.9 mmol/L (21-32); CREATININE 1.7 mg/dL (0.6-1.3); POTASSIUM 4.1 mmol/L (3.5-5.1)
[2017-12-10 08:00] VITALS: BP 119/70
[2017-12-10 08:03] LABS: PROTHROMBIN TIME 13.7 secs (10.8-13.4)
[2017-12-10] MEDS: LACTULOSE 20 GM/30 ML UDC PO SCH (09:16)
[2017-12-10] MEDS: ATORVASTATIN 20 MG TAB PO SCH (09:16)
[2017-12-10] MEDS: CILOSTAZOL 100 MG TAB PO SCH (09:16)
[2017-12-10] MEDS: VIT-B COMP/VIT-C/FOLIC ACID 1 TAB PO SCH (09:16)
[2017-12-10] MEDS: DOCUSATE SODIUM 100 MG GELCAP PO SCH (09:16)
[2017-12-10] MEDS: TAMSULOSIN 0.4 MG CAP PO SCH (09:16)
[2017-12-10] MEDS: GABAPENTIN 300 MG CAP PO SCH (09:17)
[2017-12-10] MEDS: MAGNESIUM OXIDE 400 MG TAB PO SCH (09:17)
[2017-12-10] MEDS: ALLOPURINOL 100 MG TAB PO SCH (09:17)
[2017-12-10] MEDS: EPOETIN ALFA 10,000 UNITS/ML VIAL IV SCH (09:18)
--- NOTE | 2017-12-10 09:20 | NUR ---
PER DR. NAVAS PATIENT HAS AGREED TO GO HOME TODAY AND SHE ALREADY SET UP TRANSPORT FOR 3P.M. I CALLED A AND SPOKE WITH SLOAN, , AND INFORMED HER. SHE ASKED ME TO FAX THE NEW ORDER TO HER AT [phone] INCLUDING ORDER FOR HOME HEALTH SAFETY EVAL FRO [place] CATHETER DRESSING CHANGES AND WEEKLY STRAIGHT CATH. SLOAN SAID THEY CANNOT SEE THE PATIENT TODAY BUT CAN BE THERE AT 8:30A.M. TOMORROW. I INFORMED DR. STANLEY. [facility] AND LEFT MESSAGE WITH KRISTEN, [phone]. I FAXED THE ORDER TO HER AT [phone].
--- NOTE | 2017-12-10 09:56 | NUR ---
RECEIVED A CALL FROM KRISTEN FROM [facility] AND I INFORMED HER THAT THE PATIENT WAS GOING HOME TODAY, TRANSPORT AT 3P.M. I ALSO GAVE HER THE BUN AN CR AND AMIKACIN LEVEL AND INFORMED HER THAT THE AMIKACIN WAS GIVEN LAST NIGHT AT 2100. SHE SAID SHE WOULD CALL THE DAUGHTER TO HAVE THE SUPPLIES SENT TODAY.
[2017-12-10] MEDS: LACTOBACILLUS RHAMNOSUS GG 1 EACH CAP PO SCH (09:57)
[2017-12-10] MEDS: KETOROLAC 15 MG/ML VIAL IVP PRN (09:57)
--- NOTE | 2017-12-10 10:00 | NUR ---
PT WAS CLEANED BY DUMP WORKER, REPOSITIONED. DIAPER CHANGED, APPLIED PT'S OWN CREAM. NO OPEN SKIN NOTED.
--- NOTE | 2017-12-10 11:04 | NUR ---
vent check, pt did not want to be sxn pt awake
[2017-12-10 12:00] VITALS: BP 131/66
--- NOTE | 2017-12-10 12:41 | NUR ---
Director Telecommunications Notes: I attempted to contact Isaura from [facility] at to inform her that patient will be discharging today and will need and to resume her Home Health care for IV antibiotics. I faxed at patient's Clinical Information, and MD order and I will follow up with another call to to confirmed that faxed was relieved in a later time today.
[2017-12-10] MEDS: ONDANSETRON 4 MG/2 ML VIAL IVP PRN (13:13)
--- NOTE | 2017-12-10 13:30 | NUR ---
Transportation Inspector Notes: I meet with patient to discuss and confirm her discharge today. I informed Patient that [facility] Home health will be attending tomorrow at 8:30 to continue with Patient's care and that Supplies will be arriving tonight at patient's home. Patient was happy to hear the updated information in regards to her medications and supplies as well having nurses be already scheduled to continue with her care at home. Patient agreed to discharge today and stated she had made arrangements for he own transportation at 15:00.
--- NOTE | 2017-12-10 13:31 | NUR ---
.VENT CHECK, I\L TX GIVEN WITH DUONEB 3ML WITH NO ADVERSE REACTION POST TX SXN PTSMALL AMT OF CLEAR SECRETIONS PT IS AWAKE
--- NOTE | 2017-12-10 14:10 | NUR ---
Lead Pourer Notes: Isaura COBOS Call me back stating that they have been notified by field nurse case manager Vero that Patient will be discharging today and they will visiting patient tomorrow at about 8:30 for home care. She thanked me for the follow up and information.
--- NOTE | 2017-12-10 14:30 | NUR ---
PT WAS DISCHARGED PER MD ORDER. DISCHARGE INSTRUCTIONS AND MEDICATIONS TEACHING PROVIDED. PT VERBALIZED UNDERSTANDING. PT HAS BEEN DRESSED, TRANSFERRED TO THE POWERED WHEEL CHAIR BY VENECIA LIFT. GROSHONG CENTRAL LINE FLUSHED, CLAMPED, CAPPED.
--- NOTE | 2017-12-10 14:51 | NUR ---
1209 RECEIVED VOICEMAIL FROM CARMINE AT [facility] STATING THAT PT HAD REQUESTED AN APPEAL AND THE DETERMINATION WAS THAT MEDICARE SERVICES WOULD TERMINATE TODAY THE LAST COVERED DAY AND PT WOULD BE LIABLE FOR CONTINUED STAY OF TOMORROW. CASE #[id number] CALL BACK NUMBER [phone] AND THAT A WRITTEN DETERMINATION WOULD BE MAILED.
--- NOTE | 2017-12-10 15:05 | NUR ---
PT WAS CONNECTED TO HER PORTABLE VENT. SAME SETTING BEFORE, RR 14, PEEP 0, TV 600. FIO2 28. ALL DISCHARGE PAPER SIGNED. TELE REMOVED. PT LEFT WITH ALL HER BELONGING AND IN STABLE CONDITION. PT'S DAUGHTER IS WAITING FOR THE PT BY THE LOBBY.
[2017-12-10] MEDS ORDERED: WARFARIN 1 MG TAB PO SCH (17:00)
== END 2017-12-10 15:05 | disposition home health service (06) | DRG 870 ==
LOC: MED 15:49 → MTU 18:23
PROVIDERS: ADMIT General Practice; ATTEND General Practice
PROC: 5A1955Z Respiratory Ventilation, Greater than 96 Consecutive Hours (ICD-10-PCS; principal; 2017-11-14)
PROC: 05H733Z Insertion of Infusion Device into Right Axillary Vein, Percutaneous Approach (ICD-10-PCS; 2017-11-15)
PROC: B54MZZA Ultrasonography of Right Upper Extremity Veins, Guidance (ICD-10-PCS; 2017-11-15)
PROC: 05H833Z Insertion of Infusion Device into Left Axillary Vein, Percutaneous Approach (ICD-10-PCS; 2017-11-17)
PROC: B54NZZA Ultrasonography of Left Upper Extremity Veins, Guidance (ICD-10-PCS; 2017-11-17)
PROC: 05HD33Z Insertion of Infusion Device into Right Cephalic Vein, Percutaneous Approach (ICD-10-PCS; 2017-11-26)
PROC: B54MZZA Ultrasonography of Right Upper Extremity Veins, Guidance (ICD-10-PCS; 2017-11-26)
PROC: B548ZZA Ultrasonography of Superior Vena Cava, Guidance (ICD-10-PCS; 2017-12-04)
PROC: 0JH63XZ Insertion of Tunneled Vascular Access Device into Chest Subcutaneous Tissue and Fascia, Percutaneous Approach (ICD-10-PCS; 2017-12-04)
PROC: 02HV33Z Insertion of Infusion Device into Superior Vena Cava, Percutaneous Approach (ICD-10-PCS; 2017-12-04)
PROC: B5181ZA Fluoroscopy of Superior Vena Cava using Low Osmolar Contrast, Guidance (ICD-10-PCS; 2017-12-04)
PROC: 30233N1 Transfusion of Nonautologous Red Blood Cells into Peripheral Vein, Percutaneous Approach (ICD-10-PCS; 2017-12-05)
DX: A41.9 Sepsis, unspecified organism (principal); J69.0 Pneumonitis due to inhalation of food and vomit; N17.0 Acute kidney failure with tubular necrosis; J96.21 Acute and chronic respiratory failure with hypoxia; R53.2 Functional quadriplegia; J15.6 Pneumonia due to other Gram-negative bacteria; J15.1 Pneumonia due to Pseudomonas; E43 Unspecified severe protein-calorie malnutrition; N39.0 Urinary tract infection, site not specified; D68.59 Other primary thrombophilia; I24.9 Acute ischemic heart disease, unspecified; Z99.11 Dependence on respirator [ventilator] status; J44.0 Chronic obstructive pulmonary disease with (acute) lower respiratory infection; I45.2 Bifascicular block; Z93.0 Tracheostomy status; E11.51 Type 2 diabetes mellitus with diabetic peripheral angiopathy without gangrene; B96.5 Pseudomonas (aeruginosa) (mallei) (pseudomallei) as the cause of diseases classified elsewhere; E66.01 Morbid (severe) obesity due to excess calories; I11.0 Hypertensive heart disease with heart failure; I50.9 Heart failure, unspecified; E83.42 Hypomagnesemia; E11.69 Type 2 diabetes mellitus with other specified complication; I07.1 Rheumatic tricuspid insufficiency; I27.20 Pulmonary hypertension, unspecified; E11.65 Type 2 diabetes mellitus with hyperglycemia; Y95 Nosocomial condition; K59.00 Constipation, unspecified; I45.10 Unspecified right bundle-branch block; J20.9 Acute bronchitis, unspecified; E03.9 Hypothyroidism, unspecified; E78.5 Hyperlipidemia, unspecified; G40.909 Epilepsy, unspecified, not intractable, without status epilepticus; K21.9 Gastro-esophageal reflux disease without esophagitis; I25.10 Atherosclerotic heart disease of native coronary artery without angina pectoris; N20.0 Calculus of kidney; Z74.01 Bed confinement status; Z86.718 Personal history of other venous thrombosis and embolism; Z98.1 Arthrodesis status; Z88.8 Allergy status to other drugs, medicaments and biological substances; Z88.6 Allergy status to analgesic agent; Z68.32 Body mass index [BMI] 32.0-32.9, adult; Z88.1 Allergy status to other antibiotic agents; Z86.73 Personal history of transient ischemic attack (TIA), and cerebral infarction without residual deficits; I25.2 Old myocardial infarction; Z98.891 History of uterine scar from previous surgery; Z71.6 Tobacco abuse counseling; Z71.3 Dietary counseling and surveillance
CPT/HCPCS: 36415; 70360; 71045; 71250; 76536; 76705; 80048; 80053; 80150; 80200; 80305; 81001; 82150; 82550; 82553; 82948; 83036; 83605; 83690; 83735; 83874; 83880; 84100; 84436; 84439; 84443; 84479; 84484; 85025; 85610; 85730; 86886; 86900; 86901; 86920; 87040; 87070; 87081; 87086; 87186; 87205; 89220; 93005; 93925; 93970; 94003; 94640; 99285; C1751; C1758; J0278; J0690; J0713; J0885; J1100; J1170; J1644; J1815; J1885; J1940; J1956; J2001; J2250; J2270; J2370; J2405; J2550; J2704; J3010; J3260; J3475; J3490; J7030; J7060; J7613; J7620; J8597; P9016; Q0092; Q0163; S0119

== ENCOUNTER 2018-10-27 09:27 | Inpatient (IN) | payer OTHER, MEDICAID ==
[~2018-10-27] VITALS: Ht 167.6 cm; Wt 99.8 kg
[~2018-10-27 09:27] MED LIST changes: +AMIK500I IV; +ASPI-1677 PO; +CEFT1PDS IV; +ONDA-25 PO; -ONDA8ODT2 PO; -[UNRECOGNIZED DRUG - CODE]
--- NOTE | 2018-10-27 09:29 | NUR ---
Patient to bed 10. RN evaluating patient at bedside.
[2018-10-27 09:38] VITALS: BP 122/54
--- NOTE | 2018-10-27 09:45 | NUR ---
BIB DAUGHTER WITH C/O LESS URINE OUT PUT AND RIGHT FLANK PAIN, STATED DURAN CATHETER WAS CHANGED YESTERDAY, AND PT WAS DISCHARGED FORM VERÓNICA CHAPMAN 2 DAYS AGO. DENIES N/V/D; SKIN IS PINK/WARM/DRY; AAOX4 WITH EVEN AND STEADY GAIT; LUNGS CLEAR BL; HR EVEN AND REGULAR; PT DENIES ANY FEVER, CP, SOB, OR COUGH AT THIS TIME; PATIENT STATES RIGHT FLANK PAIN OF 9/10 AT THIS TIME; VSS; PATIENT POSITIONED FOR COMFORT; HOB ELEVATED; BEDRAILS UP X1 SINCE VENTILATOR ON THE OTHER SIDE AND DAUGHTER AT BEDSIDE TO PREVENT HER FALL; BED DOWN. ER MD MADE AWARE OF PT STATUS.
[2018-10-27] MEDS ORDERED: LIDOCAINE JELLY 2% 30 ML TUBE TP ONE ×2 (10:10→10:14)
--- NOTE | 2018-10-27 10:15 | NUR ---
Suárez Catheter , size 16, was inserted and 5 ml urine came out. Urine is yellow with casts.
[2018-10-27] MEDS ORDERED: CHOL200072 PO (10:20)
[2018-10-27] MEDS ORDERED: PANT40EC28 PO (10:20)
[2018-10-27] MEDS ORDERED: MAGN240P PO (10:20)
[2018-10-27] MEDS ORDERED: NACL 0.9% 500 ML IV SCH (11:08)
--- NOTE | 2018-10-27 11:23 | NUR ---
as per pt and tool grinding technician, she can swallow pills when asked what she takes for analgesia; she takes oxycodone ---pt upbeat at this time; speaking with staff rt graphic user interface designer rn and others- smiling recongnizing staff also working at other hospital pt has been seen. admits to feeling lethargic and not herself as well as with fever.
[2018-10-27 12:20] LABS: BASOPHILS # (AUTO) 0.1 K/uL (0.00-0.22); BASOPHILS % (AUTO) 0.2 % (0.0-2.0); EOSINOPHILS # (AUTO) 0.1 K/uL (0-0.4); EOSINOPHILS % (AUTO) 0.3 % (0.0-4.0); HEMATOCRIT 33.2 % (36-48); HEMOGLOBIN 10.4 g/dL (12.0-16.0); LYMPHOCYTES # (AUTO) 1.1 K/uL (2.5-16.5); LYMPHOCYTES % (AUTO) 4.9 % (20.5-51.1); MEAN CORPUSCULAR HEMOGLOBIN 29 pg (27-31); MEAN CORPUSCULAR HGB CONC 31 g/dL (33-37); MEAN CORPUSCULAR VOLUME 92.1 fL (80-94); NEUTROPHILS # (AUTO) 19.3 K/uL (1.8-7.7); NEUTROPHILS % (AUTO) 85.6 % (42.2-75.2); PLATELET COUNT (AUTO) 225 K/uL (140-450); RED CELL DISTRIBUTION WIDTH 19.9 % (11.6-13.7); WHITE BLOOD COUNT (AUTO) 22.5 K/uL (4.8-10.8)
[2018-10-27 12:30] LABS: ANION GAP 12.2 (8-16); CARBON DIOXIDE 25.2 mmol/L (21-32); CREATININE 2.5 mg/dL (0.6-1.3); POTASSIUM 4.4 mmol/L (3.5-5.1)
[2018-10-27 12:33] LABS: BILIRUBIN,URINE NEGATIVE (NEGATIVE); BLOOD, URINE 3+ (NEGATIVE); COLOR,URINE YELLOW (YELLOW); LEUKOCYTE ESTERASE ,URINE 3+ (NEGATIVE); NITRITE, URINE NEGATIVE (NEGATIVE); UGLUCOSE NEGATIVE (NEGATIVE)
[2018-10-27 12:44] LABS: ALBUMIN 2.7 g/dL (3.4-5.0); TOTAL BILIRUBIN 0.4 mg/dL (0.0-1.0)
[2018-10-27 12:45] LABS: APPEARANCE,URINE CLOUDY (CLEAR)
[2018-10-27 12:46] LABS: RBC,URINE 20-50 /HPF (0-5); WBC,URINE 16-25 (MOD) /HPF (0-5)
[2018-10-27 12:48] LABS: URINE AMORPHOUS URATE 1+ /HPF (None Seen)
[2018-10-27] MEDS ORDERED: LEVOFLOXACIN 500 MG/D5W PREMIX 100 ML IV ONE (13:10)
[2018-10-27] MEDS ORDERED: AZTREONAM 1,000 MG in DEXTROSE 5% 50 ML IV SCH (13:10)
[2018-10-27] MEDS ORDERED: methylPREDNISolone SS 125 MG/2 ML VIAL IVP ONE (13:10)
[2018-10-27] MEDS ORDERED: DOCUSATE SODIUM 100 MG GELCAP PO PRN (13:30)
[2018-10-27] MEDS ORDERED: ACETAMINOPHEN 325 MG TAB PO PRN (13:30)
--- NOTE | 2018-10-27 13:46 | NUR ---
Dr. Sorto evaluating patient at bedside.
[2018-10-27 13:52] LABS: BARBITURATE, URINE NEG. ng/ml (NEG <=200); BENZODIAZEPINE, URINE NEG. ng/mL (NEG <=200); CANNABINOID, URINE NEG. ng/mL (NEG <=50); COCAINE, URINE NEG. ng/mL (NEG <=300); OPIATE, URINE NEG. ng/mL (NEG <=2000); PHENCYCLIDINE SCREEN,URINE NEG. ng/mL (NEG <=25)
[2018-10-27 13:54] LABS: PROTHROMBIN TIME 22.3 secs (10.8-13.4)
[2018-10-27] MEDS ORDERED: AZTREONAM 1,000 MG VIAL ONE (13:54)
[2018-10-27 14:02] LABS: THYROID STIMULATING HORMONE 1.53 uIU/mL (0.34-3.74)
[2018-10-27] MEDS ORDERED: oxyCODONE/APAP 5/325 MG 1 TAB TAB PO ONE (14:15)
[2018-10-27 14:28] VITALS: BP 120/56
--- NOTE | 2018-10-27 14:28 | NUR ---
[facility]
[2018-10-27] MEDS ORDERED: ONDANSETRON 4 MG ODT PO PRN (14:45)
--- NOTE | 2018-10-27 15:07 | NUR ---
TRACHEAL SUCTION FOR MODERATE TRACHEAL SUCTION FOR MODERATE THICK PALE WHITE SECRETIONS PATIENT TRANSFERRED ON VENTILATOR TO TRACHEOSTOMY OXYGEN LINE CONNECTED TO E-TANK PSI ADEQUATE AT 1600 PSI SATURATION 100% HR 104 TOLERATED TRANSFER WELL WITHOUT INCIDENT
--- NOTE | 2018-10-27 15:07 | NUR ---
PATIENT TRANSFERRED TO [facility] 122-B
--- NOTE | 2018-10-27 15:15 | NUR ---
VENTILATOR CONNECTED NOTED: PLUGGED INTO RED OUTLET; OXYGEN LINE TO 50 PSI WALL OUTLET; AIR LINE TO WALL OUTLET
--- NOTE | 2018-10-27 15:22 | NUR ---
NO EVIDENCE OF PULMONARY DISTRESS NOTED [facility] CONTINUOUS PULSE OXIMETER AT BEDSIDE ON AND FUNCTIONING WELL LOW SATURATION ALARM SET AT 92%
[2018-10-27 15:25] VITALS: BP 133/56
--- NOTE | 2018-10-27 15:25 | NUR ---
RECEIVED ENDORSEMENT FROM ED NURSE. PATIENT ARRIVED VIA GURNEY WITH RT PRESENT. PATIENT IS AAOX4, NAURUAN SPEAKING. RESPIRATIONS ARE EVEN AND UNLABORED TRACH TO VENT. F/C INTACT AND DRAINING CLEAR YELLOW URINE. RIGHT AC 20 G IV INTACT, PATENT, AND INFUSING IVF. RIGHT LEG SWOLLEN 2+ PITTING EDEMA. DAUGHTER IS PRESENT ON BEDSIDE. PATIENT HAS ALL BELONGINGS WITH HER, INCLUDING WHEELCHAIR. PLAN OF CARE WAS REVIEWED WITH PATIENT. PATIENT VERBALIZED UNDERSTANDING. SAFETY MEASURES IN PLACE, CALL LIGHT WITHIN REACH. WILL CONTINUE TO MONITOR. Addendum: 10/27/18 at 1801 by Gisselle Blackwood RN CORRECTION: IV RIGHT AC 22G
[2018-10-27] MEDS ORDERED: MAGNESIUM OXIDE 400 MG TAB PO SCH (15:30)
--- NOTE | 2018-10-27 15:30 | NUR ---
Pt transferred to Tele via rhibbing to room 122, report given to Gisselle Gutierrez RN.
--- NOTE | 2018-10-27 15:30 | NUR ---
Care gives to Gisselle Gutierrez RN.
[2018-10-27] MEDS: NACL 0.9% 1,000 ML IV SCH (15:51)
[2018-10-27] MEDS: CILOSTAZOL 100 MG TAB PO SCH (16:08)
[2018-10-27] MEDS: METOCLOPRAMIDE 10 MG TAB PO SCH (16:11)
[2018-10-27] MEDS ORDERED: ALBU3SOL83 IH (16:20)
[2018-10-27] MEDS: ACETAMINOPHEN 325 MG TAB PO SCH ×2 (16:28→20:26)
[2018-10-27] MEDS: oxyCODONE 5 MG TAB PO SCH ×2 (16:28→20:25)
[2018-10-27] MEDS: BLOOD GLUCOSE MONITORING 1 DEV DEV FS SCH ×2 (16:32→20:17)
[2018-10-27] MEDS ORDERED: WARFARIN 1 MG TAB PO SCH (17:00)
[2018-10-27] MEDS ORDERED: oxyCODONE 10 MG TABER PO SCH (17:00)
[2018-10-27] MEDS: PIPER/TAZO 2.25GM/D5W PREMIX 50 ML IV SCH ×2 (17:57→23:38)
--- NOTE | 2018-10-27 18:03 | NUR ---
ADMINISTERED SCHEDULED MEDICATION. NO DISTRESS NOTED AT THIS TIME. PATIENT IS EATING WITH DAUGHTER AT THE BEDSIDE.
[2018-10-27] MEDS: ALBUTEROL SULFATE/IPRATROPIU 3 ML SOL IH SCH ×2 (19:10→23:05)
--- NOTE | 2018-10-27 19:17 | NUR ---
ENDORSED TO PHARMACY INNOVATION ASSISTANT NURSE FOR CONTINUITY OF CARE. PATIENT IS STABLE AT THIS TIME.
--- NOTE | 2018-10-27 19:30 | NUR ---
RECEIVED BEDSIDE REPORT FROM DAY SHIFT RN, ON CONTACT HX ESBL/MDRO IN URINE. PATIENT TRACH TO VENT, ON AC, FIO2 AT 28% VT 600, PEEP 5. V/S STALE, LUNG SOUNDS ARE CLEAR BILATERALLY, DURAN CATH IN PLACE DRAINING CLEAR YELLOW URINE, IV IN RIGHT FA 22 G INFUSING NS AT 80 ML/HR, BG 176. EXPLAINED NEED FOR OCCULT BLOOD. CALL LIGHT WITHIN REACH, WILL CONTINUE TO MONITOR.
[2018-10-27 20:00] VITALS: BP 113/53
[2018-10-27] MEDS: DOCUSATE SODIUM 100 MG GELCAP PO SCH (20:25)
[2018-10-27] MEDS: INSULIN LISPRO SLIDING SCALE 100 UNITS/ML VIAL SUBQ PRN (20:31)
[2018-10-27] MEDS ORDERED: CILOSTAZOL 100 MG PO SCH (21:00)
--- NOTE | 2018-10-27 21:28 | NUR ---
CALL FROM RADIOLOGY SPOKE WITH RTENA, CRITICAL VENOUS DOPPLER RESULTS, NOTIFIED DR SILVA.
--- NOTE | 2018-10-27 22:09 | NUR ---
PATIENT SLEEPING IN BED NO SIGNS OF DISTRESS OR PAIN
[2018-10-28] VITALS: BP 110/66
--- NOTE | 2018-10-28 00:15 | NUR ---
DUE ZOSYN GIVEN
[2018-10-28] MEDS: NACL 0.9% 1,000 ML IV SCH ×3 (01:05→21:00)
--- NOTE | 2018-10-28 02:12 | NUR ---
SUJATA DONE INFUSING, PATIENT SLEEPING IN BED WILL CONTINUE TO MONITOR.
[2018-10-28] MEDS: ALBUTEROL SULFATE/IPRATROPIU 3 ML SOL IH SCH ×6 (03:11→23:10)
--- NOTE | 2018-10-28 03:24 | NUR ---
PATIENT ASKED FOR PAIN MEDICATION WILL MEDICATE ACCORDING TO ORDER.
[2018-10-28] MEDS: oxyCODONE 5 MG TAB PO SCH ×3 (03:57→17:34)
--- NOTE | 2018-10-28 03:57 | NUR ---
PATIENT ASKED FOR TORADOL, CANT GIVE DUE TO KIDNEY FUNCTIONS ELEVATED, GAVE OXYCODONE THAT WAS PREVIOUSLY HELD
[2018-10-28 04:00] VITALS: BP 108/70
[2018-10-28] MEDS: PIPER/TAZO 2.25GM/D5W PREMIX 50 ML IV SCH ×4 (06:09→23:46)
[2018-10-28] MEDS: BLOOD GLUCOSE MONITORING 1 DEV DEV FS SCH ×4 (06:09→21:07)
[2018-10-28] MEDS: PANTOPRAZOLE 40 MG TABEC PO SCH (06:09)
[2018-10-28] MEDS: INSULIN LISPRO SLIDING SCALE 100 UNITS/ML VIAL SUBQ PRN ×3 (06:10→20:41)
[2018-10-28] MEDS: CILOSTAZOL 100 MG TAB PO SCH ×2 (06:10→17:30)
[2018-10-28] MEDS: METOCLOPRAMIDE 10 MG TAB PO SCH ×3 (06:10→16:30)
--- NOTE | 2018-10-28 06:21 | NUR ---
DUE MEDICATION GIVEN, BG 176 GAVE 2 UNITS
--- NOTE | 2018-10-28 06:31 | NUR ---
REC'D PT ON CARESCAPE VENT SETTINGS AC14 VT 600 PEEP 5 FIO2 28% ALARMS ON AND AUDIBLE AND AMBU BAG AT SIDE OF VENT AND VENT IS PLUGGED INTO RED OUTLET, I\L TX GIVEN WITH DUONEB 3ML WITH NO ADVERSE REACTION POST TX , B\S ARE DIMINISHED BILATERALLY, SXN PT SMALL AMT OF CLEAR, PT IS TRACH WITH SHILEY #6 XLT AND SKIN INTEGRITY IS INTACT, PT IS AWAKE AND ALERT WITH NO SIGNS OF DISTRESS NOTED AT THIS TIME
[2018-10-28 06:32] LABS: BASOPHILS % (AUTO) 0.1 % (0.0-2.0); HEMATOCRIT 32.4 % (36-48); HEMOGLOBIN 10.3 g/dL (12.0-16.0); LYMPHOCYTES # (AUTO) 0.6 K/uL (2.5-16.5); LYMPHOCYTES % (AUTO) 4.5 % (20.5-51.1); MEAN CORPUSCULAR HEMOGLOBIN 29 pg (27-31); MEAN CORPUSCULAR HGB CONC 32 g/dL (33-37); MEAN CORPUSCULAR VOLUME 91.4 fL (80-94); MONOCYTES # (AUTO) 0.3 K/uL (0.8-1.0); MONOCYTES % (AUTO) 2.4 % (1.7-9.3); NEUTROPHILS # (AUTO) 13.2 K/uL (1.8-7.7); PLATELET COUNT (AUTO) 223 K/uL (140-450); RED BLOOD CELL COUNT(AUTO) 3.54 MIL/uL (4.20-5.40); RED CELL DISTRIBUTION WIDTH 19.5 % (11.6-13.7); WHITE BLOOD COUNT (AUTO) 14.2 K/uL (4.8-10.8)
[2018-10-28 06:55] LABS: PROTHROMBIN TIME 20.1 secs (10.8-13.4)
[2018-10-28 07:00] LABS: ANION GAP 13.4 (8-16); CARBON DIOXIDE 23.1 mmol/L (21-32); CREATININE 2.2 mg/dL (0.6-1.3); POTASSIUM 4.5 mmol/L (3.5-5.1)
[2018-10-28 07:05] LABS: MAGNESIUM 1.8 mg/dL (1.8-2.4); PHOSPHORUS 3.4 mg/dL (2.5-4.9)
[2018-10-28 07:07] LABS: CHOL/HDL RATIO 4.2 (1-4.5)
--- NOTE | 2018-10-28 07:14 | NUR ---
WILL ENDORSE PATIENT TO DAY SHIFT RN, PATIENT STABLE.
--- NOTE | 2018-10-28 07:15 | NUR ---
RECEIVED BEDSIDE REPORT FROM RAILWAY SWITCH OPERATOR NURSE. PATIENT IS AWAKE, ALERT AND ORIENTED. NO SIGNS OF DISTRESS ON TRACH TO VENT.. VENT SETTINGS ARE FIO2 28 VT 600 RATE 14 FLOW 30 PEEP 5 PMAX 45. PATIENT ON WOUND CARE BED. OLD SACRAL SCAR. DURAN IN PLACE. PATIENT IS INCONTINENT. R FA 22G INFUSING NS AT 100. CLEAN, DRY AND INTACT. BED IN LOW POSITION. CALL LIGHT WITHIN REACH. HEEL PROTECTORS IN PLACE. R LEG IS EDEMATOUS SEIZURE AND ASP PRECAUTIONS IN PLACE. WILL CONTINUE TO MONITOR THE PATIENT
[2018-10-28 08:00] VITALS: BP 114/54
--- NOTE | 2018-10-28 08:00 | NUR ---
PATIENT HAD ONE BITE OF BREAKFAST. PATIENT IS NPO AND WAS GIVEN A TRAY. DR MCBRIDE IS AWARE. PATIENT AWARE NOT TO EAT OR DRINK ANYTHING. NPO EXCEPT MEDS
[2018-10-28] MEDS: ACETAMINOPHEN 325 MG TAB PO SCH ×4 (09:00→21:00)
[2018-10-28] MEDS ORDERED: ASPIRIN 81 MG PO SCH (09:00)
--- NOTE | 2018-10-28 09:30 | NUR ---
PT TO CT FOR SCAN OF ABD PLACED ON VENT WITH SAME SETTINGS THEN BAGGED BACK TO ROOM AND PLACED BACK ON VENT WITH SAME SETTINGS
[2018-10-28] MEDS: ALLOPURINOL 100 MG TAB PO SCH (10:08)
[2018-10-28] MEDS: LEVOTHYROXINE 0.075 MG TAB PO SCH (10:08)
[2018-10-28] MEDS: GABAPENTIN 300 MG CAP PO SCH (10:08)
[2018-10-28] MEDS: ASPIRIN 81 MG TAB.CHEW PO SCH (10:08)
[2018-10-28] MEDS: ATORVASTATIN 20 MG TAB PO SCH (10:09)
[2018-10-28] MEDS: DOCUSATE SODIUM 100 MG GELCAP PO SCH ×2 (10:09→21:10)
[2018-10-28] MEDS: LACTOBACILLUS RHAMNOSUS GG 1 EACH CAP PO SCH (10:11)
[2018-10-28] MEDS: SODIUM FERRIC GLUCONATE 125 MG in NACL 0.9% 100 ML IV SCH (10:12)
--- NOTE | 2018-10-28 10:15 | NUR ---
ADMINISTERED [facility], [facility] MEDS ORDERED. PATIENT TOLERATED WELL. EDUCATED ON SIDE EFFECTS. WILL CONTINUE TO MONITOR THE PATIENT
[2018-10-28] MEDS ORDERED: oxyCODONE/APAP 5/325 MG 1 TAB TAB PO SCH (10:30)
[2018-10-28 12:00] VITALS: BP 121/51
[2018-10-28] MEDS ORDERED: BISACODYL 10 MG SUPP RC SCH (12:00)
--- NOTE | 2018-10-28 12:24 | NUR ---
ADMINISTERED MEDS. PATIENT TOLERATED WELL. EDUCATED ON SIDE EFFECTS. PATIENTS REFUSED REGLAN, TYLENOL, AND OXYCODONE HYDROCHLORIDE AT THIS TIME. EDUCATED ON RISKS OF REFUSAL. WILL CONTINUE TO MONITOR THE PATIENT
[2018-10-28] MEDS: BENZOCAINE/MENTHOL 1 LOZ MM PRN (12:40)
--- NOTE | 2018-10-28 12:40 | NUR ---
DR MCBRIDE SAID OK TO HOLD 2 UNITS HUMALOG FOR BS 153, PATIENT IS NPO. GAVE PATIENT PRN CEPACOL. WILL CONTINUE TO MONITOR
--- NOTE | 2018-10-28 13:34 | NUR ---
PATIENT HAS BEEN SCREENED AND CATEGORIZED HIGH NUTRITION RISK. PATIENT WILL BE SEEN WITHIN 1-2 DAYS OF ADMISSION. 10/28/18RAJWINDER LUU MBA, RD
--- NOTE | 2018-10-28 14:00 | NUR ---
PATIENT IN NO SIGNS OF DISTRESS. WILL CONTINUE TO MONITOR THE PATIENT
--- NOTE | 2018-10-28 15:26 | NUR ---
DR MCBRIDE SAID PATIENT CAN EAT. PATIENTS DAUGHTER BROUGHT HER FOOD. WILL CONTINUE TO MONITOR THE PATIENT
--- NOTE | 2018-10-28 15:33 | NUR ---
EDUCATED PATIENT ON FOODS THAT ARE HIGH IN VITAMIN K AND TO AVOID WHEN ON WARFARIN. PATIENT VERBALIZED UNDERSTANDING. HANDOUTS PRINTED.
--- NOTE | 2018-10-28 15:55 | NUR ---
ABG DRAWN ON RR WITHOUT INCIDENT BY RT. MORAN AND RESULTS GIVEN TO
[2018-10-28 16:00] VITALS: BP 124/50
--- NOTE | 2018-10-28 17:00 | NUR ---
PATIENT GETTING CLEANED BY PATIENTS DAUGHTER. PATIENTS DAUGHTER REFUSES HELP TO CLEAN PATIENT AT THIS TIME. WILL CONTINUE TO MONITOR
[2018-10-28] MEDS: FERROUS SULFATE 325 MG TABEC PO SCH (17:29)
[2018-10-28] MEDS: WARFARIN 1 MG TAB PO SCH (17:36)
[2018-10-28] MEDS: SIMETHICONE 80 MG TAB.CHEW PO PRN (17:39)
--- NOTE | 2018-10-28 19:05 | NUR ---
GAVE BEDSIDE REPORT TO BASIN CLEANER NURSE. PATIENT ENDORSED IN STABLE CONDITION
--- NOTE | 2018-10-28 19:25 | NUR ---
Received patient on current settings: AC 600 Rate 14 Fio2 28% PEEP 5. Patient is trach'd with a size 6 Shiley XLT that is secure with trach ties and protective gauze is in place that is clean and dry. Cuff is deflated. Stoma appears clean, dry and healthy. Patient is awake and quiet. Treatment given inline with no incident or adverse effects. B/S: Diminished bilaterally pre and post inline treatment. Did not suction patient. Vent settings and alarms verified. Ambu bag at bedside.
--- NOTE | 2018-10-28 19:26 | NUR ---
RECEIVED PT FROM [place] RN PT IS AAOX4 TRACH TO VENT HOB 30 DEGREEE FIO2 28% TV 600 RR 14 PEEP 5 NOT RESPT DISTRESS NOTED AT THIS TIME IV ON RT FA INFUSING WELL ON BED REST REPOSITIONED DURAN CATH DRAINING YELLOW URINE INITIAL ASSESSMENT DONE
[2018-10-28 20:00] VITALS: BP 102/46
--- NOTE | 2018-10-28 21:00 | NUR ---
BLOOD SUGAR TEST 159 COVERAGE WITH 2 UNITS SUBQ HUMALOG FOLLOW PROTOCOL
--- NOTE | 2018-10-28 22:34 | NUR ---
PT REPOSITIONED AND SUCTIONED NECESSARY NOT DISTRESS NOTED ON TELEMETRY SR BBB
--- NOTE | 2018-10-28 23:09 | NUR ---
INLINE TREATMENT GIVEN WITH NO ADVERSE EFFECTS OR INCIDENT. B/S: CLEAR IN THE UPPER LOBES AND DIMINISHED IN THE BASES.
[2018-10-29] VITALS: BP 106/46
--- NOTE | 2018-10-29 | NUR ---
HOB 30 DEGREE NOT RESP DISTRESS NOTED , TRACH TO VENT REMAIN SAME SETTING PT IS SUCTIONED As necessary PT ON TELEMETRY SR
[2018-10-29] MEDS: oxyCODONE 5 MG TAB PO SCH ×4 (00:31→18:18)
--- NOTE | 2018-10-29 01:08 | NUR ---
ROUTINE VENT CHECK AND PATIENT ASSESSMENT. NO CHANGES TO VENT SETTINGS. VENT CONTINUED TO ALARM LOW TIDAL VOLUME. PUT 2ml'S OF AIR INTO CUFF AND TIDAL VOLUMES INCREASED AND MAINTAINED. PATIENT AWARE THAT CUFF HAS 2ml'S OF AIR.
--- NOTE | 2018-10-29 03:43 | NUR ---
PT SLEEPING WELL NOT RESP DISTRESS NOTED TRACH TO VENT REMAIN SAME SETTING, ON TELEMETRY SR
[2018-10-29] MEDS: ALBUTEROL SULFATE/IPRATROPIU 3 ML SOL IH SCH ×6 (03:49→23:12)
[2018-10-29 04:00] VITALS: BP 117/52
[2018-10-29] MEDS: NACL 0.9% 1,000 ML IV SCH (04:49)
--- NOTE | 2018-10-29 05:00 | NUR ---
SPONGE BATH GIVEN LINEN CHANGED NOT DISTRESS NOTED TRACH TO VENT REMAIN SAME SETTING ON TELEMETRY SR
--- NOTE | 2018-10-29 05:25 | NUR ---
PATIENT ASKED TO WAIT ON TRACH CARE BECAUSE SHE WAS IN A LOT OF PAIN IN HER LEGS AND WANTED HER PAIN MEDS FIRST. PATIENT CONFIRMED NO RESPIRATORY DISTRESS JUST IN PAIN.
[2018-10-29] MEDS: PIPER/TAZO 2.25GM/D5W PREMIX 50 ML IV SCH ×3 (05:50→17:04)
[2018-10-29] MEDS: INSULIN LISPRO SLIDING SCALE 100 UNITS/ML VIAL SUBQ PRN (06:31)
[2018-10-29] MEDS: CILOSTAZOL 100 MG TAB PO SCH ×2 (06:34→17:03)
[2018-10-29] MEDS: PANTOPRAZOLE 40 MG TABEC PO SCH (06:34)
[2018-10-29] MEDS: BLOOD GLUCOSE MONITORING 1 DEV DEV FS SCH ×4 (06:34→21:04)
[2018-10-29] MEDS: METOCLOPRAMIDE 10 MG TAB PO SCH ×3 (06:35→17:03)
--- NOTE | 2018-10-29 06:44 | NUR ---
PT WILL BE ENDORSED TO DAY SHIFT NURSE FOR CONTINUE OF CARE AT THIS TIME PT REMAINSTABLE ON TELMETRY SR TRACH TO VENT SAME SETTING
[2018-10-29 06:45] LABS: HEMATOCRIT 28.3 % (36-48); LYMPHOCYTES % (AUTO) 5.3 % (20.5-51.1); MEAN CORPUSCULAR HEMOGLOBIN 29 pg (27-31); MEAN CORPUSCULAR HGB CONC 32 g/dL (33-37); MEAN CORPUSCULAR VOLUME 91.3 fL (80-94); MONOCYTES # (AUTO) 1.2 K/uL (0.8-1.0); MONOCYTES % (AUTO) 6.2 % (1.7-9.3); NEUTROPHILS # (AUTO) 17.1 K/uL (1.8-7.7); NEUTROPHILS % (AUTO) 88.5 % (42.2-75.2); PLATELET COUNT (AUTO) 263 K/uL (140-450); RED CELL DISTRIBUTION WIDTH 19.7 % (11.6-13.7); WHITE BLOOD COUNT (AUTO) 19.4 K/uL (4.8-10.8)
[2018-10-29] MEDS ORDERED: oxyCODONE/APAP 5/325 MG 1 TAB TAB ONE (06:45)
[2018-10-29 06:52] LABS: MAGNESIUM 1.8 mg/dL (1.8-2.4); PHOSPHORUS 3.4 mg/dL (2.5-4.9)
[2018-10-29 07:01] LABS: PROTHROMBIN TIME 23.5 secs (10.8-13.4)
[2018-10-29 07:02] LABS: ANION GAP 15.9 (8-16); CARBON DIOXIDE 20.4 mmol/L (21-32); CREATININE 2.1 mg/dL (0.6-1.3); POTASSIUM 4.3 mmol/L (3.5-5.1)
--- NOTE | 2018-10-29 07:20 | NUR ---
RECEIVED BEDSIDE REPORT FROM PLEATER HAND NURSE. PATIENT IS AWAKE, ALERT AND ORIENTEDX4. NO SIGNS OF DISTRESS ON TRACH TO VENT. SETTINGS ARE FIO2 28 VT 600 RATE 14 FLOW 30 PEEP 5 PMAX 45. PATIENT IS WHEELCHAIR BOUND ON BED REST. FALL RISK PROTOCOL IN PLACE . OLD SACRAL SCAR, PATIENT ON WOUND BED. R FA 22G INFUSING NS AT 100. CLEAN, DRY AND INTACT. PATIENT INCONTINENT. DURAN IN PLACE. BED IN LOW POSITION. CALL LIGHT WITHIN REACH. WILL CONTINUE TO MONITOR THE PATIENT.
[2018-10-29 08:00] VITALS: BP 117/57
[2018-10-29] MEDS: ACETAMINOPHEN 325 MG TAB PO SCH ×4 (09:00→21:06)
[2018-10-29] MEDS: ASPIRIN 81 MG TAB.CHEW PO SCH (09:01)
[2018-10-29] MEDS: LEVOTHYROXINE 0.075 MG TAB PO SCH (09:02)
[2018-10-29] MEDS: GABAPENTIN 300 MG CAP PO SCH (09:02)
[2018-10-29] MEDS: ALLOPURINOL 100 MG TAB PO SCH (09:02)
[2018-10-29] MEDS: DOCUSATE SODIUM 100 MG GELCAP PO SCH ×2 (09:02→21:00)
[2018-10-29] MEDS: ATORVASTATIN 20 MG TAB PO SCH (09:03)
[2018-10-29] MEDS: FERROUS SULFATE 325 MG TABEC PO SCH ×2 (09:03→17:03)
[2018-10-29] MEDS: LACTOBACILLUS RHAMNOSUS GG 1 EACH CAP PO SCH (09:03)
[2018-10-29] MEDS: SIMETHICONE 80 MG TAB.CHEW PO PRN ×3 (09:08→21:15)
[2018-10-29] MEDS: ONDANSETRON 4 MG/2 ML VIAL IM/IVP PRN ×2 (09:09→15:36)
[2018-10-29] MEDS: BENZOCAINE/MENTHOL 1 LOZ MM PRN ×3 (09:09→17:12)
--- NOTE | 2018-10-29 09:18 | NUR ---
ADMINISTERED MEDS. PATIENT REFUSED TYLENOL SHE SAID SHE DOESNT NEED IT. ADMINISTERED PRN GAS MED, NAUSEA MED, AND LOZENGES. PATIENT EDUCATED ON SIDE EFFECTS. TOLERATED WELL. WILL CONTINUE TO MONITOR THE PATIENT. BED IN LOW POSITION. CALL LIGHT WITHIN REACH.
[2018-10-29] MEDS: SODIUM FERRIC GLUCONATE 125 MG in NACL 0.9% 100 ML IV SCH (09:54)
[2018-10-29] MEDS ORDERED: LIDOCAINE 4% 40 MG/ML BTL TP PRN (10:00)
--- NOTE | 2018-10-29 11:52 | NUR ---
PATIENT SITTING IN BED WATCHING TV. NO SIGNS OF DISTRESS. WILL CONTINUE TO MONITOR
[2018-10-29 12:00] VITALS: BP 123/53
[2018-10-29] MEDS: CAPSAICIN 0.025% CRE 60 GM TUBE TP PRN (12:01)
--- NOTE | 2018-10-29 12:10 | NUR ---
ADMINISTERED MEDS. PATIENT REFUSED ACETAMINOPHEN.ALSO GAVE LOZENGE FOR SORE THROAT AND TRIXAICIN ON R KNEE. EDUCATED ON SIDE EFFECTS. PATIENT TOLERATED WELL. WILL CONTINUE TO MONITOR THE PATIENT. BED IN LOW POSITION. CALL LIGHT WITHIN REACH. WILL CONTINUE TO MONITOR THE PATIENT
--- NOTE | 2018-10-29 13:05 | NUR ---
PATIENT SITTING IN BED. RT AT BEDSIDE. WILL CONTINUE TO MONITOR
--- NOTE | 2018-10-29 15:39 | NUR ---
PATIENT FEELS NAUSEOUS. GAVE PRN NAUSEA MED. PATIENT TOLERATED WELL. EDUCATED ON SIDE EFFECTS. WILL CONTINUE TO MONITOR THE PATIENT
--- NOTE | 2018-10-29 15:54 | NUR ---
10/29/18 RD INITIAL ASSESSMENT COMPLETED PLEASE REFER TO NUTRITION ASSESSMENT UNDER CARE ACTIVITY FOR ESTIMATED NUTRITIONAL NEEDS. 1. RECOMMEND CCHO 60 GM AND CARDIAC DIET TOLERATED 2. FOLLOW UP WITH CONSISTENT CARBOHYDRATE DIET EDUCATION 3. RD TO FOLLOW-UP 3-5 DAYS, MODERATE RISK MAGDALENA BOSCH, RD
[2018-10-29 16:00] VITALS: BP 102/45
[2018-10-29] MEDS: WARFARIN 1 MG TAB PO SCH (17:02)
--- NOTE | 2018-10-29 17:12 | NUR ---
ADMINISTERED MEDS. PATIENT REFUSED TYLENOL. ADMINISTERED PRN GAS MED AND PRN SORE THROAT MED. PATIENT EDUCATED ON SIDE EFFECTS. TOLERATED WELL. WILL CONTINUE TO MONITOR. PATIENT CURRENTLY WATCHING A SHOW ON HER PHONE.
--- NOTE | 2018-10-29 19:00 | NUR ---
GAVE BEDSIDE REPORT TO MASH PREPARATORY OPERATOR NURSE. PATIENT ENDORSED IN STABLE CONDITION
--- NOTE | 2018-10-29 19:10 | NUR ---
RECEIVED PT FROM GREY RN PT AAOX4 TRACH TO VENT HOB 30 DEGREE, ON VENTILATOR SETTING FIO2 28% TV 600 RR 14 PEEP 5 DURAN CATH DRAINING WELL YELLOW URINE, IV ON RT FA INFUSING WELL NOT SOB NOTED REPOSITIONED INITIAL ASSESSMENT DONE.
--- NOTE | 2018-10-29 19:20 | NUR ---
PT WAS FOUND ON VENT SETTINGS OF A/C: RR 14, TIDAL VOLUME 600, PEEP 5, FIO2 28%. PT TOLERATING SETTINGS WELL. ALARMS ARE ON & AUDIBLE. VENT CONNECTED TO RED PLUG OUTLET. AMBU BAG AT BEDSIDE OF PT. PT ALSO ASKED IF SHE WAS SLEEPING SHE DID NOT WANT HER 2300 OR 0300 HHNB [place]. TOLD HER ID KEEP MONITORING THROUGHOUT THE NIGHT.
[2018-10-29 20:00] VITALS: BP 122/63
[2018-10-29] MEDS: OXYBUTYNIN 5 MG TAB PO SCH (21:00)
--- NOTE | 2018-10-29 21:00 | NUR ---
BLOOD SUGAR TEST 120 AND ALSO PT REFUSED MEDIC ON SCHEDULE AT THIS TIME, PT ON TELEMETRY SR
--- NOTE | 2018-10-29 23:14 | NUR ---
'KIDNEY ULTRASOUND DONE PENDING RESULT.
[2018-10-30] VITALS (7 sets, daily range): BP systolic 94–132; BP diastolic 44–99
[2018-10-30] MEDS: PIPER/TAZO 2.25GM/D5W PREMIX 50 ML IV SCH ×4 (00:33→18:21)
[2018-10-30] MEDS: oxyCODONE 5 MG TAB PO SCH ×4 (00:39→19:18)
--- NOTE | 2018-10-30 01:23 | NUR ---
HOB 30 DEGREE PT SETTING REMAIN THE SAME ,NOT RESP DISTRESS NOTED, ON TELEMETRY SR PT HAS BEEN SUCTIONED NEEDED
--- NOTE | 2018-10-30 04:00 | NUR ---
SPONGE BATH GIVEN LINEN CHANGED REPOSITIONED SUCTIONED NECESSARY , HOB 30 DEGREE TRACH TO VENT REMAIN SAME SETTING
[2018-10-30] MEDS: ALBUTEROL SULFATE/IPRATROPIU 3 ML SOL IH SCH ×5 (04:33→19:47)
--- NOTE | 2018-10-30 04:50 | NUR ---
RESP THERAPY ASSISTING THE PT
--- NOTE | 2018-10-30 05:08 | NUR ---
GAVE HHNTX TO PT AT A LATER TIME SINCE PT HAD REQUESTED I LET HER SLEEP INSTEAD OF GIVING 0300 TX. WENT IN & PT COMPLAINED OF NECK DISCOMFORT, TOLD PT ID WAIT UNTIL PAIN MEDS WERE GIVEN TO HER SO THAT I CAN DO TRACH CARE FOR HER. SUCTIONED VERY SCANT AMOUNT OF SECRETIONS FROM PT, DID NOT CONTINUE TO SUCTION PT WAS IN TOO MUCH DISCOMFORT. WILL CONT TO MONITOR
--- NOTE | 2018-10-30 05:15 | NUR ---
RESP THERAPY AT BED SIDE ASSISTING THE PT NOT RESP DISTRESS NOTED ON TELMETRY SR BBB
[2018-10-30] MEDS: PANTOPRAZOLE 40 MG TABEC PO SCH (05:38)
[2018-10-30] MEDS: CILOSTAZOL 100 MG TAB PO SCH ×2 (05:38→16:49)
[2018-10-30] MEDS: METOCLOPRAMIDE 10 MG TAB PO SCH ×3 (05:39→16:51)
[2018-10-30] MEDS ORDERED: KETOROLAC 15 MG/ML VIAL IM SCH (06:00)
[2018-10-30] MEDS: BLOOD GLUCOSE MONITORING 1 DEV DEV FS SCH ×4 (06:33→20:49)
--- NOTE | 2018-10-30 06:34 | NUR ---
AFTER TORADOL GIVEN PT DENIES ANY PAIN AT THIS TIME , PT WILL BE ENDORSED TO DAY SHIFT NURSE FOR CONTINUITY OF CARE, TRACH TO VENT REMAIN SAME SETTING NTO DISTRESS NOTED
[2018-10-30 06:59] LABS: BASOPHILS % (AUTO) 0.1 % (0.0-2.0); EOSINOPHILS % (AUTO) 0.3 % (0.0-4.0); HEMATOCRIT 27.3 % (36-48); HEMOGLOBIN 8.6 g/dL (12.0-16.0); LYMPHOCYTES # (AUTO) 1.5 K/uL (2.5-16.5); LYMPHOCYTES % (AUTO) 10.8 % (20.5-51.1); MEAN CORPUSCULAR HEMOGLOBIN 29 pg (27-31); MEAN CORPUSCULAR HGB CONC 31 g/dL (33-37); MEAN CORPUSCULAR VOLUME 92.3 fL (80-94); MONOCYTES # (AUTO) 1.7 K/uL (0.8-1.0); MONOCYTES % (AUTO) 12.7 % (1.7-9.3); NEUTROPHILS # (AUTO) 10.3 K/uL (1.8-7.7); NEUTROPHILS % (AUTO) 76.1 % (42.2-75.2); PLATELET COUNT (AUTO) 250 K/uL (140-450); RED BLOOD CELL COUNT(AUTO) 2.96 MIL/uL (4.20-5.40); RED CELL DISTRIBUTION WIDTH 19.2 % (11.6-13.7); WHITE BLOOD COUNT (AUTO) 13.5 K/uL (4.8-10.8)
[2018-10-30] MEDS: NACL 0.9% 1,000 ML IV SCH ×2 (07:00→16:53)
[2018-10-30 07:25] LABS: CREATININE 2.3 mg/dL (0.6-1.3)
[2018-10-30 07:28] LABS: PROTHROMBIN TIME 25.2 secs (10.8-13.4)
--- NOTE | 2018-10-30 07:30 | NUR ---
RECEIVED BEDSIDE REPORT FROM ANDREY MOSER. PATIENT ON TELE MONITOR AND CONTACT PRECAUTIONS IN PLACE FOR ESBL/MDRO OF URINE. PATIENT AAOX4 COMMUNICATES APPROPRIATELY. PATIENT ON TRACH TO VENT; SETTINGS FOLLOWS: FIO2 28%, VT 600 ML, RATE 14/MIN, FLOW 30 L/MIN, AND PEEP 5. PATIENT SKIN INTACT. DURAN CATHETER IN PLACE, SECURE AND CLEAN. IV ON R FA 22G INFUSING NS AT 100, IV ASYMPTOMATIC PATENT AND INTACT. BED IN LOW POSITION, CALL LIGHT WITHIN REACH, SIDE RAILS X2 UP
[2018-10-30 07:31] LABS: MAGNESIUM 1.7 mg/dL (1.8-2.4)
[2018-10-30] MEDS: ASPIRIN 81 MG TAB.CHEW PO SCH (08:14)
[2018-10-30] MEDS: OXYBUTYNIN 5 MG TAB PO SCH ×2 (08:14→20:50)
[2018-10-30] MEDS: DOCUSATE SODIUM 100 MG GELCAP PO SCH ×2 (08:15→20:50)
[2018-10-30] MEDS: LACTOBACILLUS RHAMNOSUS GG 1 EACH CAP PO SCH (08:15)
[2018-10-30] MEDS: ATORVASTATIN 20 MG TAB PO SCH (08:15)
[2018-10-30] MEDS: ACETAMINOPHEN 325 MG TAB PO SCH ×4 (08:15→20:51)
[2018-10-30] MEDS: FERROUS SULFATE 325 MG TABEC PO SCH ×2 (08:18→16:56)
[2018-10-30] MEDS: GABAPENTIN 300 MG CAP PO SCH (08:18)
[2018-10-30] MEDS: LEVOTHYROXINE 0.075 MG TAB PO SCH (08:18)
[2018-10-30] MEDS: ALLOPURINOL 100 MG TAB PO SCH (08:19)
[2018-10-30] MEDS: BENZOCAINE/MENTHOL 1 LOZ MM PRN ×2 (08:27→11:32)
--- NOTE | 2018-10-30 08:35 | NUR ---
ADMINISTERED SCHEDULED MEDS. PATIENT TOLERATED WELL.
[2018-10-30] MEDS: SODIUM FERRIC GLUCONATE 125 MG in NACL 0.9% 100 ML IV SCH (10:10)
--- NOTE | 2018-10-30 11:33 | NUR ---
PATIENT RECEIVING BREATHING TREATMENT AT THIS TIME. NO S/S OF DISTRESS
--- NOTE | 2018-10-30 13:29 | NUR ---
PATIENT AWAKE, ON TRACH TO VENT, NO S/S OF RESPIRATORY DISTRESS
--- NOTE | 2018-10-30 15:00 | NUR ---
PATIENT AWAKE, LYING COMFORTABLY, ON ROOM AIR
[2018-10-30] MEDS ORDERED: MAG SULF 2000 MG/WATER PREMIX 50 ML IV ONE (16:20)
[2018-10-30] MEDS: WARFARIN 1 MG TAB PO SCH (16:57)
--- NOTE | 2018-10-30 17:12 | NUR ---
PATIENT SLEEPING, ON TRACH TO VENT, NO S/S OF RESPIRATORY DISTRESS, EASILY AROUSABLE
--- NOTE | 2018-10-30 17:14 | NUR ---
DC PLANNING: CM SPOKE WITH PATIENT'S DAUGHTER (RAMAKRISHNA CHAMBERLAIN)@ REGARDING POSSIBLE DC TOMORROW. PER RAMAKRISHNA, SHE WOULD NEED A DAY TO SETUP EVERYTHING FOR PATIENT AND TRANSPORTATION NEEDS TO BE ARRANGED 24HOURS IN ADVANCE PATIENT HAS HER OWN TRANSPORTATION THAT CAN ACCOMMODATE HER WHEECHAIR AND PORTABLE VENT. DAUGHTER WOULD WANT TO BE INFORMED OF THE DISCHARGE PLAN. PATIENT IS WITH [facility] AND DAUGHTER AGREED TO KEEP SAME HOME HEALTH. CM TO FOLLOW UP NEEDED. PATIENT'S DAUGHTER STATED PATIENT HAS BEEN DISCHARGED AT [facility] ON 09/19/18 AND WENT BACK IN TO THE HOSPITAL ON 09/23/18. SHE WAS THEN DC ON 10/10/18 TO [facility] AND WAS DC'D BACK HOME. THEN RETURNED BACK TO THE HOSPITAL.
[2018-10-30 18:14] LABS: FERRITIN 1003 ng/mL (15 - 150)
--- NOTE | 2018-10-30 19:15 | NUR ---
GAVE BEDSIDE REPORT TO ANDREY CRISTOBAL. PATIENT ENDORSED IN STABLE CONDITION
--- NOTE | 2018-10-30 19:17 | NUR ---
Received endorsement from AM shift RN; patient is A/Ox4, able to make needs known, Latvian speaking, bedbound. Patient is watching TV; introduced self, updated board. No SOB or distress noted, on trach to [facility] vent FiO2 28%. Iv site on left forearm, 22 gauge, intact and running IVF NS at 100mL/hr. Skin intact, but noted with sacral redness. Suárez cath in place. On contact precautions for ESBL, MDRO urine; precautions observed and maintained. Bed in the lowest position, call light within reach. Initial assessment done. Will, continue to monitor.
[2018-10-30] MEDS: ONDANSETRON 4 MG/2 ML VIAL IM/IVP PRN (19:22)
--- NOTE | 2018-10-30 20:15 | NUR ---
Vitals taken; no SOB or distress noted.
--- NOTE | 2018-10-30 21:02 | NUR ---
Due meds given, tolerated well. No distress noted; patient able to swallow pills.
[2018-10-30] MEDS ORDERED: TOBRAMYCIN PER PHARMACY MC PRN (21:35)
--- NOTE | 2018-10-30 21:40 | NUR ---
Dr. Aguirre at bedside to consult patient at this time.
[2018-10-30] MEDS ORDERED: TOBRAMYCIN 80 MG/2 ML VIAL ONE (22:29)
--- NOTE | 2018-10-30 22:30 | NUR ---
IV Zosyn discontinued by Dr. Aguirre; new order for Tobramycin 120mg in D5 100mL to run at 200mL/hr. received and carried out.
[2018-10-30] MEDS ORDERED: TOBRAMYCIN 120 MG in DEXTROSE 5% 100 ML IV SCH (23:00)
--- NOTE | 2018-10-30 23:20 | NUR ---
Frequent checks made; patient asleep, eyes closed, visible chest rise and fall noted.
[2018-10-31] VITALS: BP 129/66
[2018-10-31] MEDS: oxyCODONE 5 MG TAB PO SCH ×4 (00:10→18:06)
--- NOTE | 2018-10-31 00:20 | NUR ---
Vitals taken, no distress noted.
--- NOTE | 2018-10-31 02:05 | NUR ---
Checks made; patient asleep, no SOB or distress noted.
[2018-10-31] MEDS: NACL 0.9% 1,000 ML IV SCH ×2 (02:44→21:25)
[2018-10-31 04:00] VITALS: BP 127/69
--- NOTE | 2018-10-31 04:57 | NUR ---
Vitals taken, no distress noted.
[2018-10-31] MEDS: PANTOPRAZOLE 40 MG TABEC PO SCH (05:56)
[2018-10-31] MEDS: METOCLOPRAMIDE 10 MG TAB PO SCH ×3 (06:34→15:33)
[2018-10-31] MEDS: CILOSTAZOL 100 MG TAB PO SCH ×2 (06:34→15:33)
[2018-10-31] MEDS: BLOOD GLUCOSE MONITORING 1 DEV DEV FS SCH ×4 (06:37→20:39)
[2018-10-31 07:01] LABS: BASOPHILS % (AUTO) 0.2 % (0.0-2.0); EOSINOPHILS # (AUTO) 0.2 K/uL (0-0.4); EOSINOPHILS % (AUTO) 1.5 % (0.0-4.0); HEMATOCRIT 29.7 % (36-48); HEMOGLOBIN 9.2 g/dL (12.0-16.0); LYMPHOCYTES # (AUTO) 2.1 K/uL (2.5-16.5); LYMPHOCYTES % (AUTO) 17.7 % (20.5-51.1); MEAN CORPUSCULAR HEMOGLOBIN 29 pg (27-31); MEAN CORPUSCULAR HGB CONC 31 g/dL (33-37); MEAN CORPUSCULAR VOLUME 92.9 fL (80-94); MONOCYTES # (AUTO) 1.5 K/uL (0.8-1.0); MONOCYTES % (AUTO) 12.6 % (1.7-9.3); PLATELET COUNT (AUTO) 258 K/uL (140-450); RED CELL DISTRIBUTION WIDTH 19.3 % (11.6-13.7); WHITE BLOOD COUNT (AUTO) 11.8 K/uL (4.8-10.8)
[2018-10-31 07:11] LABS: ANION GAP 13.8 (8-16); CARBON DIOXIDE 21.4 mmol/L (21-32); CREATININE 2.3 mg/dL (0.6-1.3); POTASSIUM 4.2 mmol/L (3.5-5.1)
[2018-10-31 07:15] LABS: PHOSPHORUS 3.1 mg/dL (2.5-4.9)
--- NOTE | 2018-10-31 07:15 | NUR ---
Endorsed patient to AM shift RN for continuity of care; patient in stable condition.
--- NOTE | 2018-10-31 07:16 | NUR ---
RECEIVED BEDSIDE REPORT FROM ANDREY CRISTOBAL. PATIENT ON TELE MONITOR AND STANDARD PRECAUTIONS IN PLACE. PATIENT ON TRACH TO VENT SETTINGS FOLLOWS: FIOS 28%, VT 600 ML, RATE 14/MIN, FLOW 30 L/MIN, AND PEEP 5, NO RESPIRATORY DISTRESS. SKIN INTACT, EXCEPT FOR SACRAL REDNESS. PATIENT ON WOUND CARE BED WITH DURAN CATHETER IN PLACE. IV ON LFA 22G INFUSING NS AT 100, IV ASYMPTOMATIC PATENT AND INTACT. BED IN LOW POSITION, CALL LIGHT WITHIN REACH, SIDE RAILS X2 UP. CONTACT PRECAUTIONS IN PLACE FOR ESBL/MDRO OF URINE.
[2018-10-31 08:00] VITALS: BP 153/74
[2018-10-31] MEDS: ASPIRIN 81 MG TAB.CHEW PO SCH (08:11)
[2018-10-31] MEDS: GABAPENTIN 300 MG CAP PO SCH (08:11)
[2018-10-31] MEDS: FERROUS SULFATE 325 MG TABEC PO SCH ×2 (08:11→18:07)
[2018-10-31] MEDS: ATORVASTATIN 20 MG TAB PO SCH (08:11)
[2018-10-31] MEDS: DOCUSATE SODIUM 100 MG GELCAP PO SCH ×2 (08:11→20:40)
[2018-10-31] MEDS: LACTOBACILLUS RHAMNOSUS GG 1 EACH CAP PO SCH (08:12)
[2018-10-31] MEDS: LEVOTHYROXINE 0.075 MG TAB PO SCH (08:12)
[2018-10-31] MEDS: ALLOPURINOL 100 MG TAB PO SCH (08:13)
[2018-10-31] MEDS: ACETAMINOPHEN 325 MG TAB PO SCH ×4 (08:13→20:40)
--- NOTE | 2018-10-31 08:17 | NUR ---
ADMINISTERED SCHEDULED MEDS. PATIENT TOLERATED WELL
[2018-10-31] MEDS: OXYBUTYNIN 5 MG TAB PO SCH ×2 (08:18→20:40)
[2018-10-31 08:31] LABS: PROTHROMBIN TIME 23.5 secs (10.8-13.4)
--- NOTE | 2018-10-31 09:10 | NUR ---
RECEIVED CALL FROM STIVEN PICC LINE NURSE, PHONE #[phone] STATING HE CANNOT INSERT A PICC LINE BECAUSE SHE IS OCCLUDED. HE HAS HAD HER A PATIENT BEFORE AND ALL TRIES HAVE BEEN UNSUCCESSFUL
--- NOTE | 2018-10-31 09:35 | NUR ---
DR. GUNN AT BEDSIDE, ORDERED TO STOP RUNNING NS AT 100 Addendum: 10/31/18 at 1030 by Rebekah Arriaga RN ALSO TO ORDER A CHEST X RAY
[2018-10-31] MEDS: SODIUM FERRIC GLUCONATE 125 MG in NACL 0.9% 100 ML IV SCH (09:53)
[2018-10-31] MEDS: ALBUTEROL SULFATE/IPRATROPIU 3 ML SOL IH SCH ×4 (11:17→23:37)
[2018-10-31 12:00] VITALS: BP 131/61
--- NOTE | 2018-10-31 12:04 | NUR ---
PATIENT SLEEPING, NO S/S RESPIRATORY DISTRESS
[2018-10-31] MEDS: INSULIN LISPRO SLIDING SCALE 100 UNITS/ML VIAL SUBQ PRN (12:10)
--- NOTE | 2018-10-31 13:41 | NUR ---
PATIENT HAD BM, CLEANSED AND APPLIED CREAMS TO SACRAL AREA
--- NOTE | 2018-10-31 15:47 | NUR ---
DAUGHTER AND RT AT BEDSIDE, NO COMPLAINTS AT THIS TIME
[2018-10-31 16:00] VITALS: BP 126/61
[2018-10-31 17:11] LABS: TRANSFERRIN 81 mg/dL (200 - 370)
--- NOTE | 2018-10-31 17:42 | NUR ---
PATIENT R SIDE LYING POSITION, TRACH TO VENT FIO2 28%, NO DISTRESS NOTED
[2018-10-31] MEDS: WARFARIN 1 MG TAB PO SCH (18:08)
--- NOTE | 2018-10-31 18:58 | NUR ---
FAMILY AT BEDSIDE. VENT CHECK DONE. VENT ALARMS ON AND AUDIBLE. PATIENT EATING DINNER AT THIS TIME. REFUSED BREATHING TREATMENT AT THIS TIME. WILL RETURN AT A LATER TIME AFTER PATIENT IS FINISHED EATING. NO RESPIRATORY DISTRESS NOTED AT THIS TIME. WILL CONTINUE TO MONITOR.
--- NOTE | 2018-10-31 19:28 | NUR ---
GAVE BEDSIDE REPORT TO ANDREY PAREDES. PATIENT ENDORSED IN STABLE CONDITION
--- NOTE | 2018-10-31 19:29 | NUR ---
RECEIVED BEDSIDE REPORT FROM AM NURSE, PT AWAKE ALERT O X 4. ON BEDREST, PATIENT ON TELE MONITOR. CONTACT PRECAUTIONS IN PLACE FOR ESBL/MDRO OF URINE, PSEUDO.PATIENT ON TRACH TO VENT SETTINGS FOLLOWS: FIO2 28%, VT 600 ML, RATE 16/MIN, FLOW 30 L/MIN, AND PEEP 5, PMAX 45. NO RESPIRATORY DISTRESS. SKIN INTACT, EXCEPT FOR SACRAL REDNESS. PATIENT ON WOUND CARE BED WITH DURAN CATHETER IN PLACE. IV ON LFA 22G INFUSING NS S.L IV PATENT AND INTACT. BED IN LOW POSITION, CALL LIGHT WITHIN REACH, SIDE RAILS X2 UP.
[2018-10-31 20:00] VITALS: BP 135/61
--- NOTE | 2018-10-31 20:34 | NUR ---
PT REFUSED TO TAKE THE TYLENOL, OXYBUTIN AND THE COLACE, INFORMED DR. RODRIGUEZ. HAS 2 BM'S AND THAT SHE DOES NOT HAVE A FEVER ANYMORE FOR THE TYLENOL, AND THE SHE DOES NOT HAVE SPASM IN THE BLADDER ANYMORE ACCORDING TO PT'S DAUGHTER, DAVIDSON. DR. JONES
[2018-10-31] MEDS: TOBRAMYCIN 120 MG in DEXTROSE 5% 100 ML IV SCH (20:39)
--- NOTE | 2018-10-31 21:00 | NUR ---
PT TURNED TO SIDE, ABLE TO TOLERATE WELL, DRAINED URINE
--- NOTE | 2018-10-31 21:24 | NUR ---
INFORMED DR. DAS THAT THE BNP - IS 81 OF 10/31/18. WILL ORDER FLUIDS. WILL CARRY OUT ORDER.
--- NOTE | 2018-10-31 22:58 | NUR ---
DAUGHTER AT BEDSIDE, CALLED RT- BEC DAUGHTER WANTS SETTINGS CHANGED, C/O THE MACHINE IS BEEPING AGAIN.
[2018-11-01] VITALS: BP 156/72
--- NOTE | 2018-11-01 00:44 | NUR ---
PT OBSERVED NOT ABLE TO TALK THE RT W/ DR'S ORDERS, HAD HER TRACH CUFFED
[2018-11-01] MEDS ORDERED: KETOROLAC 15 MG/ML VIAL IM ONE (00:45)
--- NOTE | 2018-11-01 00:45 | NUR ---
DR. RODRIGUEZ AT BEDSIDE, CHECKED VS BP 156/72, PT REFUSED OXYCODONE. ORDERED TORADOL IVF INSTEAD. WILL CARRY OUT ORDERS Addendum: 11/01/18 at 0049 by Ivory Gee RN AMEND TO DPT'S DAUGHTER REFUSED OXYCODINE DUE TO INABILITY OF MOM TO SWALLOW AT THIS TIME BEC OF THE CUFFED TRACH.
[2018-11-01] MEDS: oxyCODONE 5 MG TAB PO SCH ×4 (00:59→19:17)
--- NOTE | 2018-11-01 01:00 | NUR ---
PT TURNED TO SIDE, ABLE TO TOLERATE WELL .DURAN CATH CARE DONE
[2018-11-01] MEDS ORDERED: KETOROLAC 15 MG/ML VIAL ONE (01:03)
[2018-11-01] MEDS: ALBUTEROL SULFATE/IPRATROPIU 3 ML SOL IH SCH ×6 (03:55→23:13)
[2018-11-01 04:00] VITALS: BP 100/65
[2018-11-01] MEDS: BLOOD GLUCOSE MONITORING 1 DEV DEV FS SCH ×4 (05:35→21:17)
[2018-11-01] MEDS: PANTOPRAZOLE 40 MG TABEC PO SCH (05:49)
[2018-11-01] MEDS: CILOSTAZOL 100 MG TAB PO SCH ×2 (05:50→15:38)
--- NOTE | 2018-11-01 06:01 | NUR ---
PT C/O OF PAIN IN THE LEGS AND GENERALIZED BODY PAIN , GIVEN PLETAL AT 0550 ALONG W/ OXYCODONE, DR. RODRIGUEZ AWARE.
[2018-11-01 06:26] LABS: ANION GAP 12.2 (8-16); CARBON DIOXIDE 21.9 mmol/L (21-32); CREATININE 2.1 mg/dL (0.6-1.3); POTASSIUM 4.1 mmol/L (3.5-5.1)
[2018-11-01 07:14] LABS: PROTHROMBIN TIME 25.6 secs (10.8-13.4)
--- NOTE | 2018-11-01 07:26 | NUR ---
ENDORSED TO NEXT SHIFT, PT' SLEEPING AT THIS TIME, PT AROUSABLE TO NAME. PT NOT IN RESPIRATORY DISTRESS AT THIS TIME, NO COMPLAINTS PAIN.
--- NOTE | 2018-11-01 07:28 | NUR ---
RECEIVED BEDSIDE REPORT FROM BINDING CUTTER RN FOR CONTINUITY OF CARE. PT IN STABLE CONDITION. AOX3. NO C/O PAIN AND DISCOMFORT. NO S/S DISTRESS. RESPIRATIONS EVEN AND UNLABORED. HEART RHYTHM REGULAR. SKIN INTACT. PT IS BEDBOUND. DURAN CATH IN PLACE, DRAINING URINE. IV SITE PATENT AND ASYMPTOMATIC, INFUSING IVF PER MD ORDERS. ALL SAFETY PRECAUTIONS IN PLACE, WILL CONTINUE TO MONITOR.
[2018-11-01 08:00] VITALS: BP 112/61
[2018-11-01] MEDS: ACETAMINOPHEN 325 MG TAB PO SCH ×5 (09:00→21:00)
[2018-11-01] MEDS: OXYBUTYNIN 5 MG TAB PO SCH ×3 (09:00→21:00)
[2018-11-01] MEDS: DOCUSATE SODIUM 100 MG GELCAP PO SCH ×2 (09:39→21:00)
[2018-11-01] MEDS: FERROUS SULFATE 325 MG TABEC PO SCH ×2 (09:39→18:28)
[2018-11-01] MEDS: METOCLOPRAMIDE 10 MG TAB PO SCH ×3 (09:40→15:38)
[2018-11-01] MEDS: LEVOTHYROXINE 0.075 MG TAB PO SCH (09:40)
[2018-11-01] MEDS: ASPIRIN 81 MG TAB.CHEW PO SCH (09:40)
[2018-11-01] MEDS: LACTOBACILLUS RHAMNOSUS GG 1 EACH CAP PO SCH (09:40)
[2018-11-01] MEDS: ALLOPURINOL 100 MG TAB PO SCH (09:40)
[2018-11-01] MEDS: ATORVASTATIN 20 MG TAB PO SCH (09:41)
[2018-11-01] MEDS ORDERED: SODIUM FERRIC GLUCONATE 12.5 MG/ML AMP IV ONE (09:43)
[2018-11-01] MEDS: GABAPENTIN 300 MG CAP PO SCH (09:47)
[2018-11-01] MEDS: SODIUM FERRIC GLUCONATE 125 MG in NACL 0.9% 100 ML IV SCH (09:48)
--- NOTE | 2018-11-01 09:54 | NUR ---
ADMINISTERED SCHEDULED MEDS. PT REFUSED TYLENOL AND OXYBUTYNIN. DURAN CATH IN PLACE, DRAINING URINE. AFEBRILE NOW.
--- NOTE | 2018-11-01 11:38 | NUR ---
HELPED LINE STAKER GIVE BED BATH TO PATIENT. PATIENT IS AOX3, NO C/O PAIN NOW.
[2018-11-01 12:00] VITALS: BP 110/66
--- NOTE | 2018-11-01 12:17 | NUR ---
SCHEDULED MEDICATIONS ADMINISTERED. PT REFUSED TYLENOL.
--- NOTE | 2018-11-01 14:17 | NUR ---
DAUGHTER AT BEDSIDE. PT IN STABLE CONDITION.
--- NOTE | 2018-11-01 15:14 | NUR ---
NOTIFIED DR. MCBRIDE THAT PATIENT IS C/O 7/10 RIGHT LEG AND GENERALIZED RIGHT SIDED PAIN. DR. MCBRIDE TO PLACE ORDERS.
[2018-11-01] MEDS ORDERED: traMADol 50 MG TAB PO SCH (15:30)
[2018-11-01 16:00] VITALS: BP 145/74
--- NOTE | 2018-11-01 17:23 | NUR ---
PT REMAINS ON DOCUMENTED VENT SETTINGS. PT IS ASLEEP AT THIS TIME. DAUGHTER IS BEDSIDE. PT IS NOT IN ANY DISTRESS OR SOB. TRACH REMAINS SECURE WITH A PATENT AIRWAY. VENT ALARMS REMAINS ON AND FUNCTIONING.
[2018-11-01] MEDS: WARFARIN 1 MG TAB PO SCH (18:28)
--- NOTE | 2018-11-01 18:51 | NUR ---
PATIENT C/O BLADDER PRESSURE AND DISTENSION. BLADDER SCAN SHOWS 430 ML. WILL NOTIFY MD AND ASK IF DURAN IRRIGATION NEEDED.
--- NOTE | 2018-11-01 18:58 | NUR ---
UNABLE TO CONTACT DOCTOR. WILL ENDORSE. ALSO PT STATES SHE WANTS TO TRY THE OXYBUTYNIN
--- NOTE | 2018-11-01 19:14 | NUR ---
ENDORSED POC TO FINGER BUFF SEWER RN. ENDORSED BLADDER SCAN RESULTS, PT C/O DISTENSION, PT WANTS TO TRY OXYBUTYNIN.
--- NOTE | 2018-11-01 19:20 | NUR ---
RECEIVED REPORT FROM DAY SHIFT NURSE. PT IS TRACH TO VENT. AAOX3. NO RESP DISTRESS NOTED. PT ABLE TO MAKE NEEDS KNOWN. PT HAS DURAN CATH IN PLACE, DRAINING YELLOW URINE. PT C/O LOWER ABDOMEN PAIN, PAIN MEDS ALREADY GIVEN. PT'S DAUGHTER AT BEDSIDE. DISCUSSED PLAN OF CARE, PT AND DAUGHTER VERBALIZED UNDERSTANDING. SAFETY PRECAUTION IN PLACE. CALL LIGHT WITHIN REACH.
[2018-11-01 20:00] VITALS: BP 155/71
--- NOTE | 2018-11-01 20:10 | NUR ---
RECEIVED PATIENT TRACH SHILEY 6 XLT TO VENT ON SETTINGS: AC/VC 600, 14, +5 28%. VENT CHECK DONE. VENT ALARMS ON AND AUDIBLE. VENT PLUGGED INTO RED OUTLET. AMBU BAG AT BEDSIDE. AIRWAY SECURE AND PATENT. CUFF MINIMALLY INFLATED PER PATIENT REQUEST. NO SUCTIONING REQUIRED AT THIS TIME. CONTINUOUS PULSE OX ON AND FUNCTIONING. SCHEDULED BREATHING TREATMENT ADMINISTERED. TOLERATED TX WELL, NO ADVERSE SIDE EFFECTS. TRACH CARE DONE WITHOUT INCIDENT. FAMILY AT BEDSIDE. NO RESPIRATORY DISTRESS NOTED AT THIS TIME. WILL CONTINUE TO MONITOR.
--- NOTE | 2018-11-01 21:00 | NUR ---
DR. DAS MADE AWARE OF PT'S BLADDER SCAN RESULT. PT'S URINE OUTPUT 600 ML AT THIS TIME. PT DENIES PAIN AT THIS TIME. DAUGHTER AT BEDSIDE.
[2018-11-01] MEDS: TOBRAMYCIN 120 MG in DEXTROSE 5% 100 ML IV SCH (21:18)
--- NOTE | 2018-11-01 21:25 | NUR ---
PT AND DAUGHTER REFUSED DITROPAN, TYLENOL AND COLACE. EXPLAINED TO PT AND DAUGHTER THE RISKS AND BENEFITS. PT AND DAUGHTER VERBALIZED UNDERSTANDING.
--- NOTE | 2018-11-01 23:25 | NUR ---
VENT CHECK DONE. VENT ALARMS ON AND AUDIBLE. SCHDULED BREATHING TREATMENT ADMINISTERED. TOLERATED TX WELL, NO ADVERSE SIDE EFFECTS. NO RESPIRATORY DISTRESS NOTED AT THIS TIME. WILL CONTINUE TO MONITOR.
[2018-11-01] MEDS: NACL 0.9% 1,000 ML IV SCH (23:51)
[2018-11-02] VITALS: BP 144/65
--- NOTE | 2018-11-02 00:05 | NUR ---
MOBILE SOLUTIONS ARCHITECT UNABLE TO DRAW BLOOD FOR TOBRAMYCIN PEAK. MICHAEL HAAS MADE AWARE. PER , WILL TRY AGAIN TOMORROW WITH AM LABS.
[2018-11-02] MEDS: oxyCODONE 5 MG TAB PO SCH ×4 (00:38→18:01)
--- NOTE | 2018-11-02 02:45 | NUR ---
PT SLEEPING, EASILY AROUSABLE. NO S/S OF RESP DISTRESS. NO S/S OF PAIN. PT KEPT DRY AND COMFORTABLE. SAFETY PRECAUTION IN PLACE. CALL LIGHT WITHIN REACH.
[2018-11-02] MEDS: ALBUTEROL SULFATE/IPRATROPIU 3 ML SOL IH SCH ×6 (03:17→23:46)
--- NOTE | 2018-11-02 03:27 | NUR ---
VENT CHECK DONE. VENT ALARMS ON AND AUDIBLE. SCHEDULED BRETHING TREATMENT ADMINISTERED TOLERATED TX WELL, NO ADVERSE SIDE EFFECTS. SUCTIONED SCANT AMOUNT FO THICK, YELLOW SECRETIONS. NO RESPIRATORY DISTRESS NOTED AT THIS TIME. WILL CONTINUE TO MONITOR.
[2018-11-02 04:00] VITALS: BP 158/73
--- NOTE | 2018-11-02 04:05 | NUR ---
PT REFUSED TO BE REPOSITIONED AT THIS TIME. PT DENIES PAIN. NO RESP DISTRESS NOTED.
[2018-11-02] MEDS: PANTOPRAZOLE 40 MG TABEC PO SCH (06:30)
[2018-11-02] MEDS: CILOSTAZOL 100 MG TAB PO SCH ×2 (07:30→17:17)
[2018-11-02] MEDS: BLOOD GLUCOSE MONITORING 1 DEV DEV FS SCH ×5 (07:30→20:16)
[2018-11-02] MEDS: METOCLOPRAMIDE 10 MG TAB PO SCH ×3 (07:30→17:17)
--- NOTE | 2018-11-02 07:30 | NUR ---
RECEIVED BEDSIDE REPORT FROM LIQUEFACTION SUPERVISOR RN FOR CONTINUITY OF CARE. PT IN STABLE CONDITION. AOX3. C/O BLADDER PAIN. PER LIQUEFACTION SUPERVISOR RN, 1000 ML OUTPUT FROM LIQUEFACTION SUPERVISOR IN DURAN CATH. RESPIRATIONS EVEN AND UNLABORED. FACIAL GRIMACING NOTED. HEART RHYTHM REGULAR. SKIN INTACT. PT IS BEDBOUND. DURAN CATH IN PLACE, DRAINING URINE. IV SITE PATENT AND ASYMPTOMATIC, INFUSING IVF PER MD ORDERS. ALL SAFETY PRECAUTIONS IN PLACE, WILL CONTINUE TO MONITOR.
--- NOTE | 2018-11-02 07:40 | NUR ---
INFORMED DR. BROWN THAT PT IS C/O 03/13 BLADDER PAIN. UO FROM DURAN WAS 1000ML DURING PALM GATHERER. BP IS 177/78. DR. BROWN TO ORDER PAIN MEDICATION.
--- NOTE | 2018-11-02 07:50 | NUR ---
ESVIN FROM LAB STATES PT REFUSED ALL MORNING BLOOD DRAW.
[2018-11-02 08:00] VITALS: BP 177/78
[2018-11-02] MEDS: LEVOTHYROXINE 0.075 MG TAB PO SCH (08:24)
[2018-11-02] MEDS: FERROUS SULFATE 325 MG TABEC PO SCH ×2 (08:24→17:17)
[2018-11-02] MEDS: LACTOBACILLUS RHAMNOSUS GG 1 EACH CAP PO SCH (08:24)
[2018-11-02] MEDS: ALLOPURINOL 100 MG TAB PO SCH (08:24)
[2018-11-02] MEDS: ASPIRIN 81 MG TAB.CHEW PO SCH (08:24)
[2018-11-02] MEDS: GABAPENTIN 300 MG CAP PO SCH (08:25)
[2018-11-02] MEDS: ATORVASTATIN 20 MG TAB PO SCH (08:25)
[2018-11-02] MEDS: OXYBUTYNIN 5 MG TAB PO SCH ×2 (08:25→20:23)
[2018-11-02] MEDS: ACETAMINOPHEN 325 MG TAB PO SCH ×4 (08:28→20:16)
[2018-11-02] MEDS: DOCUSATE SODIUM 100 MG GELCAP PO SCH ×2 (08:28→20:23)
--- NOTE | 2018-11-02 08:32 | NUR ---
PATIENT STATES BLADDER PAIN IS SUBSIDING. BP RETAKEN RESULT. NOTIFIED DR. BROWN.
[2018-11-02] MEDS: METOPROLOL 25 MG TAB PO SCH (09:03)
--- NOTE | 2018-11-02 09:32 | NUR ---
NOTIFIED LAB THAT PATIENT AGREES TO HAVE MORNING LABS DRAWN. LAB WILL SEND CHIP MIXING MACHINE OPERATOR.
--- NOTE | 2018-11-02 09:59 | NUR ---
PATIENT C/O OF BLADDER PAIN AGAIN. BLADDER IS TENDER TO PALPATION. BLADDER SCAN SHOWS 600 ML. THERE HAS BEEN 100 ML IN THE DURAN SINCE 0700 TODAY. ADJUSTED DURAN CATH AND URINE CAN BE SEEN STARTING TO DRAIN OUT SLOWLY. PATIENT STATES SHE FEELS RELIEF WELL.
[2018-11-02] MEDS ORDERED: KETOROLAC 15 MG/ML VIAL IVP ONE (10:05)
[2018-11-02] MEDS: ONDANSETRON 4 MG/2 ML VIAL IM/IVP PRN (10:41)
--- NOTE | 2018-11-02 10:41 | NUR ---
PATIENT C/O NAUSEA. NO VOMITING. ADMINISTERED ZOFRAN IVP. WILL CONTINUE TO MONITOR.
[2018-11-02] MEDS: SODIUM FERRIC GLUCONATE 125 MG in NACL 0.9% 100 ML IV SCH (10:42)
--- NOTE | 2018-11-02 10:52 | NUR ---
ADDITIONAL 200 ML IN DURAN CATH, FOR A TOTAL OF 300 ML NOW. DURAN CATH ACTIVELY SEEN ACTIVELY DRAINING URINE. PATIENT STATES BLADDER PRESSURE DECREASING.
[2018-11-02 10:54] LABS: BASOPHILS # (AUTO) 0.1 K/uL (0.00-0.22); BASOPHILS % (AUTO) 0.4 % (0.0-2.0); EOSINOPHILS # (AUTO) 0.3 K/uL (0-0.4); EOSINOPHILS % (AUTO) 1.7 % (0.0-4.0); HEMATOCRIT 29.9 % (36-48); HEMOGLOBIN 9.6 g/dL (12.0-16.0); LYMPHOCYTES # (AUTO) 1.7 K/uL (2.5-16.5); LYMPHOCYTES % (AUTO) 10.5 % (20.5-51.1); MEAN CORPUSCULAR HEMOGLOBIN 30 pg (27-31); MEAN CORPUSCULAR HGB CONC 32 g/dL (33-37); MEAN CORPUSCULAR VOLUME 92.6 fL (80-94); MONOCYTES # (AUTO) 1.5 K/uL (0.8-1.0); MONOCYTES % (AUTO) 9.3 % (1.7-9.3); NEUTROPHILS # (AUTO) 12.9 K/uL (1.8-7.7); NEUTROPHILS % (AUTO) 78.1 % (42.2-75.2); PLATELET COUNT (AUTO) 286 K/uL (140-450); RED BLOOD CELL COUNT(AUTO) 3.23 MIL/uL (4.20-5.40); WHITE BLOOD COUNT (AUTO) 16.5 K/uL (4.8-10.8)
[2018-11-02 11:07] LABS: ANION GAP 13.2 (8-16); CARBON DIOXIDE 20.1 mmol/L (21-32); CREATININE 1.8 mg/dL (0.6-1.3); POTASSIUM 4.3 mmol/L (3.5-5.1); PROTHROMBIN TIME 17.8 secs (10.8-13.4)
--- NOTE | 2018-11-02 11:25 | NUR ---
SEE PHYSICAL CHART FOR 11/01 PHYSICAL SCIENCE AIDE CHARTING AND MEDS
--- NOTE | 2018-11-02 11:40 | NUR ---
DENIES N/V, ONE HOUR AFTER ZOFRAN IVP.
[2018-11-02 12:00] VITALS: BP 127/64
[2018-11-02 12:00] LABS: MAGNESIUM 1.6 mg/dL (1.8-2.4); PHOSPHORUS 2.7 mg/dL (2.5-4.9)
--- NOTE | 2018-11-02 12:23 | NUR ---
URINE CONTINUES TO DRAIN FROM DURAN. A TOTAL OF 600 ML OUTPUT SINCE 0700. NO C/O OF PAIN OR DISCOMFORT AT THIS TIME. WILL CONTINUE TO MONITOR.
--- NOTE | 2018-11-02 14:48 | NUR ---
PT RESTING IN BED, RESPIRATIONS EVEN AND UNLABORED. WILL CONTINUE TO MONITOR.
[2018-11-02 16:00] VITALS: BP 130/62
[2018-11-02] MEDS ORDERED: WARFARIN 1 MG TAB PO SCH (17:00)
--- NOTE | 2018-11-02 17:12 | NUR ---
PT RESTING IN BED, RT AT BEDSIDE. NO C/O OF PAIN OR DISCOMFORT. WILL CONTINUE TO MONITOR.
--- NOTE | 2018-11-02 17:20 | NUR ---
PT REMAINS ON DOCUMENTED VENT SETTINGS. PT IS ASLEEP AT THIS TIME NOT IN ANY DISTRESS. VENT ALARMS ON AND FUNCTIONING. TRACH IS SECURE WITH A PATENT AIRWAY.
--- NOTE | 2018-11-02 17:20 | NUR ---
UO FROM DURAN IS >1100 ML NOW.
--- NOTE | 2018-11-02 18:04 | NUR ---
EXPLAINED TO PATIENT THAT TYLENOL IS COMPONENT OF HOME MED PERCOCET. PT VERBALIZED UNDERSTANDING BUT CONTINUES TO REFUSE.
--- NOTE | 2018-11-02 19:06 | NUR ---
ENDORSED POC TO BRUSH MATERIAL PREPARER RN. PT IN STABLE CONDITION.
--- NOTE | 2018-11-02 19:30 | NUR ---
RECEIVED BEDSIDE REPORT FROM DAY SHIFT RN AHSAN, ON CONTACT HX ESBL/MDRO IN URINE. PATIENT TRACH TO VENT, ON AC, FIO2 AT 28% VT 600, PEEP 5. V/S STALE, LUNG SOUNDS ARE CLEAR BILATERALLY, DURAN CATH IN PLACE DRAINING CLEAR YELLOW URINE AT 100 ML, PATIENT DENIES BLADDER PAIN. IV IN LEFT FA 22 G INFUSING NS AT 40 ML/HR, BG 139 NO COVERAGE NEEDED. CALL LIGHT WITHIN REACH, WILL CONTINUE TO MONITOR.
[2018-11-02 20:00] VITALS: BP 127/56
[2018-11-02] MEDS: NACL 0.9% 1,000 ML IV SCH (20:16)
--- NOTE | 2018-11-02 20:17 | NUR ---
BG 139 NO COVERAGE NEEDED, PATIENT REFUSED TYLENOL WILL HOLD.
[2018-11-02] MEDS: TOBRAMYCIN 120 MG in DEXTROSE 5% 100 ML IV SCH (20:23)
--- NOTE | 2018-11-02 20:30 | NUR ---
PT RECEIVED ON CHARTED SETTINGS VC-AC 14, VT 600, +5, 28%. PT HAS A SHILEY XLT TRACH SIZE 6 WITH CUFF DEFLATED PER HER REQUEST. SHE IS IN NO DISTRESS AND IS AWAKE AND ALERT. VENT PLUGGED INTO RED OUTLET, ALWARMS SET AND AUDIBLE. TX GIVEN INLINE WITH OUT ADVERSE REACTION. WILL CONTINUE TO MONITOR
[2018-11-02] MEDS ORDERED: MAG SULF 2000 MG/WATER PREMIX 50 ML IV ONE (20:50)
--- NOTE | 2018-11-02 20:50 | NUR ---
CALLED DR RODRIGUEZ TO REPORT MG 1.6
--- NOTE | 2018-11-02 21:20 | NUR ---
GAVE MG RIDER FOR MG 1.6
[2018-11-03] VITALS: BP 136/66
--- NOTE | 2018-11-03 00:20 | NUR ---
V/S TAKEN ALL STABLE.
[2018-11-03] MEDS: ALBUTEROL SULFATE/IPRATROPIU 3 ML SOL IH SCH ×7 (03:12→23:00)
--- NOTE | 2018-11-03 03:44 | NUR ---
ASLEEP NO SIGNS OF DISTRESS, WILL CONTINUE TO MONITOR
[2018-11-03 03:51] VITALS: BP 133/77
[2018-11-03] MEDS: PANTOPRAZOLE 40 MG TABEC PO SCH (05:53)
[2018-11-03] MEDS: oxyCODONE 5 MG TAB PO SCH ×5 (05:53→23:58)
[2018-11-03] MEDS: CILOSTAZOL 100 MG TAB PO SCH ×2 (05:53→16:55)
[2018-11-03] MEDS: METOCLOPRAMIDE 10 MG TAB PO SCH ×3 (05:54→16:55)
[2018-11-03] MEDS: BLOOD GLUCOSE MONITORING 1 DEV DEV FS SCH ×4 (06:03→20:21)
--- NOTE | 2018-11-03 06:07 | NUR ---
DUE MEDICATIONS GIVEN, BG 125 NO COVERAGE NEEDED
--- NOTE | 2018-11-03 07:16 | NUR ---
ENDORSED PATIENT TO DAY SHIFT NURSE, PATIENT STABLE.
--- NOTE | 2018-11-03 07:17 | NUR ---
RECEIVED REPORT FROM COMFORT STATION ATTENDANT NURSEWENDY, AT BEDSIDE FOR CONTINUITY OF CARE. PATIENT ASLEEP, AOX4, TRACH TO VENT, NO SIGN OF DISTRESS OR SOB NOTED. IV SITE INTACT, PATENT, ASYMPTOMATIC, INFUSING IVF AT 40ML/HR. UPDATED BOARD. SAFETY AND ISOLATION PRECAUTIONS IN PLACE, CALL LIGHT WITHIN REACH, WILL CONTINUE TO MONITOR PATIENT.
[2018-11-03 07:26] LABS: BASOPHILS % (AUTO) 0.2 % (0.0-2.0); EOSINOPHILS # (AUTO) 0.3 K/uL (0-0.4); EOSINOPHILS % (AUTO) 1.8 % (0.0-4.0); HEMATOCRIT 28.9 % (36-48); HEMOGLOBIN 9.3 g/dL (12.0-16.0); LYMPHOCYTES # (AUTO) 1.5 K/uL (2.5-16.5); LYMPHOCYTES % (AUTO) 8.9 % (20.5-51.1); MEAN CORPUSCULAR HEMOGLOBIN 29 pg (27-31); MEAN CORPUSCULAR HGB CONC 32 g/dL (33-37); MONOCYTES # (AUTO) 1.2 K/uL (0.8-1.0); MONOCYTES % (AUTO) 7.4 % (1.7-9.3); NEUTROPHILS # (AUTO) 13.9 K/uL (1.8-7.7); NEUTROPHILS % (AUTO) 81.7 % (42.2-75.2); PLATELET COUNT (AUTO) 301 K/uL (140-450); RED BLOOD CELL COUNT(AUTO) 3.17 MIL/uL (4.20-5.40); RED CELL DISTRIBUTION WIDTH 18.9 % (11.6-13.7)
--- NOTE | 2018-11-03 07:31 | NUR ---
RECEIVED TRACH PT WITH A SHILEY 6 XLT TRACH ON VENT. SETTINGS AC/VC 14, VT 600, PEEP 5 AND FIO2 28%. PT IS AWAKE AND ALERT, NOT IN ANY DISTRESS. PT SUCTIONED OBTAINED SMALL AMOUNT OF THICK YELLOW SECRETIONS, AIRWAY IS PATENT AND TRACH IS SECURE. VENT ALARMS ON AND FUNCTIONING. WILL CONTINUE TO MONITOR.
[2018-11-03 07:38] LABS: PROTHROMBIN TIME 16.2 secs (10.8-13.4)
[2018-11-03 07:48] LABS: PHOSPHORUS 2.9 mg/dL (2.5-4.9)
[2018-11-03 07:50] LABS: ANION GAP 15.8 (8-16); CARBON DIOXIDE 18.9 mmol/L (21-32); CREATININE 1.9 mg/dL (0.6-1.3); POTASSIUM 4.7 mmol/L (3.5-5.1)
[2018-11-03] MEDS: FERROUS SULFATE 325 MG TABEC PO SCH ×2 (07:57→16:54)
--- NOTE | 2018-11-03 07:58 | NUR ---
ORAL TEMP 102.0 F, TYLENOL PRN GIVEN FOR FEVER, COOLING MEASURES IN PLACE. WILL CONTINUE TO MONITOR PATIENT.
[2018-11-03 08:00] VITALS: BP 132/59
--- NOTE | 2018-11-03 08:40 | NUR ---
ORAL TEMP 100.6. COOLING MEASURES STILL IN PLACE, PATIENT TOLERATING IT. SAFETY AND ISOLATION PRECAUTIONS IN PLACE, CALL LIGHT WITHIN REACH, WILL CONTINUE TO MONITOR PATIENT. Addendum: 11/03/18 at 1817 by Tino Macedo RN ORAL CARE GIVEN. PATIENT SUCTIONED NEEDED.
[2018-11-03] MEDS: METOPROLOL 25 MG TAB PO SCH (09:00)
[2018-11-03] MEDS: ACETAMINOPHEN 325 MG TAB PO SCH ×4 (09:00→20:21)
[2018-11-03] MEDS: KETOROLAC 15 MG/ML VIAL IVP PRN ×2 (09:25→16:46)
[2018-11-03] MEDS: LEVOTHYROXINE 0.075 MG TAB PO SCH (09:33)
[2018-11-03] MEDS: OXYBUTYNIN 5 MG TAB PO SCH ×2 (09:33→20:23)
[2018-11-03] MEDS: ASPIRIN 81 MG TAB.CHEW PO SCH (09:33)
[2018-11-03] MEDS: DOCUSATE SODIUM 100 MG GELCAP PO SCH ×2 (09:33→20:23)
[2018-11-03] MEDS: ALLOPURINOL 100 MG TAB PO SCH (09:34)
[2018-11-03] MEDS: ATORVASTATIN 20 MG TAB PO SCH (09:34)
[2018-11-03] MEDS: GABAPENTIN 300 MG CAP PO SCH (09:34)
[2018-11-03] MEDS: LACTOBACILLUS RHAMNOSUS GG 1 EACH CAP PO SCH (09:34)
--- NOTE | 2018-11-03 09:35 | NUR ---
PATIENT C/O BLADDER PAIN, NO PRN PAIN MEDICATION AT THIS TIME, PATIENT SCHEDULED PAIN MED AT 0553. INFORMED DR. BROWN, NEW ORDER IN FOR PRN TORADOL IN. PATIENT MEDICATED WITH PRN TORADOL. PATIENT TOLERATED IT. ORDERED MEDICATIONS GIVEN. PATIENT REFUSED METOPROLOL. INFORMED HER OF INDICATIONS AND BENEFITS OF WHY IT IS BEING GIVEN TO HER. SHE VERBALIZED UNDERSTANDING BUT STILL REFUSED. SAFETY AND ISOLATION PRECAUTIONS IN PLACE, CALL LIGHT WITHIN REACH, WILL CONTINUE TO MONITOR PATIENT. Addendum: 11/03/18 at 1815 by Tino Macedo RN ORAL TEMP 98.9.
--- NOTE | 2018-11-03 11:40 | NUR ---
PT IN BED WATCHING TV, NOT IN ANY DISTRESS. WILL CONTINUE TO MONITOR.
--- NOTE | 2018-11-03 11:42 | NUR ---
11/03/18 RD FOLLOW UP COMPLETED PLEASE REFER TO NUTRITION PROGRESS NOTE UNDER CARE ACTIVITY FOR ESTIMATED NUTRITION NEEDS. RD RECOMMENDATIONS: 1. RECOMMEND CCHO 60 GM AND CARDIAC DIET TOLERATED 2. FOLLOW UP WITH CONSISTENT CARBOHYDRATE DIET EDUCATION 3. RD TO FOLLOW-UP 3-5 DAYS, MODERATE RISK STELLA HARRIS, , RDN
--- NOTE | 2018-11-03 12:00 | NUR ---
BLOOD SUGAR 120, NO COVERAGE NEEDED. ORDERED MEDICATIONS GIVEN. PATIENT TOLERATED THEM. NO COMPLAINTS AT THIS TIME. SAFETY AND ISOLATION PRECAUTIONS IN PLACE, CALL LIGHT WITHIN REACH, WILL CONTINUE TO MONITOR PATIENT.
[2018-11-03 13:00] LABS: APPEARANCE,URINE SL CLOUDY (CLEAR); BILIRUBIN,URINE NEGATIVE (NEGATIVE); BLOOD, URINE 1+ (NEGATIVE); COLOR,URINE YELLOW (YELLOW); LEUKOCYTE ESTERASE ,URINE 2+ (NEGATIVE); NITRITE, URINE NEGATIVE (NEGATIVE); PH,URINE 5.5 (5.0-9.0); UGLUCOSE NEGATIVE (NEGATIVE)
--- NOTE | 2018-11-03 13:04 | NUR ---
ORDERED MEDICATION GIVEN. PATIENT TOLERATED IT. NO COMPLAINTS AT THIS TIME, PATIENT IN BED WATCHING VIDEO ON PHONE. SAFETY AND ISOLATION PRECAUTIONS IN PLACE, CALL LIGHT WITHIN REACH, WILL CONTINUE TO MONITOR PATIENT.
[2018-11-03 13:24] LABS: RBC,URINE 0-5 /HPF (0-5); WBC,URINE 60-80 /HPF (0-5); YEAST,URINE Moderate /HPF (None Seen)
[2018-11-03] MEDS: FLUCONAZOLE 200 MG/NS PREMIX 100 ML IV SCH (14:23)
--- NOTE | 2018-11-03 14:23 | NUR ---
ORDERED IVPB GIVEN. PATIENT TOLERATING IT. WILL ASSESS FOR ANY REACTION. WILL CONTINUE TO MONITOR PATIENT.
[2018-11-03 16:00] VITALS: BP 122/76
--- NOTE | 2018-11-03 16:55 | NUR ---
BLOOD SUGAR 120, NO COVERAGE NEEDED. ORDERED MEDICATIONS GIVEN. DAUGHTER AT BEDSIDE. EDUCATED HER ON CONTACT PRECAUTIONS. PATIENT REQUESTED FOR TORADOL PRN IVP FOR 7/10 BLADDER PAIN. MEDICATION GIVEN. PATIENT TOLERATED IT WELL. SAFETY AND ISOLATION PRECAUTIONS N PLACE, CALL LIGHT WITHIN REACH, WILL CONTINUE TO MONITOR PATIENT.
[2018-11-03] MEDS ORDERED: WARFARIN 2.5 MG TAB PO SCH (17:00)
--- NOTE | 2018-11-03 17:54 | NUR ---
PT REMAINS ON DOCUMENTED VENT SETTINGS. PT AWAKE AND ALERT IN BED EATING NOT IN ANY DISTRESS. DAUGHTER IS BEDSIDE.VENT ALARMS REMAIN ON AND FUNCTIONING. TRACH IS SECURE WITH A PATENT AIRWAY.
--- NOTE | 2018-11-03 18:30 | NUR ---
PATIENT REFUSING ORDERED DOSE OF OXYCODONE AT THE MOMENT. INFORMED PATIENT WILL ENDORSE TO FACILITY WORKER NURSE AND IS AVAILABLE IF PATIENT REQUESTS IT. SHE VERBALIZED UNDERSTANDING. PATIENT REQUESTING BREATHING TREATMENT. CALLED RT, SHIFT CHANGE REPORT, ZULY DRAPER STATED THAT HE WILL ENDORSE TO FACILITY WORKER RN. SUCTIONED PATIENT AND INFORMED HER THAT RT WILL COME TO SEE HER. SHE VERBALIZED UNDERSTANDING.
--- NOTE | 2018-11-03 18:35 | NUR ---
Received patient on current settings: AC 600 Rate 14 Fio2 28% PEEP 5. Patient is trach'd with a size 6 Shiley XLT that is secure with trach ties and protective gauze is in place that is clean and dry. Cuff is inflated with 6ml's of air. Stoma appears clean, dry and healthy. Patient is awake and quiet. Treatment given inline with no incident or adverse effects. B/S: Diminished bilaterally pre and post inline treatment. Did not suction patient. Vent settings and alarms verified. Ambu bag at bedside.
--- NOTE | 2018-11-03 18:40 | NUR ---
RT IN TO SEE PATIENT, WILL CONTINUE TO MONITOR AND ENDORSE TO CHARGING MANIPULATOR RN.
--- NOTE | 2018-11-03 19:07 | NUR ---
REPORT GIVEN TO FORECLOSURE SPECIALIST NURSE SUMMER AT BEDSIDE FOR CONTINUITY OF CARE. PATIENT IN STABLE CONDITION.
--- NOTE | 2018-11-03 19:30 | NUR ---
RECEIVED BEDSIDE REPORT FROM DAY SHIFT RN AHSAN, ON CONTACT HX ESBL/MDRO/PSEUDOMANIAS IN URINE. PATIENT TRACH TO VENT, ON AC, FLOW 36, FIO2 AT 28% VT 600, PEEP 5. V/S STALE, LUNG SOUNDS ARE CLEAR BILATERALLY, DURAN CATH IN PLACE DRAINING CLEAR YELLOW URINE AT 200 ML, PATIENT DENIES BLADDER PAIN. IV IN LEFT FA 22 G INFUSING NS AT 40 ML/HR, BG 142 NO COVERAGE NEEDED. CALL LIGHT WITHIN REACH, WILL CONTINUE TO MONITOR.
[2018-11-03] MEDS: NACL 0.9% 1,000 ML IV SCH (20:21)
[2018-11-03] MEDS: TOBRAMYCIN 120 MG in DEXTROSE 5% 100 ML IV SCH (20:23)
[2018-11-03] MEDS: LINEZOLID 600MG PREMIX 300 ML IV SCH (20:23)
--- NOTE | 2018-11-03 20:28 | NUR ---
DUE MEDICATIONS GIVEN, EDUCATION PROVIDED REGARDING SIDE EFFECTS, PATIENT VERBALIZED UNDERSTANDING. BG 142 NO COVERAGE NEEDED. PATIENT C/O OF PAIN GAVE SCHEDULED 1900 ROXICODONE FOR PAIN
[2018-11-03] MEDS: ONDANSETRON 4 MG/2 ML VIAL IM/IVP PRN (22:20)
--- NOTE | 2018-11-03 22:27 | NUR ---
GAVE ZOFRAN FOR FEELING NAUSEOUS
--- NOTE | 2018-11-03 22:28 | NUR ---
RN CALLED STATING THAT PATIENT REQUESTED NO BREATHING TREATMENTS TONIGHT AND WOULD LIKE TO BE LEFT ALONE.
--- NOTE | 2018-11-03 22:29 | NUR ---
PATIENT REQUESTED TO BE LEFT ALONE FROM R/T AND RIB BUILDER. SHE STATED SHE JUST WANTS TO SLEEP.
--- NOTE | 2018-11-03 23:15 | NUR ---
ROUTINE VENT CHECK AND PATIENT ASSESSMENT. NO INLINE TREATMENT GIVEN YASEMINROWER REQUESTED TO NOT BE BOTHERED. PATIENT ASLEEP BUT APPEARS COMFORTABLE WITH NO DISTRESS.
[2018-11-03 23:53] VITALS: BP 132/52
--- NOTE | 2018-11-03 23:58 | NUR ---
PATIENT SLEEPING NO SIGNS OF DISTRESS OF PAIN. WILL HOLD ROXICODONE PER PATIENT REQUEST.
--- NOTE | 2018-11-04 02:27 | NUR ---
PATIENT SLEEPING, CALL LIGHT WITHIN REACH, WILL CONTINUE TO MONITOR.
--- NOTE | 2018-11-04 04:20 | NUR ---
DURAN CARE PROVIDED, CALL LIGHT WITHIN REACH.
[2018-11-04] MEDS: ALBUTEROL SULFATE/IPRATROPIU 3 ML SOL IH SCH ×6 (05:14→23:16)
--- NOTE | 2018-11-04 05:20 | NUR ---
ROUTINE VENT CHECK AND PATIENT ASSESSMENT. PT CALLED FOR TREATMENT. PT AWAKE AND ALERT WHEN ENTERED ROOM. INLINE TREATMENT GIVEN WITH NO INCIDENT OR ADVERSE REACTION. PT DECLINED TRACH CARE STATING THAT DAUGHTER CHANGED INNER CANNULA AND GAUZE LAST NIGHT. ASSESSED STOMA THAT IS CLEAN, DRY AND APPEARS HEALTHY. CHANGED HME.
[2018-11-04] MEDS: oxyCODONE 5 MG TAB PO SCH ×4 (05:42→21:49)
[2018-11-04] MEDS: BLOOD GLUCOSE MONITORING 1 DEV DEV FS SCH ×4 (05:42→21:05)
--- NOTE | 2018-11-04 05:43 | NUR ---
BG 115 NO COVERAGE NEEDED. PATIENT WANTS TORADOL FOR PAIN NOT ROXICODONE
[2018-11-04] MEDS: CILOSTAZOL 100 MG TAB PO SCH ×2 (05:50→17:18)
[2018-11-04] MEDS: PANTOPRAZOLE 40 MG TABEC PO SCH (05:50)
[2018-11-04] MEDS: LEVOTHYROXINE 0.075 MG TAB PO SCH (05:50)
[2018-11-04] MEDS: METOCLOPRAMIDE 10 MG TAB PO SCH ×3 (05:50→17:17)
[2018-11-04] MEDS: KETOROLAC 15 MG/ML VIAL IVP PRN ×2 (05:51→14:51)
--- NOTE | 2018-11-04 05:56 | NUR ---
DUE MEDICATIONS GIVEN GAVE TORADOL FOR PAIN
[2018-11-04 07:05] LABS: BASOPHILS % (AUTO) 0.3 % (0.0-2.0); EOSINOPHILS # (AUTO) 0.4 K/uL (0-0.4); HEMATOCRIT 28.6 % (36-48); HEMOGLOBIN 9.2 g/dL (12.0-16.0); LYMPHOCYTES # (AUTO) 1.2 K/uL (2.5-16.5); LYMPHOCYTES % (AUTO) 8.5 % (20.5-51.1); MEAN CORPUSCULAR HEMOGLOBIN 30 pg (27-31); MEAN CORPUSCULAR HGB CONC 32 g/dL (33-37); MONOCYTES # (AUTO) 1.4 K/uL (0.8-1.0); MONOCYTES % (AUTO) 10.1 % (1.7-9.3); NEUTROPHILS # (AUTO) 10.7 K/uL (1.8-7.7); NEUTROPHILS % (AUTO) 78.1 % (42.2-75.2); PLATELET COUNT (AUTO) 256 K/uL (140-450); RED CELL DISTRIBUTION WIDTH 19.1 % (11.6-13.7); WHITE BLOOD COUNT (AUTO) 13.6 K/uL (4.8-10.8)
[2018-11-04 07:17] LABS: PROTHROMBIN TIME 15.8 secs (10.8-13.4)
--- NOTE | 2018-11-04 07:19 | NUR ---
ENDORSED PATIENT TO DAY SHIFT NURSE, PATIENT STABLE.
[2018-11-04 07:20] LABS: CARBON DIOXIDE 20.9 mmol/L (21-32); POTASSIUM 4.9 mmol/L (3.5-5.1)
--- NOTE | 2018-11-04 07:20 | NUR ---
RECEIVED BEDSIDE REPORT FROM ANDREY NGUYEN. PATIENT ON MED SURGE AND CONTACT PRECAUTIONS IN PLACE FOR MRSA OF WOUND, ESBL/MDRO OF URINE. PATIENT ON TRACH TO VENT: FIO2 28%, VT 600, RATE 14/MIN, FLOW 36 L/MIN, AND PEEP 5, NO DISTRESS NOTED. PATIENT BEDBOUND AND SACRAL REDNESS PRESENT. IV ON L FA 22G INFUSING NS AT 40, IV ASYMPTOMATIC PATENT AND INTACT. PATIENT ON WOUND CARE BED, DURAN CATHETER IN PLACE SECURE AND CLEAN. BED IN LOW POSITION, CALL LIGHT WITHIN REACH, SIDE RAILS X2 UP
[2018-11-04 07:46] LABS: MAGNESIUM 1.9 mg/dL (1.8-2.4); PHOSPHORUS 3.8 mg/dL (2.5-4.9)
[2018-11-04 08:00] VITALS: BP 116/52
[2018-11-04] MEDS: DOCUSATE SODIUM 100 MG GELCAP PO SCH ×2 (08:43→21:00)
[2018-11-04] MEDS: LACTOBACILLUS RHAMNOSUS GG 1 EACH CAP PO SCH (08:43)
[2018-11-04] MEDS: ASPIRIN 81 MG TAB.CHEW PO SCH (08:43)
[2018-11-04] MEDS: METOPROLOL 25 MG TAB PO SCH (08:44)
[2018-11-04] MEDS: ACETAMINOPHEN 325 MG TAB PO SCH ×4 (08:44→21:00)
[2018-11-04] MEDS: FERROUS SULFATE 325 MG TABEC PO SCH ×2 (08:45→17:17)
[2018-11-04] MEDS: ALLOPURINOL 100 MG TAB PO SCH (08:46)
[2018-11-04] MEDS: OXYBUTYNIN 5 MG TAB PO SCH ×2 (08:47→20:59)
[2018-11-04] MEDS: GABAPENTIN 300 MG CAP PO SCH (08:47)
[2018-11-04] MEDS: LINEZOLID 600MG PREMIX 300 ML IV SCH ×2 (08:48→20:59)
[2018-11-04] MEDS: ATORVASTATIN 20 MG TAB PO SCH (08:48)
--- NOTE | 2018-11-04 08:53 | NUR ---
ADMINISTERED SCHEDULED MEDS. PATIENT TOLERATED WELL
--- NOTE | 2018-11-04 09:20 | NUR ---
REMOVED IV SINCE IT WAS INFILTRATED. STOPPED IV ANTIBIOTIC. LAB UNABLE TO DRAW BLOOD AT THIS TIME, MULTIPLE ATTEMPTS TRIED
--- NOTE | 2018-11-04 10:52 | NUR ---
SCREEN FOR LOW LUIS ANTONIO SCALE AT RISK, PRESSURE INJURY PREVENTION INTERVENTIONS IN PLACE. -TURN AND REPOSITION PATIENT Q 2H OFFLOAD SACRALCOCCYX -ASSESS AND MONITOR SKIN CONDITION DURING POSITION CHANGE -OFFLOAD BILATERAL HEELS BY PLACING PILLOWS UNDER CALVES AT ALL TIMES, UNLESS OTHERWISE CONTRAINDICATED -PRESSURE REDISTRIBUTION BY PLACING PILLOWS -KEEP SKIN CLEAN AND DRY AT ALL TIMES.
--- NOTE | 2018-11-04 11:14 | NUR ---
PATIENT WATCHING TV, NO S/S OF RESPIRATORY DISTRESS
--- NOTE | 2018-11-04 11:36 | NUR ---
PT AWAKE IN BED WATCHING TV NOT IN ANY DISTRESS. BREATHING TX ADMINISTERED. WILL CONTINUE TO MONITOR.
--- NOTE | 2018-11-04 11:50 | NUR ---
CONTACTED PICC LINE SERVICE, NO ANSWER, VOICEMAIL MESSAGE REGARDING MIDLINE INSERTION. SHAYAN NURSE BLAS MADE AWARE.
--- NOTE | 2018-11-04 12:32 | NUR ---
STIVEN, PICC LINE NURSE CALLED BACK, PER STIVEN, HE KNEW THIS PT FROM OTHER HOSPITAL AND SHE IS NOT A CANDIDATE ANYMORE FOR PICC OR MIDLINE PLACEMENT. STIVEN ALSO STATED THAT THEY CAN'T GET THE GUIDE WIRE ADVANCE INTO HER VEIN DUE TO SO MUCH SCARRING AND BLOCKAGE. STIVEN'S RECOMMENDATION IS FOR THE DOCTOR TO PLACE AN EXTERNAL JUGULAR IV ACCESS. SHAYAN, NURSE ASSIGNED AND DR. MCKEON NOTIFIED.
--- NOTE | 2018-11-04 13:30 | NUR ---
PT SUCTIONED OBTAINED SMALL AMOUNT OF DOLL COLORED SECRETIONS, AIRWAY IS PATENT AND TRACH IS SECURE. PT NOT IN ANY DISTRESS AT THIS TIME. NURSE IS BEDSIDE. WILL CONTINUE TO MONITOR.
--- NOTE | 2018-11-04 13:50 | NUR ---
DR. SILVA AT BEDSIDE FOR CENTRAL LINE PLACEMENT
[2018-11-04] MEDS ORDERED: LORazepam 1 MG TAB PO SCH (14:00)
[2018-11-04] MEDS: FLUCONAZOLE 200 MG/NS PREMIX 100 ML IV SCH (14:43)
--- NOTE | 2018-11-04 15:54 | NUR ---
HEP LOCK FLUSH NEEDED FOR CENTRAL LINE PLACEMENT PERFORMED BY DR. SILVA AT BEDSIDE. HEP LOCK FLUSH WAS NOT ADMINISTERED BY ID
[2018-11-04 16:00] VITALS: BP 134/60
[2018-11-04] MEDS: WARFARIN 2.5 MG TAB PO SCH (17:00)
--- NOTE | 2018-11-04 17:28 | NUR ---
PT REMAINS ON DOCUMENTED VENT SETTINGS. DAUGHTER IS BEDSIDE. TRACH REMAINS SECURE WITH A PATENT AIRWAY. VENT ALARMS ON AND FUNCTIONING. PT IS AWAKE IN BED NOT IN ANY DISTRESS.
--- NOTE | 2018-11-04 18:00 | NUR ---
PICTURE TAKEN OF SACROCOCCYX AREA. DAUGHTER SUKUMAR SPOKE TO CHARGE NURSE, CASTILLO REGARDING APPLICATION OF CREAMS TO SACRAL AREA. NEW WOUND IN SACRAL AREA, INCIDENT REPORT WILL BE COMPLETED.
--- NOTE | 2018-11-04 18:37 | NUR ---
ADMINISTERED SCHEDULED MEDS. PATIENT TOLERATED WELL
--- NOTE | 2018-11-04 19:20 | NUR ---
RECEIVED BEDSIDE REPORT FROM DAY SHIFT NURSE. PATIENT IS AWAKE, ALERT, AND COOPERATIVE. RESPIRATION EVEN UNLABORED ON TRACH TO VENT. SKIN IS WARM AND DRY. LEFT IJ CENTRAL LINE NOTED PATENT AND INTACT. DENIES PAIN. PATIENT IS ON CONTACT PRECAUTIONS FOR MRSA OF WOUND, ESBL/MDRO OF URINE. DURAN CATHETER NOTED DRAINING YELLOW URINE. PLAN OF CARE WAS DISCUSSED. ALL SAFETY MEASURES IN PLACE. BED IS AT LOW POSITION. CALL LIGHT WITHIN REACH AND VERBALIZES ITS USE. WILL CONTINUE TO MONITOR.
--- NOTE | 2018-11-04 19:25 | NUR ---
GAVE BEDSIDE REPORT TO ANDREY GATES. PATIENT ENDORSED IN STABLE CONDITION
--- NOTE | 2018-11-04 20:00 | NUR ---
INITIAL ASSESSMENT DONE. VITALS WERE TAKEN. REPOSITION PATIENT TO THE LEFT SIDE. NO DISTRESS NOTED WILL CONTINUE TO MONITOR.
[2018-11-04] MEDS: TOBRAMYCIN 120 MG in DEXTROSE 5% 100 ML IV SCH (20:10)
--- NOTE | 2018-11-04 20:24 | NUR ---
FOUND PT RESTING COMFORTABLY ON VENT SETTINGS OF A/C: RESPIRATORY RATE 14, TIDAL VOLUME 600, PEEP 5, FIO2 28%. ALARMS ON AND AUDIBLE. VENT CONNECTED TO RED PLUG OUTLET. AMBU BAG AT BED SIDE OF PT. WILL CONTINUE TO MONITOR PT.
--- NOTE | 2018-11-04 21:00 | NUR ---
ALL SCHEDULED MEDS WERE GIVEN AND TOLERATED THEM WELL. PATIENT REFUSED TYLENOL SHE SAID "I DON'T NEED THAT MEDICATION." EDUCATED THE RISK AND BENEFITS X2 STILL REFUSED. WILL CONTINUE TO MONITOR.
[2018-11-04] MEDS: NACL 0.9% 1,000 ML IV SCH (21:25)
--- NOTE | 2018-11-04 21:49 | NUR ---
PATIENT COMPLAINED OF CRAMPING PAIN 12/11. OXYCODONE ADMINISTER PER ORDER. WILL CONTINUE TO MONITOR
--- NOTE | 2018-11-04 22:00 | NUR ---
REPOSITION PATIENT IN SUPINE POSITION. GAVE GOOD PERICARE AND DURAN CATHETER. WILL CONTINUE TO MONITOR.
[2018-11-04] MEDS ORDERED: SODIUM PHOSPHATE 118 ML ENEM RC PRN (22:40)
--- NOTE | 2018-11-04 23:00 | NUR ---
PATIENT COMPLAINED OF FEELING CONSTIPATED. LAST BM 11/03/18. PATIENT REQUEST FOR FLEET ENEMA. EDUCATED PATIENT ABOUT THE BOWEL MOVEMENT PROCESS STILL REQUEST FOR FLEET ENEMA. IS AWARE OF THE SITUATION AND ORDER FLEET ENEMA. WILL CONTINUE TO MONITOR.
[2018-11-05] VITALS: BP 130/62
--- NOTE | 2018-11-05 | NUR ---
VITALS WERE TAKEN. PATIENT IS IN STABLE CONDITION. REPOSITIONED PATIENT TO THE RIGHT SIDE. WILL CONTINUE TO MONITOR.
[2018-11-05] MEDS ORDERED: COMMUNICATION ORDER MC SCH (01:00)
--- NOTE | 2018-11-05 02:00 | NUR ---
REPOSITIONED PATIENT TO SUPINE POSITION. NO DISTRESS NOTED. WILL CONTINUE TO MONITOR
[2018-11-05] MEDS: ALBUTEROL SULFATE/IPRATROPIU 3 ML SOL IH SCH ×6 (03:11→22:55)
--- NOTE | 2018-11-05 04:00 | NUR ---
REPOSITIONED PATIENT TO LEFT SIDE. NO DISTRESS NOTED. WILL CONTINUE TO MONITOR
[2018-11-05] MEDS: KETOROLAC 15 MG/ML VIAL IVP PRN ×2 (04:30→19:55)
--- NOTE | 2018-11-05 04:30 | NUR ---
PATIENT WOKE UP WITH COMPLAIN OF GENERALIZED PAIN /. PRN PAIN MED ADMINISTER PER ORDER. WILL CONTINUE TO MONITOR.
[2018-11-05] MEDS: PANTOPRAZOLE 40 MG TABEC PO SCH (05:35)
[2018-11-05] MEDS: LEVOTHYROXINE 0.075 MG TAB PO SCH (05:35)
--- NOTE | 2018-11-05 05:35 | NUR ---
PATIENT COMPLAINED OF NAUSEA AND ITCHINESS. PRN ZOFRAN AND BENADRYL GIVEN PER ORDER. WILL CONTINUE TO MONITOR
[2018-11-05] MEDS: ONDANSETRON 4 MG/2 ML VIAL IM/IVP PRN ×4 (05:36→23:49)
--- NOTE | 2018-11-05 06:00 | NUR ---
REPOSITIONED PATIENT IN SUPINE POSITION. PROVIDED GOOD DURAN CATHETER CARE.
[2018-11-05 06:15] LABS: PROTHROMBIN TIME 17.5 secs (10.8-13.4)
[2018-11-05 06:32] LABS: ANION GAP 15.9 (8-16); CARBON DIOXIDE 20.1 mmol/L (21-32); CREATININE 2.1 mg/dL (0.6-1.3)
--- NOTE | 2018-11-05 06:33 | NUR ---
REC'D PT ON CARESCAPE VENT SETTINGS AC14 VT 600 PEEP 5 FIO2 28% ALARMS ON AND AUDIBLE AND AMBU BAG AT SIDE OF VENT AND VENT IS PLUGGED INTO RED OUTLET, I\L TX GIVEN WITH DUONEB 3ML WITH ON ADVERSE REACTIONS POST TX B\S ARE DIMINISHED BILATERALLY, SNX PT SMALL AMT OF THICK WHITE SECRETIONS, PT IS TRACH WITH SHILEY 6XLT AND CUFF IS DEFLATED, PT IS SLEEPING WITH NO SIGNS OF DISTRESS NOTED AT THIS TIME
[2018-11-05] MEDS: BLOOD GLUCOSE MONITORING 1 DEV DEV FS SCH ×4 (06:41→22:00)
[2018-11-05] MEDS: METOCLOPRAMIDE 10 MG TAB PO SCH ×3 (06:42→17:44)
[2018-11-05] MEDS: oxyCODONE 5 MG TAB PO SCH ×2 (06:42→12:39)
[2018-11-05] MEDS: CILOSTAZOL 100 MG TAB PO SCH ×2 (06:42→17:45)
[2018-11-05 06:43] LABS: MAGNESIUM 1.8 mg/dL (1.8-2.4); PHOSPHORUS 3.7 mg/dL (2.5-4.9)
[2018-11-05 07:04] LABS: BASOPHILS % (AUTO) 0.4 % (0.0-2.0); EOSINOPHILS # (AUTO) 0.4 K/uL (0-0.4); EOSINOPHILS % (AUTO) 3.2 % (0.0-4.0); HEMATOCRIT 26.2 % (36-48); HEMOGLOBIN 8.3 g/dL (12.0-16.0); LYMPHOCYTES # (AUTO) 1.9 K/uL (2.5-16.5); LYMPHOCYTES % (AUTO) 15.1 % (20.5-51.1); MEAN CORPUSCULAR HEMOGLOBIN 29 pg (27-31); MEAN CORPUSCULAR HGB CONC 32 g/dL (33-37); MEAN CORPUSCULAR VOLUME 92.4 fL (80-94); MONOCYTES # (AUTO) 1.3 K/uL (0.8-1.0); MONOCYTES % (AUTO) 10.1 % (1.7-9.3); NEUTROPHILS % (AUTO) 71.2 % (42.2-75.2); PLATELET COUNT (AUTO) 239 K/uL (140-450); RED BLOOD CELL COUNT(AUTO) 2.84 MIL/uL (4.20-5.40); RED CELL DISTRIBUTION WIDTH 19.4 % (11.6-13.7); WHITE BLOOD COUNT (AUTO) 12.7 K/uL (4.8-10.8)
--- NOTE | 2018-11-05 07:23 | NUR ---
ENDORSED PATIENT TO DAY SHIFT NURSE. PATIENT IS IN STABLE CONDITION. NO DISTRESS NOTED.
--- NOTE | 2018-11-05 07:30 | NUR ---
RECEIVED PT AAOX4. NO SOB NOTED. PT ON TRACH TO MECHANICAL VENTILATOR WITH 100% OXYGEN (FI02 28%). NO C/O PAIN AT THIS TIME. WITH LT IJ CENTRAL LINE PATENT AND INTACT, DRESSING CLEAN AND DRY, NO SIGNS AND SYMPTOMS OF INFECTION. . CHEST DIMINISHED AIR ENTRY TO THE BASES. ABDOMEN SOFT, BOWEL SOUNDS PRESENT. ON WOUND CARE BED. WILL REPOSITION PT EVERY 2 HOURS AND OFFLOADING TO PRESSURE EVERY 2 HOURS. INSTRUCTED PT TO CALL FOR ASSISTANCE, CALL LIGHT WITHIN REACH. PT VERBALIZED UNDERSTANDING.
[2018-11-05 08:00] VITALS: BP 132/63
--- NOTE | 2018-11-05 08:00 | NUR ---
PT REPOSITIONED EVERY 2 HRS.
[2018-11-05] MEDS: METOPROLOL 25 MG TAB PO SCH (09:00)
[2018-11-05] MEDS: ACETAMINOPHEN 325 MG TAB PO SCH ×4 (09:00→21:00)
[2018-11-05] MEDS: ASPIRIN 81 MG TAB.CHEW PO SCH (09:00)
--- NOTE | 2018-11-05 09:00 | NUR ---
PT REFUSED SOME PT HER SCHEDULED MEDS, RISKS AND BENEFITS EXPLAINED TO PT, VERBALIZED UNDERSTANDING.
[2018-11-05] MEDS: ATORVASTATIN 20 MG TAB PO SCH (09:24)
[2018-11-05] MEDS: FERROUS SULFATE 325 MG TABEC PO SCH ×2 (09:24→17:45)
[2018-11-05] MEDS: OXYBUTYNIN 5 MG TAB PO SCH ×2 (09:24→21:00)
[2018-11-05] MEDS: ALLOPURINOL 100 MG TAB PO SCH (09:25)
[2018-11-05] MEDS: GABAPENTIN 300 MG CAP PO SCH (09:25)
[2018-11-05] MEDS: LACTOBACILLUS RHAMNOSUS GG 1 EACH CAP PO SCH (09:25)
[2018-11-05] MEDS: DOCUSATE SODIUM 100 MG GELCAP PO SCH ×2 (09:32→21:00)
[2018-11-05] MEDS: LINEZOLID 600MG PREMIX 300 ML IV SCH ×2 (09:33→21:00)
--- NOTE | 2018-11-05 10:00 | NUR ---
TRACH SECRETIONS SUCTION REGULARLY.
[2018-11-05 12:00] VITALS: BP 115/79
--- NOTE | 2018-11-05 12:00 | NUR ---
PRESENT DURAN CATHETER LEAKING. NEW DURAN CATHETER INSERTED. PT TOLERATED PROCEDURE WELL. DRAINING CLEAR LIGHT YELLOW URINE IN MODERATE AMOUNTS. DURAN DRAINAGE BAG DATE AND TIME PLACED.
[2018-11-05] MEDS: FLUCONAZOLE 200 MG/NS PREMIX 100 ML IV SCH (12:39)
[2018-11-05] MEDS ORDERED: PHENAZOPYRIDINE 100 MG TAB PO SCH (13:00)
--- NOTE | 2018-11-05 13:00 | NUR ---
LANOLIN CREAM APPLIED TO PT'S SACROCOCCYGEAL AREA ORDERED PRN BID WC.
--- NOTE | 2018-11-05 14:25 | NUR ---
PT HAS REFUSED TRACH CARE AT THIS TIME SAID IT HAS BEEN DONE
--- NOTE | 2018-11-05 16:00 | NUR ---
PT SLEEPING. NO SOB NOTED. NO SIGNS OF PAIN.
--- NOTE | 2018-11-05 16:35 | NUR ---
REPORTED TO DR. EVERETT REGARDING PT'S CRITICAL URINE CULTURE RESULTS. NO NEW ORDERS. INFECTIOUS DISEASE DOCTOR IS ALREADY ON BOARD PER DR EVERETT.
--- NOTE | 2018-11-05 17:13 | NUR ---
DR. BENOIT CAME TO SEE PT WITH NEW ORDERS. Addendum: 11/05/18 at 1716 by Janay Pacheco RN DISREGARD ABOVE NOTES, WRONG PT.
[2018-11-05] MEDS: WARFARIN 2.5 MG TAB PO SCH (17:44)
[2018-11-05] MEDS: NACL 0.9% 1,000 ML IV SCH (17:50)
[2018-11-05] MEDS ORDERED: LANTISEPTIC TP PRN (18:00)
--- NOTE | 2018-11-05 18:30 | NUR ---
PT CONSUMED 75% OF DINNER SERVED, FOOD TOLERATED WELL.
--- NOTE | 2018-11-05 19:08 | NUR ---
PT AWAKE, WATCHING TV. NO SOB NOTED. NO COMPLAINTS MADE. WILL ENDORSE TO NEXT SHIFT NURSE FOR CONTINUITY OF CARE.
--- NOTE | 2018-11-05 19:50 | NUR ---
SEEN PT AWAKE, ALERT AND ORIENTED JUST FINISHED W/ HER BREATHING TREATMENT. PT WHINING AND GROANING COMPLAINING OF ABDOMINAL PAIN AND FEELING NAUSEOUS. INITIAL ASSESSMENT DONE. PT'S ON TRACHE TO VENT W/ 100% O2SAT PER CONTINUOUS PULSE OX. VITAL SIGNS CHECKED. PT MEDICATED W/ TORADOL AND ZOFRAN IVP ORDERED. TEACHINGS PROVIDED. PT VERBALIZED UNDERSTANDING. BOTTOMING ROOM SUPERVISOR HERE TO GET BLOOD FOR TOBRAMYCIN TROUGH. BLOOD DRAWN VIA CENTRAL LINE USING ASEPTIC TECHNIQUE. INFORMED PT THAT SHE NEEDS TO BE REPOSITIONED EVERY 2HRS SO HER PRESSURE ULCER WILL NOT GET WORSE. PT STATES "THEY JUST REPOSITIONED ME." WILL VERIFY W/ CNC CUTTING OPERATOR ASSIGNED. PT KEPT COMFORTABLE. CONTACT ISOLATION REINFORCED WELL SAFETY. CALL LIGHT W/IN REACH. WILL CONTINUE TO MONITOR.
[2018-11-05 20:00] VITALS: BP 143/66
--- NOTE | 2018-11-05 20:00 | NUR ---
RECEIVED PATIENT TRACH SHILEY 6 XLT TO VENT ON SETTINGS: AC/VC 14 ,600, +5 28%. VENT CHECK DONE. VENT PLUGGED INTO RED OUTLET. VENT ALARMS ON AND AUDIBLE. AMBU BAG AT BEDSIDE. CONTINUOUS PULSE OX ON AND FUNCTIONING;ALARMS ON AND AUDIBLE. AIRWAY SECURE AND PATENT. SUCTIONED MODERATE AMOUNT OF THICK, YELLOW SECRETIONS. SCHEDULED BREATHING TREATMENT ADMINISTERED. TOLERATED TX WELL WITHOUT ADVERSE SIDE EFFECTS. PATIENT STATES TO BE FEELING SOME RELIEF POST TX. NO ACUTE RESPIRATORY DISTRESS NOTED AT THIS TIME. WILL CONTINUE TO MONITOR.
--- NOTE | 2018-11-05 20:50 | NUR ---
SPOKE TO TAYLOR FROM [facility] REGARDING PT'S TOBRAMYCIN TROUGH LEVEL WHICH IS A SENT OUT AND WILL BE AVAILABLE IN AN HR. SHE SAID TO GIVE IT SINCE THE LAST ROUGH WAS LOW.
--- NOTE | 2018-11-05 21:00 | NUR ---
PT CALLED ASKING FOR RT. WILL PAGED FOR RT PER REQUEST. IV ANTIBIOTIC GIVEN ORDERED.
[2018-11-05] MEDS: TOBRAMYCIN 120 MG in DEXTROSE 5% 100 ML IV SCH (21:03)
--- NOTE | 2018-11-05 21:57 | NUR ---
SPOKE TO RACHELLE FROM THE LAB REGARDING PT'S TOBRAMYCIN TROUGH LEVEL=3.7 WILL CALL PHARMACY. AT 2147, SPOKE TO TAYLOR FROM [facility] REGARDING PT'S TOBRAMYCIN TROUGH LEVEL, SHE SAID TO HOLD THE NEXT DOSE AND SHE WILL INFORM THE MORNING PHARMACIST.
--- NOTE | 2018-11-05 22:10 | NUR ---
PT CALLING COMPLAINING OF FEELING NAUSEOUS. INFORMED PT THAT HER ZOFRAN IS NOT DUE YET AND SOON ITS DUE WILL GIVE IT TO HER. PT VERBALIZED UNDERSTANDING. BLOOD SUGAR CHECKED:123. NO COVERAGE NEEDED. SNACKS OFFERED BUT PT REFUSED. REMINDED PT THAT SHE NEEDS TO BE REPOSITIONED. CALLED TEMPLER HEAD TO ASSIST IN REPOSITIONING. PT KEPT COMFORTABLE. CALL LIGHT W/IN REACH. Addendum: 11/06/18 at 0140 by Taisha Crenshaw RN OFFERED DUE MEDS BUT PT REFUSED. EXPLAINED THE BENEFITS OF TAKING IT. PT STILL REFUSED.
--- NOTE | 2018-11-05 23:04 | NUR ---
VENT CHECK DONE. ALARMS ON AND AUDIBLE. SCHEDULED BREATHING TREATMENT ADMINISTERED. TOLERATED TX WELL, NO ADVERSE SIDE EFFECTS. NO RESPIRATORY DISTRESS NOTED. WILL CONTINUE TO MONITOR.
--- NOTE | 2018-11-05 23:49 | NUR ---
SEEN PT AWAKE, MOANING SAYING SHE FEELS NAUSEOUS. PT MEDICATED W/ ZOFRAN ORDERED. TEACHINGS PROVIDED. VITAL SIGNS CHECKED WELL. PT SAID SOMETHING IS STUCKED IN HER THROAT. PT GIVEN 100% O2 THEN SUCTIONED. PT TOLERATED PROCEDURE. WHILE FIXING PT'S TABLE, SAW PT SUCTIONING HERSELF THEN THE ALARM WENT OFF AND PT LOOKS LIKE SHE'S CATCHING HER BREATH. INSTRUCTED PT NOT TO DO IT BECAUSE SHE NEEDS OXYGEN FIRST BEFORE SUCTIONING. PT VERBALIZED UNDERSTANDING. PT DENIES ANY OTHER NEEDS. CALL LIGHT W/IN REACH.
--- NOTE | 2018-11-06 00:30 | NUR ---
PT SLEEPING SOUNDLY. TICO BERNARD AND TICO PHILLIPS REPOSITIONED THE PT. PT KEPT COMFORTABLE. CALL LIGHT W/IN REACH. WILL CONTINUE TO MONITOR.
[2018-11-06] MEDS: LANOLIN CREAM TP PRN ×3 (02:00→16:32)
--- NOTE | 2018-11-06 02:30 | NUR ---
PT REPOSITIONED ON RIGHT SIDE. PT ASKING SOMETHING FOR PAIN. WILL MEDICATE ORDERED. PT DENIES ANY OTHER NEEDS. WILL CONTINUE TO MONITOR.
[2018-11-06] MEDS: KETOROLAC 15 MG/ML VIAL IVP PRN ×2 (02:46→08:45)
[2018-11-06] MEDS: ALBUTEROL SULFATE/IPRATROPIU 3 ML SOL IH SCH ×6 (03:42→23:00)
--- NOTE | 2018-11-06 03:50 | NUR ---
VENT CHECK DONE. VENT ALARMS ON AND AUDIBLE. SCHEDULED BREATHING TREATMENT ADMINISTERED. TOLERATED TX WITHOUT SIDE EFFECTS. NO RESPIRATORY DISTRESS NOTED. WILL CONTINUE TO MONITOR.
[2018-11-06 04:40] VITALS: BP 91/39
--- NOTE | 2018-11-06 05:35 | NUR ---
PER LINO, POCKET CLOSER PT WANTS TO STAY SUPINE FOR NOW. PT DIDN'T HAVE BM.
--- NOTE | 2018-11-06 05:38 | NUR ---
VENT CHECK DONE. ALARMS ON AND AUDIBLE. VENT CHECK DONE WITHOUT INCIDENT. SUCTIONED MODERATE AMOUNT OF THICK, YELLOW SECRETIONS.
[2018-11-06 05:50] VITALS: BP 123/51
[2018-11-06] MEDS ORDERED: TOBRAMYCIN PER PHARMACY MC PRN (06:30)
--- NOTE | 2018-11-06 06:30 | NUR ---
PT CALLED AND WANTS SOMETHING FOR NAUSEA. WILL MEDICATE W/ ZOFRAN ORDERED. BLOOD SUGAR CHECKED:110. NO COVERAGE NEEDED. PT REPOSITIONED ON HER LEFT SIDE. PT REFUSED PILLOW UNDER HER RIGHT LEG. PT SAID, " I WON'T GET PRESSURE SORE." PT ASKING FOR RT. SEEN RT COMING IN. PT'S HOB ELEVATED. PO MEDICATIONS GIVEN ORDERED. PT SWALLOWED MEDICATION WELL W/ WATER. PT WANTS HER HOB LOWERED. CALL LIGHT W/IN REACH. INSTRUCTED TO CALL WHEN IN NEED.
[2018-11-06] MEDS: BLOOD GLUCOSE MONITORING 1 DEV DEV FS SCH ×4 (06:32→21:18)
[2018-11-06] MEDS: ONDANSETRON 4 MG/2 ML VIAL IM/IVP PRN ×3 (06:32→21:22)
[2018-11-06] MEDS: PANTOPRAZOLE 40 MG TABEC PO SCH (06:36)
[2018-11-06] MEDS: LEVOTHYROXINE 0.075 MG TAB PO SCH (06:36)
[2018-11-06] MEDS: CILOSTAZOL 100 MG TAB PO SCH ×2 (06:37→17:14)
[2018-11-06] MEDS: METOCLOPRAMIDE 10 MG TAB PO SCH ×3 (06:37→17:14)
--- NOTE | 2018-11-06 06:49 | NUR ---
RECEIVED PT ON CARESCAPE ON DOCUMENTED SETTINGS, ALARMS ARE ON AND AUDIBLE, PT IN HF AWOKE BRIEFLY BS DIMINISHED , I\L SX MODERATE THICK YELLOW SECRETIONS, HHN GIVEN I\L WITH 3 MG DUONEB, BMV HOB, CONT. POX IN PLACE, VENT PLUGGED INTO RED OUTLET
--- NOTE | 2018-11-06 06:58 | NUR ---
WILL ENDORSE CARE TO DAYSHIFT NURSE.
[2018-11-06 07:04] LABS: ANION GAP 13.9 (8-16); CARBON DIOXIDE 20.6 mmol/L (21-32); CREATININE 2.2 mg/dL (0.6-1.3); POTASSIUM 5.5 mmol/L (3.5-5.1)
[2018-11-06 07:44] LABS: PROTHROMBIN TIME 21.1 secs (10.8-13.4)
--- NOTE | 2018-11-06 07:59 | NUR ---
PATIENT WAS AWAKE, ALERT. RESPIRATION EVEN, UNLABOR ON TRACH TO VENT AT 28 %. SKIN DRY AND WARM. CENTRAL LINE PATENT AND INTACT. DUARN DRAINING CLEAR YELLOW URINE. PATIENT COMPLAINED OF ABDOMINAL PAIN 6/, WILL MEDICATE PER ORDER. PLAN OF CARE WAS DISCUSSED WITH PATIENT. BED AT LOW POSITION, SIDE RAILS UP. CALL LIGHT WITHIN REACH
[2018-11-06 08:00] VITALS: BP 111/56
[2018-11-06] MEDS: DOCUSATE SODIUM 100 MG GELCAP PO SCH ×2 (08:43→21:17)
[2018-11-06] MEDS: LACTOBACILLUS RHAMNOSUS GG 1 EACH CAP PO SCH (08:43)
[2018-11-06] MEDS: OXYBUTYNIN 5 MG TAB PO SCH ×2 (08:43→21:18)
[2018-11-06] MEDS: GABAPENTIN 300 MG CAP PO SCH (08:44)
[2018-11-06] MEDS: ALLOPURINOL 100 MG TAB PO SCH (08:44)
[2018-11-06] MEDS: ATORVASTATIN 20 MG TAB PO SCH (08:45)
[2018-11-06] MEDS: ASPIRIN 81 MG TAB.CHEW PO SCH (08:45)
[2018-11-06] MEDS: FERROUS SULFATE 325 MG TABEC PO SCH ×2 (08:45→17:15)
[2018-11-06] MEDS ORDERED: oxyCODONE 10 MG TABER PO SCH (08:51)
[2018-11-06] MEDS: CAPSAICIN 0.025% CRE 60 GM TUBE TP PRN ×2 (08:52→19:21)
[2018-11-06] MEDS: ACETAMINOPHEN 325 MG TAB PO SCH ×4 (09:00→21:00)
[2018-11-06] MEDS: METOPROLOL 25 MG TAB PO SCH (09:00)
[2018-11-06] MEDS: LINEZOLID 600MG PREMIX 300 ML IV SCH (09:22)
--- NOTE | 2018-11-06 10:24 | NUR ---
PATIENT WAS AWAKE, ALERT. RESPIRATION EVEN, UNLABOR ON ROOM AIR. PATIENT WAS REPOSITIONED, PERINEAL CARE AND CATHETER CARE WERE GIVEN. ORAL CARE AND WOUND CARE WAS GIVEN. PATIENT COMPLAINED OF DIFFICULTY BREATHING AFTER REPOSITIONING, SPO2 100%. RT WAS MADE AWARE.
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
--- NOTE | 2018-11-06 11:50 | NUR ---
PATIENT WAS REPOSITIONED TO SUPINE PER ORGAN TUNER ELECTRONIC. NO DISTRESS NOTED
[2018-11-06 12:00] VITALS: BP 134/67
--- NOTE | 2018-11-06 12:00 | NUR ---
PATIENT WAS SLEEPING COMFORTABLY. RESPIRATION EVEN, UNLABOR ON VENT. NO DISTRESS NOTED AT THIS TIME
[2018-11-06] MEDS: oxyCODONE 10 MG TABER PO SCH ×3 (12:13→23:52)
[2018-11-06] MEDS ORDERED: KETOROLAC 15 MG/ML VIAL IVP PRN (13:20)
[2018-11-06] MEDS: FLUCONAZOLE 200 MG/NS PREMIX 100 ML IV SCH (13:24)
[2018-11-06] MEDS: SIMETHICONE 80 MG TAB.CHEW PO PRN (13:25)
--- NOTE | 2018-11-06 13:48 | NUR ---
PATIENT COMPLAINED OF FEELING NAUSEA, ABDOMINAL PAIN, STATED FEELING "LETHARGIC, AND OUT OF IT". DR. CHAWLA WAS MADE AWARE. MEDS WERE GIVEN PER ORDER
[2018-11-06] MEDS ORDERED: PATIROMER CALCIUM SORBITEX 8.4 GM PKT GT SCH (14:00)
--- NOTE | 2018-11-06 14:20 | NUR ---
PATIENT REFUSED TO BE REPOSITIONED AT THIS TIME, STATED THAT SHE STILL FEELS NAUSEOUS. MED WAS GIVEN PER ORDER. NO DISTRESS NOTED AT THIS TIME. DAUGHTER IS AT BEDSIDE
--- NOTE | 2018-11-06 15:15 | NUR ---
PATIENT REFUSED TO BE REPOSITIONED, STATED THAT SHE IS WORKING ON HER BILLS. WILL CHECK WITH PATIENT AGAIN
[2018-11-06 16:00] VITALS: BP 119/56
--- NOTE | 2018-11-06 16:00 | NUR ---
PATIENT WAS REPOSITIONED TO RIGHT LATERAL, CREAM WAS APPLIED ON SACRAL WOUND PER ORDER. PATIENT TOLERATED IT WELL
[2018-11-06] MEDS: WARFARIN 2.5 MG TAB PO SCH (17:15)
--- NOTE | 2018-11-06 18:14 | NUR ---
PATIENT WAS AWAKE, ALERT, EATING DINNER COMFORTABLY. RESPIRATION EVEN, UNLABOR ON VENT. NO DISTRESS NOTED AT THIS TIME. CENTRAL LINE PATENT AND INTACT.
--- NOTE | 2018-11-06 19:09 | NUR ---
RCV'D PT ON MECHANICAL VENTILATOR WITH CHARTED SETTINGS. PT IS TRACHED WITH SHILEY 6 XLT. CUFF IS DEFLATED. PT IS AWAKE AND ALERT. PT VERBALIZES HER NEEDS. VENT IS CONNECTED TO RED OUTLET. ALARMS AUDIBLE. TRACH IS IN PLACE AND SECURED. HHN TX GIVEN WITH NO ADVERSE REACTION. AMBU BAG AT BEDSIDE. NO SOB OR DISTRESS NOTED. WILL CONTINUE TO MONITOR.
--- NOTE | 2018-11-06 19:10 | NUR ---
PATIENT COMPLAINED OF KNEE PAIN, MED WAS GIVEN. ICE PACK WAS APPLIED
--- NOTE | 2018-11-06 19:22 | NUR ---
ENDORSEMENT GIVEN TO BRANDING MACHINE OPERATOR NURSE. PATIENT IS STABLE AT THIS TIME
--- NOTE | 2018-11-06 19:25 | NUR ---
RECEIVED FROM AM RN IN BED AWAKE AND WITH RESPIRATORY AT BEDSIDE GIVING BREATHING TREATMENT AND SUCTIONING PT. ABLE TO VERBALIZE NEEDS WELL IN WELSH. ABLE TO CARRY A CONVERSATION WITH CAREGIVERS WELL IN WELSH. CALL LIGHT WITH IN REACH AND ABLE TO USE IT WELL. PT. TURNED Q 2H BY CNAS. PILLOW SUPPORT TO PRESSURE AREAS. DURAN CATHETER IN PLACE. LEFT IJ TRIPLE LUMEN INTACT , NO BLEEDING AND PATENT. WITH NS AT 40 ML/H. ISOLATION PRECAUTIONS . DX. OF UROSEPSIS, UTI AND CRF . TRACH TO VENT.
--- NOTE | 2018-11-06 21:22 | NUR ---
REQUESTED FOR ZOFRAN RT PER PT. NAUSEOUS. MEDICATED REQUESTE. ABLE TO VERBALIZE NEEDS WELL.
[2018-11-06] MEDS: NACL 0.9% 1,000 ML IV SCH (21:25)
--- NOTE | 2018-11-06 22:39 | NUR ---
CHECKED ON PT. SLEEPING WELL. NO RESTLESSNESS NOTED. PT. TURNED BY CNAS WITH PILLOW SUPPORT TO PRESSURE AREAS. CALL LIGHT WITH IN REACH. DURAN CATHETER IN PLACE AND DRAINING WELL WITH YELLOW URINE.
--- NOTE | 2018-11-06 23:15 | NUR ---
PT IS ASLEEP. PER PT REQUEST REARLIER TO NOT WAKE HER UP IF SHE IS ASLEEP. NO SOB OR DISTRESS NOTED. RN THADDEUS AWARE. WILL CONTINUE TO MONITOR.
[2018-11-06 23:45] VITALS: BP 109/57
--- NOTE | 2018-11-06 23:53 | NUR ---
PT. CHECKED FOR WETNESS. AWAKE AND ALERT. MEDICATED WITH PAIN RELIEVER REQUESTED. ABLE TO VERBALIZE NEEDS WELL. TURNED BY CNAS Q 2H. PILLOW SUPPORT TO PRESSURE AREAS IN PLACE AND BILATERAL HEEL PROTECTORS IN PLACE TOO.
--- NOTE | 2018-11-07 01:34 | NUR ---
PT. SLEEPING WELL. CHECKED ON HER AT THIS TIME. ABLE TO WAKE UP EASILY UPON CALLING HER NAME AND TOUCHING HER. ABLE TO VERBALIZE WELL. NO COMPLAINTS DONE. WENT BACK TO SLEEP IMMEDIATELY. CALL LIGHT BESIDE HER FOR EASY ACCESS. LEFT IJ TRIPLE LUMEN FLUSHED EACH PORT WITH 10 ML NS. PATENT ALL PORTS. ABLE TO FLUSH EASILY. PT. TURNED TO SIDES Q 2H.
[2018-11-07] MEDS: ALBUTEROL SULFATE/IPRATROPIU 3 ML SOL IH SCH ×6 (03:00→23:48)
--- NOTE | 2018-11-07 04:34 | NUR ---
TURNED BY CNAS TO SIDE. PT. HEEL PROTECTORS BILATERAL IN PLACE. PILLOW SUPPORT TO PRESSURE AREAS IN PLACE.AM PERSONAL HYGIENE RENDERED. CALL LIGHT WITH IN REACH. NO SOB. NO RESTLESSNESS. REMINDED TO STAY ON SIDE TURNED . "OK"
[2018-11-07] MEDS: CILOSTAZOL 100 MG TAB PO SCH ×2 (05:42→16:50)
[2018-11-07] MEDS: LEVOTHYROXINE 0.075 MG TAB PO SCH (05:42)
[2018-11-07] MEDS: PANTOPRAZOLE 40 MG TABEC PO SCH (05:43)
[2018-11-07] MEDS: METOCLOPRAMIDE 10 MG TAB PO SCH ×3 (05:43→16:30)
[2018-11-07] MEDS: oxyCODONE 10 MG TABER PO SCH ×3 (05:44→18:25)
[2018-11-07] MEDS: BLOOD GLUCOSE MONITORING 1 DEV DEV FS SCH ×4 (05:45→20:24)
[2018-11-07 06:19] LABS: ANION GAP 14.3 (8-16); CARBON DIOXIDE 20.3 mmol/L (21-32); CREATININE 2.4 mg/dL (0.6-1.3); POTASSIUM 5.6 mmol/L (3.5-5.1)
--- NOTE | 2018-11-07 06:20 | NUR ---
0600 OXYCODONE P.O. REFUSED BY PT. PREFERRED TO TAKE BENADRYL P.O. INSTEAD. RESIDENT MD AWARE. WILL ENDORSE TO AM RN FOR CONTINUITY OF CARE. ALL P.O. MEDICATIONS SWALLOWED WELL AND NO NOTED ASPIRATION S/S. GAVE CRANBERRY JUICE REQUESTED.
--- NOTE | 2018-11-07 06:22 | NUR ---
PT. WENT BACK TO SLEEP EASILY AFTER P.O. MEDICATIONS. BLOOD SUGAR AT THIS TIME 88 MG/DL. CRANBERRY JUICE PROVIDED. TURNED TO SIDES Q 2H BY SUPERVISOR DETASSELING CREW AND PERSONAL AM HYGIENE RENDERED. KEPT CLEAN, DRY AND COMFORTABLE. 02 SAT AT 99 TO 100%. RESPIRATORY THERAPIST VERY GOOD IN SUCTIONING PT AND BREATHING TREATMENT ALL RENDERED. PT. HAS NO COMPLAINTS AT ALL.
--- NOTE | 2018-11-07 07:13 | NUR ---
ENDORSED TO THE NEXT RN FOR CONTINUITY OF CARE. SLEEPING. AROUSABLE. TRACH TO VENT. 02 SAT 99 %. ABLE TO VERBALIZE SIMPLE NEEDS WELL WHEN AWAKE. TURNED TO SIDES Q 2H.
--- NOTE | 2018-11-07 07:14 | NUR ---
RECEIVED BEDSIDE REPORT FROM ANDREY TRAVIS. PATIENT ON MED SURGE FLOOR AND CONTACT ISOLATION FOR ESBL/MDRO OF URINE AND PSEUDOMONAS AERUGINOSA. PATIENT ON TRACH TO VENT WITH FIO2 28%, NO DISTRESS NOTED. SACRAL ULCER LEASING PROFESSIONAL. DURAN CATHETER IN PLACE, SECURE AND CLEAN. PATIENT BEDBOUND WITH L IJ CENTRAL LINE TRIPLE LUMEN INFUSING NS AT 40, ASYMPTOMATIC PATENT AND INTACT. PATIENT ON WOUND CARE BED. BED IN LOW POSITION, CALL LIGHT WITHIN REACH, SIDE RAILS X2 UP
[2018-11-07] MEDS ORDERED: LACTULOSE 20 GM/30 ML UDC PO SCH (07:30)
[2018-11-07 08:00] VITALS: BP 118/62
[2018-11-07] MEDS: GABAPENTIN 300 MG CAP PO SCH (08:02)
[2018-11-07] MEDS: LACTOBACILLUS RHAMNOSUS GG 1 EACH CAP PO SCH (08:02)
[2018-11-07] MEDS: ALLOPURINOL 100 MG TAB PO SCH (08:02)
[2018-11-07] MEDS: FERROUS SULFATE 325 MG TABEC PO SCH ×2 (08:02→16:49)
[2018-11-07] MEDS: DOCUSATE SODIUM 100 MG GELCAP PO SCH ×2 (08:03→20:25)
[2018-11-07] MEDS: ASPIRIN 81 MG TAB.CHEW PO SCH (08:03)
[2018-11-07] MEDS: OXYBUTYNIN 5 MG TAB PO SCH ×2 (08:03→20:25)
[2018-11-07] MEDS: METOPROLOL 25 MG TAB PO SCH (08:04)
[2018-11-07] MEDS: ATORVASTATIN 20 MG TAB PO SCH (08:04)
[2018-11-07] MEDS: ACETAMINOPHEN 325 MG TAB PO SCH ×4 (08:09→20:31)
--- NOTE | 2018-11-07 08:19 | NUR ---
ADMINISTERED SCHEDULED MEDS. PATIENT TOLERATED WELL. EATING BREAKFAST AT THIS TIME, SITTING UP IN BED
[2018-11-07 08:45] LABS: BASOPHILS % (AUTO) 0.3 % (0.0-2.0); EOSINOPHILS # (AUTO) 0.3 K/uL (0-0.4); EOSINOPHILS % (AUTO) 2.4 % (0.0-4.0); HEMATOCRIT 23.1 % (36-48); HEMOGLOBIN 7.3 g/dL (12.0-16.0); LYMPHOCYTES # (AUTO) 1.4 K/uL (2.5-16.5); LYMPHOCYTES % (AUTO) 11.2 % (20.5-51.1); MEAN CORPUSCULAR HEMOGLOBIN 29 pg (27-31); MEAN CORPUSCULAR HGB CONC 31 g/dL (33-37); MEAN CORPUSCULAR VOLUME 92.8 fL (80-94); MONOCYTES # (AUTO) 1.1 K/uL (0.8-1.0); MONOCYTES % (AUTO) 8.2 % (1.7-9.3); NEUTROPHILS # (AUTO) 10.1 K/uL (1.8-7.7); NEUTROPHILS % (AUTO) 77.9 % (42.2-75.2); PLATELET COUNT (AUTO) 218 K/uL (140-450); RED BLOOD CELL COUNT(AUTO) 2.49 MIL/uL (4.20-5.40); WHITE BLOOD COUNT (AUTO) 12.9 K/uL (4.8-10.8)
--- NOTE | 2018-11-07 10:54 | NUR ---
PATIENT SLEEPING, ON TRACH TO VENT, NO S/S OF DISTRESS
--- NOTE | 2018-11-07 12:05 | NUR ---
PATIENT REFUSED TO TURN TO L SIDE LYING POSITION. EDUCATED PATIENT ON IMPORTANCE OF TURNING BOTH SIDES, BUT PATIENT STILL REFUSED. KARL, VENDING MACHINE TECHNICIAN AND I TURNED HER TO R SIDE LYING POSITION
[2018-11-07] MEDS ORDERED: INSULIN LANTUS 100 UNITS/ML 10 ML VIAL SUBQ ONE (12:15)
[2018-11-07] MEDS ORDERED: INSULIN REGULAR, HUMAN 100 UNIT/ML VIAL IV SCH (13:00)
[2018-11-07] MEDS ORDERED: DEXTROSE 50% 50 ML SYR IVP SCH (13:00)
[2018-11-07] MEDS: FLUCONAZOLE 200 MG/NS PREMIX 100 ML IV SCH (13:13)
[2018-11-07] MEDS ORDERED: PATIROMER CALCIUM SORBITEX 8.4 GM PKT PO SCH (14:15)
--- NOTE | 2018-11-07 14:45 | NUR ---
SUCTIONED PATIENT SINCE SHE COMPLAINED OF SOB. PATIENT O2 SAT 100%
[2018-11-07 16:00] VITALS: BP 124/63
[2018-11-07] MEDS: SIMETHICONE 80 MG TAB.CHEW PO PRN (16:43)
[2018-11-07] MEDS: ONDANSETRON 4 MG/2 ML VIAL IM/IVP PRN (16:44)
[2018-11-07] MEDS: WARFARIN 2.5 MG TAB PO SCH (16:52)
--- NOTE | 2018-11-07 16:54 | NUR ---
ADMINISTERED SCHEDULED MEDS EXCEPT FOR FERROUS SULFATE, REGLAN, AND TYLENOL. PATIENT STATED IT IS TOO MUCH FOR HER STOMACH RIGHT NOW
--- NOTE | 2018-11-07 17:56 | NUR ---
RECEIVED CALL FROM MENDOZA OF [facility] # REGARDING TRANSPORTATION OF PATIENT TOMORROW. PICKUP TIME IS 1430. THEY ARE AWARE PATIENT IS ON TRACH TO VENT. SHE STATED SHE CANNOT TRANSPORT HER ELECTRONIC WHEELCHAIR SINCE THEY DO NOT TRANSPORT ADDITIONAL EQUIPMENT. NOTIFIED CHARGE NURSE
--- NOTE | 2018-11-07 19:14 | NUR ---
GAVE BEDSIDE REPORT TO ANDREY TRAVIS. PATIENT ENDORSED IN STABLE CONDITION
--- NOTE | 2018-11-07 19:15 | NUR ---
RECEIVED FROM AM RN IN BED AWAKE AND ALERT. TURNED BY CNAS AT THIS TIME RT PERSONAL HYGIENE RENDERED. PILLOW SUPPORT TO PRESSURE AREAS AND HEEL PROTECTORS IN PLACE. PT. ABLE TO VERBALIZE SIMPLE NEEDS WELL. ON SPECIAL BED AND TRACH TO VENT. 02 SAT 99%. DX. UROSEPSIS AND UTI. DURAN CATHETER DRAINING WELL YELLOW URINE. CALL LIGHT WITH N REACH AT BEDSIDE FOR EASY ACCESS. ABLE TO CARRY A CONVERSATION WELL.
--- NOTE | 2018-11-07 20:33 | NUR ---
PT. REFUSED TO TAKE HER TYLENOL P.O. SCHEDULED RT "I GET NAUSEOUS WITH THAT" RESIDENT MD AWARE OF PT. REFUSING IT. PT. ABLE TO VERBALIZE WELL. PT. AT THIS TIME ON THE CELL PHONE TALKING WITH FAMILY. DENIES PAIN AT THIS TIME. BLOOD SUGAR CHECK 82 MG/DL. PROVIDED WITH APPLE JUICE AND DRANK HER GLUCERNA CHOCOLATE PROVIDED FOR HER AT DINNER TIME.
[2018-11-07] MEDS ORDERED: TOBRAMYCIN 120 MG in DEXTROSE 5% 100 ML IV SCH (21:00)
[2018-11-07] MEDS: NACL 0.9% 1,000 ML IV SCH (21:25)
--- NOTE | 2018-11-07 21:45 | NUR ---
DAUGHTER AT BEDSIDE AND MADE AWARE THAT WE ARE CLEANING PT. FOR BM SOME MORE RT SHE WAS GIVEN LACTULOSE BY AM SHIFT TO HAVE BM RT INCREASED POTASSIUM LEVEL . SHE UNDERSTOOD AND AGREED TO WAIT A LITTLE WHILE BECAUSE AT THIS TIME SHE IS STILL GOING BM. DAUGHTER UPSET RT SMELL OF BM . PACIFIED HER BY EXPLAINING THAT PT. JUST GOT CLEANED UP OF BM AND IT WAS A LOT. CALLED MERCHANDISING INTERN AND AWARE OF THE NEW BM.
--- NOTE | 2018-11-07 22:19 | NUR ---
PT. BEEN CLEANED OF BM PER DAUGHTER'S REQUEST . KEPT CLEAN,DRY AND COMFORTABLE. ENCOURAGED PT. TO STAY ON TURNED SIDE. PILLOW SUPPORT TO PRESSURE AREAS IN PLACE. NO FURTHER REQUESTS. PT. TURNED Q 2H.
--- NOTE | 2018-11-07 23:15 | NUR ---
MD BOWERS IN HERE TO SEE PT. DAUGHTER STILL AT BEDSIDE TALKING TO MD .PT. ATTENDED TO BY CNAS. KEPT DRY, CLEAN AND COMFORTABLE. PT. TURNED TO SIDES Q 2H.
--- NOTE | 2018-11-08 00:47 | NUR ---
PT. SLEEPING A LOT TODAY PER DAUGHTER. VITAL SIGNS TAKEN . NO RESTLESSNESS. WENT BACK TO SLEEP IMMEDIATELY AFTER. WILL HOLD OXYCODONE SCHEDULED AT THIS TIME. RESIDENT MD AWARE . "HOLD IT FOR NOW" FOSTER CARE THERAPIST ABOUT TO TURN PT. AT THIS TIME BUT DAUGHTER REFUSED TO HAVE HER DISTURBED AND STATED"NOT FOR NOW" RELAYED TO ME BY FOSTER CARE THERAPIST ASSIGNED /BELLO/ .
[2018-11-08 00:51] VITALS: BP 106/50
--- NOTE | 2018-11-08 01:28 | NUR ---
DAUGHTER LEFT AND ASSURED HER THAT I WILL TAKE GOOD CARE OF HER MOTHER. PT.S DAUGHTER STATED OK AND SAID THANK YOU. ADVISED HER TO COME EARLY IN AM TO TALK TO . Courtney NAVAS (PRIMARY MD) RE: PT'S CONDITION WHICH WHAT SHE WANTED. CHECKED PT'S . BLOOD SUGAR AT THIS TIME 111 MG/DL. NO NOTED HYPOGLYCEMIA . PT. ABLE TO RESPOND WELL TO MY QUESTION AT THIS TIME WHILE CHECKING HER SUGAR. LEFT IJ FLUSHED WITH NS 10 ML. NO RESISTANCE NOTED. KEPT PT. WARM AND COMFORTABLE. PT. CONTENT. NO COMPLAINTS DONE.
[2018-11-08] MEDS: ALBUTEROL SULFATE/IPRATROPIU 3 ML SOL IH SCH ×5 (03:00→22:47)
--- NOTE | 2018-11-08 03:00 | NUR ---
SLEEPING WELL. NO RESTLESSNESS NOTED.
--- NOTE | 2018-11-08 03:29 | NUR ---
VENT CHECK. PT ASLEEP. NO SOB OR DISTRESS NOTED. HHN TX NOT GIVEN PER PT REQUEST TO NOT WAKE HER UP. RN AWARE. WILL CONTINUE TO MONITOR.
--- NOTE | 2018-11-08 04:25 | NUR ---
CHECKED ON PT. AND COVERED HER WITH THICK BLANKET . WOKE UP EASILY. REQUESTED TO HAVE HEAD UP A LITTLE BIT . NO FURTHER COMPLAINTS. CALL LIGHT WITH IN REACH. 02 SAT 100 %. OFFERED TO SUCTION BUT REFUSED STATED SHE IS "OK" .
[2018-11-08] MEDS: PANTOPRAZOLE 40 MG TABEC PO SCH (05:48)
[2018-11-08] MEDS: CILOSTAZOL 100 MG TAB PO SCH ×2 (05:48→16:55)
[2018-11-08] MEDS: LEVOTHYROXINE 0.075 MG TAB PO SCH (05:48)
[2018-11-08] MEDS: ONDANSETRON 4 MG/2 ML VIAL IM/IVP PRN ×2 (05:48→23:53)
[2018-11-08] MEDS: BLOOD GLUCOSE MONITORING 1 DEV DEV FS SCH ×4 (05:53→20:59)
[2018-11-08] MEDS: oxyCODONE 10 MG TABER PO SCH ×5 (06:00→23:45)
--- NOTE | 2018-11-08 06:03 | NUR ---
PT. BLOOD SUGAR CHECK PER FINGERSTICK 94 MG/DL. AWAKE AND ALERT. PT. TURNED TO SIDES BY HOP SORTER AND KEPT COMFORTABLE. PT. 02 SAT 100 %. RESPIRATORY THERAPIST IN HERE TO SEE PT. REFUSED SUCTIONING. PT. STATED SHE IS NAUSEOUS. MEDICATED WITH ZOFRAN IVP PER PT. REQUEST. PT. DENIES PAIN AT THIS TIME. ALL P.O. MEDICATIONS TAKEN WELL. OFFERED PT. A SNACK BUT REFUSED. ENCOURAGED TO EAT BREAKFAST THIS A.M. TO AVOID BEING NAUSEOUS. "OK" ABLE TO USE CALL LIGHT FOR HELP. ABLE TO CARRY A ONE ON ONE CONVERSATION WELL.
--- NOTE | 2018-11-08 06:54 | NUR ---
PT. SO AWAKE AT THIS TIME. BLOOD SPECIMEN TAKEN FOR IJ FOR TESTS. PT. TALKING AND VERBALIZING WELL . ASKING FOR BREAKFAST. ENCOURAGED TO NOT MISS HER MEALS RT SHE IS DIABETIC AND WE DON'T WANT COMPLICATIONS SUCH HYPOGLYCEMIA. EDUCATION GIVEN TO PT. RE:DIABETES. RESIDENT MD MCKEON IN HERE TO CHECK ON PT'S STATUS.
--- NOTE | 2018-11-08 07:10 | NUR ---
REPORT GIVEN TO AM RN FOR CONTINUITY OF CARE. AWAKE AND ALERT. VERBALIZES WELL. WAITING FOR BREAKFAST. "WHEN IS BREAKFAST COMING" INFORMED NURSE TO MAKE SURE SHE EATS BREAKFAST.
--- NOTE | 2018-11-08 07:11 | NUR ---
RECEIVED BEDSIDE REPORT FROM ANDREY TRAVIS. PATIENT ON MED SURGE AND CONTACT PRECAUTIONS IN PLACE FOR ESBL/MDRO AND PSEUDOMONAS AERUGINOSA OF URINE. PATIENT AAOX4 AND COMMUNICATES APPROPRIATELY. SACRAL REDNESS WITH MOISTURE ASSOCIATED DERMATITIS ELIZABETH. PATIENT BEDBOUND AND INCONTINENT WITH DURAN CATHETER IN PLACE. L IJ CENTRAL LINE TRIPLE LUMEN, INTACT AND PATENT. PATIENT ON WOUND CARE BED. BED IN LOW POSITION, CALL LIGHT WITHIN REACH, SIDE RAILS X2 UP
[2018-11-08] MEDS: METOCLOPRAMIDE 10 MG TAB PO SCH ×3 (07:30→16:55)
[2018-11-08] MEDS ORDERED: PATIROMER CALCIUM SORBITEX 8.4 GM PKT PO ONE (07:40)
[2018-11-08 08:00] VITALS: BP 139/42
[2018-11-08 08:02] LABS: BASOPHILS # (AUTO) 0.1 K/uL (0.00-0.22); BASOPHILS % (AUTO) 0.8 % (0.0-2.0); EOSINOPHILS # (AUTO) 0.3 K/uL (0-0.4); EOSINOPHILS % (AUTO) 1.8 % (0.0-4.0); HEMATOCRIT 24.7 % (36-48); HEMOGLOBIN 7.9 g/dL (12.0-16.0); LYMPHOCYTES # (AUTO) 1.5 K/uL (2.5-16.5); LYMPHOCYTES % (AUTO) 9.4 % (20.5-51.1); MEAN CORPUSCULAR HEMOGLOBIN 30 pg (27-31); MEAN CORPUSCULAR HGB CONC 32 g/dL (33-37); MEAN CORPUSCULAR VOLUME 92.9 fL (80-94); MONOCYTES # (AUTO) 1.1 K/uL (0.8-1.0); MONOCYTES % (AUTO) 6.7 % (1.7-9.3); NEUTROPHILS # (AUTO) 13.2 K/uL (1.8-7.7); NEUTROPHILS % (AUTO) 81.3 % (42.2-75.2); PLATELET COUNT (AUTO) 231 K/uL (140-450); RED BLOOD CELL COUNT(AUTO) 2.66 MIL/uL (4.20-5.40); RED CELL DISTRIBUTION WIDTH 18.5 % (11.6-13.7); WHITE BLOOD COUNT (AUTO) 16.3 K/uL (4.8-10.8)
--- NOTE | 2018-11-08 08:10 | NUR ---
CONTACTED SARAY SHELLEY AT [phone] OF [facility] TO GET UPDATES REGARDING IV INFUSION THERAPY. HE STATED THAT HE IS IN THE MEETING AND WILL UPDATE ME ONCE HE GETS OUT OF THE MEETING.
[2018-11-08 08:22] LABS: PROTHROMBIN TIME 26.8 secs (10.8-13.4)
--- NOTE | 2018-11-08 08:22 | NUR ---
LATE ENTRY FOR 11/07/18: MEET WITH THE PATIENT AT BEDSIDE REGARDING DC PLANNING BACK TO HOME WITH HOME HEALTH FOR IV ANTIBIOTIC. PATIENT AWAKE, ORIENTED AND ABLE HER NEEDS KNOWN. PATIENT STATED THAT SHE DOES NOT WANT TO GO BACK TO [facility] AND PREFERS A NEW HOME HEALTH. CONTACTED [facility], SPOKE TO SARAY SHELLEY (PATIENT ADVOCATE) AT [phone]. HE STATED THAT HE WILL COME IN TO EVALUATE THE PATIENT. CALLED PATIENT'S DAUGHTER TO INFORM HER, THAT [facility] WILL BE COMING IN TO EVALUATE HER MOM. I ASKED HER IF SHE PREFERS TO BE PRESENT AT BEDSIDE IF HOME HEALTH COMES IN. SHE REPLIED "IT'S OK, [facility] CAN CALL AFTER." SHE ALSO VOICED OUT HER CONCERNS REGARDING TRANSPORTATION, THAT IT TAKES 5 DAYS TO SET UP A CONTACT AND SERVICE CLERKS SUPERVISOR WITH [facility] AND PROVIDED ME INFORMATION, REGARDING IV INFUSION COMPANY THAT THEY NORMALLY USE WHICH IS [facility] [phone]. AND SHE ALSO STATED THAT HER MOM MUST HAVE THE NUMBER FOR THE TRANSPORTATION [id number]: SARAY AND FUNMI FROM [facility] CAME AND EVALUATED THE PATIENT. THEY STATED THAT THEY ARE WILLING TO ACCEPT THE PATIENT AND PATIENT IS AGREEABLE. PATIENT PROVIDED ME OF [facility] #[phone]. CONTACTED THE SAID NUMBER AND SPOKE TO KEO, SHE CONFIRMED THAT PATIENT IS A MEMBER AND HAVE USED THEIR SERVICES BEFORE. CLARIFIED PATIENT'S CONCERN ABOUT NOT ABLE TO SET UP PICK FOR MOTHER BECAUSE. KEO EXPLAINED TO ME THAT IF IT'S A DISCHARGE FROM A FACILITY, SAME DAY ARRANGEMENT CAN BE MADE. CONTACT AND SERVICE CLERKS SUPERVISOR WAS SET UP AFTER 1430, WITH SEED TECHNICIAN, CONFIRMATION NUMBER [id number]. PER SARAY OF [facility] THEY ARE CONTRACTED WITH [facility], AND WILL SET UP THE IV ANTIBIOTIC. HE ALSO STATED THAT HE PROVIDE ME WITH UPDATES. CALLED PATIENT'S DAUGHTER RAMAKRISHNA CHAMBERLAIN AT [phone] AND INFORMED HER REGARDING TRANSPORTATION SCHEDULE FOR CONTACT AND SERVICE CLERKS SUPERVISOR.
--- NOTE | 2018-11-08 08:23 | NUR ---
ADMINISTERED SCHEDULED MEDS AND MORPHINE PRN FOR 12/11 PAIN. PATIENT TOLERATED WELL Addendum: 11/08/18 at 0824 by Rebekah Arriaga RN PLEASE DISREGARD ABOVE NOTE. WRONG PATIENT
[2018-11-08 08:33] LABS: ANION GAP 14.4 (8-16); CARBON DIOXIDE 19.4 mmol/L (21-32); CREATININE 2.5 mg/dL (0.6-1.3); POTASSIUM 5.8 mmol/L (3.5-5.1)
[2018-11-08] MEDS: DOCUSATE SODIUM 100 MG GELCAP PO SCH ×2 (08:48→20:50)
[2018-11-08] MEDS: ATORVASTATIN 20 MG TAB PO SCH (08:49)
[2018-11-08] MEDS: ASPIRIN 81 MG TAB.CHEW PO SCH (08:49)
[2018-11-08] MEDS: GABAPENTIN 300 MG CAP PO SCH (08:50)
[2018-11-08] MEDS: FERROUS SULFATE 325 MG TABEC PO SCH ×2 (08:50→16:55)
[2018-11-08] MEDS: LACTOBACILLUS RHAMNOSUS GG 1 EACH CAP PO SCH (08:50)
[2018-11-08] MEDS: METOPROLOL 25 MG TAB PO SCH (08:50)
[2018-11-08] MEDS: ALLOPURINOL 100 MG TAB PO SCH (08:50)
[2018-11-08] MEDS: OXYBUTYNIN 5 MG TAB PO SCH ×2 (08:50→20:48)
[2018-11-08] MEDS: PATIROMER CALCIUM SORBITEX 8.4 GM PKT PO SCH (08:51)
[2018-11-08] MEDS ORDERED: PATIROMER CALCIUM SORBITEX 8.4 GM PKT PO SCH (09:00)
--- NOTE | 2018-11-08 09:09 | NUR ---
ADMINISTERED SCHEDULED MEDS. PATIENT TOLERATED WELL
--- NOTE | 2018-11-08 09:48 | NUR ---
CASE MANAGEMENT NOTES LATE ENTRY FOR 11/07/18: MET WITH PATIENT AT BEDSIDE. PATIENT IS AWAKE, ORIENTED X4, ABLE TO MAKE HER NEEDS KNOW. ALL INFORMATION BELOW PROVIDED BY THE PATIENT HERSELF. PATIENT LIVES AT HOME WITH HER DAUGHTER RAMAKRISHNA CHAMBERLAIN, CONTACT NUMBER [phone]. SHE HAS TRACH AND IS VENT DEPENDENT. HER 02 PROVIDER AT HOME IS [facility]. DOES NOT HAVE PASSY AMINATA VALVE AND STATED THAT HER CUFF IS DEFLATED ALL THE TIME. SHE HAS [facility] FOR FC AND CENTRAL LINE CARE. THEY ALSO HELP HER WITH BATHING. SHE ALSO STATED THAT SHE DOES NOT WANT TO CONTINUE WITH THEIR SERVICES AND WISH TO HAVE A NEW HOME HEALTH. HER PRIMARY PHYSICIAN IS DR. GETACHEW HAMILTON [phone]. SHE GOES TO EITHER [facility] IN [place] AND/OR [place]. BUT FOR HER IV INFUSION THEY USE [facility] FOR IV INFUSION THERAPY. SHE ALSO CLAIMED THAT SHE HAS ADVANCED DIRECTIVES, BUT WHEN ASKED IF SHE CAN PROVIDE US WITH THE COPY, SHE STATED THAT "I CAN SIGN ONE IF NEEDED." DENIES ANY ALCOHOL OR DRUG USE. NO HISTORY OF SMOKING. NO CONCERNS DURING HOSPITALIZATION BROUGHT UP. PLAN TO RETURN HOME UPON DISCHARGE. WILL FOLLOW UP.
--- NOTE | 2018-11-08 09:49 | NUR ---
ASKED PATIENT IF SHE GOT REGLAN THIS MORNING FROM PREVIOUS SHIFT, BUT SHE CANNOT REMEMBER. UNABLE TO PULL OUT REGLAN FROM [facility] SINCE IT WAS ALREADY REMOVED EARLIER
--- NOTE | 2018-11-08 10:00 | NUR ---
PATIENT'S DAUGHTER CALLED ASKING ABOUT TRANSPORT, SHE STATED THAT WHY IS THE PATIENT IS GOING TO BE DC'D ON AMBULANCE AND NOT ON HER WHEELCHAIR. I EXPLAINED TO HER THAT IT IS NOT A SAFE DC'D. SHE STATED SHE IS ALWAYS TRANSPORTED ON A WHEELCHAIR, AND IF THE PATIENT IS GOING TO BE DC'D BY [facility] WHO WILL BE PICKING UP THE WHEELCHAIR. I TOLD HER THAT I WILL CONTACT [facility] FIRST AND WILL UPDATE HER.
--- NOTE | 2018-11-08 10:59 | NUR ---
CONTACTED [facility] [phone], JO[place], GOT TRANSFERRED TO [place], GOT TRANSFERRED AGAIN TO [place] ([place] [facility] REF #[id number]. SHE STATED THAT SHE CAN SET UP A SEPARATE CROSSCUTTER FOR PATIENT'S WHEELCHAIR, SAME REF #.
--- NOTE | 2018-11-08 11:14 | NUR ---
PATIENT REPOSITIONED TO L SIDE LYING POSITION, APPLIED LANOLIN CREAM REQUESTED BY PATIENT. PATIENT HAD BM Addendum: 11/08/18 at 1250 by Rebekah Arriaga RN TICO DICK READY TO GIVE HER BED BATH, BUT PATIENT REFUSED STATING SHE WILL WAIT FOR HER DAUGHTER TO GIVE HER A SPONGE BATH Addendum: 11/08/18 at 1304 by Rebekah Arriaga RN PATIENT REFUSED TO WEAR HEEL PROTECTORS STATING SHE ALREADY WORE THEM ALL NIGHT
[2018-11-08] MEDS: BENZOCAINE/MENTHOL 1 LOZ MM PRN (11:17)
--- NOTE | 2018-11-08 11:20 | NUR ---
SARAY SHELLEY OF [facility] [phone] MADE AWARE OF CHANGES ON PATIENT'S DISCHARGE.
--- NOTE | 2018-11-08 11:22 | NUR ---
PATIENT REFUSED REGLAN AND OXYCODONE STATING "IT KNOCKED ME OUT" LAST TIME SHE RECEIVED IT
--- NOTE | 2018-11-08 12:00 | NUR ---
KRISTEN FROM [facility] AT [phone], MADE AWARE THAT PATIENT WILL NOT BE DISCHARGE TODAY.
--- NOTE | 2018-11-08 12:51 | NUR ---
DR. MCKEON STATED PATIENT IS NOT BEING DISCHARGED TODAY. NOTIFIED CHARGE NURSE, [place]
[2018-11-08 13:59] LABS: APPEARANCE,URINE CLOUDY (CLEAR); BILIRUBIN,URINE NEGATIVE (NEGATIVE); BLOOD, URINE 1+ (NEGATIVE); COLOR,URINE YELLOW (YELLOW); LEUKOCYTE ESTERASE ,URINE 3+ (NEGATIVE); NITRITE, URINE POSITIVE (NEGATIVE); UGLUCOSE NEGATIVE (NEGATIVE)
[2018-11-08] MEDS: FLUCONAZOLE 200 MG/NS PREMIX 100 ML IV SCH (14:02)
--- NOTE | 2018-11-08 14:06 | NUR ---
PATIENT SLEEPING SITTING UP IN BED, NO DISTRESS NOTED
[2018-11-08 14:11] LABS: WBC,URINE 16-25 (MOD) /HPF (0-5)
--- NOTE | 2018-11-08 14:26 | NUR ---
11/08/18 RD FOLLOW UP COMPLETED PLEASE REFER TO NUTRITION ASSESSMENT UNDER CARE ACTIVITY FOR ESTIMATED NUTRITIONAL NEEDS. 1. CONTINUE CCHO 60 GM AND CARDIAC DIET TOLERATE 2. RECOMMEND GLUCERNA BID 3. ENCOURAGE PO INTAKE 4. RD TO FOLLOW-UP 3-5 DAYS, MODERATE RISK KANDY HARRIS, RD
[2018-11-08 16:00] VITALS: BP 149/68
--- NOTE | 2018-11-08 16:14 | NUR ---
PATIENT REFUSED BED BATH AGAIN FROM TICO VILLA BUT AGREED TO REPOSITION TO R SIDE LYING POSITION. PATIENT STATED SHE WANTS TO WAIT FOR HER DAUGHTER TO GIVE HER BED BATH. APPLIED LANOLIN CREAM REQUESTED BY PATIENT
[2018-11-08] MEDS: WARFARIN 2.5 MG TAB PO SCH (16:56)
--- NOTE | 2018-11-08 17:02 | NUR ---
ADMINISTERED SCHEDULED MEDS. PATIENT REFUSED OXYCODONE
--- NOTE | 2018-11-08 17:54 | NUR ---
WOKE UP PATIENT AND ENCOURAGED HER TO EAT DINNER SO THAT HER BLOOD SUGAR DOES NOT DROP. LAST BLOOD SUGAR OF 86
--- NOTE | 2018-11-08 19:08 | NUR ---
DISCONTINUED DURAN CATHETER, INSERTED NEW DURAN CATHETER ORDERED BY DR. MCKEON SINCE THERE WAS NEW INFECTION IN URINE. UA COLLECTED FROM PREVIOUS DURAN CATHETER ORDERED AND SENT TO LAB. DURAN CATHETER DATED WITH INITIALS
--- NOTE | 2018-11-08 19:25 | NUR ---
GAVE BEDSIDE REPORT TO ANDREY NAVA. PATIENT ENDORSED IN STABLE CONDITION
--- NOTE | 2018-11-08 19:30 | NUR ---
RECEIVED REPORT FORM BALTAZAR BALDERAS DAYSHIFT NURSE AT BEDSIDE FOR CONTINUITY OF CARE, PT IN STABLE CONDITION.
[2018-11-08] MEDS: ACETYLCYSTEINE 10% (100 MG/ML) 100 MG/ML VIAL INH SCH (19:47)
--- NOTE | 2018-11-08 20:00 | NUR ---
PT IN BED ALL FALLS, SEIZURE AND CONTACT PRECAUTIONS OBSERVED. PT IS ON A VENT AND IS SATURATING AT 100% WITH ALL CURRENT VENT SETTINGS. PT TURNED AND REPOSITIONED FOR COMFORT. SHE IS AOX3 NO S/S OF PAIN OR DISTRESS NOTED. IV SITE IN LEFT IJ INTACT AND RUNNING N/S AT 40MLS/HR.
--- NOTE | 2018-11-08 21:00 | NUR ---
PT REFUSED COLACE BUT DID TAKE ORDERED DITROPAN.
[2018-11-08] MEDS: NACL 0.9% 1,000 ML IV SCH (21:25)
--- NOTE | 2018-11-08 21:30 | NUR ---
URINE CULTURE WAS COLLECTED AND SENT TO LAB. CODI HAD CONSULT WITH PT AT BEDSIDE. 2 NEW IV ABT MEDICATION ORDERED. MERREM HUNG ORDERED.
[2018-11-08] MEDS ORDERED: COLISTIMETHATE SODIUM 150 MG in NACL 0.9% 100 ML IV SCH (22:00)
--- NOTE | 2018-11-08 22:00 | NUR ---
NO ADVERSE REACTION TO MERREM. 2ND IV ABT COLY-MYCIN M PARENTAL 150MG HUNG ORDERED.
[2018-11-08] MEDS: MEROPENEM 500 MG in NACL 0.9% 50 ML IV SCH (22:17)
[2018-11-08] MEDS ORDERED: MEROPENEM 500 MG VIAL IV ONE (22:19)
[2018-11-08] MEDS ORDERED: COLISTIMETHATE SODIUM 150 MG VIAL ONE (23:13)
[2018-11-09] VITALS: BP 119/52
--- NOTE | 2018-11-09 | NUR ---
PT IN BED C/O GENERALIZED PAIN AND WAS GIVEN ORDERED/SCHEDULED OXYCODONE. PT C/O NAUSEA AND WAS GIVEN IVP /PRN ZOFRAN. V/S FOLLOWS T 98 R 14 WITH ALL CURRENT VENT SETTINGS B/P 119/52 P 100 02 100%. ALL FALLS, SEIZURE AND CONTACT PRECAUTIONS IN PLACE.
--- NOTE | 2018-11-09 03:14 | NUR ---
PT IN BED SLEEPING NO S/S OF PAIN OR DISTRESS NOTED, ALL FALLS, ASPIRATIN AND CONTACT PRECAUTIONS IN PLACE. 02 STATING AT 100% WITH AL CURRENT VENT SETTINGS.
[2018-11-09] MEDS: ALBUTEROL SULFATE/IPRATROPIU 3 ML SOL IH SCH ×6 (03:19→23:23)
[2018-11-09 04:00] VITALS: BP 125/60
--- NOTE | 2018-11-09 04:15 | NUR ---
PT IN BED ALL FALLS, CONTACT AND SAFETY PRECAUTIONS IN PLACE, V/S FOLLOWS T 98.7 P 96 R 16 B/P 125/60 02 100% ON ALL VENT SETTINGS. PT TURNED AND REPOSITIONED. PT WANTED TO LAY PRONE DUE TO EATING BREAKFAST SOON.
[2018-11-09] MEDS: PANTOPRAZOLE 40 MG TABEC PO SCH (05:42)
[2018-11-09] MEDS: LEVOTHYROXINE 0.075 MG TAB PO SCH (05:42)
[2018-11-09] MEDS: oxyCODONE 10 MG TABER PO SCH ×3 (05:48→17:05)
[2018-11-09] MEDS: METOCLOPRAMIDE 10 MG TAB PO SCH ×3 (05:59→16:32)
[2018-11-09] MEDS: CILOSTAZOL 100 MG TAB PO SCH ×2 (05:59→16:31)
[2018-11-09] MEDS: BLOOD GLUCOSE MONITORING 1 DEV DEV FS SCH ×4 (06:06→21:04)
[2018-11-09] MEDS: ACETYLCYSTEINE 10% (100 MG/ML) 100 MG/ML VIAL INH SCH ×2 (06:51→21:40)
--- NOTE | 2018-11-09 06:51 | NUR ---
REC'D PT ON CARESCAPE VENT SETTINGS AC14 VT 600 PEEP 5 FIO2 28% ALARMS ON AND AUDIBLE AND AMBU BAG AT SIDE OF VENT AND VENT IS PLUGGED INTO RED OUTLET, I\L TX GIVEN WITH DUONEB 3 ML AND 10% MUCOMYST 1CC WITH NO ADVERSE REACTION POST TX B\S ARE CLEAR BILATERALLY, SXN PT MODERATED AMT OF YELLOW SECRETIONS, PT IS AWAKE AND ALERT PT IS TRACH WITH SHILEY 6XLT AND SKIN INTEGRITY IS INTACT
--- NOTE | 2018-11-09 07:20 | NUR ---
PT GIVEN AM DUE MEDS, PT PULLED UP AND SITTING UP ALMOST 90%. TRACH IN PLACE NO S/S OF PAIN OR DISTRESS NOTED AND CALL BRIGHT IN REACH. CARE ENDORSED TO JOSE DAVID BALDERAS AT BEDSIDE FOR CONTINUITY OF CARE, PT IN STABLE CONDITION.
--- NOTE | 2018-11-09 07:21 | NUR ---
RECEIVED REPORT FROM PIPE STRIPPER NURSE. PATIENT SITTING IN BED WATCHING VIDEOS ON HER PHONE. NO DISTRESS NOTED. ON TRACH TO VENT WITH VENT SETTINGS: FIO2:28%, VT:600, RATE 14, FLOW:40, PEEP:5, PMAX:60 WITH O2 SAT AT 100%. AAOX4, CALM, COOPERATIVE, SKIN COLOR APPROPRIATE TO ETHNICITY, WARM TO TOUCH. HAS SACRAL PRESSURE ULCER, DRESSING IS DRY AND INTACT. HAS LEFT JUGULAR IJ, TRIPLE LUMEN, INTACT, PATENT, AND INFUSING IVF PER MD ORDERS. DURAN CATHETER IN PLACE, DRAINING YELLOW URINE. REVIEWED PLAN OF CARE WITH PATIENT. PATIENT VERBALIZED UNDERSTANDING. SAFETY MEASURES IN PLACE, CALL LIGHT WITHIN REACH. WILL CONTINUE TO MONITOR.
[2018-11-09 08:00] VITALS: BP 107/52
[2018-11-09 08:03] LABS: BASOPHILS # (AUTO) 0.1 K/uL (0.00-0.22); BASOPHILS % (AUTO) 0.4 % (0.0-2.0); EOSINOPHILS # (AUTO) 0.4 K/uL (0-0.4); EOSINOPHILS % (AUTO) 2.7 % (0.0-4.0); HEMATOCRIT 23.3 % (36-48); HEMOGLOBIN 7.5 g/dL (12.0-16.0); LYMPHOCYTES # (AUTO) 1.7 K/uL (2.5-16.5); LYMPHOCYTES % (AUTO) 13.1 % (20.5-51.1); MEAN CORPUSCULAR HEMOGLOBIN 30 pg (27-31); MEAN CORPUSCULAR HGB CONC 32 g/dL (33-37); MEAN CORPUSCULAR VOLUME 92.1 fL (80-94); MONOCYTES # (AUTO) 1.3 K/uL (0.8-1.0); MONOCYTES % (AUTO) 9.5 % (1.7-9.3); NEUTROPHILS # (AUTO) 9.8 K/uL (1.8-7.7); NEUTROPHILS % (AUTO) 74.3 % (42.2-75.2); PLATELET COUNT (AUTO) 226 K/uL (140-450); RED BLOOD CELL COUNT(AUTO) 2.53 MIL/uL (4.20-5.40); RED CELL DISTRIBUTION WIDTH 18.5 % (11.6-13.7); WHITE BLOOD COUNT (AUTO) 13.2 K/uL (4.8-10.8)
[2018-11-09 08:28] LABS: PROTHROMBIN TIME 26.9 secs (10.8-13.4)
[2018-11-09 08:39] LABS: ANION GAP 15.3 (8-16); CARBON DIOXIDE 18.6 mmol/L (21-32); CREATININE 2.6 mg/dL (0.6-1.3)
[2018-11-09 08:44] LABS: POTASSIUM 5.9 mmol/L (3.5-5.1)
[2018-11-09] MEDS: METOPROLOL 25 MG TAB PO SCH (09:00)
[2018-11-09] MEDS: DOCUSATE SODIUM 100 MG GELCAP PO SCH ×2 (09:00→20:53)
[2018-11-09] MEDS: COLISTIMETHATE SODIUM 35 MG in NACL 0.9% 100 ML IV SCH ×2 (09:32→20:51)
[2018-11-09] MEDS: GABAPENTIN 300 MG CAP PO SCH (09:32)
[2018-11-09] MEDS: OXYBUTYNIN 5 MG TAB PO SCH ×2 (09:32→20:53)
[2018-11-09] MEDS: ALLOPURINOL 100 MG TAB PO SCH (09:33)
[2018-11-09] MEDS: FERROUS SULFATE 325 MG TABEC PO SCH ×2 (09:33→16:31)
[2018-11-09] MEDS: ASPIRIN 81 MG TAB.CHEW PO SCH (09:33)
[2018-11-09] MEDS: LACTOBACILLUS RHAMNOSUS GG 1 EACH CAP PO SCH (09:33)
[2018-11-09] MEDS: PATIROMER CALCIUM SORBITEX 8.4 GM PKT PO SCH (09:33)
[2018-11-09] MEDS: ATORVASTATIN 20 MG TAB PO SCH (09:33)
[2018-11-09] MEDS: BENZOCAINE/MENTHOL 1 LOZ MM PRN (09:41)
--- NOTE | 2018-11-09 09:43 | NUR ---
PATIENT SITTING DOWN IN BED WATCHING VIDEOS ON HER PHONE. NO DISTRESS NOTED. SCHEDULED MEDICATIONS DUE GIVEN. COMPLAINS OF SORE THROAT, CEPACOL COUGH DROP GIVEN AT THIS TIME. WILL CONTINUE TO MONITOR.
[2018-11-09] MEDS: MEROPENEM 500 MG in NACL 0.9% 50 ML IV SCH ×2 (10:28→21:39)
--- NOTE | 2018-11-09 10:41 | NUR ---
PATIENT LYING DOWN IN BED WATCHING VIDEOS ON HER PHONE. NO DISTRESS NOTED. CONDITION UNCHANGED. WILL CONTINUE TO MONITOR.
--- NOTE | 2018-11-09 11:48 | NUR ---
ASSISTED HAT LINING PASTER IN CLEANING AND REPOSITIONING PATIENT. APPLIED CREAM ON SACRAL ULCER WOUND. PATIENT TOLERATED WELL. WILL CONTINUE TO MONITOR.
[2018-11-09] MEDS: ONDANSETRON 4 MG/2 ML VIAL IM/IVP PRN ×2 (12:18→21:04)
--- NOTE | 2018-11-09 12:24 | NUR ---
PATIENT COMPLAINS OF NAUSEA, ZOFRAN GIVEN AT THIS TIME. OTHER SCHEDULED MEDICATIONS DUE GIVEN. WILL CONTINUE TO MONITOR.
[2018-11-09] MEDS: NACL 0.9% 1,000 ML IV SCH ×2 (13:24→21:25)
--- NOTE | 2018-11-09 14:55 | NUR ---
PATIENT LYING DOWN IN BED SLEEPING, AROUSABLE BY VOICE. NO DISTRESS NOTED. CONDITION UNCHANGED. WILL CONTINUE TO MONITOR.
[2018-11-09 16:00] VITALS: BP 150/75
[2018-11-09] MEDS: WARFARIN 2.5 MG TAB PO SCH (16:31)
--- NOTE | 2018-11-09 16:35 | NUR ---
PATIENT LYING DOWN IN BED SLEEPING, AROUSABLE BY VOICE. NO DISTRESS NOTED. PATIENT REFUSED TO BE REPOSITIONED AT THIS TIME. SCHEDULED MEDICATIONS DUE GIVEN. WILL CONTINUE TO MONITOR.
--- NOTE | 2018-11-09 17:06 | NUR ---
PATIENT LYING DOWN IN BED SLEEPING, AROUSABLE BY VOICE. SCHEDULED MEDICATIONS DUE GIVEN. WILL CONTINUE TO MONITOR.
--- NOTE | 2018-11-09 19:17 | NUR ---
GAVE REPORT TO SANDING MACHINE OPERATOR NURSE FOR CONTINUITY OF CARE. PATIENT IN STABLE CONDITION.
--- NOTE | 2018-11-09 19:20 | NUR ---
RECEIVED REPORT FORM JOSE DAVID BALDERAS DAYSHIFT NURSE AT BEDSIDE FOR CONTINUITY OF CARE, PT IN STABLE CONDITION.
--- NOTE | 2018-11-09 20:08 | NUR ---
PT IN BED ALL FALLS, CONTACT AND ASPIRATION, AND SEIZURE PRECAUTIONS IN PLACE. PT C/O HER NECK HURT. PT WAS TURNED AND REPOSITIONED FOR COMFORT. SHE IS AOX4 , WITH LEFT IJ TRIPLE LUMEN INTACT AND RUNNING N/S AT 40MLS/HR. PT V/S FOLLOWS T 100.8 P 113 R 18 B/P 149/59 02 99% WITH ALL CURRENT VENT SETTINGS.
--- NOTE | 2018-11-09 20:10 | NUR ---
PT DECLINED TYLENOL AND ANY COOLING MEASURES FOR INCREASED TEMPERATURE.
[2018-11-09] MEDS ORDERED: COLISTIMETHATE SODIUM 150 MG VIAL ONE (20:32)
[2018-11-09] MEDS ORDERED: MEROPENEM 500 MG VIAL IV ONE (20:34)
--- NOTE | 2018-11-09 21:04 | NUR ---
PT C/O UPSET STOMACH, PT DECLINED ANY DINNER BUT DID SIP ON HER GLUCERNA.
--- NOTE | 2018-11-09 21:30 | NUR ---
DR. CONNOR AT BEDSIDE TO CONSULT WITH PT AT BEDSIDE. NEW ORDER NOTED FOR CHEST X-RAY IN AM.
--- NOTE | 2018-11-09 22:18 | NUR ---
PT ALERT AND AWAKE, SPO2 100%, TRACH SECURE AND INTACT, NO SIGN OF RESP DISTRESS OR SOB NOTED AT THIS TIME. PT LOOKS CALM AND COMFORTABLE. CALLED TO BEDSIDE AND SPOKE WITH DAUGHTER AT BEDSIDE WHO WAS CONCERNED ABOUT HER MOTHER BEING RESTLESS. I INFORMED THE DAUGHTER THAT I GAVE THE 0 TX AND INFORMED HER MOTHER THAT I WOULD GIVE THE MUCOMYST (MM) AT THE 2299 TX THE PT'S PEAK PRESSURES WERE HIGH AT THAT TIME AND THAT THE MM MUST BE GIVEN WITH A BRONCHODILATOR. THE PT SAID OK AT THAT TIME(1899 TX). WHILE SPEAKING WITH THE DAUGHTER SHE STATES THAT THE PT IN ALLERGIC TO MM AND THAT WE SHOULD BE TELLING HER WHAT WE ARE GIVING HER. I INFORMED THE DAUGHTER THAT I TOLD THE PT THAT I WAS GIVING HER THE DUONEB EVERY 4 HRS TONIGHT, EXPLAINED THE MED AND SIDE EFFECTS AND THAT I WOULD BE GIVING THE MM WITH THE NEXT TX 2299. I ALSO ASKED THE DAUGHTER IF THE MM WAS GIVEN A DRUG ALLERGY UPON ADMISSION AND THE DAUGHTER STATED "NO", I LET HER KNOW THAT I WOULD FOLLOW UP WITH THE RN AND DOCTOR. THE DAUGHTER IS REQUESTING BENADRYL AT THIS TIME. THE RN IN AWARE. THE DAUGHTER AND PT REFUSE THE MM AT THIS TIME AND DO NOT WANT THE PT TO HAVE MM ANYMORE.
--- NOTE | 2018-11-09 22:30 | NUR ---
DAUGHTER AT BEDSIDE CONCERNED THAT HER MOTHER IS HAVING AN ALLERGIC REACTION TO THE MUCOMYST. PT SAYING HER BELLY HURTS SHE DOESN'T FEEL GOOD. PT REQUEST BENADRYL TO HELP COUNTERACT "REACTION". SPOKE WITH DR. MAYEN WHOM ORDERED PRN MYLANTA FOR UPSET STOMACH. AWAITING MEDICATION TO BE CLEARED BY PHARMACY AND WILL OFFER TO PT.
--- NOTE | 2018-11-09 23:00 | NUR ---
MYLANTA CLEARED BY PHARMACY AND IN PIXIES. PT OFFERED MYLANTA BUT REFUSED.
[2018-11-09] MEDS ORDERED: ALUMINUM HYD/MAG/SIMETHICONE 30 ML UDC PO PRN (23:05)
[2018-11-10] VITALS: BP 153/66
[2018-11-10] MEDS: oxyCODONE 10 MG TABER PO SCH ×4 (00:27→18:00)
--- NOTE | 2018-11-10 00:30 | NUR ---
PT IN BED SITTING UP WITH EYES CLOSED. ALL FALLS, CONTACT, ASPIRATION AND SEIZURE PRECAUTIONS IN PLACE. PT AGREED TO TURN AND REPOSITION. PT GIVEN SCHEDULED OXYCONTIN PILL FOR PAIN. PT V/S FOLLOWS T 98.4 P 113 R 14 B/P 153/66 02 100% ON ALL VENT SETTINGS.
--- NOTE | 2018-11-10 02:30 | NUR ---
PT SLEEPING IN BED ALL FALLS, CONTACT,SEIZURE AND ASPIRATION PRECAUTIONS IN PLACE.
[2018-11-10] MEDS: ALBUTEROL SULFATE/IPRATROPIU 3 ML SOL IH SCH ×6 (03:24→23:11)
--- NOTE | 2018-11-10 04:00 | NUR ---
PT ASLEEP BUT AROUSABLE TO NAME AND LIGHT TOUCH. PT WAS TURNED AND REPOSITIONED. ORDERED CREAM FOR SACRAL PUT ON HER SACRAL AREA. NO S/S OF PAIN OR DISTRESS NOTED.
[2018-11-10] MEDS: LEVOTHYROXINE 0.075 MG TAB PO SCH (06:07)
[2018-11-10] MEDS: PANTOPRAZOLE 40 MG TABEC PO SCH (06:07)
[2018-11-10] MEDS: CILOSTAZOL 100 MG TAB PO SCH (06:08)
[2018-11-10] MEDS: METOCLOPRAMIDE 10 MG TAB PO SCH ×3 (06:09→16:30)
--- NOTE | 2018-11-10 06:30 | NUR ---
ALL DUE AM MEDS GIVEN. FINGERSTICK IS 71, PT GIVEN OJ TO DRINK TO INCREASE BLOOD SUGAR.
--- NOTE | 2018-11-10 06:34 | NUR ---
RECEIVED PT ON CARESCAPE ON DOCUMENTED SETTINGS, ALARMS ARE ON AND AUDIBLE, PTS TRACH SHILEY 6 XLT IS SECURE , PT IN HF AWAKE, BS DIMINISHED I\L SX SCANT YELLOW, HHN GIVEN I\L WITH 3 MG DUONEB, MUCOMYST NOT GIVEN, BMV HOB , VENT PLUGGED INTO RED OUTLET, CONT. POX IN PLACE
[2018-11-10] MEDS: ACETYLCYSTEINE 10% (100 MG/ML) 100 MG/ML VIAL INH SCH (06:50)
--- NOTE | 2018-11-10 07:00 | NUR ---
FINGERSTICK RETAKEN, PT DRANK 1 BOX OF OJ, FINGERSTICK IS 78.
--- NOTE | 2018-11-10 07:12 | NUR ---
CARE ENDORSED TO JOSE DAVID BALDERAS DAYSHIFT NURSE AT BEDSIDE FOR CONTINUITY OF CARE PT IN STABLE CONDITION.
--- NOTE | 2018-11-10 07:13 | NUR ---
RECEIVED REPORT FROM BAR TACKER NURSE. PATIENT SITTING IN BED SLEEPING, AROUSABLE BY VOICE. NO DISTRESS NOTED. ON TRACH TO VENT WITH VENT SETTINGS: FIO2:28%, VT:600, RATE 14, FLOW:40, PEEP:5, PMAX:60 WITH O2 SAT AT 100%. AAOX4, CALM, COOPERATIVE, SKIN COLOR APPROPRIATE TO ETHNICITY, WARM TO TOUCH. HAS SACRAL PRESSURE ULCER, DRESSING IS DRY AND INTACT. HAS LEFT JUGULAR IJ, TRIPLE LUMEN, INTACT, PATENT, AND INFUSING IVF PER MD ORDERS. DURAN CATHETER IN PLACE, DRAINING YELLOW URINE. REVIEWED PLAN OF CARE WITH PATIENT. PATIENT VERBALIZED UNDERSTANDING. SAFETY MEASURES IN PLACE, CALL LIGHT WITHIN REACH. WILL CONTINUE TO MONITOR.
[2018-11-10 08:00] VITALS: BP 103/47
[2018-11-10] MEDS: BLOOD GLUCOSE MONITORING 1 DEV DEV FS SCH ×4 (08:03→21:36)
[2018-11-10 08:33] LABS: PROTHROMBIN TIME 26.6 secs (10.8-13.4)
[2018-11-10] MEDS: COLISTIMETHATE SODIUM 35 MG in NACL 0.9% 100 ML IV SCH ×2 (08:48→21:00)
[2018-11-10] MEDS: METOPROLOL 25 MG TAB PO SCH (09:00)
[2018-11-10] MEDS: DOCUSATE SODIUM 100 MG GELCAP PO SCH ×2 (09:00→21:00)
[2018-11-10] MEDS: GABAPENTIN 300 MG CAP PO SCH (09:09)
[2018-11-10] MEDS: ATORVASTATIN 20 MG TAB PO SCH (09:09)
[2018-11-10] MEDS: LACTOBACILLUS RHAMNOSUS GG 1 EACH CAP PO SCH (09:09)
[2018-11-10] MEDS: ASPIRIN 81 MG TAB.CHEW PO SCH (09:09)
[2018-11-10] MEDS: ALLOPURINOL 100 MG TAB PO SCH (09:09)
[2018-11-10] MEDS: FERROUS SULFATE 325 MG TABEC PO SCH ×2 (09:09→17:00)
[2018-11-10] MEDS: BENZOCAINE/MENTHOL 1 LOZ MM PRN (09:14)
--- NOTE | 2018-11-10 09:15 | NUR ---
PATIENT LYING DOWN IN BED SLEEPING, AROUSABLE BY VOICE. NO DISTRESS NOTED. DENIES ANY PAIN AT THIS TIME. SCHEDULED MEDICATIONS DUE GIVEN. WILL CONTINUE TO MONITOR.
[2018-11-10] MEDS: MEROPENEM 500 MG in NACL 0.9% 50 ML IV SCH ×2 (09:38→21:44)
[2018-11-10 09:43] LABS: ANION GAP 14.9 (8-16); CARBON DIOXIDE 18.2 mmol/L (21-32); CREATININE 2.7 mg/dL (0.6-1.3)
[2018-11-10 09:46] LABS: POTASSIUM 6.1 mmol/L (3.5-5.1)
[2018-11-10] MEDS ORDERED: SODIUM FERRIC GLUCONATE 125 MG in NACL 0.9% 100 ML IV SCH (10:00)
--- NOTE | 2018-11-10 10:00 | NUR ---
PATIENT LYING DOWN IN BED SLEEPING, AROUSABEL BY VOICE. REFUSED TO BE TURNED AT THIS TIME. WILL CONTINUE TO MONITOR.
[2018-11-10] MEDS: PATIROMER CALCIUM SORBITEX 8.4 GM PKT PO SCH (10:49)
--- NOTE | 2018-11-10 11:00 | NUR ---
PATIENT LYING DOWN IN BED SLEEPING, AROUSABLE BY VOICE. NO DISTRESS NOTED. SCHEDULED MEDICATIONS DUE GIVEN. WILL CONTINUE TO MONITOR.
[2018-11-10] MEDS ORDERED: PATIROMER CALCIUM SORBITEX 8.4 GM PKT PO SCH (11:45)
--- NOTE | 2018-11-10 12:45 | NUR ---
PATIENT SITTING IN BED SLEEPING, AROUSABLE BY VOICE. NO DISTRESS NOTED. SCHEDULED MEDICATIONS DUE GIVEN. WILL CONTINUE TO MONITOR.
[2018-11-10] MEDS ORDERED: DRY DRESSING TP SCH (13:00)
[2018-11-10] MEDS: Z-GUARD PASTE TP SCH (13:00)
--- NOTE | 2018-11-10 13:31 | NUR ---
PATIENT COMPLAINS OF ABD PAIN. MYLANTA GIVEN AT THIS TIME. DR. RAWLS AT BEDSIDE REVIEWING PLAN OF CARE WITH PATIENT. WILL CONTINUE TO MONITOR.
--- NOTE | 2018-11-10 14:25 | NUR ---
PATIENT SITTING DOWN IN BED TALKING WITH DAUGHTER AT BEDSIDE. WILL CONTINUE TO MONITOR.
[2018-11-10 16:00] VITALS: BP 125/81
--- NOTE | 2018-11-10 16:40 | NUR ---
PATIENT DAUGHTER AT BEDSIDE. WANTED TO TURN PATIENT WITH PAPER PRODUCTS MACHINE OPERATOR, HOWEVER, DAUGHTER SAYS TO JUST LEAVE HER ALONE RIGHT NOW TO LET HER REST SINCE SHE DID NOT GET MUCH SLEEP LAST NIGHT. LEFT PATIENT IN SUPINE AT THIS TIME. WILL CONTINUE TO MONITOR.
--- NOTE | 2018-11-10 16:51 | NUR ---
daughter at bedside wanting to know why pt is ALOC and stating that her mother has not eaten in four days. tory callejas at bedside i tried to explain to daughter that her mom is talking and eating yesterday while in my care. daughter once again stated i did not know my job because she was here all day yesterday. when i asked tory callejas if pt had any pain medication the daughter once again stated that it didnt matter if she did, cause pt would not be like this. daughter would not allow . danita to sxn or do trach care. talked to dr. byrd concerning the problem and ask to talk to daughter.
[2018-11-10] MEDS ORDERED: WARFARIN 2.5 MG TAB PO SCH (17:00)
[2018-11-10] MEDS: DEXTROSE 50% 50 ML SYR IVP PRN ×2 (17:24→21:49)
--- NOTE | 2018-11-10 17:34 | NUR ---
DAUGHTER AT BEDSIDE. BS CHECKED AT 67, PATIENT DROWSY AND UNABLE TO DRINK JUICES AT THIS TIME. D50 GIVEN PER ORDERS. DAUGHTER CONCERNED THAT PATIENT IS GETTING WORSE. SAYS SHE DEVELOPED PRESSURE ULCER AT THIS HOSPITAL AND THAT NURSING STAFF ONLY TURN PATIENT ONCE PER SHIFT, HOWEVER, NURSING STAFF CONTINUALLY WANTS TO TURN PATIENT Q2 HOURS, HOWEVER, PATIENT REFUSES OCCASIONALLY TO BE TURNED AND WE CANNOT FORCE HER. DAUGHTER ALSO REFUSES TO HAVE PATIENT TURNED JUST A WHILE AGO. DAUGHTER ALSO SAYS THAT PATIENT HAS NOT BEEN EATING FOR 4 DAYS STRAIGHT NOW, HOWEVER, PATIENT WAS EATING YESTERDAY. NOTIFIED DAUGHTER, DAUGHTER REFUSES TO BELIEVE NURSING STAFF AND RT WHO WAS PRESENT AT THE TIME. DAUGHTER CLAIMS SHE WAS HERE ALL DAY YESTERDAY AND KNOWS HOW MUCH SHE ATE FOR BREAKFAST AND LUNCH, HOWEVER, DAUGHTER WAS AT HOSPITAL AT 1900 PER DAUGHTER SAYS JUST NOW. DAUGHTER WANTS TO SPEAK TO . DR. AMBRIZ NOTIFIED. WILL CONTINUE TO MONITOR.
--- NOTE | 2018-11-10 17:56 | NUR ---
RECHECKED BLOOD SUGAR, IT IS 123 AT THIS TIME. WILL CONTINUE TO MONITOR.
--- NOTE | 2018-11-10 17:59 | NUR ---
ORAL MEDICATIONS DUE AT THIS TIME NOT GIVEN PER PATIENT UNABLE TO TOLERATE ORAL MEDICATIONS AT THIS TIME DUE TO DROWSINESS AND WEAKNESS. PER DAUGHTER AT BEDSIDE, REFUSE MEDICATIONS AT THIS TIME. WILL CONTINUE TO MONITOR.
--- NOTE | 2018-11-10 18:05 | NUR ---
DR. AMBRIZ AT BEDSIDE SPEAKING WITH DAUGHTER. DAUGHTER VERBALIZES NOT TO GIVE ANY ORAL MEDICATIONS AT THIS TIME. PER DAUGHTER "WE ARE GIVING THIS HOSPITAL 24 HOURS FOR HER TO GET BETTER, WAKE UP MORE". WILL CONTINUE TO MONITOR.
--- NOTE | 2018-11-10 18:26 | NUR ---
OXYCODONE NOT GIVEN AT THIS TIME PER DAUGHTER AT BEDSIDE REQUEST. MD AWARE. PO MEDS TO BE CLEARED BY DAUGHTER FIRST BEFORE GIVING. WILL CONTINUE TO MONITOR.
--- NOTE | 2018-11-10 18:45 | NUR ---
PATIENT STILL DROWSY, UNABLE TO TAKE PO MEDS AT THIS TIME. WILL CONTINUE TO MONITOR.
[2018-11-10 19:01] LABS: ANION GAP 14.9 (8-16); CARBON DIOXIDE 19.4 mmol/L (21-32); CREATININE 2.8 mg/dL (0.6-1.3)
--- NOTE | 2018-11-10 19:03 | NUR ---
Received pt stable on vent support at documented settings, suctioned small amount of thick white yellow secretions, hhn tx given, tolerated well, no resp distress or SOB noted at this time, pt drowsy, Shiley 6 XLT trach secured/patent/midline, alarms set and audible, ambu bag at bedside, vent plugged into red outlet, cont pulse ox on, will cont to monitor.
[2018-11-10 19:26] LABS: POTASSIUM 6.3 mmol/L (3.5-5.1)
--- NOTE | 2018-11-10 19:34 | NUR ---
GAVE REPORT TO PHOTOGRAPHY ASSISTANT NURSE. PATIENT IN STABLE CONDITION.
--- NOTE | 2018-11-10 19:35 | NUR ---
Received endorsement from AM shift RN; patient is A/Ox2, unable to make needs known, Israeli speaking, bedbound. Patient is with daughter; introduced self, updated board. No SOB or distress noted, on trach to [facility] vent FiO2 28%. IV site on left IJ, triple lumen running IVF at 40mL/hr. Skin intact, but noted with sacral redness. Suárez cath in place. On contact precautions for ESBL, MDRO, FINAL ARMATURE TESTER urine; precautions observed and maintained. Bed in the lowest position, call light within reach. Initial assessment done. Will, continue to monitor.
--- NOTE | 2018-11-10 19:37 | NUR ---
Vitals taken; patient noted with fever of 101.7. Asked daughter if it was ok to give PRN Tylenol for fever; patient refused. Risks explained, daughter still refused med, made aware she has power of research attorney. Made Dr. Varela and Dr. Sanabria aware. Dr. Sanabria went to patient room at this time. Addendum: 11/13/18 at 1819 by Uday Martin RN Daughter very demanding.
--- NOTE | 2018-11-10 20:40 | NUR ---
Meds refused except for IV antibiotic Merrem. Dr. Varela made aware.
[2018-11-10] MEDS ORDERED: FUROSEMIDE 20 MG/2 ML VIAL IVP SCH (21:00)
[2018-11-10] MEDS: NACL 0.9% 1,000 ML IV SCH (21:25)
--- NOTE | 2018-11-10 21:55 | NUR ---
Patient noted with blood sugar of 66; administered Dextrose abboject per orders. Will continue to monitor.
--- NOTE | 2018-11-10 22:20 | NUR ---
Patient noted with rising temperature of 102.1 Dr. Varela made aware; ordered received for Tylenol suppository. Asked patient if we can administer med; patient and daughter refused med, risks explained, patient still refused. Dr. Varela made aware.
[2018-11-10] MEDS ORDERED: ACETAMINOPHEN 650 MG SUPP RC PRN (22:30)
[2018-11-10 22:55] LABS: BASOPHILS % (AUTO) 0.3 % (0.0-2.0); EOSINOPHILS # (AUTO) 0.4 K/uL (0-0.4); EOSINOPHILS % (AUTO) 3.3 % (0.0-4.0); HEMATOCRIT 24.3 % (36-48); LYMPHOCYTES # (AUTO) 1.6 K/uL (2.5-16.5); MEAN CORPUSCULAR HEMOGLOBIN 29 pg (27-31); MEAN CORPUSCULAR HGB CONC 31 g/dL (33-37); MEAN CORPUSCULAR VOLUME 93.8 fL (80-94); MONOCYTES # (AUTO) 1.3 K/uL (0.8-1.0); MONOCYTES % (AUTO) 11.1 % (1.7-9.3); NEUTROPHILS # (AUTO) 8.8 K/uL (1.8-7.7); NEUTROPHILS % (AUTO) 72.3 % (42.2-75.2); PLATELET COUNT (AUTO) 211 K/uL (140-450); RED BLOOD CELL COUNT(AUTO) 2.59 MIL/uL (4.20-5.40); RED CELL DISTRIBUTION WIDTH 18.2 % (11.6-13.7); WHITE BLOOD COUNT (AUTO) 12.1 K/uL (4.8-10.8)
[2018-11-10] MEDS ORDERED: HYDROmorphone 1 MG/ML AMP IVP PRN (23:15)
[2018-11-10 23:51] LABS: HEMOGLOBIN 7.6 g/dL (12.0-16.0)
[2018-11-11] VITALS: BP 121/72
--- NOTE | 2018-11-11 00:10 | NUR ---
Vitals taken; patient still noted with fever of 102.5. Daughter stated she will have friend waste picker Tylenol syrup at [facility] since she declined Tylenol suppository and will not accept crushed meds. Addendum: 11/13/18 at 1818 by Uday Martin RN Dr. Varela made aware.
[2018-11-11] MEDS: Z-GUARD PASTE TP SCH (00:49)
[2018-11-11] MEDS ORDERED: SODIUM PHOSPHATE 118 ML ENEM RC SCH (02:15)
[2018-11-11] MEDS: ALBUTEROL SULFATE/IPRATROPIU 3 ML SOL IH SCH ×2 (02:16→06:39)
--- NOTE | 2018-11-11 02:50 | NUR ---
Administered fleet enema; patient noted with brown, liquid BM. Patient cleaned, chux and linens changed.
--- NOTE | 2018-11-11 03:30 | NUR ---
Daughter administered Tylenol syrup from [facility]. Will monitor temperature.
--- NOTE | 2018-11-11 04:30 | NUR ---
Tylenol syrup effective in lowering fever; temperature 99.1.
--- NOTE | 2018-11-11 05:40 | NUR ---
Changed central line dressing. Aseptic technique maintained.
[2018-11-11] MEDS: oxyCODONE 10 MG TABER PO SCH ×2 (06:00)
[2018-11-11] MEDS: LEVOTHYROXINE 0.075 MG TAB PO SCH (06:13)
[2018-11-11] MEDS: PANTOPRAZOLE 40 MG TABEC PO SCH (06:30)
--- NOTE | 2018-11-11 06:39 | NUR ---
REC'D PT ON [employer]ES[employer]E VENT SETTINGS AC14 VT 500 PEEP 5 FIO2 28% ALARMS ON AND FUNCTIONING PROPERLY, AMBU BAG AT SIDE OF VENT AND VENT IS PLUGGED INTO RED OUTLET, I\L TX GIVEN WITH DUONEB 3ML WITH NO ADVERSE REACTION POST TX B\S ARE CLEAR BILATERALLY, SXN PT SMALL AMT OF THICK WHITE SECRETIONS, PT IS TRACH WITH SHILEY 6XLT IS DEFLATED AND SKIN INTEGRITY IS INTACT, PT'S DAUGHTER AT BEDSIDE Addendum: 11/11/18 at 0722 by Dannielle Cole RT PT'S VT IS 600
[2018-11-11] MEDS: BLOOD GLUCOSE MONITORING 1 DEV DEV FS SCH (06:41)
[2018-11-11 06:52] LABS: BASOPHILS # (AUTO) 0.1 K/uL (0.00-0.22); BASOPHILS % (AUTO) 0.4 % (0.0-2.0); EOSINOPHILS # (AUTO) 0.3 K/uL (0-0.4); EOSINOPHILS % (AUTO) 2.4 % (0.0-4.0); HEMATOCRIT 21.4 % (36-48); LYMPHOCYTES # (AUTO) 2.5 K/uL (2.5-16.5); LYMPHOCYTES % (AUTO) 20.3 % (20.5-51.1); MEAN CORPUSCULAR HEMOGLOBIN 30 pg (27-31); MEAN CORPUSCULAR HGB CONC 32 g/dL (33-37); MEAN CORPUSCULAR VOLUME 92.2 fL (80-94); MONOCYTES # (AUTO) 1.6 K/uL (0.8-1.0); MONOCYTES % (AUTO) 13.3 % (1.7-9.3); NEUTROPHILS # (AUTO) 7.9 K/uL (1.8-7.7); NEUTROPHILS % (AUTO) 63.6 % (42.2-75.2); PLATELET COUNT (AUTO) 201 K/uL (140-450); RED BLOOD CELL COUNT(AUTO) 2.33 MIL/uL (4.20-5.40); RED CELL DISTRIBUTION WIDTH 17.7 % (11.6-13.7); WHITE BLOOD COUNT (AUTO) 12.4 K/uL (4.8-10.8)
[2018-11-11] MEDS: METOCLOPRAMIDE 10 MG TAB PO SCH (06:53)
[2018-11-11 06:54] LABS: ANION GAP 15.7 (8-16); CARBON DIOXIDE 17.1 mmol/L (21-32); CREATININE 3.1 mg/dL (0.6-1.3)
[2018-11-11 06:56] LABS: MAGNESIUM 1.4 mg/dL (1.8-2.4); PHOSPHORUS 3.4 mg/dL (2.5-4.9)
[2018-11-11 07:00] LABS: POTASSIUM 5.8 mmol/L (3.5-5.1)
--- NOTE | 2018-11-11 07:00 | NUR ---
Critical lab reported at this time; potassium 5.8, trending down.
--- NOTE | 2018-11-11 07:23 | NUR ---
Endorsed patient to AM shift RN for continuity of care, but patient and daughter ready to go AMA. Charge nurse Nathaniel and Mimi made aware. Mimi went to bedside. Addendum: 11/11/18 at 0821 by Uday Martin RN Patient went on elopement, not AMA since patient and daughter refused to sign AMA paperwork.
--- NOTE | 2018-11-11 07:24 | NUR ---
PATIENT ELOPED WITH DAUGHTER. PATIENT AND DAUGHTER REFUSED TO SIGN AMA PAPERWORK, STATED THEIR TRANSPORT WAS HERE. INFORMED HARRY, PM LENS BLOCK GAUGER, AND JUANITA, DIRECTOR OF [facility]. JUANITA WENT TO SPEAK WITH PATIENT. PATIENT AND DAUGHTER TOOK ALL THEIR BELONGINGS WITH THEM. CALLED RT SAHU TO INFORM HER.
--- NOTE | 2018-11-11 07:25 | NUR ---
PT WENT AMA Addendum: 11/11/18 at 0957 by Dannielle Cole RT PT ELOPED WITH DAUGHTER
[2018-11-11 08:50] LABS: PROTHROMBIN TIME 30.8 secs (10.8-13.4)
[2018-11-11 08:51] LABS: HEMOGLOBIN 6.9 g/dL (12.0-16.0)
--- NOTE | 2018-11-11 08:55 | NUR ---
Wound Consult not done, pt AMA. Addendum: 11/11/18 at 0858 by Dannielle Dailey RN (Grace) According to record. pt with elopement, pt. refused to sign AMA.
[2018-11-11] MEDS ORDERED: PATIROMER CALCIUM SORBITEX 8.4 GM PKT PO SCH (09:00)
[2018-11-11] MEDS ORDERED: NACL 0.9% IRR 250 ML BOTTLE IR SCH (09:00)
== END 2018-11-11 07:23 | disposition left against medical advice (07) | DRG 870 ==
LOC: MED 09:27 → MTU 13:29
PROVIDERS: ADMIT General Practice; ATTEND General Practice
PROC: 5A1955Z Respiratory Ventilation, Greater than 96 Consecutive Hours (ICD-10-PCS; 2018-10-27)
PROC: 02HV33Z Insertion of Infusion Device into Superior Vena Cava, Percutaneous Approach (ICD-10-PCS; principal; 2018-11-04)
PROC: B548ZZA Ultrasonography of Superior Vena Cava, Guidance (ICD-10-PCS; 2018-11-04)
DX: A41.52 Sepsis due to Pseudomonas (principal); N17.0 Acute kidney failure with tubular necrosis; R53.2 Functional quadriplegia; J96.21 Acute and chronic respiratory failure with hypoxia; J69.0 Pneumonitis due to inhalation of food and vomit; E43 Unspecified severe protein-calorie malnutrition; Z99.11 Dependence on respirator [ventilator] status; B37.49 Other urogenital candidiasis; I45.2 Bifascicular block; J44.0 Chronic obstructive pulmonary disease with (acute) lower respiratory infection; I82.419 Acute embolism and thrombosis of unspecified femoral vein; E87.1 Hypo-osmolality and hyponatremia; I42.9 Cardiomyopathy, unspecified; D68.59 Other primary thrombophilia; N13.30 Unspecified hydronephrosis; E83.51 Hypocalcemia; E87.5 Hyperkalemia; E66.9 Obesity, unspecified; E11.22 Type 2 diabetes mellitus with diabetic chronic kidney disease; E11.51 Type 2 diabetes mellitus with diabetic peripheral angiopathy without gangrene; I12.9 Hypertensive chronic kidney disease with stage 1 through stage 4 chronic kidney disease, or unspecified chronic kidney disease; B96.5 Pseudomonas (aeruginosa) (mallei) (pseudomallei) as the cause of diseases classified elsewhere; E03.9 Hypothyroidism, unspecified; E11.42 Type 2 diabetes mellitus with diabetic polyneuropathy; E11.43 Type 2 diabetes mellitus with diabetic autonomic (poly)neuropathy; K31.84 Gastroparesis; J84.10 Pulmonary fibrosis, unspecified; E78.5 Hyperlipidemia, unspecified; Y95 Nosocomial condition; N18.9 Chronic kidney disease, unspecified; K59.00 Constipation, unspecified; M10.9 Gout, unspecified; E11.21 Type 2 diabetes mellitus with diabetic nephropathy; K21.9 Gastro-esophageal reflux disease without esophagitis; D63.1 Anemia in chronic kidney disease; M54.5 Low back pain; I49.1 Atrial premature depolarization; F32.9 Major depressive disorder, single episode, unspecified; D50.9 Iron deficiency anemia, unspecified; E83.42 Hypomagnesemia; I25.10 Atherosclerotic heart disease of native coronary artery without angina pectoris; M25.461 Effusion, right knee; Z53.21 Procedure and treatment not carried out due to patient leaving prior to being seen by health care provider; L89.152 Pressure ulcer of sacral region, stage 2; G40.909 Epilepsy, unspecified, not intractable, without status epilepticus; I25.2 Old myocardial infarction; G89.29 Other chronic pain; Z68.35 Body mass index [BMI] 35.0-35.9, adult; Z71.3 Dietary counseling and surveillance; Z93.0 Tracheostomy status; Z88.5 Allergy status to narcotic agent; Z86.73 Personal history of transient ischemic attack (TIA), and cerebral infarction without residual deficits; Z86.718 Personal history of other venous thrombosis and embolism; Z88.2 Allergy status to sulfonamides; Z88.8 Allergy status to other drugs, medicaments and biological substances; Z88.6 Allergy status to analgesic agent; Z88.1 Allergy status to other antibiotic agents; Z91.041 Radiographic dye allergy status; Z79.899 Other long term (current) drug therapy; Z79.82 Long term (current) use of aspirin; Z82.5 Family history of asthma and other chronic lower respiratory diseases; Z83.3 Family history of diabetes mellitus; Z82.49 Family history of ischemic heart disease and other diseases of the circulatory system; Z83.6 Family history of other diseases of the respiratory system
CPT/HCPCS: 36415; 36600; 51702; 71045; 73562; 76770; 80048; 80053; 80200; 80305; 81001; 82140; 82272; 82550; 82728; 82803; 82948; 83036; 83540; 83605; 83690; 83735; 83880; 84100; 84132; 84443; 84484; 84550; 85025; 85045; 85610; 85730; 87040; 87070; 87081; 87086; 87186; 87205; 89220; 93005; 93925; 93970; 94003; 94640; 96361; 96365; 96375; 99285; C1751; J0770; J1170; J1450; J1642; J1815; J1885; J1956; J2020; J2185; J2405; J2543; J2916; J2930; J3260; J3475; J3490; J7030; J7060; J7620; J8597; Q0092; Q0163